=== PATIENT | female | born 1990 | race Caucasian/White ===

== ENCOUNTER 2019-10-09 00:20 | Observation (INO) | payer BC, SELFPAY ==
[2019-10-09] VITALS (26 sets, daily range): BP systolic 77–127; BP diastolic 38–77; PULSE 54–110; RESP 18–23; TEMP 36.1–37.9; O2SAT 93–100
--- NOTE | ~2019-10-09 | US_ITS ---
EXAMINATION: US OB <=14 wk fetus w TV DATE: 10/09/2019 02:11 INDICATION: Pelvic pain. Beta-hCG is 26,698 mIU/mL. TECHNIQUE: Real-time transabdominal and transvaginal pelvic ultrasound was performed. COMPARISON: None. FINDINGS: TRANSABDOMINAL ULTRASOUND: The uterus measures 8.1 x 4.6 x 4.6 cm. TRANSVAGINAL ULTRASOUND: There is no visible intrauterine gestational sac. The endometrial complex me asures 1.7 cm in thickness. There is no visible intrauterine gestational sac. There is a 3.3 cm left adnexal mass. The right ovary measures 2.7 x 1.7 x 1.5 cm. The left ovary measures 3.0 x 2.3 x 3.3 cm . There is a small volume of echogenic free fluid in the pelvis with fluid/fluid level, likely hemope ritoneum. IMPRESSION: 1. 3.3 cm left adnexal mass suspicious for ectopic . Dr. Marte discussed this case with Dr Jose Mukherjee on 10/09/19 at 2:15 AM. 2. Small volume of hemoperitoneum. Reviewed, dictated and finalized at location A. K SELECTOR IMPRESSION: 1. 3.3 cm left adnexal mass suspicious for ectopic . Dr. Marte discu ssed this case with Dr. Mukherjee on 10/09/19 at 2:15 AM. 2. Small volume of hemoperitoneum.
--- NOTE | 2019-10-09 00:27 | ED.ABDPAIN ---
HPI - Abdominal Pain General Chief Complaint: Abdominal Pain Stated Complaint: abdo pain Time Seen by Provider: 10/09/19 00:24 Source: patient and RN notes reviewed Mode of arrival: ambulatory Limitations: no limitations History of Present Illness HPI narrative: Pt is a 29 y/o female who presents to the ED with c/o diffuse ABD pain starting roughly 1 hour ago. She notes that she believes she may be currently 3 weeks . Pt reports nausea, vomiting, and diaphoresis accompanying her pain, but denies any fever. She states that she hasn't taken any pain medications for her symptoms this evening. Pt notes that her LMP was 09/14/19. MD elicited complaint: abdominal pain Onset (ago): hour(s) (1) Location: diffuse Associated symptoms: nausea, vomiting and other (diaphoresis) Related Data Date of Last Menstrual Period: 09/14/19 Allergies Allergy/AdvReac Type Severity Reaction Status Date / Time No Known Allergies Allergy Verified 01/30/19 00:29 Review of Systems Review of Systems: All systems reviewed & are unremarkable except as noted in HPI and below Constitutional: Constitutional: Denies fever(s) Cardiovascular: Cardiovascular: Reports diaphoresis Gastrointestinal: Gastrointestinal: Reports abdominal pain (diffuse), Reports nausea and Reports vomiting PMFSH Past Medical History Medical History Asthma Bronchitis Pyelonephritis Surgical History Surgical History History of tonsillectomy Hx of cholecystectomy Social History Social History Smoking status: Never smoker Second hand tobacco smoke exposure: No Alcohol intake: never Exam Narrative: Exam Narrative: APPEARANCE: No acute distress, nontoxic, resting in bed HEENT: Normocephalic, atraumatic, OMM RESPIRATORY: No respiratory distress, clear to auscultation bilaterally with no rhonchi wheezing or rales CARDIOVASCULAR: RRR s murmur ABDOMINAL: Obese, soft, diffusely tender to palpation with positive rebound MUSCULOSKELETAl: Moves all extremities. No clubbing, cyanosis or edema. NEURO: Awake and alert. Following commands, speech normal, no focal deficits SKIN:: Warm, dry. Normal Color PSYCHIATRIC: Normal affect/mood Course Course Emergency Course: Discussed with patient results of ultrasound need for OR in agreement at this time Just prior to patient being transferred down to the OR patient again had episode of pain. Patient became diaphoretic blood pressure dropped into the 70s systolically. At that time liter of normal saline was started on the patient. I called and updated Dr. Prakash patient's change as well as discussed with anesthesiology who are all in house at this time. Patient will proceed to the OR at this time Reevaluation(s) Date: 10/09/19 Time: 02:40 Reevaluation #2: Dr. Prakash in the emergency department to evaluate patient Consultations Consultation #1: Discussed case with CAREER DEVELOPMENT ASSOCIATE, Dr. Prakash. Get the US and then give her a call back. Date: 10/09/19 Time: 00:50 Consultation #2: Discussed case again with CAREER DEVELOPMENT ASSOCIATE, Dr. Prakash. Reviewed US results.Will come in and take the pt to the OR. Date: 10/09/19 Time: 02:19 Vital Signs Vital signs: Vital Signs Temperature 98.9 F 10/09/19 00:26 Pulse Rate 80 10/09/19 00:26 Respiratory Rate 18 10/09/19 00:26 Blood Pressure 96/38 L 10/09/19 00:26 Pulse Oximetry 96 10/09/19 00:26 Temperature 98.9 F 10/09/19 00:26 Pulse Rate 81 10/09/19 03:15 Respiratory Rate 20 10/09/19 03:15 Blood Pressure 77/52 L 10/09/19 03:15 Pulse Oximetry 98 10/09/19 03:15 MDM - Abdominal Pain Lab Data Result diagrams: 10/09/19 00:53 10/09/19 00:53 Labs: Lab Results 10/09/19 10/09/19 10/09/19 Range/Units 00:53 00:53 00:53 WBC 13.5 H (4.5-10.0) K/mm3 RBC 3.96 L (4.2-5.4) M/mm3 Hgb 11.1 L (12.0-
[2019-10-09] MEDS: SODIUM CHLORIDE 0.9% IV 1,000 ML 999 ML IV CONT ×2 (00:37→01:28)
[2019-10-09 01:03] LABS: Basophils Percent Auto 0.3 % (0.2-1.2); Eosinophils Absolute Auto 0.2 K/mm3 (0-0.3); Eosinophils Percent Auto 1.6 % (0-4.4); Hematocrit 35.5 % (37.0-47.0); Hemoglobin 11.1 g/dL (12.0-15.0); Immature Granulocyte Absolute 0.06 K/mm3 (0.00-0.031); Immature Granulocyte Percent A 0.4 % (0-0.5); Lymphocytes Absolute Auto 3.29 K/mm3 (0.9-3.2); Lymphocytes Percent Auto 24.3 % (18.3-44.2); Mean Corpuscular HGB Conc 31.3 g/dl (32-36); Mean Corpuscular Volume 89.6 fl (80-100); Mean Platelet Volume 10.5 fl (7.4-10.4); Monocytes Absolute Auto 0.6 K/mm3 (0.1-0.6); Monocytes Percent Auto 4.1 % (2.6-8.5); Neutrophils Absolute Auto 9.4 K/mm3 (1.3-6.7); Neutrophils Percent Auto 69.3 % (45.5-73.1); Platelet Count Result 309 k/mm3 (150-375); Red Blood Count 3.96 M/mm3 (4.2-5.4); White Blood Count 13.5 K/mm3 (4.5-10.0)
[2019-10-09 01:12] LABS: Add Urine Microscopic? YES; Appearance Urine Clear (Clear); Bilirubin Urine Negative (Negative); Blood Urine 1+ (Negative); Color Urine Yellow (Yellow); Glucose Urine UA Negative (Negative); Ketones Urine Negative (Negative); Leukocyte Esterase Ur Negative LEU/UL (Negative); Mucus Urine Rare /lpf; Nitrate Urine Negative (Negative); Protein Urine 1+ mg/dL (Negative); Specific Grav Ur 1.014 (1.001-1.035); Squamous Epithelial Cell Urine Few /hpf (Few); Urobilinogen Urine Negative mg/dL (<2.0); WBC Urine 0-3 /hpf
[2019-10-09 01:18] LABS: Alanine Aminotransferase 11 U/L (4-35); Albumin Level 3.4 g/dL (3.5-5.1); Alkaline Phosphatase 61 U/L (38-126); Aspartate Amino Transferase 13 U/L (14-36); Bilirubin,Total 0.2 mg/dL (0.2-1.3); Blood Urea Nitrogen 9 mg/dL (7-17); Calcium 8.2 mg/dL (8.4-10.2); Carbon Dioxide 21 mmol/L (22-30); Chloride 103 mmol/L (98-107); Estimated CRCL calculation 109 ml/min; Estimated Glomerular Filt Rate > 60; Glucose 111 mg/dL (65-105); Lipase 115 U/L (23-300); Sodium 137 mmol/L (137-145)
--- NOTE | 2019-10-09 02:37 | WPDANESEPP ---
Anes - Eval Pre Procedure Procedure: diagnostic laparoscopy Date/Time: 10/09/19 02:37 Pre Op Diagnosis: abdo pain Patient Data Age: 29 Gender: F Height: 1.63 m Weight: 126.8 kg Last Vital Signs Temp 37.2 C 10/09/19 00:26 Pulse 73 10/09/19 01:28 Resp 18 10/09/19 01:28 BP 105/71 10/09/19 01:28 Pulse Ox 99 10/09/19 01:28 Allergies Allergy/AdvReac Type Severity Reaction Status Date / Time No Known Allergies Allergy Verified 01/30/19 00:29 Laboratory Tests 10/09/19 10/09/19 10/09/19 00:53 00:53 00:55 WBC 13.5 K/mm3 H K/mm3 (4.5-10.0) RBC 3.96 M/mm3 L M/mm3 (4.2-5.4) Hgb 11.1 g/dL L g/dL (12.0-15.0) Hct 35.5 % L % (37.0-47.0) MCV 89.6 fl fl (80-100) MCH 28.0 pg pg (26-34) MCHC 31.3 g/dl L g/dl (32-36) RDW 13.0 % % (11.5-14.5) Plt Count 309 k/mm3 k/mm3 (150-375) MPV 10.5 fl H fl (7.4-10.4) Immature Gran % (Auto) 0.4 % % (0-0.5) Neut % (Auto) 69.3 % % (45.5-73.1) Lymph % (Auto) 24.3 % % (18.3-44.2) Mcleod % (Auto) 4.1 % % (2.6-8.5) Eos % (Auto) 1.6 % % (0-4.4) Baso % (Auto) 0.3 % % (0.2-1.2) Lymph # (Auto) 3.29 K/mm3 H K/mm3 (0.9-3.2) Mcleod # (Auto) 0.6 K/mm3 K/mm3 (0.1-0.6) Eos # (Auto) 0.2 K/mm3 K/mm3 (0-0.3) Baso # (Auto) 0.0 K/mm3 K/mm3 (0.0-0.1) Abs Immat Gran (auto) 0.06 K/mm3 H K/mm3 (0.00-0.031) Absolute Neuts (auto) 9.4 K/mm3 H K/mm3 (1.3-6.7) Absolute Nucleated RBC 0.0 K/mm3 K/mm3 (0.0-0.012) Nucleated RBC % 0.0 % % (0.0-0.2) Sodium 137 mmol/L mmol/L (137-145) Potassium 4.0 mmol/L mmol/L (3.4-5.0) Chloride 103 mmol/L mmol/L (98-107) Carbon Dioxide 21 mmol/L L mmol/L (22-30) BUN 9 mg/dL mg/dL (7-17) Creatinine 0.90 mg/dL mg/dL (0.7-1.0) Estim Creat Clear Calc 109 ml/min ml/min Estimated GFR > 60 (59 - ) Glucose 111 mg/dL H mg/dL (65-105) Calcium 8.2 mg/dL L mg/dL (8.4-10.2) Total Bilirubin 0.2 mg/dL mg/dL (0.2-1.3) AST 13 U/L L U/L (14-36) ALT 11 U/L U/L (4-35) Alkaline Phosphatase 61 U/L U/L (38-126) Total Protein 7.0 g/dL g/dL (6.3-8.2) Albumin 3.4 g/dL L g/dL (3.5-5.1) Lipase 115 U/L U/L (23-300) Beta HCG, Quant 79365.00 mIU/ML mIU/ML Urine Color Yellow (Yellow) Urine Appearance Clear (Clear) Urine pH 6.0 (5.0-9.0) Ur Specific [place] 1.014 (1.001-1.035) Urine Protein 1+ mg/dL H mg/dL (Negative) Urine Glucose (UA) Negative mg/dL mg/dL (Negative) Urine Ketones Negative mg/dL mg/dL (Negative) Ur Blood (Man) 1+ H (Negative) Urine Nitrate Negative (Negative) Urine Bilirubin Negative (Negative) Urine Urobilinogen Negative mg/dL mg/dL (<2.0) Leukocyte Esterase Rfl Negative MODESTA/UL MODESTA/UL (Negative) Urine RBC 3-5 /hpf H /hpf (0-2) Urine WBC 0-3 /hpf /hpf Ur Squamous Epith Cells Few /hpf /hpf (Few) Urine Mucus Rare /lpf /lpf Patient hx anesthesia problems: none Family hx anesthesia problems: none [facility] Past Medical History Medical History Asthma Bronchitis Pyelonephritis Surgical History Surgical History History of tonsillectomy Hx of cholecystectomy Social History Social History Smoking status: Never smoker Second hand tobacco smoke exposure: No Alcohol intake: never Exam Day of Procedure 10/09/19 02:37
--- NOTE | 2019-10-09 02:50 | PM.IMHP ---
H&P: HPI History of Present Illness Chief complaint: abdo pain Narrative: Alexander Sawant is a 29 year old female with sudden onset of abdominal pain 1 hour prior to presenting to ER. Patient states normal cycles q month with no missed cycles. Pelvic u/s shows Left adnexal mass, empty uterus, and free fluid. [facility] [place] [id number]. Reviewed with patient and sig. other most likely a ruptured ectopic and need to go to OR for surgery. Discussed risks of laparoscopy including infection, bleeding, and injury to organs. Reviewed possible need for removal of tube and/or ovary. Discussed possible need for exploratory laparotomy. She voiced understanding and agrees to proceed. Review of Systems Gastrointestinal: Gastrointestinal: Reports nausea PMFSH Past Medical History Medical History Asthma Bronchitis Pyelonephritis Surgical History Surgical History History of tonsillectomy Hx of cholecystectomy Social History Social History Smoking status: Never smoker Second hand tobacco smoke exposure: No Alcohol intake: never Meds Home Medications and Allergies Allergies Allergy/AdvReac Type Severity Reaction Status Date / Time No Known Allergies Allergy Verified 01/30/19 00:29 Vital Signs Vital Signs - 24 hr 10/09/19 00:26 10/09/19 01:28 Temperature 98.9 F Pulse Rate 80 73 Respiratory Rate 18 18 Blood Pressure 96/38 L 105/71 Pulse Oximetry 96 99 Exam Const: General: uncomfortable (but not appearing in distress) Other: tearful GI: GI Palp: Yes Soft to palpation and Yes Tenderness to palpation present (GI) (generalized) H&P: Results Labs Labs: Short CBC 10/09/19 Range/Units 00:53 WBC 13.5 H (4.5-10.0) K/mm3 Hgb 11.1 L (12.0-15.0) g/dL Hct 35.5 L (37.0-47.0) % Plt Count 309 (150-375) k/mm3 BMP 10/09/19 00:53 Sodium 137 Potassium 4.0 Chloride 103 Carbon Dioxide 21 L BUN 9 Creatinine 0.90 Glucose 111 H Calcium 8.2 L Liver Function 10/09/19 Range/Units 00:53 Total Bilirubin 0.2 (0.2-1.3) mg/dL AST 13 L (14-36) U/L ALT 11 (4-35) U/L Alkaline Phosphatase 61 (38-126) U/L Albumin 3.4 L (3.5-5.1) g/dL Urine 10/09/19 Range/Units 00:55 Urine Color Yellow (Yellow) Urine Appearance Clear (Clear) Urine pH 6.0 (5.0-9.0) Ur Specific [place] 1.014 (1.001-1.035) Urine Protein 1+ H (Negative) mg/dL Urine Glucose (UA) Negative (Negative) mg/dL Assessment and Plan Assessment and plan (1) Ruptured left tubal ectopic causing hemoperitoneum: Onset Date: ~10/09/19 Code(s): O00.102 - Left tubal without intrauterine ; K66.1 - Hemoperitoneum Status: Acute Assessment and Plan: Given all findings, most likely left tubal that has ruptured. Plan to proceed with laparoscopic management once team available.
[2019-10-09] MEDS: ONDANSETRON INJ 4 MG/2 ML VIAL IV PUSH (03:36)
--- NOTE | 2019-10-09 03:36 | PC.NURSE ---
Pt taken to surgery at this time.
[2019-10-09] MEDS: LACTATED RINGERS 1,000 ML 30 ML IV CONT ×3 (03:50→10:00)
--- NOTE | 2019-10-09 04:56 | PM.OP ---
Procedure Note - Brief Procedure Note - Brief Date of procedure: 10/09/19 Pre-op diagnosis: abdo pain Left tubal ectopic ruptured Post-op diagnosis: same Procedure performed: laparoscopic partial salpingectomy Anesthesia: GETA Surgeon: Rosalinda Prakash MD Estimated blood loss (mL): 500 Drains: No Packing: No Pathology: yes (partial left tube and pieces of ectopic ) Complications: No immediate complications Condition: stable Disposition: PACU Findings: hemoperitoneum; tubal very near left cornua ruptured at mid distal portion; normal appearing ovaries and right tube
--- NOTE | 2019-10-09 06:53 | SUR.PHASEII ---
0635: Patient was extremely dizzy when we tried to transfer from stretcher to chair and said she felt as though she could passout. RN told patient to sit back on stretcher and lay down for a bit. Vitals were still consistent.
--- NOTE | 2019-10-09 07:23 | SUR.PHASEII ---
0700: Patient's family told RN that patient is slow to wake after surgery. Patient is arousable just drowsy.
--- NOTE | 2019-10-09 07:48 | SUR.PHASEII ---
0745: Patient requested more time to wake-up from anesthesia before being discharged home.
--- NOTE | 2019-10-09 09:34 | SUR.PHASEII ---
0830: Patient said she felt less sleepy and was ready to go home. RN checked her BP consecutively in multiple places and it was consistently 80s-90s/50s. Patient looked pale in the face and stated she felt very weak at this point. RN called QUAL[facility] WORKER and wanted to give fluids and meds to see if patient responded but IV infiltrated. 0910: Dr. Prakash paged for update.
[2019-10-09 10:24] LABS: Hematocrit 29.7 % (37.0-47.0); Hemoglobin 9.5 g/dL (12.0-15.0); Mean Corpuscular Hemoglobin 28.7 pg (26-34); Mean Corpuscular Volume 89.7 fl (80-100); Mean Platelet Volume 10.5 fl (7.4-10.4); Platelet Count Result 308 k/mm3 (150-375); Red Blood Count 3.31 M/mm3 (4.2-5.4); Red Cell Distribution Width 13.2 % (11.5-14.5); White Blood Count 14.5 K/mm3 (4.5-10.0)
--- NOTE | 2019-10-09 11:17 | PC.NURSE ---
This patient, Alexander Sawant, was received from OR recovery per wheelchair to room 289. Family oriented to unit policies and routines
--- NOTE | 2019-10-09 11:27 | OP_ITS ---
DATE OF PROCEDURE: 10/09/2019 PREOPERATIVE DIAGNOSIS: Ruptured ectopic tubal . POSTOPERATIVE DIAGNOSIS: Ruptured ectopic tubal . PROCEDURE: Partial left salpingectomy, laparoscopic. ANESTHESIA: General. FINDINGS: Upon entering the abdominal cavity, the entire pelvis and abdomen are full of clotted blood. After suctioning some of the blood, the left tube near the cornua is ruptured and ectopic is noted. The tube on the right appears normal and bilateral ovaries appear normal. ESTIMATED BLOOD LOSS: 500 cc plus what is remaining in the pelvic cavity. This is what was suctioned out during the case. No active bleeding occurred during the surgery. DESCRIPTION OF PROCEDURE: The patient was taken to the operating room, placed under anesthesia, prepped and draped in the usual sterile fashion in the dorsal lithotomy position. She was prepped and draped in usual sterile fashion. A red rubber catheter was used to drain the bladder. The bivalve speculum was placed in the vagina. Cervix was grasped on the anterior lip with a tenaculum and attempted to be sounded. This was not successful. The [place] manipulator was placed. The speculum was removed. The attention was turned to the abdomen. A vertical skin incision was made at the base of the umbilicus. The abdomen was tented and the long Veress needle was placed. Water drop test was normal. Opening patient pressure was 7 mmHg. Pneumoperitoneum was obtained to a patient pressure of 17. The long 5 mm Optiview was then placed. While tenting with pierced towel clamps, the 5 mm trocar was placed 2 cm above the symphysis pubis. Under direct visualization, the clots were attempted to be suctioned with a small suction, this was not very successful. Decision was made to put a 12 mm port in the left lower quadrant. This was placed under direct visualization. The large bore suction curette was used to remove some of the clots and allow visualization of the pelvic organs. The left tube was grasped with a grasper. The tube was excised using the Endo CECE stapler in several firings due to the anatomy of the ectopic being so close to the cornua. The ectopic was removed in pieces as well as the tube removed in pieces. The ectopic site and tubal site were irrigated and noted to be hemostatic. From the pelvis, again additional blood was suctioned out as much as possible. The site was again inspected and observed for several minutes no additional bleeding was noted. The HemaDerm was placed over the operative site. Again no bleeding was noted. All instruments were removed. The pneumoperitoneum was reduced. The skin incisions were closed using 4-0 Vicryl in a subcuticular fashion. Dermaflex was placed over the incision. The patient was awakened from anesthesia after the vaginal instruments were removed. Phill I MT: Justin
--- NOTE | 2019-10-09 11:43 | SUR.PHASEII ---
0900: Pain medicine for discharge ([place]) already picked up from pharmacy by family.
[2019-10-09] MEDS: MEPERIDINE HCL INJ 50 MG/ML AMPUL IM (12:34)
[2019-10-09] MEDS: DOCUSATE SODIUM 100 MG CAPSULE PO (20:41)
[2019-10-10] MEDS: ACETAMINOPHEN 325 MG TABLET 650 MG PO (00:09)
[2019-10-10 00:17] VITALS: BP 115/63; PULSE 96; RESP 18; TEMP 37.3; O2SAT 97
[2019-10-10 04:00] VITALS: BP 104/54; PULSE 98; RESP 18; TEMP 37.1; O2SAT 99
[2019-10-10 08:15] VITALS: BP 118/68; PULSE 123; RESP 18; TEMP 37.3; O2SAT 100
[2019-10-10 08:30] LABS: Hematocrit 26.2 % (37.0-47.0); Hemoglobin 8.4 g/dL (12.0-15.0); Mean Corpuscular HGB Conc 32.1 g/dl (32-36); Mean Corpuscular Hemoglobin 28.8 pg (26-34); Mean Corpuscular Volume 89.7 fl (80-100); Mean Platelet Volume 10.3 fl (7.4-10.4); Platelet Count Result 283 k/mm3 (150-375); Red Blood Count 2.92 M/mm3 (4.2-5.4); Red Cell Distribution Width 13.3 % (11.5-14.5); White Blood Count 13.4 K/mm3 (4.5-10.0)
--- NOTE | 2019-10-10 12:34 | P.PNOB_ITS ---
RECORDER HELPER SEISMOGRAPH - A/P Assessment and plan (1) Ruptured left tubal ectopic causing hemoperitoneum: Onset Date: ~10/09/19 Code(s): O00.102 - Left tubal without intrauterine ; K66.1 - Hemoperitoneum Status: Acute Assessment and Plan: s/p partial salpingectomy laparoscopic Doing well. DC home. Postoperative Procedures: Procedures Operation Date: 10/09/19 02:45 Actual Procedures Side Surgeon p Diagnostic Laparoscopy, Left Salpingectomy Left Rosalinda Prakash MD Time Spent With Patient Time: Total time spent is greater than 50% in coordination of care (as documented) at patient's floor/unit and/or counseling patient: Time with patient: less than 15 minutes RECORDER HELPER SEISMOGRAPH- PN:Subj Post-Op Subjective Date/time seen: 10/10/19 12:34 Subjective: patient reports feeling better and pain is well controlled Exam GI: Other: inc c/d/i RECORDER HELPER SEISMOGRAPH - PN: Obj Data Vital Signs Vital Signs: Vital Signs - 24 hr 10/09/19 15:00 10/09/19 18:46 10/09/19 19:50 Temperature 100.2 F H 99.2 F Pulse Rate 86 110 H Respiratory Rate 18 Blood Pressure 124/67 125/67 Pulse Oximetry 10/10/19 00:17 10/10/19 04:00 10/10/19 08:15 Temperature 99.2 F 98.7 F 99.1 F Pulse Rate 96 98 123 H Respiratory Rate 18 18 18 Blood Pressure 115/63 104/54 L 118/68 Pulse Oximetry 97 99 100 Intake/Output Intake/Output: Intake & Output 10/07/19 10/08/19 10/09/19 10/10/19 23:59 23:59 23:59 23:59 Intake Total 5000 400 Output Total 1000 500 Balance 4000 -100 Meds/Results Medications: Active Medications Generic Name Dose Route Start Last Admin Trade Name Freq PRN Reason Stop Dose Admin Acetaminophen 650 mg 10/10/19 00:01 10/10/19 00:09 Tylenol Tablet PO 650 mg Q4H PRN Administration Headache Hydrocodone Bitart/Acetaminophen 1 tab 10/09/19 10:28 10/10/19 08:38 [place] 5-325 Mg PO 1 tab Q4H PRN Administration Pain Rated 4-6 Docusate Sodium 100 mg 10/09/19 21:00 10/09/19 20:41 Colace Capsule PO 100 mg Q12H PRN Administration Constipation Lactated Ringer's 1,000 mls @ 100 mls/hr 10/09/19 09:10 10/09/19 14:35 Lr - Lactated Ringers Iv IV CONT Infused .Q10H DANAE Infusion Radiology Results: ITS Impressions Obstetrics Ultrasound 10/09/19 08:17 IMPRESSION: 1. 3.3 cm left adnexal mass suspicious for ectopic . Dr. Marte discussed this case with Dr. Mukherjee on 10/09/19 at 2:15 AM. 2. Small volume of hemoperitoneum. Labs CBC & Chem 7: 10/10/19 08:23 10/09/19 00:53 Labs: Laboratory Results - last 24 hr 10/10/19 08:23 WBC 13.4 H RBC 2.92 L Hgb 8.4 L Hct 26.2 L MCV 89.7 MCH 28.8 MCHC 32.1 RDW 13.3 Plt Count 283 MPV 10.3
--- NOTE | 2019-10-10 12:35 | PM.DS ---
DS: Diagnosis Admitting Diagnosis Admitting Diagnosis: Left tubal without intrauterine Discharge Diagnosis (1) Ruptured left tubal ectopic causing hemoperitoneum: Onset Date: ~10/09/19 Code(s): O00.102 - Left tubal without intrauterine ; K66.1 - Hemoperitoneum Status: Acute DS: Summary Time Spent with Patient Time attestation: Total time spent providing and/or coordinating discharge services: DS: Data Data Completed and Pending Pending studies at discharge: Pending at discharge 10/09/19 04:17 Surgical [PTH] Routine Labs on day of discharge: Labs from last 24 hours 10/10/19 08:23 WBC 13.4 H RBC 2.92 L Hgb 8.4 L Hct 26.2 L MCV 89.7 MCH 28.8 MCHC 32.1 RDW 13.3 Plt Count 283 MPV 10.3 Discharge Plan Discharge Attending physician on discharge: Rosalinda Prakash Discharging Clinician: Rosalinda Prakash Patient Disposition: Home, Self-Care Activity: may shower, no driving and pelvic rest Diet: regular Wound Care Instructions: incision open to air Discharge Instructions: Some Complications to Watch for: ? Excessive incisional or vaginal drainage (more than on pad an hour). Additional Instructions: ? Expect some vaginal spotting for 2-4 days. ? Nothing vaginally (i.e. douching, intercourse, tampons) until follow up visit. Tylenol given at 1am. No tylenol until at least 7am today. (10-09-2019) Stand Alone Forms: General Discharge Instructions Follow-up/Referrals: Rosalinda Prakash MD [Physician] - 1 Week Discharge Orders: Outpatient Surgery Discharge (Routine); Ordered 10/09/19 Ordered By: Rosalinda Prakash Discharge Medications: New hydrocodone-acetaminophen 5-300 mg tablet 1 tablet PO Q4H PRN (Reason: pain) Qty: 20 RF: 0 ferrous sulfate 325 mg (65 mg iron) tablet 325 mg PO BID Qty: 60 RF: 0 Date of admission: 10/10/19 11:54 Primary Care Provider: Adrienne Contreras Admitting Provider: Rosalinda Prakash Attending physician on admission: Rosalinda Prakash Condition: Stable
--- NOTE | 2019-10-10 20:50 | PC.NURSE ---
1450 Pt discharged home at this time in apparent stable condition. Discharge instructions reviewed and pt voiced understanding. Pt tearful off and on today; her as well. Talks easily about her emotions, and the shock of what has happened, need for surgery, and the loss of their baby. Share program and support presented to pt and her . Discussed commons feelings of grief after loss. Folder of written information about Share and grief after the loss of a baby presented to them for home reference. Pt signed the Share consent for f/u once she is at home.
== END 2019-10-10 14:50 | disposition home or self-care (01) ==
LOC: ANHED 01:33 → ANHSURGERY 02:48 → ANHED 02:49 → ANHSURGERY 02:50 → ANHOB2 10:41 → ANHSURGERY 10-10 12:06 → ANHOB2 10-10 12:06
PROVIDERS: Admitting Provider Obstetrics & Gynecology Gynecology; Emergency Provider Emergency Medicine; PCP Family Medicine; Visit Provider Obstetrics & Gynecology Gynecology
PROC: (CPT 49320; principal; 2019-10-09 02:45)
DX: O00.102 Left tubal pregnancy without intrauterine pregnancy (principal); K66.1 Hemoperitoneum
CPT/HCPCS: 59151; 36415; 76801; 76817; 80053; 81001; 81025; 83690; 84702; 85025; 85027; 86850; 86900; 86901; 88302; 88305; 96365; 99199; 99285; A9270; G0378; J0131; J0330; J1100; J2175; J2250; J2405; J2704; J2710; J3010; J7030; J7120

== ENCOUNTER 2020-02-29 16:01 | Outpatient (CLI) | payer BC, SELFPAY ==
--- NOTE | ~2020-02-29 | XR_ITS ---
XR foot RT min 3V DATE: 02/29/2020 16:15 INDICATION: Right foot pain TECHNIQUE: 4 views COMPARISON: None FINDINGS: There is slight plantar calcaneal enthesopathy. No fracture or dislocation, periosteal reaction or bone destruction. IMPRESSION: Slight plantar calcaneal enthesopathy Reviewed, dictated and finalized at location B.
== END 2020-02-29 16:02 | disposition home or self-care (01) ==
LOC: ANHIMG 16:04
PROVIDERS: PCP Family Medicine; Visit Provider Physician Assistant
DX: M77.31 Calcaneal spur, right foot (principal)
CPT/HCPCS: 73630

== ENCOUNTER 2020-03-08 17:04 | Observation (INO) | payer BC, SELFPAY ==
--- NOTE | ~2020-03-08 | XR_ITS ---
XR abdomen/kub 1V 03/08/2020 21:01 Indication: Left flank pain Procedure: KUB Comparison: CT dated 03/08/2020 Findings: There is a standing column of contrast in the left renal collecting system and ureter to th e level of the UVJ. There is contrast in the left kidney, consistent with obstruction. There is contr ast in the bladder. Small amount of contrast in the right renal collecting system. Bowel gas pattern is nonobstructive. Impression: 1: Standing column of contrast in the left renal collecting system and ureter, consistent with obstru ction. Reviewed, dictated and finalized at location A. Impression: 1: Standing column of contrast in the left renal collecting system and ureter, consistent with obstruction.
--- NOTE | ~2020-03-08 | CT_ITS ---
EXAMINATION: CT abdomen pelvis w con DATE: 03/08/2020 20:09 INDICATION: Flank pain. TECHNIQUE: Computed tomography (CT) of the abdomen and pelvis was performed with 100 cc Omnipaque 350 intravenous contrast. The dose-length product was 1375.02 mGy-cm. Automated exposure control and ite rative reconstruction technique were employed. COMPARISON: None. FINDINGS: Lung bases unremarkable. Heart size normal. No significant pleural or pericardial effusion. Status post cholecystectomy. No significant vascular abnormality. The liver, spleen, pancreas, adrena l glands are unremarkable. There is a 5 mm distal left ureteral stone near the UVJ with mild hydronep hrosis. Fat-containing umbilical hernia. There is nonobstructing right renal stone. Nonobstructive maria e wel gas pattern. No abnormal pelvic masses or fluid collections. IMPRESSION: 1. 5 mm distal left ureteral stone near the UVJ with mild hydronephrosis. 2: Nonobstructing right nephrolithiasis. Reviewed, dictated and finalized at location A.
--- NOTE | ~2020-03-08 | XR_ITS ---
EXAMINATION: XR retrograde pyelo w/stent LT DATE: 03/09/2020 14:20 INDICATION: Left ureteral stone. TECHNIQUE: 6 intraoperative fluoroscopic views of the abdomen and pelvis were obtained. I was not pre sent. Fluoroscopy exposure time was 22 seconds. COMPARISON: CT abdomen and pelvis 03/08/2020 FINDINGS: The left-sided retrograde pyelogram is unremarkable. The final images demonstrate a left in ternal ureteral stent in expected position. IMPRESSION: 1. Left internal ureteral stent in expected position. Reviewed, dictated and finalized at location A.
[2020-03-08 17:54] VITALS: BP 150/105; PULSE 102; RESP 22; TEMP 37.3; O2SAT 99
[2020-03-08 18:09] LABS: Basophils Absolute Auto 0.1 K/mm3 (0.0-0.1); Basophils Percent Auto 0.4 % (0.2-1.2); Eosinophils Absolute Auto 0.3 K/mm3 (0-0.3); Eosinophils Percent Auto 1.8 % (0-4.4); Hematocrit 43.5 % (37.0-47.0); Immature Granulocyte Absolute 0.06 K/mm3 (0.00-0.031); Immature Granulocyte Percent A 0.4 % (0-0.5); Lymphocytes Absolute Auto 3.17 K/mm3 (0.9-3.2); Lymphocytes Percent Auto 22.4 % (18.3-44.2); Mean Corpuscular HGB Conc 32.2 g/dl (32-36); Mean Corpuscular Hemoglobin 27.3 pg (26-34); Mean Platelet Volume 10.2 fl (7.4-10.4); Monocytes Absolute Auto 0.7 K/mm3 (0.1-0.6); Monocytes Percent Auto 4.9 % (2.6-8.5); Neutrophils Absolute Auto 9.9 K/mm3 (1.3-6.7); Neutrophils Percent Auto 70.1 % (45.5-73.1); Platelet Count Result 401 k/mm3 (150-375); Red Blood Count 5.12 M/mm3 (4.2-5.4); White Blood Count 14.1 K/mm3 (4.5-10.0)
[2020-03-08 18:21] LABS: Anion Gap 14.8 mmol/L (7-16); Blood Urea Nitrogen 12 mg/dL (7-17); Calcium 9.9 mg/dL (8.4-10.2); Carbon Dioxide 26 mmol/L (22-30); Chloride 102 mmol/L (98-107); Estimated CRCL calculation 129 ml/min; Estimated Glomerular Filt Rate > 60; Glucose 83 mg/dL (65-105); Potassium 3.8 mmol/L (3.4-5.0); Sodium 139 mmol/L (137-145)
--- NOTE | 2020-03-08 18:42 | ED.BACK ---
HPI - Back Pain/Injury General Chief Complaint: Back Pain/Injury Stated Complaint: think i have a kidney stone Time Seen by Provider: 03/08/20 18:42 Source: patient and family Mode of arrival: ambulatory Limitations: no limitations History of Present Illness HPI Narrative: Patient is a 30-year-old female who presents for evaluation of left-sided abdominal pain. Patient reports acute onset of pain approximately 3 PM this afternoon while the patient was at work. Patient reports sharp, shooting pain in the left flank that radiates to the left abdomen. No dysuria, hematuria or vaginal bleeding. No vaginal discharge. No new sexual partners. Patient is sexually active only with her , monogamous relationship. Patient denies fever chills, she reports nausea without emesis. There is a family history of kidney stones. No known history of kidney stones in this patient. No recent falls or injury. No chest pain or shortness of breath. Movement seems to exacerbate the pain, rest seems to improve the pain. Related Data Allergies Allergy/AdvReac Type Severity Reaction Status Date / Time No Known Allergies Allergy Verified 02/29/20 15:52 Review of Systems Review of Systems: Narrative: cONSTITUTIONAL: Denies fever, chills, or sweats. EYES: Denies visual changes, redness, or discharge. ENT: Denies rhinorrhea, congestion, sore throat, or otalgia. CARDIOVASCULAR: Denies chest pain, palpitations, or edema. RESPIRATORY: Denies cough or dyspnea. GASTROINTESTINAL:Reports abd pain, left flank pain GENITOURINARY: Denies dysuria or hematuria. SKIN: Denies rash or itching. MUSCULOSKELETAL: Denies back pain, joint pain, or myalgia. NEUROLOGIC: Denies headache, numbness, or weakness. PSYCHIATRIC: Denies anxiety or depression. [facility] Social History Social History Smoking status: Never smoker Second hand tobacco smoke exposure: No Alcohol intake: never Gender identity (if verbalized by the patient): Female Exam Narrative: Exam Narrative: GENERAL: Awake, alert, conversant HEAD: Normocephalic, atraumatic. EYES: PERRLA and EOMI. ENT: Nares clear, no rhinorrhea or epistaxis. Mucous membranes moist. NECK: Supple. CHEST: No respiratory distress, breathing even and non labored HEART: Regular rate, sinus rhythm ABDOMEN:Non distended, tender in left flank area tender left flank, positive left CVA tenderness, mild left lower quadrant tenderness, no rebound, nonrigid, abdomen is obese EXTREMITIES: Normal range of motion. No edema. SKIN: Warm, dry, no rash. NEURO:No focal deficits. Alert and oriented x3 Course Vital Signs Vital signs: Vital Signs Temperature 37.3 C 03/08/20 17:54 Pulse Rate 102 H 03/08/20 17:54 Respiratory Rate 22 H 03/08/20 17:54 Blood Pressure 150/105 H 03/08/20 17:54 Pulse Oximetry 99 03/08/20 17:54 Temperature 37.3 C 03/08/20 17:54 Pulse Rate 102 H 03/08/20 17:54 Respiratory Rate 22 H 03/08/20 17:54 Blood Pressure 150/105 H 03/08/20 17:54 Pulse Oximetry 99 03/08/20 17:54 MDM - Back Pain/Injury MDM Narrative Medical decision making narrative: Pt presents with left flank pain. Vital signs stable. Pt with pain quite difficult to control. No UTI. Leukocytosis likely given pain. This is patient's first stone. REquired numerous doses of IV pain meds due to intractable pain. Adam consulted, will admit patient. Patient made NPO overnight. Differential Diagnosis Differential diagnosis: Likely lumbar radiculopathy, strain of lumbar region, renal colic and thoracic back pain Medical Records Attestation: I reviewed the patient's medical records. Lab Data Attestation: I reviewed the patient's lab results. Result diagrams: 03/08/20 18:02 03/08/20 18:02 Labs: Lab Results 03/08/20 03/08/20 03/08/20 Range/Units 18:02 18:02 20:09 WBC 14.1 H (4.5-10.0) K/mm3 RBC 5.12 (4.2-5.4) M/mm3 Hgb 14.0
[2020-03-08] MEDS: MORPHINE SULFATE 4 MG/ML INJ IV PUSH ×2 (18:56→23:28)
[2020-03-08] MEDS: ONDANSETRON INJ 4 MG/2 ML VIAL IV PUSH (18:56)
[2020-03-08] MEDS: SODIUM CHLORIDE 0.9% IV 1,000 ML 999 ML IV CONT (18:57)
[2020-03-08 20:21] LABS: Add Urine Microscopic? YES; Appearance Urine Clear (Clear); Bacteria Urine Trace /hpf; Bilirubin Urine Negative (Negative); Blood Urine 2+ (Negative); Color Urine Straw (Yellow); Glucose Urine UA Negative (Negative); Ketones Urine Negative (Negative); Leukocyte Esterase Ur Negative LEU/UL (Negative); Nitrate Urine Negative (Negative); Protein Urine Negative (Negative); RBC Urine 0-2 /hpf (0-2); Specific Grav Ur 1.008 (1.001-1.035); Squamous Epithelial Cell Urine Few /hpf (Few); Urobilinogen Urine Negative mg/dL (<2.0); WBC Urine 0-3 /hpf
[2020-03-08 22:00] VITALS: BP 143/92; PULSE 73; RESP 16; TEMP 36.6; O2SAT 100
[2020-03-08 23:00] VITALS: BP 135/77; PULSE 74; RESP 20; TEMP 36.6; O2SAT 100
[2020-03-08 23:08] VITALS: BMI 54.3
[2020-03-08] MEDS: LACTATED RINGERS 1,000 ML 125 ML IV CONT (23:27)
[2020-03-09] VITALS (7 sets, daily range): BP systolic 106–144; BP diastolic 61–89; PULSE 68–85; RESP 12–20; TEMP 36.3–36.9; O2SAT 95–100
--- NOTE | 2020-03-09 03:21 | PC.NURSE ---
This patient, Alexander Sawant, was admitted to 3 [facility] Surg Room 313-01. Patient/family oriented to hospital policies and general routines including ID bracelet, bed and alarms, visiting hours, pain management, procedures, bathroom and other care routines, personal items, smoking policy, room service/diet, and visiting hours. Valuables list has been completed. Information on how to activate the Rapid Response Team has been discussed. Patient/Family are encouraged to report perceived risks to care and to ask questions if they do not understand what they are told or what they should do.
[2020-03-09] MEDS: ONDANSETRON INJ 4 MG/2 ML VIAL IV PUSH (04:55)
[2020-03-09] MEDS: MORPHINE SULFATE 4 MG/ML INJ IV PUSH ×2 (04:55→09:04)
[2020-03-09] MEDS: LACTATED RINGERS 1,000 ML 125 ML IV CONT (05:01)
--- NOTE | 2020-03-09 09:04 | WPDURCON ---
Assessment and Plan Assessment and plan (1) Renal colic on left side: Code(s): N23 - Unspecified renal colic Status: Acute Assessment and Plan: Keep NPO. Strain all Urine. Plan to go to the OR today: Cystoscopy, left ureteroscopy with stone extraction, possible left ureteral stent placement, possible holmium laser, retrograde pyelogram. Obtain Consent. Urology Consult Note HPI Date Seen: 03/09/20 Requesting Physician: Faheem Medina MD Primary Care Provider: Adrienne Contreras MD Consult Narrative Narrative: Alexander Sawant is a 30 year old female who presented to the ER last evening after work. She began to have acute onset of left flank pain that radiated to the LLQ. She also c/o nausea, but denies vomiting, dysuria, hematuria, frequency or urgency to urinate. She denies a previous history of stones, but states that her father and sister have a history of kidney stones. She has a WBC of 14.1 and a creatinine of 0.70, UA shows only 2+ blood and is not suspicous for a UTI. CT scan shows a 5mm left distal ureteral stone in the UVJ with mild hydronephrosis, as well as a right renal non obstructive stone. KUB shows delayed contrast clearance in the left ureter indicating an obstruction from the stone. Review of Systems Cardiovascular: Cardiovascular: Denies chest pain Respiratory: Respiratory: Reports no additional respiratory complaints Gastrointestinal: Gastrointestinal: Reports abdominal pain, Reports nausea and Denies vomiting Genitourinary: Genitourinary: Denies hematuria, Reports pelvic pain, Reports flank pain and Denies urinary urgency [facility] Past Medical History Medical History Asthma Bronchitis Pyelonephritis Ruptured left tubal ectopic causing hemoperitoneum (~10/09/19) Surgical History Surgical History History of tonsillectomy Hx of cholecystectomy Family History Family History Mother Hypertension Father Diabetes mellitus Kidney calculi Social History Social History Smoking status: Never smoker Second hand tobacco smoke exposure: No Alcohol intake: never Substance use: never Substance use type: does not use Gender identity (if verbalized by the patient): Female Spiritual care concerns: No Agree to blood products: Yes Meds Home Medications and Allergies Home Medications Medication Instructions Recorded Confirmed Type meloxicam 15 mg tablet 15 mg PO DAILY #30 tablet 02/29/20 03/09/20 Rx montelukast 10 mg PO HS 03/09/20 03/09/20 History Allergies Allergy/AdvReac Type Severity Reaction Status Date / Time No Known Allergies Allergy Verified 02/29/20 15:52 Vital Signs Vital Signs - 24 hr 03/08/20 17:54 03/08/20 22:00 03/08/20 23:00 Temperature 99.2 F 98 F 97.9 F Pulse Rate 102 H 73 74 Respiratory Rate 22 H 16 20 Blood Pressure 150/105 H 143/92 H 135/77 Pulse Oximetry 99 100 100 03/09/20 05:01 Temperature 97.4 F L Pulse Rate 68 Respiratory Rate 18 Blood Pressure 122/66 Pulse Oximetry 98 Exam Resp: Effort & Inspection: normal respiratory effort Cardio: Rate: regular rate GI: GI Palp: Yes Soft to palpation and Yes Tenderness to palpation present (GI) : General: Yes CVA tenderness on the left Extrem: General: no edema Results Labs CBC & Chem 7: 03/08/20 18:02 03/08/20 18:02 Labs: Short CBC 03/08/20 Range/Units 18:02 WBC 14.1 H (4.5-10.0) K/mm3 Hgb 14.0 D (12.0-15.0) g/dL Hct 43.5 (37.0-47.0) % Plt Count 401 H (150-375) k/mm3 BMP 03/08/20 18:02 Sodium 139 Potassium 3.8 Chloride 102 Carbon Dioxide 26 BUN 12 Creatinine 0.70 Glucose 83 Calcium 9.9 Urine 03/08/20 Range/Units 20:09 Urine Color Straw
--- NOTE | 2020-03-09 12:50 | PC.NURSE ---
To OR via stretcher.
[2020-03-09] MEDS: LACTATED RINGERS 1,000 ML 30 ML IV CONT (13:00)
--- NOTE | 2020-03-09 13:39 | WPDANESEPPF ---
Anes - Initial Pre Proc Eval Procedure: Operation Date: 03/09/20 14:00 Proposed Procedures p Cystoscopy, Left Ureteroscopy, Left Retrograde Pyelogram, Left Stone Extraction, Possible Left Stent Placement, - Faheem Medina MD s Possible Holmium Laser Procedure - Faheem Medina MD Date/Time: 03/09/20 13:39 Surgeon: Faheem Medina MD Pre Op Diagnosis: Left renal colic Patient Data Age: 30 Gender: F Height: 5 ft 1 in Weight: 130.4 kg Last Vital Signs Temp 97.4 F L 03/09/20 05:01 Pulse 68 03/09/20 05:01 Resp 18 03/09/20 05:01 BP 122/66 03/09/20 05:01 Pulse Ox 98 03/09/20 05:01 Allergies Allergy/AdvReac Type Severity Reaction Status Date / Time No Known Allergies Allergy Verified 03/09/20 13:34 Home Medications Medication Instructions Recorded Confirmed Type meloxicam 15 mg tablet 15 mg PO DAILY #30 tablet 02/29/20 03/09/20 Rx montelukast 10 mg PO HS 03/09/20 03/09/20 History Laboratory Tests 03/08/20 03/08/20 03/08/20 18:02 18:02 20:09 WBC 14.1 K/mm3 H K/mm3 (4.5-10.0) RBC 5.12 M/mm3 M/mm3 (4.2-5.4) Hgb 14.0 g/dL D g/dL (12.0-15.0) Hct 43.5 % % (37.0-47.0) MCV 85.0 fl fl (80-100) MCH 27.3 pg pg (26-34) MCHC 32.2 g/dl g/dl (32-36) RDW 15.0 % H % (11.5-14.5) Plt Count 401 k/mm3 H k/mm3 (150-375) MPV 10.2 fl fl (7.4-10.4) Immature Gran % (Auto) 0.4 % % (0-0.5) Neut % (Auto) 70.1 % % (45.5-73.1) Lymph % (Auto) 22.4 % % (18.3-44.2) Forest % (Auto) 4.9 % % (2.6-8.5) Eos % (Auto) 1.8 % % (0-4.4) Baso % (Auto) 0.4 % % (0.2-1.2) Lymph # (Auto) 3.17 K/mm3 K/mm3 (0.9-3.2) Forest # (Auto) 0.7 K/mm3 H K/mm3 (0.1-0.6) Eos # (Auto) 0.3 K/mm3 K/mm3 (0-0.3) Baso # (Auto) 0.1 K/mm3 K/mm3 (0.0-0.1) Abs Immat Gran (auto) 0.06 K/mm3 H K/mm3 (0.00-0.031) Absolute Neuts (auto) 9.9 K/mm3 H K/mm3 (1.3-6.7) Absolute Nucleated RBC 0.0 K/mm3 K/mm3 (0.0-0.012) Nucleated RBC % 0.0 % % (0.0-0.2) Sodium 139 mmol/L mmol/L (137-145) Potassium 3.8 mmol/L mmol/L (3.4-5.0) Chloride 102 mmol/L mmol/L (98-107) Carbon Dioxide 26 mmol/L mmol/L (22-30) Anion Gap 14.8 mmol/L mmol/L (7-16) BUN 12 mg/dL mg/dL (7-17) Creatinine 0.70 mg/dL mg/dL (0.7-1.0) Estim Creat Clear Calc 129 ml/min ml/min Estimated GFR > 60 (59 - ) Glucose 83 mg/dL mg/dL (65-105) Calcium 9.9 mg/dL mg/dL (8.4-10.2) Urine Color Straw (Yellow) Urine Appearance Clear (Clear) Urine pH 6.0 (5.0-9.0) Ur Specific Bradford 1.008 (1.001-1.035) Urine Protein Negative mg/dL mg/dL (Negative) Urine Glucose (UA) Negative mg/dL mg/dL (Negative) Urine Ketones Negative mg/dL mg/dL (Negative) Ur Blood (Man) 2+ H (Negative) Urine Nitrate Negative (Negative) Urine Bilirubin Negative (Negative) Urine Urobilinogen Negative mg/dL mg/dL (<2.0) Leukocyte Esterase Rfl Negative MODESTA/UL MODESTA/UL (Negative) Urine RBC 0-2 /hpf /hpf (0-2) Urine WBC 0-3 /hpf /hpf Ur Squamous Epith Cells Few /hpf /hpf (Few) Urine Bacteria Trace /hpf /hpf Patient hx anesthesia problems: none Family hx anesthesia problems: none PMFSH Past Medical History Medical History Asthma Bronchitis Pyelonephritis Ruptured left tubal ectopic causing hemoperitoneum (~10/09/19) Surgical History Surgical History History of tonsillectomy Hx of cholecystectomy Famil
[2020-03-09] MEDS: ceFAZolin 3 GM/D5W 100 ML 100 ML IVPB (14:00)
[2020-03-09] MEDS: LIDOCAINE HCL 2% GEL UROJET 10 ML PKG MUCOUS MEM (14:15)
--- NOTE | 2020-03-09 14:21 | P.OP_ITS ---
Procedure Note - Detailed Date of procedure: 03/09/20 Pre-op diagnosis: Left renal colic Post-op diagnosis: same (Left ureteral calculus 5-6 mm) Procedure performed: cystoscopy, left retrograde pyelogram, left ureteroscopy with stone extraction, left ureteral stent placement 4.8 Jamaican contour Description of procedure: patient was taken the operative suite and correctly identified. Once anesthesia was obtained she was placed in the dorsal lithotomy position and prepped and draped in the usual sterile fashion. Twenty-two Jamaican cystoscope was inserted in the bladder. There were no tumors noted. The left ureteral orifice was cannulated with a guidewire. We dilated with an 8/10 dilator. Rigid ureteral scope was then inserted into the orifice. The stone was visualized. An escape basket was used to retrieve the stone in its e ntirety. Reinspection revealed no residual stones however there is some edema in the distal ureter. We thus did a pyelogram to confirm placement of ureteral stent. A 4.8 Jamaican contour stent was then placed with the proximal end coiled in the renal pelvis and the distal in the bladder. Bladder was drained. 2% viscous lidocaine was inserted into the urethra and patient is taken recovery stable condition. she may be discharged home later today if doing well. She will follow up in a week's time for stent removal. Anesthesia: GLMA Surgeon: Faheem Medina MD Drains: Yes Packing: No Pathology: yes Complications: No immediate complications Condition: stable Disposition: no change
--- NOTE | 2020-03-09 15:15 | PC.NURSE ---
Back from OR via stretcher.
--- NOTE | 2020-04-25 14:11 | PM.DS ---
DS: Admitting Diagnosis Admitting Diagnosis Admitting Diagnosis: Left renal colic DS: Discharge Diagnosis Discharge Diagnosis (1) Renal colic on left side: Code(s): N23 - Unspecified renal colic Status: Acute Assessment and Plan: Patient is s/p cystoscopy, left retrograde pyelogram, left ureteroscopy with stone extraction, left ureteral stent placement 4.[address] Medina. Pre Op Diagnosis: left ureteral stone Post Op Diagnosis: left ureteral stone Patient tolerated procedure well, was transferred to recovery in stable condition, then to the floor for further observation. She will be discharged home with all previous home meds including antibiotics and Oxybutynin for possible stent pain. She will resume a regular diet, activity as tolerated and follow up in a week for stent removal. DS: Summary Time Spent with Patient Time attestation: Total time spent providing and/or coordinating discharge services: Exam Resp: Effort & Inspection: normal respiratory effort Cardio: Rate: regular rate GI: GI Palp: Yes Soft to palpation and No Tenderness to palpation present (GI) : General: Yes no CVA tenderness Extrem: General: no edema DS: Data Data Completed and Pending Completed studies during hospitalization: Pending at discharge 03/09/20 14:16 Surgical [PTH] Routine Discharge Plan Discharge Attending physician on discharge: Faheem Medina Consulting providers: Venkat Skaggs ; Elena Gomes ; Jerzy Tidwell V. Discharging Clinician: Elena Gomes Patient Disposition: Home, Self-Care Activity: december shower Diet: regular Discharge Instructions: Call for appointment next week with Dr. Medina to have stent removed. Patient Instructions: Antibiotic Form, Cystoscopy (DC), Ureteral Stent Placement (DC), Ureteroscopy (DC) Stand Alone Forms: General Discharge Information Follow-up/Referrals: Faheem Medina MD [Physician] - Discharge Medications: New ciprofloxacin HCl 500 mg tablet 500 mg PO Q12H 7 Days Qty: 14 RF: 0 oxybutynin chloride 5 mg tablet 5 mg PO TID 7 Days Qty: 21 RF: 0 Continued meloxicam 15 mg tablet 15 mg PO DAILY Qty: 30 RF: 0 montelukast 10 mg tablet 10 mg PO HS RF: 0 Date of admission: 03/08/20 21:27 Primary Care Provider: Adrienne Contreras Admitting Provider: Faheem Medina Discharge Date/Time: 03/09/20 17:45 Attending physician on admission: Faheem Medina Condition: Stable
== END 2020-03-09 17:45 | disposition home or self-care (01) ==
LOC: ANHED 21:33 → ANH3MEDSUR 22:12
PROVIDERS: Emergency Medicine; Admitting Provider Urology; Emergency Provider Emergency Medicine; PCP Family Medicine; Visit Provider Urology
PROC: (CPT 52352; principal; 2020-03-09 14:00)
DX: N20.1 Calculus of ureter (principal); N23 Unspecified renal colic; E66.01 Morbid (severe) obesity due to excess calories; Z68.43 Body mass index [BMI] 50.0-59.9, adult
CPT/HCPCS: 52352; 52332; 36415; 74018; 74177; 74420; 80048; 81001; 81025; 82365; 85025; 88300; 96361; 96365; 96375; 96376; 99285; A9270; C1769; C2617; G0378; J0131; J0330; J0690; J1100; J1170; J2250; J2270; J2405; J2704; J3010; J7030; J7120; Q9966; Q9967

== ENCOUNTER 2020-07-03 16:12 | Outpatient (CLI) | payer BC, SELFPAY ==
--- NOTE | ~2020-07-03 | US_ITS ---
EXAMINATION: US OB <=14 wk fetus w TV DATE: 07/03/2020 16:53 INDICATION: Early . History of ectopic . TECHNIQUE: Real-time transabdominal and transvaginal pelvic ultrasound was performed. COMPARISON: None. FINDINGS: TRANSABDOMINAL ULTRASOUND: The uterus measures 9.5 x 4.7 x 6.8 cm. TRANSVAGINAL ULTRASOUND: There is an intrauterine gestational sac with mean diameter of 7 mm a correl ates with an estimated gestational age of 5 weeks and 2 days +/- 3 days. A yolk sac is identified. No pole is yet visible. There is a 4.1 cm subserosal fibroid. The right ovary measures 3.9 x 2.8 x 2.5 cm. The left ovary is not visualized. There is no free fluid in the pelvis. IMPRESSION: 1. Single intrauterine gestation with estimated date of delivery of 03/03/2021. 2. 4.1 cm subserosal fibroid. Reviewed, dictated and finalized at location A. [employer]
== END 2020-07-03 16:13 | disposition home or self-care (01) ==
PROVIDERS: PCP Family Medicine; Visit Provider Obstetrics & Gynecology
DX: Z87.59 Personal history of other complications of pregnancy, childbirth and the puerperium (principal)
CPT/HCPCS: 76801; 76817

== ENCOUNTER 2021-01-29 16:36 | Outpatient (RCR) | payer BC, SELFPAY ==
--- NOTE | 2021-01-11 16:08 | PC.NURSE ---
Notified Dr. Carmona of reactive NST. Order to continue to monitor until 1 full hour of monitoring, if FHT still reactive patient may be discharged to home.
[2021-01-11 16:10] VITALS: BP 125/81; PULSE 117
[2021-01-18 16:33] VITALS: BP 129/74; PULSE 90
--- NOTE | ~2021-01-29 | US_ITS ---
EXAMINATION: US OB BPP wo non-stress DATE: 01/18/2021 16:42 CDT INDICATION: Extended monitoring TECHNIQUE: Real-time transabdominal obstetric ultrasound. FINDINGS: No prior studies for comparison. There is a single living fetus in vertex presentation. The placenta is fundal without placenta previ a. cardiac activity and movement is noted with a heart rate of 140 beats per minute. Biophysical profile: breathin of 2 movement: 2 of 2 tone: 2 of 2 Amniotic flud pocket: 2 of 2 Total score: 8 of 8 IMPRESSION: 1. Single living intrauterine in vertex presentation. 2: Total biophysical profile score of 8/8. Reviewed, dictated and finalized at location B.
[2021-01-29 17:34] VITALS: BP 136/82; PULSE 100
== END 2021-02-15 08:13 | disposition home or self-care (01) ==
LOC: ANHOBOP 16:36
PROVIDERS: PCP Family Medicine; Visit Provider Obstetrics & Gynecology
DX: O26.03 Excessive weight gain in pregnancy, third trimester (principal); Z3A.32 32 weeks gestation of pregnancy; Z3A.33 33 weeks gestation of pregnancy; Z3A.35 35 weeks gestation of pregnancy
CPT/HCPCS: 59025; 76819

== ENCOUNTER 2021-02-01 16:35 | Outpatient (CLI) | payer BC, SELFPAY ==
[2021-02-01] VITALS (8 sets, daily range): BP systolic 103–133; BP diastolic 57–81; PULSE 79–105
[2021-02-01 17:25] LABS: Basophils Percent Auto 0.2 % (0.2-1.2); Eosinophils Absolute Auto 0.1 K/mm3 (0-0.3); Eosinophils Percent Auto 0.6 % (0-4.4); Hematocrit 35.9 % (37.0-47.0); Hemoglobin 11.9 g/dL (12.0-15.0); Immature Granulocyte Absolute 0.11 K/mm3 (0.00-0.031); Immature Granulocyte Percent A 0.8 % (0-0.5); Lymphocytes Absolute Auto 2.07 K/mm3 (0.9-3.2); Lymphocytes Percent Auto 15.9 % (18.3-44.2); Mean Corpuscular HGB Conc 33.1 g/dl (32-36); Mean Corpuscular Hemoglobin 28.1 pg (26-34); Mean Corpuscular Volume 84.7 fl (80-100); Mean Platelet Volume 10.2 fl (7.4-10.4); Monocytes Absolute Auto 0.7 K/mm3 (0.1-0.6); Monocytes Percent Auto 5.2 % (2.6-8.5); Neutrophils Absolute Auto 10.1 K/mm3 (1.3-6.7); Neutrophils Percent Auto 77.3 % (45.5-73.1); Platelet Count Result 257 k/mm3 (150-375); Red Blood Count 4.24 M/mm3 (4.2-5.4); Red Cell Distribution Width 14.5 % (11.5-14.5); White Blood Count 13.1 K/mm3 (4.5-10.0)
[2021-02-01 17:31] LABS: Add Urine Microscopic? YES; Appearance Urine Cloudy (Clear); Bacteria Urine Trace /hpf; Bilirubin Urine Negative (Negative); Blood Urine 1+ (Negative); Color Urine Yellow (Yellow); Glucose Urine UA Negative (Negative); Ketones Urine Negative (Negative); Leukocyte Esterase Ur Trace LEU/UL (NEGATIVE); Nitrate Urine Negative (Negative); Protein Urine 1+ mg/dL (Negative); RBC Urine 0-2 /hpf (0-2); Squamous Epithelial Cell Urine Rare /hpf (Few); Urobilinogen Urine Negative mg/dL (<2.0); WBC Urine 0-3 /hpf (0-3)
[2021-02-01 17:41] LABS: Alanine Aminotransferase 10 U/L (4-35); Albumin Level 3.3 g/dL (3.5-5.1); Alkaline Phosphatase 136 U/L (38-126); Anion Gap 8 mmol/L (8-16); Aspartate Amino Transferase 15 U/L (14-36); Bilirubin,Total < 0.1 mg/dL (0.2-1.3); Blood Urea Nitrogen 7 mg/dL (7-17); Calcium 8.9 mg/dL (8.4-10.2); Carbon Dioxide 18 mmol/L (22-30); Chloride 111 mmol/L (98-107); Estimated Glomerular Filt Rate > 60; Glucose 79 mg/dL (65-105); Potassium 3.8 mmol/L (3.4-5.0); Sodium 137 mmol/L (137-145); Uric Acid 6.1 mg/dL (2.5-7.5)
[2021-02-01 18:10] LABS: Creatinine Urine 54.3 mg/dL; Total Protein Urine Random 16 mg/dL; Ur Ttl Prot Creatinine Ratio 0.29 mg/mg (0-0.20)
--- NOTE | 2021-02-01 19:30 | PC.NURSE ---
Dr. Anderson notified of protein creatinine ratio. Pt to be discharged with 24 hour urine to be completed at home.
== END 2021-02-01 20:23 | disposition home or self-care (01) ==
LOC: ANHOBOP 16:44 → ANHOBPP 02-06 06:16
PROVIDERS: PCP Family Medicine; Referring Provider Obstetrics & Gynecology; Visit Provider Obstetrics & Gynecology
DX: O13.3 Gestational [pregnancy-induced] hypertension without significant proteinuria, third trimester (principal); Z3A.28 28 weeks gestation of pregnancy
CPT/HCPCS: 36415; 59025; 80053; 81001; 82570; 84156; 84550; 85025; 87086; 99199

== ENCOUNTER 2021-02-02 20:30 | Outpatient (NON) | payer BC, SELFPAY ==
[2021-02-02 21:13] LABS: Collection Time Urine 24 HOURS
[2021-02-02 21:16] LABS: Total Volume 24 Hour Urine 2600 ml
[2021-02-02 21:35] LABS: Creatinine Urine 64.6 mg/dL; Total Protein Urine 24 Hr 468 mg/24hr (28-141); Total Protein Urine Random 18 mg/dL
[2021-02-02 21:38] LABS: Creatinine Clearance Urine 178.9 ml/min (75-125); Patient Weight 306 Lbs
== END 2021-02-02 20:31 | disposition home or self-care (01) ==
LOC: ANHOBOP 20:37
PROVIDERS: PCP Family Medicine; Visit Provider Obstetrics & Gynecology
DX: O13.9 Gestational [pregnancy-induced] hypertension without significant proteinuria, unspecified trimester (principal); Z3A.00 Weeks of gestation of pregnancy not specified
CPT/HCPCS: 81050; 82575; 84156

== ENCOUNTER 2021-02-10 15:37 | Inpatient (IN) | payer BC, SELFPAY ==
[2021-02-10] VITALS (15 sets, daily range): BP systolic 116–136; BP diastolic 70–86; PULSE 80–98; TEMP 36.5–36.6; BMI 57.9
--- NOTE | 2021-02-10 15:37 | LDADM ---
This patient, Alexander Sawant, was admitted to Labor/Delivery/Recovery 108 on 02/10/21 at 15:37. Plans for labor, pain management and were discussed with patient. Patient/family oriented to hospital policies and general routines including ID bracelet, bed and alarms, visiting hours, pain management, procedures, bathroom and other care routines, personal items, smoking policy, room service/diet and guest tray routines, security routines, and visiting hours. Patient/Family are encouraged to report perceived risks to care and to ask questions if they do not understand what they are told or what they should do. See OBIX for further documentation.
[2021-02-10] MEDS: DINOPROSTONE 10 MG VAG INSERT VAGINAL (16:39)
[2021-02-10 16:54] LABS: Basophils Percent Auto 0.2 % (0.2-1.2); Eosinophils Absolute Auto 0.1 K/mm3 (0-0.3); Eosinophils Percent Auto 1.1 % (0-4.4); Hematocrit 37.9 % (37.0-47.0); Hemoglobin 12.5 g/dL (12.0-15.0); Immature Granulocyte Absolute 0.11 K/mm3 (0.00-0.031); Immature Granulocyte Percent A 0.9 % (0-0.5); Lymphocytes Absolute Auto 2.17 K/mm3 (0.9-3.2); Lymphocytes Percent Auto 17.8 % (18.3-44.2); Mean Corpuscular Hemoglobin 28.5 pg (26-34); Mean Corpuscular Volume 86.3 fl (80-100); Mean Platelet Volume 10.4 fl (7.4-10.4); Monocytes Absolute Auto 0.5 K/mm3 (0.1-0.6); Monocytes Percent Auto 4.4 % (2.6-8.5); Neutrophils Absolute Auto 9.2 K/mm3 (1.3-6.7); Neutrophils Percent Auto 75.6 % (45.5-73.1); Platelet Count Result 291 k/mm3 (150-375); Red Blood Count 4.39 M/mm3 (4.2-5.4); White Blood Count 12.2 K/mm3 (4.5-10.0)
[2021-02-10 17:01] LABS: Alanine Aminotransferase 10 U/L (4-35); Albumin Level 3.4 g/dL (3.5-5.1); Alkaline Phosphatase 158 U/L (38-126); Anion Gap 9 mmol/L (8-16); Aspartate Amino Transferase 17 U/L (14-36); Bilirubin,Total 0.2 mg/dL (0.2-1.3); Blood Urea Nitrogen 7 mg/dL (7-17); Calcium 9.1 mg/dL (8.4-10.2); Carbon Dioxide 17 mmol/L (22-30); Chloride 109 mmol/L (98-107); Estimated CRCL calculation 156 ml/min; Estimated Glomerular Filt Rate > 60; Glucose 102 mg/dL (65-105); Potassium 3.7 mmol/L (3.4-5.0); Sodium 135 mmol/L (137-145); Uric Acid 6.6 mg/dL (2.5-7.5)
--- NOTE | 2021-02-10 17:04 | WPDANESEPP ---
Anes - Eval Pre Procedure Procedure: labor epidural Date/Time: 02/10/21 17:04 Surgeon: alfonzo Pre Op Diagnosis: Induction Patient Data Age: 31 Gender: F Height: 1.55 m Weight: 139 kg Last Vital Signs Temp 36.5 C 02/10/21 16:29 Pulse 92 02/10/21 17:00 BP 128/82 02/10/21 17:00 Allergies Allergy/AdvReac Type Severity Reaction Status Date / Time No Known Allergies Allergy Verified 06/08/20 10:14 Home Medications Medication Instructions Recorded Confirmed Type vit 168-iron 27 mg-folic 1 cap PO HS 06/08/20 02/10/21 History acid 800 mcg-omega3 235 mg capsule montelukast 10 mg PO HS 02/10/21 02/10/21 History Laboratory Tests 02/10/21 02/10/21 02/10/21 16:21 16:21 16:21 WBC 12.2 K/mm3 H K/mm3 (4.5-10.0) RBC 4.39 M/mm3 M/mm3 (4.2-5.4) Hgb 12.5 g/dL g/dL (12.0-15.0) Hct 37.9 % % (37.0-47.0) MCV 86.3 fl fl (80-100) MCH 28.5 pg pg (26-34) MCHC 33.0 g/dl g/dl (32-36) RDW 15.0 % H % (11.5-14.5) Plt Count 291 k/mm3 k/mm3 (150-375) MPV 10.4 fl fl (7.4-10.4) Immature Gran % (Auto) 0.9 % H % (0-0.5) Neut % (Auto) 75.6 % H % (45.5-73.1) Lymph % (Auto) 17.8 % L % (18.3-44.2) Callahan % (Auto) 4.4 % % (2.6-8.5) Eos % (Auto) 1.1 % % (0-4.4) Baso % (Auto) 0.2 % % (0.2-1.2) Lymph # (Auto) 2.17 K/mm3 K/mm3 (0.9-3.2) Callahan # (Auto) 0.5 K/mm3 K/mm3 (0.1-0.6) Eos # (Auto) 0.1 K/mm3 K/mm3 (0-0.3) Baso # (Auto) 0.0 K/mm3 K/mm3 (0.0-0.1) Abs Immat Gran (auto) 0.11 K/mm3 H K/mm3 (0.00-0.031) Absolute Neuts (auto) 9.2 K/mm3 H K/mm3 (1.3-6.7) Absolute Nucleated RBC 0.0 K/mm3 K/mm3 (0.0-0.012) Nucleated RBC % 0.0 % % (0.0-0.2) Sodium 135 mmol/L L mmol/L (137-145) Potassium 3.7 mmol/L mmol/L (3.4-5.0) Chloride 109 mmol/L H mmol/L (98-107) Carbon Dioxide 17 mmol/L L mmol/L (22-30) Anion Gap 9 mmol/L mmol/L (8-16) BUN 7 mg/dL mg/dL (7-17) Creatinine 0.60 mg/dL L mg/dL (0.7-1.0) Estim Creat Clear Calc 156 ml/min ml/min Estimated GFR > 60 (59 - ) Glucose 102 mg/dL mg/dL (65-105) Uric Acid 6.6 mg/dL mg/dL (2.5-7.5) Calcium 9.1 mg/dL mg/dL (8.4-10.2) Total Bilirubin 0.2 mg/dL mg/dL (0.2-1.3) AST 17 U/L U/L (14-36) ALT 10 U/L U/L (4-35) Alkaline Phosphatase 158 U/L H U/L (38-126) Total Protein 7.0 g/dL g/dL (6.3-8.2) Albumin 3.4 g/dL L g/dL (3.5-5.1) RPR Pending Patient hx anesthesia problems: none Family hx anesthesia problems: none [facility] Past Medical History Medical History Asthma Bronchitis Pyelonephritis Ruptured left tubal ectopic causing hemoperitoneum (~10/09/19) Surgical History Surgical History History of tonsillectomy Hx of cholecystectomy Family History Family History (Updated 02/08/21 @ 16:22 by Isacc Templeton RN) Mother Hypertension A-fib Father Diabetes mellitus Kidney calculi Grandparent Breast cancer in female Diabetes mellitus Heart disease Social History Social History Smoking status: Never smoker Second hand tobacco smoke exposure: No Alcohol intake: never Substance use: never Substance use type: does not use Gender identity (if verbalized by the patient): Female Spiritual care concerns: No Agree to blood products: Yes Exam Day of Procedure 02/10/21 17:04
[2021-02-10] MEDS: MONTELUKAST SODIUM 10 MG TABLET PO (20:33)
[2021-02-11] VITALS (130 sets, daily range): BP systolic 91–143; BP diastolic 44–92; PULSE 69–113; TEMP 36.4–37.1; O2SAT 96–100
[2021-02-11] MEDS: LACTATED RINGERS 1,000 ML 125 ML IV CONT ×3 (05:32→13:41)
[2021-02-11] MEDS: OXYTOCIN 30 UNITS/NS 500 ML 30 UNITS/500 ML BAG 6 UNITS IV CONT (05:32)
[2021-02-11 10:09] LABS: Rapid Plasma Reagin Non-Reactive (NonReactive)
[2021-02-11] MEDS: fentaNYL CITRATE INJ (*CRX) 100 MCG/2 ML VIAL IV PUSH (11:25)
--- NOTE | 2021-02-11 11:50 | WPDANESEFPP ---
Anes - Eval Final PreProcedure Day of Procedure 02/11/21 11:50 Patient weight: morbidly obese Neurological: alert and oriented ASA classification: III Emergent: no Anesthetic plan: proceed Anesthesia type and monitoring: regional epidural and standard monitoring Informed Consent: The patient's anesthetic plan and its attendant risks and benefits were discussed with the patient/family/POA. Questions were solicited and answers provided to the satisfaction of the patient/family/POA.
--- NOTE | 2021-02-11 14:29 | PM.OBPNLAB ---
Pain Control Date/time seen: 02/11/21 14:29 Pain control: epidural Pelvic Exam Dilation (cm): 1 Effacement (%): 20 station: -4 Amniotic membrane status: Intact Comments: Unable to AROM as station too high. BSUS vertex. Contractions Contraction pattern: Irregular Contraction intensity: Mild Status status: Category l Assessment and Plan Pitocin rate (mU/min): 2 Assessment: induction ongoing Comments: Will increase pitocin again. Hopefully AROM at some point. Baby's high station could be due to large anterior fibroid, will monitor for improvement. Magnesium when active.
[2021-02-12] VITALS (195 sets, daily range): BP systolic 102–171; BP diastolic 47–120; PULSE 31–192; RESP 16–18; TEMP 36.6–37.3; O2SAT 81–100
[2021-02-12] MEDS: fentaNYL CITRATE INJ (*CRX) 100 MCG/2 ML VIAL IV PUSH (06:19)
--- NOTE | 2021-02-12 07:13 | WPDHPUPDATE1 ---
History and Physical Update Update Date/Time: 02/12/21 07:13 History and Physical has been reviewed, including an updated exam of the patient. There are NO changes in the patient's condition. Risks, benefits, and alternatives have been discussed and questions answered. Patient agrees to proceed with procedure.
--- NOTE | 2021-02-12 07:40 | PM.OBPNLAB ---
Pain Control Date/time seen: 02/12/21 07:40 Pain control: epidural Pelvic Exam Dilation (cm): 5 Effacement (%): 90 station: -3 Amniotic membrane status: Ruptured Contractions Monitor mode: Internal Contraction pattern: Irregular Contraction intensity: Moderate Status status: Category ll Comments: small to moderate variables present Assessment and Plan Pitocin rate (mU/min): 16 Assessment: active labor Comments: Labor now active, despite contractions very spaced out. Continue to increase pitocin again. magnesium to start now for sz prophylaxis. FHT cat 2 but overall reassuring. We did discuss that with 7cm anterior low fibroid, labor may be obstructed, and there is still chance of CS. We discussed given location of fibroid, may not be able to avoid removing it at time of CS, though this can result in excessive bleeding.
--- NOTE | 2021-02-12 07:44 | PM.IMHP ---
H&P: HPI History of Present Illness Date/Time: 02/12/21 07:44 Chief Complaint: IOL mild PreE Narrative: Pt presented at 37 weeks for IOL for mild PreE. now s/p cervidil and pitocin for 24 hours. SROM late last night. [facility] Past Medical History Medical History Asthma Bronchitis Pyelonephritis Ruptured left tubal ectopic causing hemoperitoneum (~10/09/19) Surgical History Surgical History History of tonsillectomy Hx of cholecystectomy Family History Family History (Updated 02/08/21 @ 16:22 by sIacc Templeton RN) Mother Hypertension A-fib Father Diabetes mellitus Kidney calculi Grandparent Breast cancer in female Diabetes mellitus Heart disease Social History Social History Smoking status: Never smoker Second hand tobacco smoke exposure: No Alcohol intake: never Substance use: never Substance use type: does not use Gender identity (if verbalized by the patient): Female Spiritual care concerns: No Agree to blood products: Yes Meds Home Medications and Allergies Home Medications Medication Instructions Recorded Confirmed Type vit 168-iron 27 mg-folic 1 cap PO HS 06/08/20 02/10/21 History acid 800 mcg-omega3 235 mg capsule montelukast 10 mg PO HS 02/10/21 02/10/21 History Allergies Allergy/AdvReac Type Severity Reaction Status Date / Time No Known Allergies Allergy Verified 06/08/20 10:14 Vital Signs Vital Signs - 24 hr 02/11/21 07:45 02/11/21 08:15 02/11/21 08:30 Temperature Pulse Rate 81 82 69 Blood Pressure 103/57 L 118/79 121/78 Pulse Oximetry 02/11/21 08:45 02/11/21 09:00 02/11/21 09:15 Temperature Pulse Rate 74 77 78 Blood Pressure 121/78 124/79 115/68 Pulse Oximetry 02/11/21 10:41 02/11/21 10:46 02/11/21 10:51 Temperature Pulse Rate Blood Pressure Pulse Oximetry 100 99 100 02/11/21 10:56 02/11/21 11:01 02/11/21 11:06 Temperature Pulse Rate Blood Pressure Pulse Oximetry 100 99 98 02/11/21 11:11 02/11/21 11:16 02/11/21 11:21 Temperature Pulse Rate Blood Pressure Pulse Oximetry 98 99 96 02/11/21 11:26 02/11/21 11:31 02/11/21 11:34 Temperature Pulse Rate Blood Pressure Pulse Oximetry 100 97 96 02/11/21 11:35 02/11/21 11:38 02/11/21 11:39 Temperature Pulse Rate 89 86 Blood Pressure 122/83 132/79 Pulse Oximetry 98 02/11/21 11:40 02/11/21 11:42 02/11/21 11:43 Temperature Pulse Rate 89 113 H Blood Pressure 121/79 117/67 Pulse Oximetry 99 02/11/21 11:45 02/11/21 11:46 02/11/21 11:47 Temperature Pulse Rate 99 97 94 Blood Pressure 91/47 L 106/56 L 99/51 L Pulse Oximetry 100 02/11/21 11:48 02/11/21 11:51 02/11/21 11:52 Temperature Pulse Rate 90 86 Blood Pressure 98/51 L 99/51 L Pulse Oximetry 99 02/11/21 11:54 02/11/21 11:57 02/11/21 12:00 Temperature Pulse Rate 87 79 86 Blood Pressure 103/50 L 104/62 107/56 L Pulse Oximetry 97 02/11/21 12:02 02/11/21 12:03 02/11/21 12:06 Temperature Pulse Rate 90 92 Blood Pressure 94/53 L 98/54 L Pulse Oximetry 98 02/11/21 12:07 02/11/21 12:09 02/11/21 12:12 Temperature Pulse Rate 89 88 Blood Pressure 100/54 L 98/52 L Pulse Oximetry 100 99 02/11/21 12:15 02/11/21 12:17 02/11/21 12:18 Temperature Pulse Rate 84 88 Blood Pressure 101/54 L 98/60 L Pulse Oximetry 99 02/11/21 12:21 02/11/21 12:22 02/11/21 12:24 Temperature Pulse Rate 84 87 Blood Pressure 104/61 102/56 L Pulse Oximetry 100 02/11/21 12:27 02/11/21 12:30 02/11/21 12:32 Temperature Pulse Rate 81 85 Blood Pressure 94/59 L 107/63 Pulse Oximetry 99 99 02/11/21 12:33 02/11/21 12:36 02/11/21 12:37 Temperature Pulse Rate 79 84 Blood Pressure 109
[2021-02-12] MEDS: MAGNESIUM SULF 4 GM/WATER100ML 4 GM/100 ML BAG IVPB (07:58)
[2021-02-12] MEDS: MAGNESIUM SULF 20GM/WATER500ML 500 ML 50 MG IV CONT ×2 (08:32→18:53)
[2021-02-12] MEDS: LACTATED RINGERS 1,000 ML 125 ML IV CONT ×3 (09:11→18:55)
[2021-02-12] MEDS: OXYTOCIN 30 UNITS/NS 500 ML 30 UNITS/500 ML BAG 6 UNITS IV CONT (09:58)
[2021-02-12] MEDS: ONDANSETRON INJ 4 MG/2 ML VIAL IV PUSH (12:36)
--- NOTE | 2021-02-12 18:31 | P.PCNOB_ITS ---
OB - Delivery Note Procedure Delivery date: 02/12/21 Procedure: events: Pre-Eclampsia and Labor Induction Intrapartal events: Prolonged Labor > 20 hours, Prolonged Latent Phase, Prolonged Active Phase and Mild Preeclampsia Induction method: per pitocin protocol and per cervidil protocol Delivery monitor: internal FHT and internal uterine Route of delivery: Laceration Description: Vaginal - 2nd Degree Delivery repair: vicryl Specimen: Yes Quantitative Blood Loss (ml): 350 Anesthesia type: Epidural Narrative: With adequate expulsive efforts by the mother, the baby's head was delivered OA. The baby's anterior shoulder was delivered under the pubic symphysis without difficulty. The posterior shoulder and the rest of the baby delivered without difficulty. The infant was placed on the mothers chest and suctioned and stimulated. The cord was clamped and cut after 30 seconds. Mother and baby both stable. [facility] Baby Date of : 02/12/21 Time of : 18:00 Weeks of gestation at delivery: 37 gender: Male Weight (pounds): 6 Weight (ounces): 6 presentation: vertex Placenta delivery description: Spontaneous cord vessel description: 3 Vessels and Delayed Cord Clamping score one minute: 7 score five minutes: 8
[2021-02-12] MEDS: OXYTOCIN 30 UNITS/NS 500 ML 30 UNITS/500 ML BAG 125 UNITS IV CONT (18:53)
[2021-02-12] MEDS: IBUPROFEN 600 MG TABLET PO (20:58)
[2021-02-12] MEDS: BENZOCAINE 20% AER SPR (*SP) 56 GM CAN 1 SPRAY TOPICAL (21:00)
[2021-02-12] MEDS: WITCH HAZEL 40 PADS 1 PAD TOPICAL (21:00)
[2021-02-13] VITALS (8 sets, daily range): BP systolic 102–131; BP diastolic 54–78; PULSE 87–115; RESP 16–20; TEMP 36.1–37.3; O2SAT 96–99
[2021-02-13 05:36] LABS: Hematocrit 32.3 % (37.0-47.0); Hemoglobin 10.1 g/dL (12.0-15.0)
[2021-02-13] MEDS: MAGNESIUM SULF 20GM/WATER500ML 500 ML 50 MG IV CONT ×2 (06:08→16:12)
--- NOTE | 2021-02-13 07:27 | P.PNOB_ITS ---
OB - PN: Subj Subjective Date/time seen: 02/13/21 07:27 Patient comments: no complaints baby status: doing well OB - PN: Obj Data Labs CBC & Chem 7: 02/13/21 04:36 02/10/21 16:21 Labs: Laboratory Results - last 24 hr 02/13/21 04:36 Hgb 10.1 L Hct 32.3 L OB - PN A/P Plan day: 1 Plan: routine care Time Spent With Patient Time: Total time spent is greater than 50% in coordination of care (as documented) at patient's floor/unit and/or counseling patient: Review of Systems Review of Systems: All systems reviewed & are unremarkable except as noted in HPI and below Exam Const: General: cooperative Orientation/consciousness: patient oriented x3 Psych: Affect: normal affect Thought process: Normal thought process present Thought content: Yes Normal thought content present Judgement: Go od judgement present (Psych)
--- NOTE | 2021-02-13 07:29 | WPDANESPN ---
Anes - Prog Note Post-Op Date/Time: 02/13/21 07:29 Cardiovascular status: normal Respiratory status: normal Airway patency: baseline Mental status: baseline Post-Op hydration status: normal Vital Signs: Last Vital Signs Temp 36.1 C L 02/13/21 04:59 Pulse 87 02/13/21 04:59 Resp 16 02/13/21 04:59 BP 102/55 L 02/13/21 04:59 Pulse Ox 99 02/13/21 04:59 Pain Score (VAS): 08/19 I/O: Intake & Output 02/12/21 02/12/21 02/13/21 15:59 23:59 07:59 Intake Total 1600 1500 1000 Output Total 420 800 Balance 1600 1080 200 Laboratory Tests 02/13/21 04:36 02/10/21 16:21 02/13/21 04:36 Hgb 10.1 L Hct 32.3 L Post-procedural complaints: none Patient Feedback: Patient satisfied with anesthetic care.
[2021-02-13] MEDS: DOCUSATE SODIUM 100 MG CAPSULE PO (08:30)
[2021-02-13] MEDS: IBUPROFEN 600 MG TABLET PO ×2 (08:30→16:15)
[2021-02-13] MEDS: MULTIVIT/MIN/PREN/FOL AC/IRON TABLET 1 TAB PO (08:30)
[2021-02-13] MEDS: LACTATED RINGERS 1,000 ML 75 ML (10:10)
--- NOTE | 2021-02-13 16:06 | PC.NURSE ---
Breast pump provided due to nipple shield use over 3xs. Instructions given on breast pump care and usage, pumping schedule, nipple care, and collection and storage of breast milk. Encouraged [id number], breast massage and manual expression to stimulate supply. Educated patient on correct flange size, placement and draw. Patient verbalizes and demonstrates understanding of instructions. Nipple shield provided to mother prior to my rounds. Instructions given on application and cleaning of shield. Discussed nipple shield precautions and possible complications. Discussed the need to initiate pumping if continues to nurse with the shield. Patient verbalizes understanding.
[2021-02-13] MEDS: TETANUS,DIPHTHERIA,AC PERTUSSIS ADULT (0.5 ML) BOOSTRIX IM (16:16)
[2021-02-14] VITALS (7 sets, daily range): BP systolic 123–134; BP diastolic 63–88; PULSE 67–86; RESP 16–18; TEMP 36.4–37.3; O2SAT 99–100
[2021-02-14] MEDS: IBUPROFEN 600 MG TABLET PO ×3 (01:10→19:10)
--- NOTE | 2021-02-14 07:49 | P.PNOB_ITS ---
OB - PN: Subj Subjective Date/time seen: 02/14/21 07:49 Patient comments: no complaints baby status: doing well OB - PN: Obj Data Labs CBC & Chem 7: 02/13/21 04:36 02/10/21 16:21 OB - PN A/P Plan day: 2 Plan: routine care Comments: Gestational hypertension with magnesium. 72 hour recommended stay. Time Spent With Patient Time: Total time spent is greater than 50% in coordination of care (as documented) at patient's floor/unit and/or counseling patient: Time with patient: less than 15 minutes Review of Systems Review of Systems: All systems reviewed & are unremarkable except as noted in HPI and below Exam Narrative: Exam Narrative: Fundus firm and vaginal flow controlled. No lower ext redness, warmth, or edema. Negative homans. Denies h/a, v/d or e/p. Reflexes normal. Const: General: comfortable Chest: Breast/axilla inspection: normal inspection of the breasts Resp: Effort & Inspection: normal respiratory effort Cardio: Rate: regular rate GI: GI Palp: Yes Soft to palpation Psych: Appearance: grossly normal Affect: normal affect Attitude: cook larder perative Thought content: Yes Normal thought content present Judgement: Good judgement present (Psych)
[2021-02-14] MEDS: DOCUSATE SODIUM 100 MG CAPSULE PO (08:22)
[2021-02-14] MEDS: MULTIVIT/MIN/PREN/FOL AC/IRON TABLET 1 TAB PO (08:22)
[2021-02-14] MEDS: ACETAMINOPHEN 325 MG TABLET 650 MG PO (13:02)
--- NOTE | 2021-02-14 14:20 | PC.NURSE ---
Mother called out for assist with feeding. Mother reports infant is sleepy and makes eager attempts to latch with good bursts of nursing. Mother used a nipple shield for the first few feedings, reporting is now latching without. Mother is supplementing after each feeding followed with 15 minutes of pumping. is able to freely thrust tongue past gum ridge. Skin is intact on both nipples, no redness or bruising noted. Discussed establishing in the late infant may be more difficult due to their immaturity, may be less alert, have less stamina, and have greater difficulty with latch, suck, and swallow. Reviewed infant feeding cues, frequencies, duration of feedings, feeding elimination flow sheet, and signs of adequate intake. Demonstrated stimulation techniques to wake for feeding. Assisted with infant to breast. Reviewed positioning/alignment in cross cradle, holding breast in ?U? hold and guided asymmetrical latch on. Infant able to latch correctly within a few attempts. Infant nursed eagerly with steady draws and occasional swallowing noted followed with long pausing. Reviewed signs of a correct latch, effective nursing and suck swallow ratio. was able to maintain latch without discomfort to mother. Suggested mother stimulate while feeding to increase stimulate, increase intake and to assist with maintaining deep latch. Demonstrated how to adjust latch more deeply while feeding if needed. Nipple care reviewed of lanolin after feedings, warm compresses as needed. Discussed the difference of effective vs ineffective feeding. Reviewed is latching and good burst of suckling, he is not feeding consistently with adequate milk transfer at this time and continues to need to be supplement after breastfeedings. Feeding plan is for mother to put infant to breast each feeding for up to 15 minutes, then supplement and pump. Parents are comfortable with supplementation and pumping. Instructed mother to call out for RN assistance if she is unable to latch infant for feeding or she has discomfort with nursing.
--- NOTE | 2021-02-14 14:45 | PC.NURSE ---
Reviewed breast pump care and usage, pumping schedule, nipple care, and collection and storage of breast milk. Encouraged [id number], breast massage and manual expression to stimulate supply. Assessed patient for correct flange size, placement and draw. Patient verbalizes and demonstrates understanding of instructions.
--- NOTE | 2021-02-14 16:30 | PC.NURSE ---
Patient viewed the discharge video Mother & Baby Care, The First Two Weeks . Patient was given the opportunity and encouraged to ask questions. Patient verbalized understanding of information shared and has been given the mother/baby guide for home reference.
[2021-02-14] MEDS: MONTELUKAST SODIUM 10 MG TABLET PO (20:06)
[2021-02-15] MEDS: ACETAMINOPHEN 325 MG TABLET 650 MG PO (03:25)
[2021-02-15 04:00] VITALS: BP 109/62; PULSE 74; RESP 16; TEMP 36.7; O2SAT 98
--- NOTE | 2021-02-15 07:41 | PM.OBPNVD ---
OB - PN: Subj Subjective Date/time seen: 02/15/21 07:41 Patient comments: no complaints baby status: doing well OB - PN: Obj Data Labs CBC & Chem 7: 02/13/21 04:36 02/10/21 16:21 OB - PN A/P Plan day: 3 Plan: routine care and discharge home Time Spent With Patient Time: Total time spent is greater than 50% in coordination of care (as documented) at patient's floor/unit and/or counseling patient: Review of Systems Review of Systems: All systems reviewed & are unremarkable except as noted in HPI and below Exam Const: General: cooperative and healthy appearing Psych: Affect: normal affect Attitude: cooperative Thought process: Normal thought process present Thought content: Yes Normal thought content present Judgement: Good judgement present (Psych)
--- NOTE | 2021-02-15 07:43 | PM.OBDSVD ---
DS: Admitting Diagnosis Admitting Diagnosis Admitting Diagnosis: IOL, GHTN OB - DS: Summary OB Procedures : PIH Mgmt OB Procedures Intrapartum: Spontaneous Vag Delivery OB Procedures: : None Time Spent with Patient Time attestation: Total time spent providing and/or coordinating discharge services: DS: Data Data Completed and Pending Pending studies at discharge: Pending at discharge 02/12/21 19:44 Surgical [PTH] Routine Discharge Plan Discharge Attending physician on discharge: Korina Carmona Discharging Clinician: Nancy Resendiz Patient Disposition: Home, Self-Care Activity: pelvic rest Diet: regular Patient Instructions: Antibiotic Form Stand Alone Forms: General Discharge Information Follow-up/Referrals: Bella Anderson MD [Physician] - 1 Week (bp check) Discharge Medications: New ibuprofen 600 mg Tablet 600 mg PO Q6H PRN (Reason: Cramping) Qty: 30 RF: 0 Continued One-A-Day -1 27 mg iron- 800 mcg-235 mg capsule 1 cap PO HS RF: 0 montelukast 10 mg tablet 10 mg PO HS RF: 0 Date of admission: 02/10/21 15:37 Primary Care Provider: Adrienne Contreras Admitting Provider: Bella Anderson Attending physician on admission: Bella Anderson Condition: Stable
[2021-02-15] MEDS: DOCUSATE SODIUM 100 MG CAPSULE PO (09:18)
[2021-02-15] MEDS: MULTIVIT/MIN/PREN/FOL AC/IRON TABLET 1 TAB PO (09:18)
[2021-02-15] MEDS: IBUPROFEN 600 MG TABLET PO (09:19)
[2021-02-15 09:30] VITALS: BP 131/85; PULSE 84; RESP 18; TEMP 37.6; O2SAT 99
[2021-02-16 10:41] VITALS: BP 126/76; PULSE 94; RESP 20; TEMP 36.8; O2SAT 100
== END 2021-02-15 11:42 | disposition home or self-care (01) | DRG 807 ==
LOC: ANHLDR 15:41 → ANHOB2 02-12 21:26
PROVIDERS: Admitting Provider Obstetrics & Gynecology; PCP Family Medicine; Visit Provider Obstetrics & Gynecology
DX: O14.94 Unspecified pre-eclampsia, complicating childbirth (principal); Z37.0 Single live birth; Z3A.37 37 weeks gestation of pregnancy; O36.8330 Maternal care for abnormalities of the fetal heart rate or rhythm, third trimester, not applicable or unspecified; O99.52 Diseases of the respiratory system complicating childbirth; J45.909 Unspecified asthma, uncomplicated; O99.214 Obesity complicating childbirth; E66.01 Morbid (severe) obesity due to excess calories; O63.0 Prolonged first stage (of labor); O70.1 Second degree perineal laceration during delivery
CPT/HCPCS: 36415; 80053; 84550; 85014; 85018; 85025; 86592; 86850; 86900; 86901; 88307; 90715; A9270; J2405; J2590; J2795; J3010; J3475; J7120

== ENCOUNTER 2021-06-09 13:29 | Emergency (ER) | payer BC, SELFPAY ==
[2021-06-09 13:30] VITALS: BP 132/85; PULSE 120; RESP 16; TEMP 36.3; O2SAT 100
--- NOTE | 2021-06-09 14:04 | ED.SKABFB ---
HPI - Skin/Abscess/Foreign Bdy General Chief complaint: Skin/Abscess/Foreign Body <Lolis Carter PA-C - Last Filed: 06/09/21 14:15> Stated complaint: breast pain <DALLAS Willingham Last Filed: 06/09/21 14:15> Time Seen by Provider: 06/09/21 13:38 <DALLAS Willingham Last Filed: 06/09/21 14:15> Source: patient <DALLAS Willingham Last Filed: 06/09/21 14:15> Mode of arrival: ambulatory <DALLAS Willingham Last Filed: 06/09/21 14:15> Limitations: no limitations <Lolis Carter PA-C - Last Filed: 06/09/21 14:15> History of Present Illness HPI narrative: This is a 31 year old female, 4 months post-, that presents to the ER for left breast pain. Reports she noted a painful lump in the breast. She has been trying to massage the breast and continue to pump without relief. The breast is now become red and she has had fevers which prompted her to be seen. <Lolis Carter PA-C - Last Filed: 06/09/21 14:15> Related Data Home medications: Home Medications Medication Instructions Recorded Confirmed vit 168-iron 27 mg-folic 1 cap PO HS 06/08/20 02/10/21 acid 800 mcg-omega3 235 mg capsule montelukast 10 mg PO HS 02/10/21 02/10/21 biotin 1 mg PO DAILY 06/09/21 <DALLAS Willingham Last Filed: 06/09/21 14:15> Allergies/Adverse reactions: Allergies Allergy/AdvReac Type Severity Reaction Status Date / Time No Known Allergies Allergy Verified 06/09/21 13:37 <DALLAS Willingham Last Filed: 06/09/21 14:15> Review of Systems Review of Systems: CONSTITUTIONAL: Reports fever GASTROINTESTINAL: Denies vomiting SKIN: Reports redness MUSCULOSKELETAL: Denies back pain, joint pain, or myalgia. NEUROLOGIC: Denies headache, numbness, or weakness. PSYCHIATRIC: Denies anxiety or depression. <Lolis Carter PA-C - Last Filed: 06/09/21 14:15> All systems reviewed & are unremarkable except as noted in HPI and below <Lolis Carter PA-C - Last Filed: 06/09/21 14:15> PMFSH Past Medical History Medical History: Medical History (Updated 06/09/21 @ 14:13 by Lolis Carter PA-C) Asthma Bronchitis Pyelonephritis Ruptured left tubal ectopic causing hemoperitoneum (~10/09/19) <Lolis Carter PA-C - Last Filed: 06/09/21 14:15> Surgical History Surgical History: Surgical History History of tonsillectomy Hx of cholecystectomy <Lolis Carter PA-C - Last Filed: 06/09/21 14:15> Family History Family History: Family History (Updated 02/08/21 @ 16:22 by Isacc Templeton RN) Mother Hypertension A-fib Father Diabetes mellitus Kidney calculi Grandparent Breast cancer in female Diabetes mellitus Heart disease <Lolis Carter PA-C - Last Filed: 06/09/21 14:15> Social History Social History: Social History Smoking status: Never smoker Second hand tobacco smoke exposure: No Alcohol intake: never Substance use: never Substance use type: does not use Gender identity (if verbalized by the patient): Female Spiritual care concerns: No Agree to blood products: Yes <Lolis Carter PA-C - Last Filed: 06/09/21 14:15> Exam Narrative: GENERAL: Well-appearing, well-nourished, and in no acute distress. HEAD: Normocephalic, atraumatic. EYES: EOMI. HEART: Regular rate EXTREMITIES: Normal range of motion. No edema. SKIN: Warm, dry, no rash. NEURO: No focal deficits. Alert and oriented x3. PSYCH: Normal mood and affect BREAST: Left breast with mild to moderate redness. No evidence of abscess. No abnormal nipple discharge <Lolis Carter PA-C - Last Filed: 06/09/21 14:15> Course PUBLICATION DISTRIBUTOR/PA Physician Supervision I did not see this patient nor was the care plan discussed with me. I was available for evaluation and consultation, I agree with the documentati
[2021-06-09] MEDS: CEPHALEXIN 500 MG CAPSULE PO (14:24)
== END 2021-06-09 14:30 | disposition home or self-care (01) ==
PROVIDERS: Emergency Provider Emergency Medicine; PCP Family Medicine
DX: N61.0 Mastitis without abscess (principal)
CPT/HCPCS: 99283; A9270

== ENCOUNTER 2021-08-19 07:28 | Outpatient (CLI) | payer BC, SELFPAY ==
[2021-08-19 09:25] LABS: SARS-CoV-2 RNA PCR Negative (Negative)
== END 2021-08-19 07:29 | disposition home or self-care (01) ==
LOC: CHSLAB 07:30
PROVIDERS: PCP Family Medicine
DX: Z03.818 Encounter for observation for suspected exposure to other biological agents ruled out (principal); Z20.822 Contact with and (suspected) exposure to COVID-19
CPT/HCPCS: C9803; U0003; U0005

== ENCOUNTER 2021-08-27 08:07 | Outpatient (CLI) | payer BC, SELFPAY ==
[2021-08-27 10:07] LABS: SARS-CoV-2 RNA PCR Positive (Negative)
== END 2021-08-27 08:08 | disposition home or self-care (01) ==
LOC: CHSLAB 08:17
PROVIDERS: PCP Family Medicine
DX: U07.1 COVID-19 (principal)
CPT/HCPCS: C9803; U0003; U0005

== ENCOUNTER 2021-11-17 15:42 | Emergency (ER) | payer BC, SELFPAY ==
[2021-11-17 15:48] VITALS: BP 124/85; PULSE 86; RESP 20; TEMP 36.8; O2SAT 100
--- NOTE | 2021-11-17 16:29 | ED.URI ---
HPI - URI/Sore Throat General Chief Complaint: Upper Respiratory Infection Stated Complaint: Chest Congestion/Cough Time Seen by Provider: 11/17/21 16:15 Source: patient, RN notes reviewed and old records reviewed Mode of arrival: ambulatory Limitations: no limitations History of Present Illness HPI Narrative: 31-year-old female who presents to [facility] with complaints of cough some shortness of breath and chest tightness with cough since Thursday. Patient reports that she has been using her inhaler with minimal improvement of her cough, does have history of asthma.Patient reports some nasal drainage denies any sore throat or any ear pains. She states that for the last 2 days she has had fevers up to 101.8F at night.Patient reports that she has had flu shot and is COVID vaccinated. MD elicited complaint: cough Pertinent past history: asthma Related Data Home Medications Medication Instructions Recorded Confirmed montelukast 10 mg PO HS 02/10/21 11/17/21 Allergies Allergy/AdvReac Type Severity Reaction Status Date / Time No Known Allergies Allergy Verified 11/17/21 16:05 Review of Systems Review of Systems: CONSTITUTIONAL: Positive fevers, chills, or sweats. EYES: Denies visual changes, redness, or discharge. ENT: Positive for rhinorrhea, congestion, sore throat, or otalgia. CARDIOVASCULAR: Denies chest pain, palpitations, or edema, reports intermittent chest tightness with cough RESPIRATORY: Positive for cough, wheezing and some exertional dyspnea. GASTROINTESTINAL: Denies abdominal pain, nausea, vomiting, or diarrhea. GENITOURINARY: Denies dysuria or hematuria. SKIN: Denies rash or itching. MUSCULOSKELETAL: Denies back pain, joint pain, or myalgia. NEUROLOGIC: Denies headache, numbness, or weakness. PSYCHIATRIC:Positive for history of anxiety or depression. All systems reviewed & are unremarkable except as noted in HPI and below PMFSH Past Medical History Medical History Asthma Bronchitis Hx of migraines Pyelonephritis Ruptured left tubal ectopic causing hemoperitoneum (~10/09/19) Vaginal delivery Surgical History Surgical History History of carpal tunnel surgery of right wrist History of tonsillectomy Hx of cholecystectomy Family History Family History Mother Hypertension A-fib Father Diabetes mellitus Kidney calculi Grandparent Breast cancer in female Diabetes mellitus Heart disease Social History Social History Second hand tobacco smoke exposure: No Alcohol intake: never Substance use: never Substance use type: does not use Gender identity (if verbalized by the patient): Female Spiritual care concerns: No Agree to blood products: Yes Comments At time of signature, agree with nursing past medical, surgical, social and family history. There is no relevant family history pertinent to the presenting complaint Exam Narrative: GENERAL: Well-appearing, well-nourished,obese and in no acute distress. HEAD: Normocephalic, atraumatic. EYES: PERRLA and EOMI. ENT: Nares with some membrane redness, clear rhinorrhea no epistaxis. Mucous membranes moist.TM's normal with good light reflex, throat with minimal redness no lesions or exudates, tonsils absent, post nasal drainage noted. NECK: Supple.no lymphadenopathy CHEST: Scattered expiratory wheezes to auscultation. No respiratory distress. SaO2 100% on room air HEART: Regular rate and rhythm. No murmur heard. Normal peripheral pulses. ABDOMEN: Soft, nontender, nondistended, normal active bowel sounds. EXTREMITIES: Normal range of motion. No edema. SKIN: Warm, dry, no rash. NEURO: No focal deficits. Alert and oriented x3. Course Course Level of Care: Express Care Visit Vital Signs Vital signs: Vital
== END 2021-11-17 16:48 | disposition home or self-care (01) ==
PROVIDERS: Emergency Provider Registered Nurse; PCP Family Medicine
DX: J45.901 Unspecified asthma with (acute) exacerbation (principal)
CPT/HCPCS: 87804; 99213; G0463

== ENCOUNTER 2021-11-29 08:57 | Outpatient (CLI) | payer BC, SELFPAY ==
--- NOTE | ~2021-11-29 | XR_ITS ---
EXAMINATION: XR chest 2V DATE: 11/29/2021 09:09 INDICATION: Acute bronchitis. TECHNIQUE: Frontal and lateral views of the chest were obtained. COMPARISON: Chest 2 views 06/03/2012, CT abdomen and pelvis 03/08/2020 FINDINGS: The chest demonstrates clear lungs without pneumonia, pleural effusion, or pneumothorax. Th e heart size is normal. IMPRESSION: 1. No acute cardiopulmonary disease. Reviewed, dictated and finalized at location B.
== END 2021-11-29 08:58 | disposition home or self-care (01) ==
LOC: ANHIMG 09:00
PROVIDERS: PCP Family Medicine; Visit Provider Physician Assistant Medical
DX: J20.9 Acute bronchitis, unspecified (principal); J45.901 Unspecified asthma with (acute) exacerbation
CPT/HCPCS: 71046

== ENCOUNTER 2022-01-15 11:12 | Outpatient (CLI) | payer BC, SELFPAY ==
--- NOTE | ~2022-01-15 | XR_ITS ---
XR soft tissue neck 01/15/2022 11:35 Indication: Left-sided neck swelling Procedure: 2 views cervical spine Comparison: No prior studies for comparison. Findings: Vertebral body and disc heights are preserved. No fracture or traumatic malalignment. No pr evertebral soft tissue swelling. Lung apices are normal. No prevertebral soft tissue abnormality. No foreign body. Impression: 1: No significant abnormality of the cervical spine. Reviewed, dictated and finalized at location B. Impression: 1: No significant abnormality of the cervical spine.
[2022-01-15 11:51] LABS: Alanine Aminotransferase 16 U/L (14-59); Albumin Level 3.4 g/dL (3.4-5.0); Alkaline Phosphatase 82 U/L (46-116); Anion Gap 7 mmol/L (8-16); Aspartate Amino Transferase < 10 U/L (15-37); Bilirubin,Total 0.4 mg/dL (0.00-1.00); Blood Urea Nitrogen 12 mg/dL (7-18); Calcium 9.3 mg/dL (8.5-10.1); Carbon Dioxide 27 mmol/L (21-32); Chloride 104 mmol/L (98-108); Estimated Glomerular Filt Rate > 60; Free T4 Free Thyroxine 1.01 ng/dL (0.76-1.46); Glucose 80 mg/dL (70-99); Osmolality Calculated 284 mOsm/kg (285-295); Potassium 4.1 mmol/L (3.5-5.1); Sodium 138 mmol/L (136-145); Thyroid Stimulating Hormone 2.32 uIU/mL (0.36-3.74); Total Protein 7.9 g/dL (6.4-8.2)
== END 2022-01-15 11:13 | disposition home or self-care (01) ==
LOC: CHSIMG 11:13
PROVIDERS: PCP Nurse Practitioner Family; Visit Provider Nurse Practitioner Family
DX: Z00.00 Encounter for general adult medical examination without abnormal findings (principal); R22.1 Localized swelling, mass and lump, neck; R63.5 Abnormal weight gain
CPT/HCPCS: 36415; 70360; 80053; 84439; 84443

== ENCOUNTER 2022-01-21 10:11 | Outpatient (CLI) | payer BC, SELFPAY ==
--- NOTE | ~2022-01-21 | US_ITS ---
EXAMINATION: US soft tissue head and neck DATE: 01/21/2022 11:11 INDICATION: Localized lump in neck. Dysphagia. TECHNIQUE: Multiple grayscale and Doppler ultrasound images of the neck were obtained. COMPARISON: None FINDINGS: There are normal lymph nodes in the neck bilaterally. IMPRESSION: 1. No abnormal neck mass or lymphadenopathy. Reviewed, dictated and finalized at location B.
== END 2022-01-21 10:12 | disposition home or self-care (01) ==
LOC: CHSIMG 10:12
PROVIDERS: PCP Nurse Practitioner Family; Visit Provider Nurse Practitioner Family
DX: R22.1 Localized swelling, mass and lump, neck (principal)
CPT/HCPCS: 76536

== ENCOUNTER 2022-01-28 08:13 | Outpatient (CLI) | payer BC, SELFPAY ==
--- NOTE | ~2022-01-28 | XR_ITS ---
EXAMINATION: XR barium swallow DATE: 01/28/2022 09:34 INDICATION: 3 weeks of a constant feeling of something stuck in the throat. TECHNIQUE: The patient drank thick barium, gas-producing crystals, and thin barium. Fluoroscopic spot radiographs of the hypopharynx and esophagus were obtained. Fluoroscopy exposure time was 1.3 minut es. A total of 1231 images were recorded. COMPARISON: None. FINDINGS: The posterior wall of the pharynx as well as the piriform sinuses appear normal. There is a n irregular finely nodular mucosal contour and posterior bulging of the pharynx at the base of the to ngue which partially effaces the vallecula. There is also a small esophageal web which extends approx imately 3 mm posteriorly from the anterior wall of the proximal most esophagus at the level of the cr icopharyngeus. This does not appear significantly obstructing with at least 10 mm residual patent lum en between the web and the posterior wall. The more distal esophagus is normal without mass or strict ure. Esophageal motility is normal. There is no hiatal hernia. There was no gastroesophageal reflux w ith provocative maneuvers. IMPRESSION: 1. Nonspecific posterior bulging with nodular mucosal contour of the anterior wall of the pharynx abo ve the level of the epiglottis which partially effaces the vallecula potentially related to enlargeme nt of the lingual tonsils although differential would include neoplasm. Recommend ENT consultation fo r direct visualization. 2. 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 Reviewed, dictated and finalized at location B. IMPRESSION: 1. Nonspecific posterior bulging with nodular mucosal contour of the anterior w all of the pharynx above the level of the epiglottis which partially effaces th e vallecula potentially related to enlargement of the lingual tonsils although differential would include neoplasm. Recommend ENT consultation for direct visu alization. 2. 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
== END 2022-01-28 08:14 | disposition home or self-care (01) ==
LOC: CHSIMG 08:15
PROVIDERS: PCP Nurse Practitioner Family; Visit Provider Nurse Practitioner Family
DX: R13.10 Dysphagia, unspecified (principal)
CPT/HCPCS: 74220

== ENCOUNTER 2022-05-02 10:21 | Outpatient (CLI) | payer BC, SELFPAY ==
--- NOTE | ~2022-05-02 | US_ITS ---
EXAMINATION: US breast LT limited HISTORY: Palpable lump of the inner left breast at the 9:00 location. Patient with history of mastiti s TECHNIQUE: Limited left breast ultrasound is performed. FINDINGS: There is a 1.5 x 1.0 cm oval, circumscribed, parallel, isoechoic mass at the 9:00 location 10 cm from the nipple with no posterior features or internal vascularity corresponding to the palpabl e abnormality of concern. IMPRESSION: Indeterminate left breast mass corresponding to the palpable abnormality of concern. Further evaluati on with diagnostic mammogram is recommended. BI-RADS Category 0: Incomplete: Needs additional imaging evaluation. Reviewed, dictated and finalized at location A. IMPRESSION: Indeterminate left breast mass corresponding to the palpable abnormality of con cern. Further evaluation with diagnostic mammogram is recommended. BI-RADS Category 0: Incomplete: Needs additional imaging evaluation.
== END 2022-05-02 10:22 | disposition home or self-care (01) ==
LOC: CHSIMG 10:23
PROVIDERS: PCP Nurse Practitioner Family; Visit Provider Nurse Practitioner Family
DX: N61.0 Mastitis without abscess (principal)
CPT/HCPCS: 76642

== ENCOUNTER 2022-05-05 09:40 | Outpatient (CLI) | payer BC, SELFPAY ==
--- NOTE | ~2022-05-05 | MM_ITS ---
EXAMINATION: MM diagnostic soledad LT w robin HISTORY: Palpable lump of left breast TECHNIQUE: ML, MLO and CC 3-D tomosynthesis images of the left breast were performed and synthetic 2- D images were generated. CAD analysis was submitted and interpreted. COMPARISON: 05/02/2022 Limited left breast ultrasound BREAST PARENCHYMAL COMPOSITION: There are scattered areas of fibroglandular density. FINDINGS: Approximately 9 x 7 mm circumscribed fatty density with relatively uniform approximately 1 mm thick soft tissue capsule is noted in the anterior aspect of the lower inner quadrant of the left breast. This corresponds in size and appearance to the sonographic lesion reported at 9:00 10 cm from nipple. This consists largely fatty tissue and has has benign mammographic and sonographic appearanc e. IMPRESSION: 1. Benign finding; benign circumscribed fatty lesion. This may be a focal area of fat necrosis or a s mall lipoma. 2. Routine mammographic screening beginning at age 40 is recommended BI-RADS Category 2: Benign finding(s). Reviewed, dictated and finalized at location A. IMPRESSION: 1. Benign finding; benign circumscribed fatty lesion. This may be a focal area of fat necrosis or a small lipoma. 2. Routine mammographic screening beginning at age 40 is recommended BI-RADS Category 2: Benign finding(s).
== END 2022-05-05 09:41 | disposition home or self-care (01) ==
LOC: CHSIMG 09:41
PROVIDERS: PCP Nurse Practitioner Family; Visit Provider Nurse Practitioner Family
DX: N61.0 Mastitis without abscess (principal)
CPT/HCPCS: 77061; 77065; G0279

== ENCOUNTER 2022-09-27 08:19 | Emergency (ER) | payer BC, SELFPAY ==
[2022-09-27 08:24] VITALS: BP 134/92; PULSE 114; RESP 18; TEMP 37.2; O2SAT 100
--- NOTE | 2022-09-27 08:43 | ED.GENADULT ---
HPI - General Adult General Chief complaint: Upper Respiratory Infection Stated complaint: Sore Throat Source: patient Mode of arrival: ambulatory Limitations: no limitations History of Present Illness HPI narrative: Patient presents for evaluation of sore throat. She indicates she developed fever yesterday and woke from sleep this morning with sore throat. She denies any chills, nausea, vomiting, diarrhea, otalgia, cough, shortness of breath. A family member recently had GI symptoms. No recent exposure to respiratory symptoms. She had COVID in the past. She is not taking any medication for her symptoms. She does not smoke. History of tonsillectomy. no additional complaints or concerns. Related Data Home Medications Medication Instructions Recorded Confirmed sumatriptan succinate 25 mg tablet See Rx Instructions PO .COMPLEX 05/15/22 09/27/22 semaglutide 0.25 mg or 0.5 mg (2 0.25 mg subcut WEEKLY 09/27/22 09/27/22 mg/1.5 mL) subcutaneous pen injector (Ozempic) Allergies Allergy/AdvReac Type Severity Reaction Status Date / Time No Known Allergies Allergy Verified 09/27/22 08:31 Review of Systems Review of Systems: CONSTITUTIONAL: Reports fever. Denies chills or sweats. EYES: Denies visual changes, redness, or discharge. ENT: Reports sore throat. Denies rhinorrhea, congestion, or otalgia. CARDIOVASCULAR: Denies chest pain, palpitations, or edema. RESPIRATORY: Denies cough or dyspnea. GASTROINTESTINAL: Denies abdominal pain, nausea, vomiting, or diarrhea. GENITOURINARY: Denies dysuria or hematuria. SKIN: Denies rash or itching. MUSCULOSKELETAL: Denies back pain, joint pain, or myalgia. NEUROLOGIC: Denies headache, numbness, dizziness, or weakness. PSYCHIATRIC: Denies anxiety or depression. [facility] Past Medical History Medical History Asthma Asthma exacerbation Bronchitis Hx of migraines Pyelonephritis Ruptured left tubal ectopic causing hemoperitoneum (~10/09/19) Vaginal delivery Surgical History Surgical History History of carpal tunnel surgery of right wrist History of tonsillectomy Hx of cholecystectomy Family History Family History Mother Hypertension A-fib Depression Heart disease Father Diabetes mellitus Kidney calculi Grandparent Breast cancer in female Diabetes mellitus Heart disease Hypertension Sibling Depression Social History Social History Smoking status: Never smoker Second hand tobacco smoke exposure: No Alcohol intake: never Substance use: never Substance use type: does not use Lack of Transportation: No Lack of Food: Never True Current Housing: I Have Housing Concerned About Future Housing: No Difficulty Paying Gas/Electric Bills: No Difficulty Paying for Meds: No Currently Unemployed: No Education: Associate Degree Difficulty w/ Childcare or Family Care: No Living arrangements: with family Gender identity (if verbalized by the patient): Female Spiritual care concerns: No Agree to blood products: Yes Exam Narrative: GENERAL: Well-appearing, well-nourished, and in no acute distress. HEAD: Normocephalic, atraumatic. EYES: PERRLA and EOMI. ENT: Nares clear, no rhinorrhea or epistaxis. Mucous membranes moist. Posterior pharyngeal erythema without exudate. Uvula is midline. Tonsils are surgically absent. bilateral TMs pearly kessler nonbulging NECK: Supple. No adenopathy or masses. No carotid bruits or JVD CHEST: Clear to auscultation. No respiratory distress. No wheezes rales or rhonchi HEART: Regular rate and rhythm. No murmur heard. Normal peripheral pulses. ABDOMEN: Soft, nontender, nondistended, normal active bowel sounds. EXTREMITIES: Normal range of motion. No e
== END 2022-09-27 08:45 | disposition home or self-care (01) ==
PROVIDERS: Emergency Provider Nurse Practitioner
DX: J02.0 Streptococcal pharyngitis (principal); J45.909 Unspecified asthma, uncomplicated; Z86.16 Personal history of COVID-19
CPT/HCPCS: 87880; 99213; G0463

== ENCOUNTER 2023-03-30 20:57 | Observation (INO) | payer BC, SELFPAY ==
--- NOTE | ~2023-03-30 | CT_ITS ---
EXAMINATION: CT abdomen pelvis w con DATE: 03/31/2023 00:45 INDICATION: Right lower quadrant abdominal pain. Periumbilical pain. TECHNIQUE: Computed tomography (CT) of the abdomen and pelvis was performed with 100 mL Omnipaque 350 intravenous contrast. Automated exposure control and iterative reconstruction technique were employe d. The dose-length product was 1846.62 mGy-cm. COMPARISON: CT abdomen and pelvis 03/08/2020 FINDINGS: The visualized portions of the lung bases demonstrate minimal atelectasis. No pleural effus ion. The heart size is normal. No pericardial effusion. There is a small sliding hiatal hernia. The l iver is normal. There are changes of cholecystectomy. The spleen, pancreas, adrenal glands, and left kidney are normal. There is a 3 mm stone in right kidney. There is an umbilical hernia containing fat with fat stranding. There are no dilated loops of bowel. The appendix is normal. There are surgical changes in left adnexa. There is a 5.2 cm cyst in left ovary. There is a 3.5 cm uterine fibroid. Ther e are no pathologically enlarged lymph nodes. There is no free intraperitoneal fluid. There is mild t horacic and lumbar spondylosis. There are chronic bilateral L5 pars defects. There is mild chronic an terior wedging of multiple thoracic vertebral bodies. IMPRESSION: 1. Worsened umbilical hernia containing fat. Fat stranding suggests inflammation or scarring. 2. 5.2 cm cyst in left ovary, likely benign. Pelvis ultrasound is recommended in one year. 3. Uterine fibroid. Reviewed, dictated and finalized at location A. IMPRESSION: 1. Worsened umbilical hernia containing fat. Fat stranding suggests inflammatio n or scarring. 2. 5.2 cm cyst in left ovary, likely benign. Pelvis ultrasound is recommended i n one year. 3. Uterine fibroid.
[2023-03-30 21:01] VITALS: BP 138/98; PULSE 96; RESP 15; TEMP 36.7; O2SAT 100
[2023-03-30] MEDS: MORPHINE SULFATE (*CRX) 4 MG/ML INJ (22:25)
[2023-03-30] MEDS: SODIUM CHLORIDE 0.9% IV 1,000 ML 999 ML (23:06)
[2023-03-30] MEDS: ONDANSETRON INJ 4 MG/2 ML VIAL (23:07)
--- NOTE | 2023-03-30 23:26 | ED.GENADULT ---
HPI - General Adult General Chief complaint: Abdominal Pain <Aurelio Bates PA-C - Last Filed: 03/31/23 04:00> Stated complaint: ABDOMINAL PAIN <Aurelio Bates PA-C - Last Filed: 03/31/23 04:00> Time Seen by Provider: 03/30/23 23:12 <Aurelio Bates PA-C - Last Filed: 03/31/23 04:00> Source: patient <DALLAS Rae Last Filed: 03/31/23 04:00> Mode of arrival: EMS <DALLAS Rae Last Filed: 03/31/23 04:00> Limitations: no limitations <Aurelio Bates PA-C - Last Filed: 03/31/23 04:00> History of Present Illness HPI narrative: This is a 33-year-old female with PMH of ruptured ectopic who presents to the ED with chief complaint of abdominal pain beginning around 0630 this evening. Patient states it began abruptly in her mid abdomen area and radiates to the right at times. She reports nausea but has not vomited yet. Patient states that she did eat prior to the pain starting but is unsure if this had a direct effect. She reports the pain is a 9 out of 10. Reports it is sharp and stabbing. Denies fevers, chills, chest pain, shortness of breath, diarrhea, problems with bowel movements, urinary symptoms. <Aurelio Bates PA-C - Last Filed: 03/31/23 04:00> Related Data Home medications: Home Medications Medication Instructions Recorded Confirmed sumatriptan succinate 25 mg tablet See Rx Instructions PO .COMPLEX 05/15/22 04/01/23 Adults Multivitamin 1 tab-cap PO DAILY 03/31/23 04/01/23 albuterol sulfate 2.5 mg/3 mL 2.5 mg inhalation Q6H PRN 03/31/23 04/01/23 (0.083 %) solution for nebulization Shortness Of Breath Or Wheezing budesonide 160 mcg-glycopyr 9 2 inh inhalation BID PRN Allergy 03/31/23 04/01/23 mcg-formot 4.8 mcg/actuation HFA Symptoms inhaler ([email or web address]) loratadine 10 mg tablet (Claritin) 10 mg PO DAILY 03/31/23 04/01/23 montelukast 10 mg tablet 10 mg PO DAILY 03/31/23 04/01/23 semaglutide 0.25 mg or 0.5 mg (2 0.5 mg subcut WEEKLY 03/31/23 04/01/23 mg/1.5 mL) subcutaneous pen injector <Aurelio Bates PA-C - Last Filed: 03/31/23 04:00> Allergies/adverse reactions: Allergies Allergy/AdvReac Type Severity Reaction Status Date / Time No Known Allergies Allergy Verified 04/01/23 13:09 <Aurelio Bates PA-C - Last Filed: 03/31/23 04:00> Review of Systems Review of Systems: All systems as dictated in HPI <Aurelio Bates PA-C - Last Filed: 03/31/23 04:00> [facility] Past Medical History Medical History: Medical History Asthma Asthma exacerbation Bronchitis Hx of migraines Pyelonephritis Ruptured left tubal ectopic causing hemoperitoneum (~10/09/19) Vaginal delivery <Aurelio Bates PA-C - Last Filed: 03/31/23 04:00> Surgical History Surgical History: Surgical History History of carpal tunnel surgery of right wrist History of tonsillectomy Hx of cholecystectomy <Aurelio Bates PA-C - Last Filed: 03/31/23 04:00> Family History Family History: Family History Mother Hypertension A-fib Depression Heart disease Father Diabetes mellitus Kidney calculi Grandparent Breast cancer in female Diabetes mellitus Heart disease Hypertension Sibling Depression <Aurelio Bates PA-C - Last Filed: 03/31/23 04:00> Social History Social History: Social History Smoking status: Never smoker Second hand tobacco smoke exposure: No Alcohol intake: never Substance use: never Substance use type: does not use Lack of Transportation: No Lack of Food: Never True Current Housing: I Have Housing Concerned About Future Housing: No Difficulty Paying Gas/Electric Bills: No Difficulty Paying for Meds: No Currently Unemployed: No Education: Associate Degree Diffic
[2023-03-30 23:27] LABS: Basophils Percent Auto 0.3 % (0.2-1.2); Eosinophils Absolute Auto 0.1 K/mm3 (0-0.3); Eosinophils Percent Auto 0.8 % (0-4.4); Hematocrit 38.4 % (37.0-47.0); Hemoglobin 12.7 g/dL (12.0-15.0); Immature Granulocyte Absolute 0.05 K/mm3 (0.00-0.031); Immature Granulocyte Percent A 0.4 % (0-0.5); Lymphocytes Absolute Auto 1.66 K/mm3 (0.9-3.2); Lymphocytes Percent Auto 12.3 % (18.3-44.2); Mean Corpuscular HGB Conc 33.1 g/dl (32-36); Mean Corpuscular Hemoglobin 28.9 pg (26-34); Mean Corpuscular Volume 87.3 fl (80-100); Mean Platelet Volume 9.8 fl (7.4-10.4); Monocytes Absolute Auto 0.5 K/mm3 (0.1-0.6); Monocytes Percent Auto 3.6 % (2.6-8.5); Neutrophils Absolute Auto 11.1 K/mm3 (1.3-6.7); Neutrophils Percent Auto 82.6 % (45.5-73.1); Platelet Count Result 346 k/mm3 (150-375); Red Cell Distribution Width 12.8 % (11.5-14.5); White Blood Count 13.5 K/mm3 (4.5-10.0)
[2023-03-30 23:38] LABS: Alanine Aminotransferase 17 U/L (6-35); Albumin Level 3.8 g/dL (3.5-5.1); Alkaline Phosphatase 86 U/L (38-126); Anion Gap 5 mmol/L (8-16); Aspartate Amino Transferase 20 U/L (14-36); Bilirubin,Total 0.3 mg/dL (0.2-1.3); Blood Urea Nitrogen 10 mg/dL (7-17); Calcium 8.6 mg/dL (8.4-10.2); Carbon Dioxide 23 mmol/L (22-30); Chloride 106 mmol/L (98-107); Estimated CRCL calculation 127 ml/min; Estimated Glomerular Filt Rate > 60; Glucose 102 mg/dL (65-110); Lipase 137 U/L (23-300); Potassium 3.7 mmol/L (3.4-5.0); Sodium 134 mmol/L (137-145)
[2023-03-30 23:39] VITALS: BP 124/74; PULSE 96; RESP 16; O2SAT 100
[2023-03-30 23:48] LABS: Appearance Urine Clear (Clear); Bacteria Urine 2+ /hpf; Bilirubin Urine Negative (Negative); Blood Urine 1+ (Negative); Color Urine Yellow (Yellow); Glucose Urine UA Negative (Negative); Ketones Urine Negative (Negative); Leukocyte Esterase Ur 1+ LEU/UL (Negative); Nitrate Urine Negative (Negative); Non Pathogenic Casts 0-2; Protein Urine Negative (Negative); Squamous Epithelial Cell Urine Occasional /hpf (Few); Urobilinogen Urine 0.2 mg/dL (<2.0)
[2023-03-31 00:04] LABS: Add Urine Microscopic? YES
[2023-03-31] MEDS: MORPHINE SULFATE (*CRX) 4 MG/ML INJ IV PUSH (00:58)
[2023-03-31 01:32] VITALS: BP 98/64; PULSE 96; RESP 16; O2SAT 100
[2023-03-31] MEDS: HYDROmorphone HCL INJ (*CRX) 1 MG/ML SYR 0.5 MG IV PUSH ×2 (02:41→08:15)
[2023-03-31] MEDS: SODIUM CHLORIDE 0.9% IV 1,000 ML 999 ML IV CONT (02:43)
[2023-03-31 03:51] VITALS: BP 108/72; PULSE 88; RESP 14; O2SAT 100
--- NOTE | 2023-03-31 05:04 | ADMGEN ---
This patient, Alexander Sawant, was admitted to Medical Room 251-01. Patient/family oriented to hospital policies and general routines including ID bracelet, bed and alarms, visiting hours, pain management, procedures, bathroom and other care routines, personal items, smoking policy, room service/diet, and visiting hours. Information on how to activate the Rapid Response Team has been discussed. Patient/Family are encouraged to report perceived risks to care and to ask questions if they do not understand what they are told or what they should do.
[2023-03-31 05:06] VITALS: BP 117/71; PULSE 85; RESP 16; TEMP 36.5; O2SAT 100
[2023-03-31] MEDS: SODIUM CHLORIDE 0.9% IV 1,000 ML 125 ML IV CONT ×2 (05:12→17:37)
--- NOTE | 2023-03-31 09:53 | PM.IMHP ---
H&P: HPI History of Present Illness Date/Time: 03/31/23 09:53 Chief Complaint: Periumbilical abdominal pain Narrative: The patient is a 33-year-old female presenting to the emergency department complaining severe periumbilical abdominal pain. The patient reports that pain started acutely last night after dinner and some movement. The patient reports that the pain was severe, constant, sharp in nature. The patient denies previous symptoms. She reports that she has a known incisional hernia in the periumbilical region from previous surgery. The patient had a CT in 2019 showing this hernia. The patient reports the hernia had previously been completely asymptomatic. Review of Systems Review of Systems: All systems reviewed & are unremarkable except as noted in HPI and below PMFSH Past Medical History Medical History Asthma Asthma exacerbation Bronchitis Hx of migraines Pyelonephritis Ruptured left tubal ectopic causing hemoperitoneum (~10/09/19) Vaginal delivery Surgical History Surgical History History of carpal tunnel surgery of right wrist History of tonsillectomy Hx of cholecystectomy Family History Family History Mother Hypertension A-fib Depression Heart disease Father Diabetes mellitus Kidney calculi Grandparent Breast cancer in female Diabetes mellitus Heart disease Hypertension Sibling Depression Social History Social History Smoking status: Never smoker Second hand tobacco smoke exposure: No Alcohol intake: never Substance use: never Substance use type: does not use Lack of Transportation: No Lack of Food: Never True Current Housing: I Have Housing Concerned About Future Housing: No Difficulty Paying Gas/Electric Bills: No Difficulty Paying for Meds: No Currently Unemployed: No Education: Associate Degree Difficulty w/ Childcare or Family Care: No Living arrangements: with family Gender identity (if verbalized by the patient): Female Spiritual care concerns: No Agree to blood products: Yes Meds Home Medications and Allergies Home Medications Medication Instructions Recorded Confirmed Type albuterol sulfate 90 mcg/actuation 1 inh inhalation Q4H PRN shortness 07/22/21 03/31/23 Rx aerosol inhaler of breath or wheezing #8.5 grams sumatriptan succinate 25 mg tablet See Rx Instructions PO .COMPLEX 05/15/22 03/31/23 History Adults Multivitamin 1 tab-cap PO DAILY 03/31/23 03/31/23 History albuterol sulfate 2.5 mg/3 mL 2.5 mg inhalation Q6H PRN 03/31/23 03/31/23 History (0.083 %) solution for nebulization Shortness Of Breath Or Wheezing budesonide 160 mcg-glycopyr 9 2 inh inhalation BID PRN Allergy 03/31/23 03/31/23 History mcg-formot 4.8 mcg/actuation HFA Symptoms inhaler ([employer]) loratadine 10 mg tablet (Claritin) 10 mg PO DAILY 03/31/23 03/31/23 History montelukast 10 mg tablet 10 mg PO DAILY 03/31/23 03/31/23 History semaglutide 0.25 mg or 0.5 mg (2 0.5 mg subcut WEEKLY 03/31/23 03/31/23 History mg/1.5 mL) subcutaneous pen injector Allergies Allergy/AdvReac Type Severity Reaction Status Date / Time No Known Allergies Allergy Verified 03/30/23 21:08 Vital Signs Vital Signs - 24 hr 03/30/23 21:01 03/30/23 23:39 03/31/23 01:32 Temperature 36.7 C Pulse Rate 96 96 96 Respiratory Rate 15 16 16 Blood Pressure 138/98 H 124/74 98/64 L Pulse Oximetry 100 100 100 Oxygen Delivery Room Air 03/31/23 03:51 03/31/23 05:09 03/31/23 05:06 Temperature 36.5 C Pulse Rate 88 85 Respiratory Rate 14 16 Blood Pressure 108/72 117/71 Pulse Oximetry 100 100 Oxygen Delivery Room Air Exam Const: General: cooperative, comfortable, no acute distress and obese HENMT: Head: n
[2023-03-31 14:00] VITALS: BP 121/67; PULSE 69; RESP 16; TEMP 36.6; O2SAT 99
--- NOTE | 2023-03-31 18:12 | PC.NURSE ---
03/31/23 1600 Called Surgery for verification on discharge plan. Dr. Ruiz answered the phone. Dr. Ruiz stated no discharged at this time.
[2023-03-31 19:51] VITALS: BP 121/63; PULSE 70; RESP 20; TEMP 36.8; O2SAT 100
[2023-03-31 20:00] VITALS: PULSE 70; RESP 20; O2SAT 100
[2023-04-01] MEDS: SODIUM CHLORIDE 0.9% IV 1,000 ML 125 ML IV CONT (01:12)
[2023-04-01 04:51] VITALS: BP 106/73; PULSE 78; RESP 20; TEMP 36.6; O2SAT 100
--- NOTE | 2023-04-01 10:59 | PM.DS ---
DS: Admitting Diagnosis Discharge Date 04/01/2023 Admitting Diagnosis incarcerated periumbilical incisional hernia DS: Discharge Diagnosis Discharge Diagnosis (1) Incarcerated incisional hernia: Code(s): K43.0 - Incisional hernia with obstruction, without gangrene Status: Acute Assessment and Plan: exam benign, tolerating diet, will discharge home with plans for urgent repair robotically on 04/02 DS: Summary Hospital Course Reason for hospitalization: Incarcerated periumbilical incisional hernia Hospital Course: The patient is a 33-year-old female that presented to the emergency department complaining of severe periumbilical abdominal pain, swelling. Workup in the emergency department, including CT, was significant for incarcerated periumbilical incisional hernia. Given these findings, the patient was admitted to the surgical service. Upon evaluation, the hernia was much softer and less pain. The decision was made for urgent repair robotically. The patient was able to tolerate a diet over the day and continued to have little to no pain. She will be discharged at this time with plans to return tomorrow to the operating room for robotic assisted incarcerated incisional hernia repair. The patient has been instructed to continue light activity at this time. Status at Discharge Functional status at discharge: independent ambulation Overall status at discharge: patient is progressing back to baseline Time Spent with Patient Time attestation: Total time spent providing and/or coordinating discharge services: Exam Const: General: cooperative, comfortable and no acute distress Resp: Auscultation: clear to auscultation bilaterally Cardio: Rate: regular rate Rhythm: regular rhythm GI: Inspection: normal to inspection, distended, obesity and visible herniation GI Palp: Yes abdominal tenderness, Yes Soft to palpation, Yes Tenderness to palpation present (GI), No Guarding due to palpation present (GI) and No Rigid due to palpation Discharge Plan Discharge Attending physician on discharge: Gracie Terrazas Discharging Clinician: Gracie Terrazas Anticipated Discharge Date/Time: 04/01/23 11:04 Patient Disposition: Home, Self-Care Activity: no straining Diet: as tolerated Discharge Instructions: office will contact pt to schedule hernia repair Patient Instructions: Antibiotic Form Stand Alone Forms: General Discharge Information Follow-up/Referrals: Gracie Terrazas MD [Physician] - 2 Weeks Discharge Medications: New docusate sodium [Colace] 100 mg capsule 100 mg PO BID Qty: 20 0RF Continued albuterol sulfate 90 mcg/actuation HFA aerosol inhaler 1 inh inhalation Q4H PRN (Reason: shortness of breath or wheezing) Qty: 8.5 1RF sumatriptan succinate 25 mg tablet See Rx Instructions PO .COMPLEX Rx Instructions: take 1 tab at onset of headache; if no relief may repeat 1 tab after at least 2 hrs; max = 4 tabs/24 hr PO Adults Multivitamin 1 tab-cap PO DAILY loratadine [Claritin] 10 mg Tablet 10 mg PO DAILY albuterol sulfate 2.5 mg /3 mL (0.083 %) solution for nebulization 2.5 mg inhalation Q6H PRN (Reason: Shortness Of Breath Or Wheezing) montelukast 10 mg tablet 10 mg PO DAILY Rx Instructions: TAKE 1 TABLET BY MOUTH DAILY IN THE EVENING AT BEDTIME Ozempic 0.25 mg or 0.5 mg(2 mg/1.5 mL) pen injector 0.5 mg subcut WEEKLY Rx Instructions: INJECT 0.5 MG UNDER THE SKIN - FRIDAYS Breztri Aerosphere 160-9-4.8 mcg/actuation HFA aerosol inhaler 2 inh inhalation BID PRN (Reason: Allergy Symptoms) No Action hydrocodone-acetaminophen 7.5-325 mg tablet 1 tablet PO Q6H PRN (Reason: pain) Qty: 20 0RF Date of admission: 03/31/23 03:49 Primary Care Provider: Gale Pereira Admitting Provider: Gracie Terrazas Attending physician on admission: Gracie Terrazas Condition: Stable
--- NOTE | 2023-04-01 11:23 | PC.NURSE ---
Spoke with Dr. Terrazas about No Action medication under Discharge Plan. This medication was previously transmitted to pharmacy on 03/31/23.
--- NOTE | 2023-04-01 17:08 | PC.NURSE ---
On 04/01/23, the Licence pending nurse, Kassy Keith, provided care and completed [facility] documentation on this patient. I have reviewed the Licence pending nurses documentation and agree with the findings.
== END 2023-04-01 11:45 | disposition home or self-care (01) ==
LOC: ANHED 03-31 03:55 → ANH2MED 03-31 04:49
PROVIDERS: Emergency Medicine; Admitting Provider Surgery; Emergency Provider Physician Assistant; PCP Nurse Practitioner Family; Visit Provider Surgery
DX: K43.0 Incisional hernia with obstruction, without gangrene (principal); D25.9 Leiomyoma of uterus, unspecified; N83.202 Unspecified ovarian cyst, left side; J45.909 Unspecified asthma, uncomplicated; Z87.898 Personal history of other specified conditions; Z79.51 Long term (current) use of inhaled steroids; Z79.85 Long-term (current) use of injectable non-insulin antidiabetic drugs; Z79.899 Other long term (current) drug therapy
CPT/HCPCS: 36415; 74177; 80053; 81001; 81025; 83690; 85025; 87086; 96361; 96374; 96375; 96376; 99285; G0378; J1170; J2270; J2405; J7030; Q9967

== ENCOUNTER 2023-04-02 01:17 | Day surgery (SDC) | payer BC, SELFPAY ==
[2023-04-01 13:11] VITALS: BMI 52.9
--- NOTE | 2023-04-01 13:15 | PC.NURSE ---
Report to the Outpatient Waiting Room, entrance under the green pavilion located off [facility], at time 0800 on date 04/02/23. Planned Procedure Time: 1000. Time changes happen often and if your time is changed the preop area will call you the afternoon before. - You and your visitor will be asked to self-screen and do not enter if you have any COVID symptoms. - A mask is optional within the hospital at this time. Patients may have clear liquids (water, carbonated beverages, clear teas, apple juice) until 3 hours prior to surgery with a maximum of 20 ounces. - No food from midnight until time of surgery Take the following medications with a SIP of water the morning of surgery: PAIN PILL IF NEEDED DO NOT STOP ANY OF YOUR OTHER PRESCRIPTION MEDICATIONS PRIOR TO SURGERY ?EXCEPT THE FOLLOWING Medications to discontinue per physician: VITAMINS/SUPPLEMENTS Date to take last dose: NO MORE UNTIL AFTER SURGERY Please no make-up, nail micronesian, hairspray, perfume, deodorant, or body powder the day of surgery. No jewelry (including any body piercings) or valuables the day of surgery, leave them at home. Please take a shower or bath the night before, or the morning of, surgery with an antibacterial soap. Wear comfortable, loose fitting clothing. - Jewelry must be removed prior to entering the operating room. Rings and piercings that are not removed may be cut off. - The hospital will not accept responsibility for valuables. - Please leave all valuables, including medications, at home the day of surgery. If you are going home after surgery, a licensed driver's license reviewing officer must drive you home. - NO public transportation without another adult if you receive anesthesia. - We recommend that an adult stay with you for 24 hours following discharge. - We also recommend that you do not drive, make important decision, drink alcoholic beverages, or take any drugs that were not prescribed by your health care provider for at least 24 hours after your discharge time. Follow any additional instructions given to you from your surgeon. If you or anyone in your household have experienced Covid symptoms in the past week, please notify your surgeon or the nurse liaison at the phone number below for possible testing. Telephone instructions given to PT Promise MEZA and asked if any additional questions and then verbalized understanding. Patient advised to call surgeon office or pre surgery nurse liaison [phone] if any additional questions.
[2023-04-02] VITALS (9 sets, daily range): BP systolic 101–137; BP diastolic 61–92; PULSE 70–85; RESP 14–16; TEMP 37–37.1; O2SAT 93–100; BMI 52.0
[2023-04-02] MEDS: LACTATED RINGERS 1,000 ML 30 ML IV CONT ×2 (08:55→12:31)
[2023-04-02] MEDS: ACETAMINOPHEN 500 MG TABLET 1000 MG PO (09:10)
[2023-04-02] MEDS: KETOROLAC 15 MG/ML VIAL (*BKC) IV PUSH (09:10)
--- NOTE | 2023-04-02 09:10 | WPDANESEPPF ---
Anes - Initial Pre Proc Eval Procedure: Operation Date: 04/02/23 10:00 Proposed Procedures p Robotic Assisted Incarcerated Incisional Hernia Repair with Mesh - Gracie Terrazas MD Date/Time: 04/02/23 09:10 Surgeon: Gracie Terrazas MD Pre Op Diagnosis: Incarcerated Incisional Hernia Patient Data Age: 33 Gender: F Height: 1.55 m Weight: 127 kg Allergies Allergy/AdvReac Type Severity Reaction Status Date / Time No Known Allergies Allergy Verified 04/01/23 13:09 Home Medications Medication Instructions Recorded Confirmed Type albuterol sulfate 90 mcg/actuation 1 inh inhalation Q4H PRN shortness 07/22/21 04/01/23 Rx aerosol inhaler of breath or wheezing #8.5 grams sumatriptan succinate 25 mg tablet See Rx Instructions PO .COMPLEX 05/15/22 04/01/23 History Adults Multivitamin 1 tab-cap PO DAILY 03/31/23 04/02/23 History albuterol sulfate 2.5 mg/3 mL 2.5 mg inhalation Q6H PRN 03/31/23 04/01/23 History (0.083 %) solution for nebulization Shortness Of Breath Or Wheezing budesonide 160 mcg-glycopyr 9 2 inh inhalation BID PRN Allergy 03/31/23 04/01/23 History mcg-formot 4.8 mcg/actuation HFA Symptoms inhaler (Breztri Aerosphere) docusate sodium 100 mg capsule 100 mg PO BID #20 caps 03/31/23 04/01/23 Rx (Colace) loratadine 10 mg tablet (Claritin) 10 mg PO DAILY 03/31/23 04/01/23 History montelukast 10 mg tablet 10 mg PO DAILY 03/31/23 04/01/23 History semaglutide 0.25 mg or 0.5 mg (2 0.5 mg subcut WEEKLY 03/31/23 04/01/23 History mg/1.5 mL) subcutaneous pen injector hydrocodone 7.5 mg-acetaminophen 1 tablet PO Q6H PRN pain #20 tabs 04/01/23 Rx 325 mg tablet Patient hx anesthesia problems: none Family hx anesthesia problems: none Results Review: All pre-operative results and documents have been reviewed as part of the pre-operative evaluation. [facility] Past Medical History Medical History Asthma Asthma exacerbation Bronchitis Hx of migraines Pyelonephritis Ruptured left tubal ectopic causing hemoperitoneum (~10/09/19) Vaginal delivery Surgical History Surgical History History of carpal tunnel surgery of right wrist History of tonsillectomy Hx of cholecystectomy Family History Family History Mother Hypertension A-fib Depression Heart disease Father Diabetes mellitus Kidney calculi Grandparent Breast cancer in female Diabetes mellitus Heart disease Hypertension Sibling Depression Social History Social History Smoking status: Never smoker Second hand tobacco smoke exposure: No Alcohol intake: never Substance use: never Substance use type: does not use Lack of Transportation: No Lack of Food: Never True Current Housing: I Have Housing Concerned About Future Housing: No Difficulty Paying Gas/Electric Bills: No Difficulty Paying for Meds: No Currently Unemployed: No Education: Associate Degree Difficulty w/ Childcare or Family Care: No Living arrangements: with family Gender identity (if verbalized by the patient): Female Spiritual care concerns: No Agree to blood products: Yes Anes - Eval Final PreProcedure Day of Procedure 04/02/23 09:10 Patient weight: morbidly obese Heart: regular rate and rhythm Lungs: clear to auscultation Airway: Mallampati scale class II and other (upper partial) Neurological: alert and oriented Last oral intake: >/= 8 hours ASA classification: III Emergent: no Anesthetic plan: proceed Anesthesia type and monitoring: general ETT and standard monitoring Results Review: All pre-operative results and documents have been reviewed as part of the pre-operative evaluation. Informed Consent: The patient's anesthetic plan and its attendant risks and benefits were disc
--- NOTE | 2023-04-02 09:46 | WPDHPUPDATE1 ---
History and Physical Update Update Date/Time: 04/02/23 09:46 History and Physical has been reviewed, including an updated exam of the patient. There are NO changes in the patient's condition. Risks, benefits, and alternatives have been discussed and questions answered. Patient agrees to proceed with procedure.
[2023-04-02] MEDS: ceFAZolin 3 GM/D5W 100 ML 100 ML IVPB (10:10)
[2023-04-02] MEDS: BUPIVACAINE/EPINEPHRINE 0.5% 50 ML VIAL INFILTRATE (10:41)
--- NOTE | 2023-04-02 12:44 | W.PM.PROC2 ---
Procedure Note - Detailed Date of Procedure 04/02/23 Pre-op Diagnosis Incarcerated Incisional Hernia Post-op Diagnosis Same Procedure Performed Robotic assisted repair incarcerated incisional hernia with mesh with defect approximately 3.5 cm Surgeon Gracie Terrazas MD Anesthesia General Indications 33 y/o F presenting c moderate sized incarcerated periumbilical incisional hernia Findings 3.5 cm periumbilical incisional hernia c incarcerated preperitoneal fat Description of Procedure The patient was taken the operating room placed in the supine position. After adequate induction of general anesthesia, the patient was prepped and draped in normal sterile fashion. A time-out was then done to verify the patient's identity as well as the procedure being performed. I began by making a 8 mm incision in the left upper quadrant. Through this, a Veress needle was placed into the peritoneal cavity and CO2 gas was insufflated. After adequate pneumoperitoneum was achieved, a 8 mm trocar was placed through this incision. I then placed the laparoscope through this trocar site and under direct visualization I placed a 8 mm port in the left mid abdomen as well as an additional 8 mm port in the left lower abdomen. The robot was then docked to the 3 port sites. I then went to the robotic console. I began by identifying the hernia. A moderate-sized incarcerated periumbilical incisional hernia was noted. I created a preperitoneal flap approximately 6 cm lateral to the hernia. This flap was carried widely superior and inferior to the defect. I then was able to reduce this hernia. The hernia was noted to contain a large amount of preperitoneal fat. Once reduced, I also reduced and dissected out the hernia sac. I then carried the flap distally past the hernia. I then closed the approximately 3.5 cm defect with 0 strata fix suture. I then placed a 10 x [address] mesh into the abdominal cavity. The positional stitch was placed in the middle of the mesh and brought up centering the mesh over the defect. Once this was done, I used 2 0 Vicryl suture in interrupted fashion at the cardinal positions to suture the mesh to the abdominal wall. Once the mesh was sutured in, I was happy with our tension-free repair. The mesh was noted to have good overlap of the defect. I then closed the flap with 2 0 V lock. At this point, the robot was undocked and all ports were removed. All port sites were then closed with 4 O Monocryl subcuticular suture. The patient tolerated the procedure well, is extubated in the operating room postoperative, and will be transferred to the recovery room in stable condition. Implants 10 x [address] mesh Estimated Blood Loss 25 Drains No Packing No Pathology None sent Complications No immediate complications Condition Stable Disposition PACU [facility] Billing Surgery - Charge Forward: Surgery Billing
[2023-04-02] MEDS: fentaNYL CITRATE INJ (*CRX) 100 MCG/2 ML VIAL 25 MCG IV PUSH ×4 (13:07→13:20)
[2023-04-02] MEDS: oxyCODONE HCL (*CRX) 5 MG TAB IR PO (14:08)
== END 2023-04-02 15:10 | disposition home or self-care (01) ==
PROVIDERS: PCP Nurse Practitioner Family; Visit Provider Surgery
PROC: (CPT 49594; principal; 2023-04-02 10:00)
DX: K43.0 Incisional hernia with obstruction, without gangrene (principal); J45.909 Unspecified asthma, uncomplicated; Z79.51 Long term (current) use of inhaled steroids; Z79.85 Long-term (current) use of injectable non-insulin antidiabetic drugs; E66.01 Morbid (severe) obesity due to excess calories; Z68.43 Body mass index [BMI] 50.0-59.9, adult
CPT/HCPCS: 49594; S2900; 36415; 86850; 86900; 86901; A9270; C1781; J0330; J0690; J1100; J1170; J1885; J2250; J2405; J2704; J3010; J7030; J7120

== ENCOUNTER 2023-10-30 17:20 | Emergency (ER) | payer BC, SELFPAY ==
--- NOTE | 2023-10-30 17:35 | ED.EYEPROB ---
HPI - Eye Problem General Chief complaint: Eye Problems Stated complaint: Left Eye Problem Time Seen by Provider: 10/30/23 17:35 Source: patient Mode of arrival: ambulatory Limitations: no limitations Related Data Home Medications Medication Instructions Recorded Confirmed sumatriptan succinate 25 mg tablet See Rx Instructions PO .COMPLEX 05/15/22 06/22/23 Adults Multivitamin 1 tab-cap PO DAILY 03/31/23 06/22/23 albuterol sulfate 2.5 mg/3 mL 2.5 mg inhalation Q6H PRN 03/31/23 06/22/23 (0.083 %) solution for nebulization Shortness Of Breath Or Wheezing budesonide 160 mcg-glycopyr 9 2 inh inhalation BID PRN Allergy 03/31/23 06/22/23 mcg-formot 4.8 mcg/actuation HFA Symptoms inhaler (Breztri Aerosphere) loratadine 10 mg tablet (Claritin) 10 mg PO DAILY 03/31/23 06/22/23 Allergies Allergy/AdvReac Type Severity Reaction Status Date / Time No Known Allergies Allergy Verified 10/30/23 17:35 [facility] Past Medical History Medical History Asthma Asthma exacerbation Bronchitis Hx of migraines Pyelonephritis Ruptured left tubal ectopic causing hemoperitoneum (~10/09/19) Vaginal delivery Surgical History Surgical History History of carpal tunnel surgery of right wrist History of hernia surgery Robotic assisted repair incarcerated incisional hernia with mesh with defect approximately 3.5 cm on 04/02/23 PDC History of tonsillectomy Hx of cholecystectomy Family History Family History Mother Hypertension A-fib Depression Heart disease Father Diabetes mellitus Kidney calculi Grandparent Breast cancer in female Diabetes mellitus Heart disease Hypertension Sibling Depression Social History Social History Smoking status: Never smoker Second hand tobacco smoke exposure: No Alcohol intake: never Substance use: never Substance use type: does not use Lack of Transportation: No Lack of Food: Never True Current Housing: I Have Housing Concerned About Future Housing: No Difficulty Paying Gas/Electric Bills: No Difficulty Paying for Meds: No Currently Unemployed: No Education: Associate Degree Difficulty w/ Childcare or Family Care: No Living arrangements: with family Gender identity (if verbalized by the patient): Female Spiritual care concerns: No Agree to blood products: Yes Discharge Plan Discharge Prescriptions: No Action albuterol sulfate 90 mcg/actuation HFA aerosol inhaler 1 inh inhalation Q4H PRN (Reason: shortness of breath or wheezing) Qty: 8.5 1RF Proctofoam HC 1-1 % foam 1 applic RECTAL QID PRN (Reason: hemorrhoids) Qty: 10 0RF hydrocortisone acetate [Anusol-HC] 25 mg suppository 25 mg RECTAL QHS PRN (Reason: hemorrhoids) Qty: 12 0RF sumatriptan succinate 25 mg tablet See Rx Instructions PO .COMPLEX Rx Instructions: take 1 tab at onset of headache; if no relief may repeat 1 tab after at least 2 hrs; max = 4 tabs/24 hr PO fluticasone propionate [Allergy Relief (fluticasone)] 50 mcg/actuation spray,suspension 1 spray intranasal DAILY Qty: 16 0RF Rx Instructions: administer into each nostril Adults Multivitamin 1 tab-cap PO DAILY loratadine [Claritin] 10 mg Tablet 10 mg PO DAILY albuterol sulfate 2.5 mg /3 mL (0.083 %) solution for nebulization 2.5 mg inhalation Q6H PRN (Reason: Shortness Of Breath Or Wheezing) Breztri Aerosphere 160-9-4.8 mcg/actuation HFA aerosol inhaler 2 inh inhalation BID PRN (Reason: Allergy Symptoms) docusate sodium [Colace] 100 mg capsule 100 mg PO BID Qty: 20 0RF montelukast 10 mg tablet See Rx Instructions .ROUTE .COMPLEX Qty: 90 3RF Dose Instruction: TAKE 1 TABLET BY MOUTH DAILY IN THE EVENING AT BEDTIME
[2023-10-30 17:36] VITALS: BP 110/72; PULSE 78; RESP 18; TEMP 36.8; O2SAT 100
[2023-10-30 17:37] VITALS: BP 110/72; PULSE 78; RESP 18; TEMP 36.8; O2SAT 100
--- NOTE | 2023-10-30 17:37 | ED.SKABFB ---
HPI - Skin/Abscess/Foreign Bdy General Chief complaint: Eye Problems Stated complaint: Left Eye Problem Time Seen by Provider: 10/30/23 17:35 History of Present Illness HPI narrative: 33-year-old female presents with complaint of redness and swelling to left upper eyelid. Patient reports that she had a pimple near left eyebrow that she applied and had acne pimple patch to. States that redness and swelling migrated down to left eyelid and now has tenderness. No redness or drainage to left eye. No vision changes. All systems reviewed and negative except as noted above. Related Data Home Medications Medication Instructions Recorded Confirmed sumatriptan succinate 25 mg tablet See Rx Instructions PO .COMPLEX 05/15/22 10/30/23 Adults Multivitamin 1 tab-cap PO DAILY 03/31/23 10/30/23 albuterol sulfate 2.5 mg/3 mL 2.5 mg inhalation Q6H PRN 03/31/23 10/30/23 (0.083 %) solution for nebulization Shortness Of Breath Or Wheezing budesonide 160 mcg-glycopyr 9 2 inh inhalation BID PRN Allergy 03/31/23 10/30/23 mcg-formot 4.8 mcg/actuation HFA Symptoms inhaler (Breztri Aerosphere) Allergies Allergy/AdvReac Type Severity Reaction Status Date / Time No Known Allergies Allergy Verified 10/30/23 17:35 Review of Systems Review of Systems: CONSTITUTIONAL: Denies fever, chills, or sweats. EYES: Denies visual changes, redness, or discharge. ENT: Denies rhinorrhea, congestion, sore throat, or otalgia. CARDIOVASCULAR: Denies chest pain, palpitations, or edema. RESPIRATORY: Denies cough or dyspnea. GASTROINTESTINAL: Denies abdominal pain, nausea, vomiting, or diarrhea. GENITOURINARY: Denies dysuria or hematuria. SKIN: Denies rash or itching. Reports redness and swelling to left upper eyelid. MUSCULOSKELETAL: Denies back pain, joint pain, or myalgia. NEUROLOGIC: Denies headache, numbness, or weakness. PSYCHIATRIC: Denies anxiety or depression. All other systems reviewed are negative, except as documented in HPI. [facility] Past Medical History Medical History Asthma Asthma exacerbation Bronchitis Hx of migraines Pyelonephritis Ruptured left tubal ectopic causing hemoperitoneum (~10/09/19) Vaginal delivery Surgical History Surgical History History of carpal tunnel surgery of right wrist History of hernia surgery Robotic assisted repair incarcerated incisional hernia with mesh with defect approximately 3.5 cm on 04/02/23 PDC History of tonsillectomy Hx of cholecystectomy Family History Family History Mother Hypertension A-fib Depression Heart disease Father Diabetes mellitus Kidney calculi Grandparent Breast cancer in female Diabetes mellitus Heart disease Hypertension Sibling Depression Social History Social History Smoking status: Never smoker Second hand tobacco smoke exposure: No Alcohol intake: never Substance use: never Substance use type: does not use Lack of Transportation: No Lack of Food: Never True Current Housing: I Have Housing Concerned About Future Housing: No Difficulty Paying Gas/Electric Bills: No Difficulty Paying for Meds: No Currently Unemployed: No Education: Associate Degree Difficulty w/ Childcare or Family Care: No Living arrangements: with family Gender identity (if verbalized by the patient): Female Spiritual care concerns: No Agree to blood products: Yes Comments At time of signature, agree with nursing past medical, surgical, social and family history. There is no relevant family history pertinent to the presenting complaint. Exam Narrative: GENERAL: This is a well-nourished, well-developed patient, in no apparent distress. HEAD: normocephalic, atraumatic. EYES: PERRL. Sclera clear/white. No d
== END 2023-10-30 17:44 | disposition home or self-care (01) ==
PROVIDERS: Emergency Provider Nurse Practitioner Family; PCP Nurse Practitioner Family
DX: H00.034 Abscess of left upper eyelid (principal); J45.909 Unspecified asthma, uncomplicated
CPT/HCPCS: 99213; G0463

== ENCOUNTER 2024-01-16 15:14 | Emergency (ER) | payer BC, SELFPAY ==
--- NOTE | 2024-01-16 15:41 | ED.GENADULT ---
HPI - General Adult General Chief complaint: Headache Stated complaint: migraine Time Seen by Provider: 01/16/24 15:18 History of Present Illness HPI narrative: This is a 33-year-old female with a history of migraines presenting for a headache. Patient says that she developed a pounding on the right side of her head that developed 3 hours prior to arrival. Associated with photophobia and phonophobia. She relate to previous migraines she has had in the past. It was not maximal in onset not associated with loss of consciousness or any sort of vigorous activity. No fevers or neck pain. Related Data Home Medications Medication Instructions Recorded Confirmed sumatriptan succinate 25 mg tablet See Rx Instructions PO .COMPLEX 05/15/22 10/30/23 Adults Multivitamin 1 tab-cap PO DAILY 03/31/23 10/30/23 albuterol sulfate 2.5 mg/3 mL 2.5 mg inhalation Q6H PRN 03/31/23 10/30/23 (0.083 %) solution for nebulization Shortness Of Breath Or Wheezing budesonide 160 mcg-glycopyr 9 2 inh inhalation BID PRN Allergy 03/31/23 10/30/23 mcg-formot 4.8 mcg/actuation HFA Symptoms inhaler (Breztri Aerosphere) Allergies Allergy/AdvReac Type Severity Reaction Status Date / Time No Known Allergies Allergy Verified 01/16/24 15:16 [facility] Past Medical History Medical History Asthma Asthma exacerbation Bronchitis Hx of migraines Pyelonephritis Ruptured left tubal ectopic causing hemoperitoneum (~10/09/19) Vaginal delivery Surgical History Surgical History History of carpal tunnel surgery of right wrist History of hernia surgery Robotic assisted repair incarcerated incisional hernia with mesh with defect approximately 3.5 cm on 04/02/23 PDC History of tonsillectomy Hx of cholecystectomy Family History Family History Mother Hypertension A-fib Depression Heart disease Father Diabetes mellitus Kidney calculi Grandparent Breast cancer in female Diabetes mellitus Heart disease Hypertension Sibling Depression Social History Social History Smoking status: Never smoker Second hand tobacco smoke exposure: No Alcohol intake: never Substance use: never Substance use type: does not use Lack of Transportation: No Lack of Food: Never True Current Housing: I Have Housing Concerned About Future Housing: No Difficulty Paying Gas/Electric Bills: No Difficulty Paying for Meds: No Currently Unemployed: No Education: Associate Degree Difficulty w/ Childcare or Family Care: No Living arrangements: with family Gender identity (if verbalized by the patient): Female Spiritual care concerns: No Agree to blood products: Yes Exam Narrative: APPEARANCE: No apparent distress. Head: atraumatic. EYES: EOMI, NOSE: Atraumatic NECK: Trachea midline RESPIRATORY: No increased rate of breathing CARDIOVASCULAR: RRR, ABDOMINAL: Non-distended MUSCULOSKELETAl: No obvious deformities NEURO: Alert. Cranial nerves 2-12 grossly intact. Sensation light touch, motor function cerebellar function intact for 4 extremities. Gait exam was normal. SKIN:: Warm, dry. Normal color PSYCHIATRIC: Normal affect Course Vital Signs Vital signs: Vital Signs Pulse Rate 108 H 01/16/24 16:34 Respiratory Rate 19 01/16/24 16:34 Blood Pressure 115/66 01/16/24 16:34 Pulse Oximetry 97 01/16/24 16:34 Pulse Rate 108 H 01/16/24 16:34 Respiratory Rate 19 01/16/24 16:34 Blood Pressure 115/66 01/16/24 16:34 Pulse Oximetry 97 01/16/24 16:34 Medical Decision Making MDM Narrative Medical decision making narrative: -Course: 33-year-old female with migraines presenting with a typical migraine. Neuro exam normal. No red flags on history or physical. Pat
[2024-01-16] MEDS: ONDANSETRON HCL ODT 4 MG TABLET PO (16:19)
[2024-01-16] MEDS: ACETAMINOPHEN 500 MG TABLET 1000 MG PO (16:19)
[2024-01-16] MEDS: KETOROLAC 15 MG/ML VIAL (*BKC) IM (16:20)
[2024-01-16] MEDS: diphenhydrAMINE HCl INJ 50 MG/ML VIAL 25 MG IM (16:20)
[2024-01-16] MEDS: PROCHLORPERAZINE EDISYLATE 10 MG/2 ML VIAL IV PUSH (16:21)
[2024-01-16 16:34] VITALS: BP 115/66; PULSE 108; RESP 19; O2SAT 97
[2024-01-16 17:23] VITALS: BP 113/70; PULSE 96; RESP 18; O2SAT 96
== END 2024-01-16 17:24 | disposition home or self-care (01) ==
PROVIDERS: Emergency Provider Emergency Medicine; PCP Nurse Practitioner Family
DX: G43.909 Migraine, unspecified, not intractable, without status migrainosus (principal); J45.909 Unspecified asthma, uncomplicated
CPT/HCPCS: 96372; 96374; 99284; A9270; J0780; J1200; J1885

== ENCOUNTER 2024-02-16 17:39 | Emergency (ER) | payer BC, SELFPAY ==
[2024-02-16 17:47] VITALS: BP 131/76; PULSE 93; RESP 20; TEMP 36.8; O2SAT 100
--- NOTE | 2024-02-16 18:04 | ED.URI ---
HPI - URI/Sore Throat General Chief Complaint: Upper Respiratory Infection Stated Complaint: throat History of Present Illness HPI Narrative: 34-year-old female presenting for complaint of sore fever. Onset today. Endorses temp up to 100.3 today. She took Tylenol. Endorses her son had strep throat 1 week ago. Related Data Home Medications Medication Instructions Recorded Confirmed sumatriptan succinate 25 mg tablet See Rx Instructions PO .COMPLEX 05/15/22 02/16/24 albuterol sulfate 2.5 mg/3 mL 2.5 mg inhalation Q6H PRN 03/31/23 02/16/24 (0.083 %) solution for nebulization Shortness Of Breath Or Wheezing budesonide 160 mcg-glycopyr 9 2 inh inhalation BID PRN Allergy 03/31/23 02/16/24 mcg-formot 4.8 mcg/actuation HFA Symptoms inhaler ([employer]) Allergies Allergy/AdvReac Type Severity Reaction Status Date / Time No Known Allergies Allergy Verified 02/16/24 17:59 Review of Systems Review of Systems: CONSTITUTIONAL: Denies body aches, reports fear EYES: Denies visual changes, redness, or discharge. ENT: Reports sore throat Denies rhinorrhea, congestion, or otalgia. CARDIOVASCULAR: Denies chest pain, palpitations, or edema. RESPIRATORY: Denies dyspnea. GASTROINTESTINAL: Denies abdominal pain, nausea, vomiting, or diarrhea. SKIN: Denies rash, itching, or wounds. MUSCULOSKELETAL: Denies back pain, joint pain, or myalgia. NEUROLOGIC: Denies headache PMFSH Past Medical History Medical History Asthma Asthma exacerbation Bronchitis Hx of migraines Pyelonephritis Ruptured left tubal ectopic causing hemoperitoneum (~10/09/19) Vaginal delivery Surgical History Surgical History History of carpal tunnel surgery of right wrist History of hernia surgery Robotic assisted repair incarcerated incisional hernia with mesh with defect approximately 3.5 cm on 04/02/23 PDC History of tonsillectomy Hx of cholecystectomy Family History Family History Mother Hypertension A-fib Depression Heart disease Father Diabetes mellitus Kidney calculi Grandparent Breast cancer in female Diabetes mellitus Heart disease Hypertension Sibling Depression Social History Social History Smoking status: Never smoker Second hand tobacco smoke exposure: No Alcohol intake: never Substance use: never Substance use type: does not use Lack of Transportation: No Lack of Food: Never True Current Housing: I Have Housing Concerned About Future Housing: No Difficulty Paying Gas/Electric Bills: No Difficulty Paying for Meds: No Currently Unemployed: No Education: Associate Degree Difficulty w/ Childcare or Family Care: No Living arrangements: with family Gender identity (if verbalized by the patient): Female Spiritual care concerns: No Agree to blood products: Yes Exam Narrative: GENERAL: well-appearing, no acute distress. EYES: conjunctivae clear ENT: Mucous membranes moist. TM pearly kessler with normal light reflex and scarring bilaterally; no tragal tenderness. Oropharynx not erythematous without lesions. Tonsils absent, No drooling, no hoarseness, no trismus, uvula midline. No tripod positioning, hot potato voice, or soft palate swelling. NECK: Supple. No lymphadenopathy CHEST: Clear to auscultation, breath sounds equal. No respiratory distress, speaks in full sentences. HEART: Regular rate and rhythm. No murmur heard. SKIN: Warm, dry, no rash. NEURO: Alert and oriented x3. Course Course Emergency Course: Patient is aware of diagnosis, understands and agrees to treatment plan. Anticipatory guidance given. Patient agrees to follow-up as directed and is aware of reasons to seek care at the emergency department. Portions of th
[2024-02-16 18:07] LABS: EDSTREPNEGPOS1 Presumptive Negative
== END 2024-02-16 18:12 | disposition home or self-care (01) ==
PROVIDERS: Emergency Provider Nurse Practitioner Family
DX: J02.9 Acute pharyngitis, unspecified (principal); J45.909 Unspecified asthma, uncomplicated
CPT/HCPCS: 87081; 87880; 99213; G0463

== ENCOUNTER 2024-02-27 14:44 | Emergency (ER) | payer BC, SELFPAY ==
[2024-02-27 14:48] VITALS: BP 124/75; PULSE 115; RESP 16; TEMP 36.6; O2SAT 99
--- NOTE | 2024-02-27 14:48 | ED.GENADULT ---
HPI - General Adult General Chief complaint: Upper Respiratory Infection Stated complaint: upper respiratory Time Seen by Provider: 02/27/24 14:49 Source: patient, RN notes reviewed and old records reviewed Mode of arrival: ambulatory Limitations: no limitations History of Present Illness HPI narrative: 34-year-old female to [facility] for complaint of sore throat. Patient states that she was seen here last week and tested negative for strep in clinic. Patient states that her sore throat is getting progressively worse and that her son recently tested positive and was treated for strep throat. Patient has attempted to treat at home with Tylenol, ibuprofen, nasal spray, Mucinex, Sudafed without relief. Patient states she is now fatigued from difficulty sleeping. Patient is nearly tearful in exam room, appears tired. Patient reports history of asthma, bronchitis, migraines. Patient denies difficulty swallowing, shortness of breath, headache, allergies, chest pain, ear pain. Patient able to tolerate fluids by mouth however states that sore throat pain is worse with swallowing. Respirations even and nonlabored. Patient in no acute distress. Related Data Home Medications Medication Instructions Recorded Confirmed sumatriptan succinate 25 mg tablet See Rx Instructions PO .COMPLEX 05/15/22 02/16/24 albuterol sulfate 2.5 mg/3 mL 2.5 mg inhalation Q6H PRN 03/31/23 02/16/24 (0.083 %) solution for nebulization Shortness Of Breath Or Wheezing Allergies Allergy/AdvReac Type Severity Reaction Status Date / Time No Known Allergies Allergy Verified 02/27/24 14:48 Review of Systems Review of Systems: All systems reviewed & are unremarkable except as noted in HPI and below Constitutional: Constitutional: Reports as per HPI, Reports difficulty sleeping and Reports fatigue Eyes: Eyes: Reports no additional eye complaints ENT: Reports as per HPI and Reports sore throat Cardiovascular: Cardiovascular: Reports no additional cardiovascular complaints, Denies chest pain and Denies dyspnea Respiratory: Respiratory: Reports no additional respiratory complaints, Denies cough and Denies dyspnea Musculoskeletal: Musculoskeletal: Reports no additional musculoskeletal complaints Neurologic: Reports system reviewed and no additional complaints, except as documented Psychiatric: Psychiatric: Reports no additional psychiatric complaints PMFSH Past Medical History Medical History Asthma Asthma exacerbation Bronchitis Hx of migraines Pyelonephritis Ruptured left tubal ectopic causing hemoperitoneum (~03/01/20) Vaginal delivery Surgical History Surgical History History of carpal tunnel surgery of right wrist History of hernia surgery Robotic assisted repair incarcerated incisional hernia with mesh with defect approximately 3.5 cm on 04/02/23 PDC History of tonsillectomy Hx of cholecystectomy Family History Family History Mother Hypertension A-fib Depression Heart disease Father Diabetes mellitus Kidney calculi Grandparent Breast cancer in female Diabetes mellitus Heart disease Hypertension Sibling Depression Social History Social History Smoking status: Never smoker Second hand tobacco smoke exposure: No Alcohol intake: never Substance use: never Substance use type: does not use Lack of Transportation: No Lack of Food: Never True Current Housing: I Have Housing Concerned About Future Housing: No Difficulty Paying Gas/Electric Bills: No Difficulty Paying for Meds: No Currently Unemployed: No Education: Associate Degree Difficulty w/ Childcare or Family Care: No Living arrangements: with family Gender identity (if verbalized by the
== END 2024-02-27 15:26 | disposition home or self-care (01) ==
PROVIDERS: Emergency Provider Nurse Practitioner Family; PCP Nurse Practitioner Family
DX: J02.0 Streptococcal pharyngitis (principal); J45.909 Unspecified asthma, uncomplicated
CPT/HCPCS: 99213; G0463

== ENCOUNTER 2024-06-05 11:49 | Emergency (ER) | payer BC, SELFPAY ==
--- NOTE | ~2024-06-05 | XR_ITS ---
EXAMINATION: XR chest 2V DATE: 06/05/2024 12:22 INDICATION: Cough. TECHNIQUE: Frontal and lateral views of the chest were obtained. COMPARISON: Chest 2 views 11/29/2021 FINDINGS: There is no pneumonia, pleural effusion, or pneumothorax. The heart size is normal. Surgica l clips in the right upper quadrant are likely from cholecystectomy. IMPRESSION: 1. No acute cardiopulmonary disease. Reviewed, dictated and finalized at location A.
[2024-06-05 11:55] VITALS: BP 114/67; PULSE 86; RESP 18; TEMP 37; O2SAT 100
--- NOTE | 2024-06-05 12:20 | ED_ITS ---
HPI - General Adult General Chief complaint: Upper Respiratory Infection Stated complaint: Cough/Ear Pain/Shortness of Breath Source: patient Mode of arrival: ambulatory Limitations: no limitations History of Present Illness HPI narrative: Patient presents for evaluation of respiratory symptoms for last 6 days. She reports sinus congestion, nasal drainage, fever, productive cough of yellow sputum, shortness of breath, and wheezing. She has tried taking mucinex and sudafed without improvement. No recent sick contacts. She does not smoke. She has an underlying history of asthma. No nausea, vomiting or diarrhea. Related Data Home Medications Medication Instructions Recorded Confirmed sumatriptan succinate 25 mg tablet See Rx Instructions PO .COMPLEX 05/15/22 02/16/24 Adults Multivitamin 06/05/24 loratadine 06/05/24 Allergies Allergy/AdvReac Type Severity Reaction Status Date / Time No Known Allergies Allergy Verified 06/05/24 12:03 Review of Systems Review of Systems: CONSTITUTIONAL: Reports fever. Denies chills, or sweats. EYES: Denies visual changes, redness, or discharge. ENT: Reports sinus congestion and drainage CARDIOVASCULAR: Denies chest pain, palpitations, or edema. RESPIRATORY: Reports productive cough, shortness breath, wheezing GASTROINTESTINAL: Denies abdominal pain, nausea, vomiting, or diarrhea. GENITOURINARY: Denies dysuria or hematuria. SKIN: Denies rash or itching. MUSCULOSKELETAL: Denies back pain, joint pain, or myalgia. NEUROLOGIC: Denies headache, numbness, dizziness, or weakness. PSYCHIATRIC: Denies anxiety or depression. [facility] Past Medical History Medical History Asthma Asthma exacerbation Bronchitis Hx of migraines Pyelonephritis Ruptured left tubal ectopic causing hemoperitoneum (~10/09/19) Vaginal delivery Surgical History Surgical History History of carpal tunnel surgery of right wrist History of hernia surgery Robotic assisted repair incarcerated incisional hernia with mesh with defect approximately 3.5 cm on 04/02/23 PDC History of tonsillectomy Hx of cholecystectomy Family History Family History Mother Hypertension A-fib Depression Heart disease Father Diabetes mellitus Kidney calculi Grandparent Breast cancer in female Diabetes mellitus Heart disease Hypertension Sibling Depression Social History Social History Smoking status: Never smoker Second hand tobacco smoke exposure: No Alcohol intake: never Substance use: never Substance use type: does not use Lack of Transportation: No Lack of Food: Never True Current Housing: I Have Housing Concerned About Future Housing: No Difficulty Paying Gas/Electric Bills: No Difficulty Paying for Meds: No Currently Unemployed: No Education: Associate Degree Difficulty w/ Childcare or Family Care: No Living arrangements: with family Gender identity (if verbalized by the patient): Female Spiritual care concerns: No Agree to blood products: Yes Course Course Emergency Course: This is a 34 year old female who presented for evaluation of sick symptoms. Chest x-ray negative. She meets criteria for sinusitis based upon presence of fever. Will dc with augmentin and prednisone. She has an albuterol inhaler at home. Instructed to use as needed. Increase hydration. [id number] agents for symptom management. Follow up with primary provider. Go to the ER for worsening symptoms. Patient in agreement with plan of care. Level of Care: Express Care Visit Vital Signs Vital signs: Vital Signs Temperature 37.0 C 06/05/24 11:55 Pulse Rate 86 06/05/24 11:55 Respiratory Rate 18 06/05/24 11:55 Blood Pressure 114/67 06/05/24 11:55 Pulse Oximetry 100 06/05/24 11:55 Oxygen Delivery Room Air 06/05/24 11:55 Temperature 37.0 C 06/05/24 11:55 Pulse Rate 86 06/05/24 11:55 Respiratory Rate 18 06/05/24 11:55 Blood Pressure 114/67 06/05/24 11:55 Pulse Oximetry 100 06/05/24 11:55 Oxygen Delivery Room Air 06/05/24 11:55 Medical Decision Making Vital Signs Vital Signs: Vital Signs Temperature 37.0 C 06/05/24 11:55 Pulse Rate 86 06/05/24 11:55 Respiratory Rate 18 06/05/24 11:55 Blood Pressure 114/67 06/05/24 11:55 Pulse Oximetry 100 06/05/24 11:55 Oxygen Delivery Room Air 06/05/24 11:55 Temperature 37.0 C 10/27/24 11:55 Pulse Rate 86 06/05/24 11:55 Respiratory Rate 18 06/05/24 11:55 Blood Pressure 114/67 06/05/24 11:55 Pulse Oximetry 100 06/05/24 11:55 Oxygen Delivery Room Air 06/05/24 11:55 Imaging Data Radiologist's impression: EXAMINATION: XR chest 2V DATE: 06/05/2024 12:22 INDICATION: Cough. TECHNIQUE: Frontal and lateral views of the chest were obtained. COMPARISON: Chest 2 views 11/29/2021 FINDINGS: There is no pneumonia, pleural effusion, or pneumothorax. The heart size is normal. Surgical clips in the right upper quadrant are likely from cholecystectomy. IMPRESSION: 1. No acute cardiopulmonary disease. Discharge Plan Discharge Clinical Impression: Acute bacterial sinusitis, Asthma Patient Disposition: Home, Self-Care Condition: Stable Instructions: Antibiotic Form, Asthma (ED), Sinusitis (ED) Patient Language: Monegasque Prescriptions: New amoxicillin-pot clavulanate 875-125 mg tablet 1 tablet PO Q12H Qty: 20 0RF prednisone 50 mg tablet 50 mg PO DAILY Qty: 5 0RF No Action Adults Multivitamin loratadine sumatriptan succinate 25 mg tablet See Rx Instructions PO .COMPLEX Rx Instructions: take 1 tab at onset of headache; if no relief may repeat 1 tab after at least 2 hrs; max = 4 tabs/24 hr PO montelukast 10 mg tablet See Rx Instructions .ROUTE .COMPLEX Qty: 90 3RF Dose Instruction: TAKE 1 TABLET BY MOUTH DAILY IN THE EVENING AT BEDTIME Rx Instructions: TAKE 1 TABLET BY MOUTH DAILY IN THE EVENING AT BEDTIME albuterol sulfate 90 mcg/actuation HFA aerosol inhaler 1 inh inhalation Q4H PRN (Reason: shortness of breath or wheezing) Qty: 8.5 1RF albuterol sulfate 2.5 mg /3 mL (0.083 %) solution for nebulization 2.5 mg inhalation Q6H PRN (Reason: Shortness Of Breath Or Wheezing) Qty: 90 2RF Follow-up/Referrals: Lior Ribeiro MD [Physician] - Time of Disposition: 12:33
== END 2024-06-05 12:36 | disposition home or self-care (01) ==
PROVIDERS: Emergency Provider Nurse Practitioner
DX: J01.90 Acute sinusitis, unspecified (principal); J45.909 Unspecified asthma, uncomplicated
CPT/HCPCS: 71046; 99213; G0463

== ENCOUNTER 2024-07-15 11:05 | Outpatient (RCR) | payer BC, SELFPAY ==
[2024-07-13 16:33] LABS: Beta HCG Quantitative 160.61 mIU/ML
[2024-07-15 11:46] LABS: Beta HCG Quantitative 337.81 mIU/ML
== END 2024-10-11 23:59 | disposition home or self-care (01) ==
LOC: ANHLAB 11:05
PROVIDERS: PCP Nurse Practitioner Family; Visit Provider Advanced Practice Midwife
DX: O20.0 Threatened abortion (principal)
CPT/HCPCS: 36415; 84702

== ENCOUNTER 2024-08-17 18:22 | Emergency (ER) | payer BC, SELFPAY ==
[2024-08-17 18:30] VITALS: BP 135/81; PULSE 86; RESP 20; TEMP 36.6; O2SAT 100
--- NOTE | 2024-08-17 18:38 | ED.URI ---
HPI - URI/Sore Throat General Chief Complaint: Upper Respiratory Infection Stated Complaint: Shortness of Breath/Sinus Pain Time Seen by Provider: 08/17/24 18:38 Source: patient Mode of arrival: ambulatory Limitations: no limitations History of Present Illness HPI Narrative: 34-year-old female with a history of asthma presented for complaint of shortness of breath, cough, and low-grade fever for 3 days. Also reports sinus congestion and pressure. Temp up to 100.1, endorses body aches when the fever returns. She is using albuterol nebulizers without much improvement. Taking Tylenol. Tested negative for COVID at home. Patient is 9 weeks gestation. 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 Related Data Home Medications ?Medication ?Instructions ?Recorded ?Confirmed ?Last Taken ?Type Adults Multivitamin 06/05/24 Unknown History loratadine 06/05/24 Unknown History Allergies Allergy/AdvReac Type Severity Reaction Status Date / Time No Known Allergies Allergy Verified 08/17/24 18:35 Review of Systems Review of Systems: CONSTITUTIONAL: reports body aches, fever, chills, or sweats. EYES: Denies visual changes, redness, or discharge. ENT: reports rhinorrhea, congestion, denies sore throat, or otalgia. CARDIOVASCULAR: Denies chest pain, palpitations, or edema. RESPIRATORY: Reports cough, sob, wheezing. GASTROINTESTINAL: Denies abdominal pain, nausea, vomiting, or diarrhea. SKIN: Denies rash MUSCULOSKELETAL: Denies back pain, joint pain, or myalgia. NEUROLOGIC: Denies headache, numbness, tingling, or weakness. All systems reviewed & are unremarkable except as noted in HPI and below PMFSH Past Medical History Medical History Asthma exacerbation Hx of migraines Vaginal delivery Ruptured left tubal ectopic causing hemoperitoneum (~10/09/19) Pyelonephritis Bronchitis Asthma Surgical History Surgical History History of hernia surgery Robotic assisted repair incarcerated incisional hernia with mesh with defect approximately 3.5 cm on 04/02/23 PDC History of carpal tunnel surgery of right wrist Hx of cholecystectomy History of tonsillectomy Family History Family History Mother Hypertension A-fib Depression Heart disease Father Diabetes mellitus Kidney calculi Grandparent Breast cancer in female Diabetes mellitus Heart disease Hypertension Sibling Depression Social History Social History Smoking status: Never smoker Second hand tobacco smoke exposure: No Alcohol intake: never Substance use: never Substance use type: does not use Lack of Transportation: No Lack of Food: Never True Current Housing: I Have Housing Concerned About Future Housing: No Difficulty Paying Gas/Electric Bills: No Difficulty Paying for Meds: No Currently Unemployed: No Education: Associate Degree Difficulty w/ Childcare or Family Care: No Living arrangements: with family Gender identity (if verbalized by the patient): Female Spiritual care concerns: No Agree to blood products: Yes Comments At time of signature, I have reviewed and agree with nursing past medical, surgical, social and family history unless otherwise noted. Please see nursing chart for further information. There is no relevant family history pertinent to the presenting complaint Exam Narrative: GENERAL: Well-appearing, in no acute distress. EYES: EOMI. No redness or drainage. Conjunctivae normal. ENT: Mucous membranes pink and moist. rhinorrhea noted. TMs normal bilaterally. Throat normal. Uvula midline. NECK: Normal AROM. Supple. CHEST: No respiratory distress. 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 HEART: Regular rate and rhythm. No murmur appreciated. SKIN: Warm, dry Capillary refill normal. Normal skin turgor. NEURO: Alert and oriented x3. Gait steady. PSYCH: Normal affect. Course Course Emergency Course: Patient is aware of diagnosis, understands and agrees to treatment plan. Anticipatory guidance given. Patient agrees to follow-up as directed and is aware of reasons to seek care at the emergency department. Portions of this record may have been created with voice recognition software Level of Care: Express Care Visit Vital Signs Vital signs: Vital Signs Temperature 98 F 08/17/24 18:30 Pulse Rate 86 08/17/24 18:30 Respiratory Rate 20 08/17/24 18:30 Blood Pressure 135/81 08/17/24 18:30 Pulse Oximetry 100 08/17/24 18:30 Oxygen Delivery Room Air 08/17/24 18:30 Temperature 98 F 08/17/24 18:30 Pulse Rate 86 08/17/24 18:30 Respiratory Rate 20 08/17/24 18:30 Blood Pressure 135/81 08/17/24 18:30 Pulse Oximetry 100 08/17/24 18:30 Oxygen Delivery Room Air 08/17/24 18:30 MDM - URI/Sore Throat MDM Narrative Medical decision making narrative: Results of POS flu reviewed with patient . Patient reassessed after albuterol nebulizer. Lungs much improved, faint scattered wheeze. Pt endorses improvement in breathing, states I still feel some wheezing. Weighed risks/benefits of steroid during with pt, PO prednisone given in clinic, and Rx Medrol pack. reviewed RX's. Offered ER transfer, she declines at this time and will f/u with obgyn. Plans to contact the after hours line. Has a neb machine at home. VSS Discussed physical exam findings. Advised supportive measures and signs/symptoms to go to the ER. Pt is appropriate for outpt treatment and f/u. Differential Diagnosis Differential diagnosis: Likely upper respiratory infection, sinusitis, viral infection, bronchitis and other (Pneumonia, asthma exacerbation) Lab Data Labs: Lab Results 08/17/24 Range/Units 18:55 POC Influenza A Ag Positive (Negative) POC Influenza B Ag Negative (Negative) POC SARS CoV-2 Ag Negative (Negative) Discharge Plan Discharge Clinical Impression: Asthma exacerbation, Influenza Patient Disposition: Home, Self-Care Condition: Stable Instructions: Asthma (ED), Influenza (ED) Additional Instructions: Influenza positive You should avoid crowds until you are fever free for 24 hours without the use of fever reducing medications, or the symptoms are improved Rest. Drink plenty of fluids. Tylenol 1000mg every 8 hours as needed for pain/fever Recommend Flonase spray and Zyrtec (or Claritin/Salma) for sinus pressure/congestion over the counter Cough syrup may cause drowsiness; avoid driving or take it at night time. Asthma: Visit your primary care doctor if You have: wheezing, shortness of breath, or a cough despite taking medicine to prevent attacks. thickening of sputum or Your sputum changes (from clear or white to yellow, green, kessler, or bloody) any problems that may be related to the medicines you are taking (such as a rash, itching, swelling, or trouble breathing). using a reliever medicine more than 2 to 3 times per week. Visit the ER if You are: short of breath even at rest or when doing very little physical activity. develop difficulty eating, drinking, or talking due to asthma symptoms. having chest pain or you feel that your heart is beating fast. lightheaded, dizzy, faint or have bluish lips or fingernails. fever or persistent symptoms for more than 2 to 3 days or symptoms suddenly get worse. getting worse and are unresponsive to treatment during an asthma attack. Take the medication as directed -- start Medrol pack 08/18/24 Avoid triggers continue your albuterol inhaler and nebulizer Follow up with your Obgyn tomorrow Go to the ER for worsening symptoms or concerns Patient Language: Wolof Prescriptions: New methylprednisolone [Medrol (Brandan)] 4 mg tablets,dose pack See Rx Instructions .ROUTE .COMPLEX Qty: 21 0RF Rx Instructions: orally per package directions. Start 08/18/24 No Action Adults Multivitamin loratadine albuterol sulfate 90 mcg/actuation HFA aerosol inhaler 1 inh inhalation Q4H PRN (Reason: shortness of breath or wheezing) Qty: 8.5 1RF montelukast 10 mg tablet See Rx Instructions .ROUTE .COMPLEX Qty: 30 0RF Dose Instruction: TAKE 1 TABLET BY MOUTH DAILY IN THE EVENING AT BEDTIME Rx Instructions: TAKE 1 TABLET BY MOUTH DAILY IN THE EVENING AT BEDTIME albuterol sulfate 2.5 mg /3 mL (0.083 %) solution for nebulization 2.5 mg inhalation Q6H PRN (Reason: Shortness Of Breath Or Wheezing) Qty: 90 2RF Follow-up/Referrals: PHYSICIAN NOT ON STAFF,NONSTAFF [Primary Care Provider] - Time of Disposition: 19:16
[2024-08-17] MEDS: ALBUTEROL SULFATE NEB 2.5 MG/3 ML INH INHALATION (18:51)
[2024-08-17 18:57] LABS: EDCOVIDSCREEN Negative (Negative); EDINFLUASCREEN Positive (Negative); EDINFLUBSCREEN Negative (Negative)
[2024-08-17] MEDS: predniSONE 20 MG TABLET 60 MG PO (19:19)
== END 2024-08-17 19:25 | disposition home or self-care (01) ==
PROVIDERS: Emergency Provider Nurse Practitioner Family
DX: O26.891 Other specified pregnancy related conditions, first trimester (principal); J45.901 Unspecified asthma with (acute) exacerbation; J10.1 Influenza due to other identified influenza virus with other respiratory manifestations; Z20.822 Contact with and (suspected) exposure to COVID-19; Z3A.09 9 weeks gestation of pregnancy
CPT/HCPCS: 87426; 87804; 94640; 99213; G0463; J7512

== ENCOUNTER 2024-08-22 17:01 | Observation (INO) | payer BC, SELFPAY ==
[2024-08-22] VITALS (7 sets, daily range): BP systolic 119–169; BP diastolic 66–91; PULSE 73–110; RESP 13–20; TEMP 36.3–36.6; O2SAT 96–100
--- NOTE | ~2024-08-22 | XR_ITS ---
CHEST RADIOGRAPH CLINICAL HISTORY: dyspnea WHEEZING RECENT INFLUENZA DIAG . COMPARISON: 06/05/2024 TECHNIQUE: Single portable view of the chest. FINDINGS The cardiomediastinal silhouette is unremarkable. Parenchymal pattern of the lung is unchanged from May 2024, and is without focal infiltrate or ef fusion. Visualized osseous structures and soft tissues are unremarkable. IMPRESSION: No focal infiltrate or effusion. Reviewed, dictated and finalized at location A. PLANNER
--- NOTE | 2024-08-22 18:01 | ED.ASTHMA ---
HPI - Asthma General Chief Complaint: Asthma <DALLAS Ramsay Last Filed: 08/22/24 18:22> Stated Complaint: sob, wheezing <DALLAS Ramsay Last Filed: 08/22/24 18:22> Time Seen by Provider: 08/22/24 18:01 <DALLAS Ramsay Last Filed: 08/22/24 18:22> Focused HPI: Patient is a 34 y/o female, with PMH of asthma, who presents to the ED with c/o SOB. Patient reports she was diagnosed with influenza a last Thursday. Seen in urgent care at that time. Was prescribed prednisone for asthma exacerbation. She reports having persistent wheezing, shortness of breath, RODRIGUEZ, cough, CP with deep breathing, intermittent fevers. Has not improved with prednisone. Has been using her inhalers at home with without improvement. Patient is currently 9 weeks 5 days . Denies abdominal pain or vaginal bleeding. Confirmed IUP. OBGYN is Dr. Carr. (hx of previous ectopic). GENERAL: Well-appearing, morbidly obese with BMI 50.4, and in no acute distress. HEAD: Normocephalic, atraumatic. CHEST: No respiratory distress. Coarse lung sounds throughout. Diffuse wheezing and rhonchi. HEART: Tachycardic with regular rhythm.? NEURO: ?Alert and oriented x3. Patient screened in triage and initial orders placed.? ?Additional care and disposition to be based upon?diagnostic testing and treatment. <DALLAS Ramsay Last Filed: 08/22/24 18:22> Source: patient <DALLAS Ramsay Last Filed: 08/22/24 18:22> Mode of arrival: ambulatory <DALLAS Ramsay Last Filed: 08/22/24 18:22> Limitations: no limitations <DALLAS Ramsay Last Filed: 08/22/24 18:22> History of Present Illness HPI Narrative: Agree with the above triage note. Patient states she has persistent wheezing despite taking a steroid taper and using her DuoNeb q.4 hours. She states she has 2 more days of steroids but has not improved which is what presented her to the ED today. Lower extremity edema. Denies vaginal, abdominal pain. States this has been uneventful. No history of VTE, denies hemoptysis. When asked if she is coughing she states it is very mild and nonproductive. <Tricia Cortes PA-C - Last Filed: 08/23/24 00:08> Related Data Home Medications: Home Medications ?Medication ?Instructions ?Recorded ?Confirmed ?Last Taken ?Type Adults Multivitamin See Rx Instructions BYMOUTH DAILY 06/05/24 08/23/24 Unknown History loratadine 10 mg BYMOUTH DAILY 06/05/24 08/23/24 Unknown History aspirin 81 mg tablet,delayed 81 mg PO DAILY 08/23/24 08/23/24 Unknown History release (Adult Low Dose Aspirin) <Natalie Chinchilla PA-C - Last Filed: 08/22/24 18:22> Allergies/Adverse Reactions: Allergies Allergy/AdvReac Type Severity Reaction Status Date / Time No Known Allergies Allergy Verified 08/22/24 17:10 <Natalie Chinchilla PA-C - Last Filed: 08/22/24 18:22> Review of Systems Review of Systems: All systems reviewed & are unremarkable except as noted in HPI and below <Tricia Cortes PA-C - Last Filed: 08/23/24 00:08> [facility] Past Medical History Medical History: Medical History Asthma exacerbation Hx of migraines Vaginal delivery Ruptured left tubal ectopic causing hemoperitoneum (~10/09/19) Pyelonephritis Bronchitis Asthma <Natalie Chinchilla PA-C - Last Filed: 08/22/24 18:22> Surgical History Surgical History: Surgical History History of hernia surgery Robotic assisted repair incarcerated incisional hernia with mesh with defect approximately 3.5 cm on 04/02/23 PDC History of carpal tunnel surgery of right wrist Hx of cholecystectomy History of tonsillectomy <Natalie Chinchilla PA-C - Last Filed: 08/22/24 18:22> Family History Family History: Family History Mother Hypertension A-fib Depression Heart disease Father Diabetes mellitus Kidney calculi Grandparent Breast cancer in female Diabetes mellitus Heart disease Hypertension Sibling Depression <Natalie Chinchilla PA-C - Last Filed: 08/22/24 18:22> Social History Social History: Social History Smoking status: Never smoker Second hand tobacco smoke exposure: No Alcohol intake: never Substance use: never Substance use type: does not use Do You Feel Safe in your Home?: Yes Lack of Transportation: No Lack of Food: Never True Current Housing: I Have Housing Concerned About Future Housing: No Difficulty Paying Gas/Electric Bills: No Difficulty Paying for Meds: No Currently Unemployed: No Education: Associate Degree Difficulty w/ Childcare or Family Care: No Living arrangements: with family Gender identity (if verbalized by the patient): Female Spiritual care concerns: No Agree to blood products: Yes <Natalie Chinchilla PA-C - Last Filed: 08/22/24 18:22> Exam Narrative: GENERAL: Well-appearing, well-nourished, and in no acute distress. HEAD: Normocephalic, atraumatic. EYES: EOMI. ENT: Nares clear, no rhinorrhea or epistaxis. Mucous membranes moist. NECK: Supple. CHEST: Expiratory wheezing throughout all lung hernandez. No rales or rhonchi. Satting 99% on room air, speaking in full sentences, no respiratory distress HEART: Regular rate and rhythm. No murmur heard. Normal peripheral pulses. ABDOMEN: Soft, nontender, nondistended, normal active bowel sounds. EXTREMITIES: Normal range of motion. No edema. SKIN: Warm, dry, no rash. NEURO: No focal deficits. Alert and oriented x3 <Tricia Cortes PA-C - Last Filed: 08/23/24 00:08> Course STRIPPER CUTTER MACHINE/PA Physician Supervision For this patient encounter, I reviewed the STRIPPER CUTTER MACHINE or PA documentation, treatment plan, and medical decision making and had [id number] time with this patient. I performed all aspects of the MDM as documented. <Jose Eduardo Israel MD - Last Filed: 08/23/24 02:12> Vital Signs Vital signs: Vital Signs Temperature 97.3 F L 08/22/24 17:07 Pulse Rate 110 H 08/22/24 17:07 Respiratory Rate 18 08/22/24 17:07 Blood Pressure 169/86 H 08/22/24 17:07 Pulse Oximetry 100 08/22/24 17:07 Oxygen Delivery Room Air 08/22/24 17:07 Temperature 98.0 F 08/23/24 01:47 Pulse Rate 83 08/23/24 01:47 Respiratory Rate 16 08/23/24 01:47 Blood Pressure 118/72 08/23/24 01:47 Pulse Oximetry 97 08/23/24 01:47 Oxygen Delivery Room Air 08/23/24 01:45 <Natalie Chinchilla PA-C - Last Filed: 08/22/24 18:22> Vital Signs Temperature 97.3 F L 08/22/24 17:07 Pulse Rate 110 H 08/22/24 17:07 Respiratory Rate 18 08/22/24 17:07 Blood Pressure 169/86 H 08/22/24 17:07 Pulse Oximetry 100 08/22/24 17:07 Oxygen Delivery Room Air 08/22/24 17:07 Temperature 98.0 F 08/23/24 01:47 Pulse Rate 83 08/23/24 01:47 Respiratory Rate 16 08/23/24 01:47 Blood Pressure 118/72 08/23/24 01:47 Pulse Oximetry 97 08/23/24 01:47 Oxygen Delivery Room Air 08/23/24 01:45 <Tricia Cortes PA-C - Last Filed: 08/23/24 00:08> Vital Signs Temperature 97.3 F L 08/22/24 17:07 Pulse Rate 110 H 08/22/24 17:07 Respiratory Rate 18 08/22/24 17:07 Blood Pressure 169/86 H 08/22/24 17:07 Pulse Oximetry 100 08/22/24 17:07 Oxygen Delivery Room Air 08/22/24 17:07 Temperature 98.0 F 08/23/24 01:47 Pulse Rate 83 08/23/24 01:47 Respiratory Rate 16 08/23/24 01:47 Blood Pressure 118/72 08/23/24 01:47 Pulse Oximetry 97 08/23/24 01:47 Oxygen Delivery Room Air 08/23/24 01:45 <Jose Eduardo Israel MD - Last Filed: 08/23/24 02:12> MDM - Asthma MDM Narrative Medical decision making narrative: MSE by ARTURO in triage. Discussed obtaining CXR. Patient would like to wait to see D-dimer results. <Natalie Chinchilla PA-C - Last Filed: 08/22/24 18:22> MSE by ARTURO in triage. Discussed obtaining CXR. Patient would like to wait to see D-dimer results. 34-year-old female with history of asthma who is currently 9w5d presents to the emergency department for shortness of breath and persistent wheezing after influenza A diagnosis on Thursday at urgent care. Patient has been using nebulizers q.4h taking a steroid taper without improvement. Triage vitals remarkable for tachycardia 110 elevated blood pressure. Upon my evaluation patient's vital signs have normalized, no tachycardia, no tachypnea. She is satting 90% on room air no respiratory distress and speaking in full sentences. Lung sounds are significant for expiratory wheezing throughout all lung hernandez. Suspect asthma exacerbation. CBC shows no leukocytosis, no anemia. Chemistries are unremarkable. Viral sounds positive for flu influenza A. EKG with normal sinus rhythm, normal [place] interval, normal QRS duration, normal QTC, no ischemic changes. Troponin undetectable. D-dimer within normal limits, wells score is low risk. Shared decision making regarding obtaining a chest x-ray. Pt would like to move forward with xray despite risks of radiation to the fetus. Xr shows no acute cardiopulmonary abnormalities. Pt given 125mg Solumedrol and hour long DuoNeb without improvement. Lung sounds with persistent wheezing. Shared decision making regarding disposition. Patient would like to stay in hospital given supportive measures at home including schedule DuoNebs and p.o. steroids have not helped. I agree with this plan. Discussed with the hospitalist agrees to admission. <Tricia Cortes PA-C - Last Filed: 08/23/24 00:08> Lab Data Result diagrams: 08/22/24 19:24 08/22/24 19:24 <Natalie Chinchilla PA-C - Last Filed: 08/22/24 18:22> Labs: Lab Results 08/22/24 08/22/24 Range/Units 19:24 21:28 WBC 6.9 (4.5-10.0) K/mm3 RBC 4.95 (4.2-5.4) M/mm3 Hgb 14.7 (12.0-15.0) g/dL Hct 44.0 (37.0-47.0) % MCV 88.9 (80-100) fl MCH 29.7 (26-34) pg MCHC 33.4 (32-36) g/dl RDW 12.5 (11.5-14.5) % Plt Count 290 (150-375) k/mm3 MPV 9.7 (7.4-10.4) fl Immature Gran % (Auto) 0.4 (0-0.5) % Neut % (Auto) 60.1 (45.5-73.1) % Lymph % (Auto) 32.0 (18.3-44.2) % Freeborn % (Auto) 7.1 (2.6-8.5) % Eos % (Auto) 0.1 (0-4.4) % Baso % (Auto) 0.3 (0.2-1.2) % Lymph # (Auto) 2.20 (0.9-3.2) K/mm3 Freeborn # (Auto) 0.5 (0.1-0.6) K/mm3 Eos # (Auto) 0.0 (0-0.3) K/mm3 Baso # (Auto) 0.0 (0.0-0.1) K/mm3 Abs Immat Gran (auto) 0.03 (0.00-0.031) K/mm3 Absolute Neuts (auto) 4.1 (1.3-6.7) K/mm3 Absolute Nucleated RBC 0.000 (0.0-0.012) K/mm3 Nucleated RBC % 0.0 (0.0-0.2) % PT 13.6 (11.1-14.7) Seconds INR 1.0 APTT 23.7 (22.3-36.8) Seconds D-Dimer < 0.27 (<0.48) ug/mL Sodium 137 (137-145) mmol/L Potassium 4.0 (3.4-5.0) mmol/L Chloride 104 (98-107) mmol/L Carbon Dioxide 23 (22-30) mmol/L Anion Gap 10 (4-12) mmol/L BUN 7 (7-17) mg/dL Creatinine 0.51 L (0.7-1.0) mg/dL Estim Creat Clear Calc 161 ml/min Estimated GFR > 60 (59 - ) Glucose 88 (65-110) mg/dL Calcium 9.1 (8.4-10.2) mg/dL Total Bilirubin 0.6 (0.2-1.3) mg/dL AST 15 (14-36) U/L ALT 24 (6-35) U/L Alkaline Phosphatase 69 (38-126) U/L Troponin I < 0.012 (0.000-0.034) ng/mL Total Protein 8.0 (6.3-8.2) g/dL Albumin 4.0 (3.5-5.1) g/dL Influenza A (RT-PCR) Positive A (Negative) Influenza B (RT-PCR) Negative (Negative) RSV (RT-PCR) Negative (Negative) SARS-CoV-2 RNA (RT-PCR) Negative (Negative) <Natalie Chinchilla PA-C - Last Filed: 08/22/24 18:22> Lab Results 08/22/24 08/22/24 Range/Units 19:24 21:28 WBC 6.9 (4.5-10.0) K/mm3 RBC 4.95 (4.2-5.4) M/mm3 Hgb 14.7 (12.0-15.0) g/dL Hct 44.0 (37.0-47.0) % MCV 88.9 (80-100) fl MCH 29.7 (26-34) pg MCHC 33.4 (32-36) g/dl RDW 12.5 (11.5-14.5) % Plt Count 290 (150-375) k/mm3 MPV 9.7 (7.4-10.4) fl Immature Gran % (Auto) 0.4 (0-0.5) % Neut % (Auto) 60.1 (45.5-73.1) % Lymph % (Auto) 32.0 (18.3-44.2) % Freeborn % (Auto) 7.1 (2.6-8.5) % Eos % (Auto) 0.1 (0-4.4) % Baso % (Auto) 0.3 (0.2-1.2) % Lymph # (Auto) 2.20 (0.9-3.2) K/mm3 Freeborn # (Auto) 0.5 (0.1-0.6) K/mm3 Eos # (Auto) 0.0 (0-0.3) K/mm3 Baso # (Auto) 0.0 (0.0-0.1) K/mm3 Abs Immat Gran (auto) 0.03 (0.00-0.031) K/mm3 Absolute Neuts (auto) 4.1 (1.3-6.7) K/mm3 Absolute Nucleated RBC 0.000 (0.0-0.012) K/mm3 Nucleated RBC % 0.0 (0.0-0.2) % PT 13.6 (11.1-14.7) Seconds INR 1.0 APTT 23.7 (22.3-36.8) Seconds D-Dimer < 0.27 (<0.48) ug/mL Sodium 137 (137-145) mmol/L Potassium 4.0 (3.4-5.0) mmol/L Chloride 104 (98-107) mmol/L Carbon Dioxide 23 (22-30) mmol/L Anion Gap 10 (4-12) mmol/L BUN 7 (7-17) mg/dL Creatinine 0.51 L (0.7-1.0) mg/dL Estim Creat Clear Calc 161 ml/min Estimated GFR > 60 (59 - ) Glucose 88 (65-110) mg/dL Calcium 9.1 (8.4-10.2) mg/dL Total Bilirubin 0.6 (0.2-1.3) mg/dL AST 15 (14-36) U/L ALT 24 (6-35) U/L Alkaline Phosphatase 69 (38-126) U/L Troponin I < 0.012 (0.000-0.034) ng/mL Total Protein 8.0 (6.3-8.2) g/dL Albumin 4.0 (3.5-5.1) g/dL Influenza A (RT-PCR) Positive A (Negative) Influenza B (RT-PCR) Negative (Negative) RSV (RT-PCR) Negative (Negative) SARS-CoV-2 RNA (RT-PCR) Negative (Negative) <Tricia Cortes PA-C - Last Filed: 08/23/24 00:08> Lab Results 08/22/24 08/22/24 Range/Units 19:24 21:28 WBC 6.9 (4.5-10.0) K/mm3 RBC 4.95 (4.2-5.4) M/mm3 Hgb 14.7 (12.0-15.0) g/dL Hct 44.0 (37.0-47.0) % MCV 88.9 (80-100) fl MCH 29.7 (26-34) pg MCHC 33.4 (32-36) g/dl RDW 12.5 (11.5-14.5) % Plt Count 290 (150-375) k/mm3 MPV 9.7 (7.4-10.4) fl Immature Gran % (Auto) 0.4 (0-0.5) % Neut % (Auto) 60.1 (45.5-73.1) % Lymph % (Auto) 32.0 (18.3-44.2) % Freeborn % (Auto) 7.1 (2.6-8.5) % Eos % (Auto) 0.1 (0-4.4) % Baso % (Auto) 0.3 (0.2-1.2) % Lymph # (Auto) 2.20 (0.9-3.2) K/mm3 Freeborn # (Auto) 0.5 (0.1-0.6) K/mm3 Eos # (Auto) 0.0 (0-0.3) K/mm3 Baso # (Auto) 0.0 (0.0-0.1) K/mm3 Abs Immat Gran (auto) 0.03 (0.00-0.031) K/mm3 Absolute Neuts (auto) 4.1 (1.3-6.7) K/mm3 Absolute Nucleated RBC 0.000 (0.0-0.012) K/mm3 Nucleated RBC % 0.0 (0.0-0.2) % PT 13.6 (11.1-14.7) Seconds INR 1.0 APTT 23.7 (22.3-36.8) Seconds D-Dimer < 0.27 (<0.48) ug/mL Sodium 137 (137-145) mmol/L Potassium 4.0 (3.4-5.0) mmol/L Chloride 104 (98-107) mmol/L Carbon Dioxide 23 (22-30) mmol/L Anion Gap 10 (4-12) mmol/L BUN 7 (7-17) mg/dL Creatinine 0.51 L (0.7-1.0) mg/dL Estim Creat Clear Calc 161 ml/min Estimated GFR > 60 (59 - ) Glucose 88 (65-110) mg/dL Calcium 9.1 (8.4-10.2) mg/dL Total Bilirubin 0.6 (0.2-1.3) mg/dL AST 15 (14-36) U/L ALT 24 (6-35) U/L Alkaline Phosphatase 69 (38-126) U/L Troponin I < 0.012 (0.000-0.034) ng/mL Total Protein 8.0 (6.3-8.2) g/dL Albumin 4.0 (3.5-5.1) g/dL Influenza A (RT-PCR) Positive A (Negative) Influenza B (RT-PCR) Negative (Negative) RSV (RT-PCR) Negative (Negative) SARS-CoV-2 RNA (RT-PCR) Negative (Negative) <Jose Eduardo Israel MD - Last Filed: 08/23/24 02:12> Discharge Plan Discharge Clinical Impression: Asthma exacerbation, Influenza A <Natalie Chinchilla PA-C - Last Filed: 08/22/24 18:22> Patient Disposition: Still a Patient <Natalie Chinchilla PA-C - Last Filed: 08/22/24 18:22> Condition: Stable <Natalie Chinchilla PA-C - Last Filed: 08/22/24 18:22>
--- NOTE | 2024-08-22 18:05 | ECG_ITS ---
Test Date: 2024-08-22 21:27:22 Measurements Intervals [place] Rate: 78 P: 174 MN: 129 QRS: 120 QRSD: 102 T: 27 QT: 374 QTc: 428 Interpretive Statements SINUS RHYTHM MARKED RIGHT AXIS DEVIATION [QRS AXIS > 100] No previous ECG available for comparison Electronically Signed On 08-22-2024 21:36:39 [employer] by Pino Lowe M.D.
[2024-08-22 19:36] LABS: Basophils Percent Auto 0.3 % (0.2-1.2); Eosinophils Percent Auto 0.1 % (0-4.4); Hemoglobin 14.7 g/dL (12.0-15.0); Immature Granulocyte Absolute 0.03 K/mm3 (0.00-0.031); Immature Granulocyte Percent A 0.4 % (0-0.5); Mean Corpuscular HGB Conc 33.4 g/dl (32-36); Mean Corpuscular Hemoglobin 29.7 pg (26-34); Mean Corpuscular Volume 88.9 fl (80-100); Mean Platelet Volume 9.7 fl (7.4-10.4); Monocytes Absolute Auto 0.5 K/mm3 (0.1-0.6); Monocytes Percent Auto 7.1 % (2.6-8.5); Neutrophils Absolute Auto 4.1 K/mm3 (1.3-6.7); Neutrophils Percent Auto 60.1 % (45.5-73.1); Platelet Count Result 290 k/mm3 (150-375); Red Blood Count 4.95 M/mm3 (4.2-5.4); Red Cell Distribution Width 12.5 % (11.5-14.5); White Blood Count 6.9 K/mm3 (4.5-10.0)
[2024-08-22 19:48] LABS: Partial Thromboplastin Time 23.7 Seconds (22.3-36.8); Prothrombin Time 13.6 Seconds (11.1-14.7)
[2024-08-22 19:52] LABS: Alanine Aminotransferase 24 U/L (6-35); Alkaline Phosphatase 69 U/L (38-126); Anion Gap 10 mmol/L (4-12); Aspartate Amino Transferase 15 U/L (14-36); Bilirubin,Total 0.6 mg/dL (0.2-1.3); Blood Urea Nitrogen 7 mg/dL (7-17); Calcium 9.1 mg/dL (8.4-10.2); Carbon Dioxide 23 mmol/L (22-30); Chloride 104 mmol/L (98-107); Estimated CRCL calculation 161 ml/min; Estimated Glomerular Filt Rate > 60; Glucose 88 mg/dL (65-110); Sodium 137 mmol/L (137-145)
[2024-08-22 20:04] LABS: Troponin I < 0.012 ng/mL (0.000-0.034)
[2024-08-22 20:06] LABS: D Dimer < 0.27 ug/mL (<0.48)
[2024-08-22] MEDS: IPRATROPIUM 0.5 MG/ALBUTEROL SULFATE 2.5 MG AMPUL.NEB 3 ML INHALATION ×2 (20:53→20:57)
[2024-08-22 22:12] LABS: Influenza A QL RT-PCR Positive (Negative); Influenza B QL RT-PCR Negative (Negative); RSV RNA, RT-PCR Negative (Negative); SARS-CoV-2 RNA PCR Negative (Negative)
[2024-08-23] VITALS (14 sets, daily range): BP systolic 100–137; BP diastolic 55–72; PULSE 70–116; RESP 16–20; TEMP 36.6–36.7; O2SAT 96–98; BMI 49.9
[2024-08-23] MEDS: methylPREDNISolone SOD SUCC 125 MG VIAL IV PUSH (00:29)
--- NOTE | 2024-08-23 00:52 | P.HP_ITS ---
H&P: HPI History of Present Illness Date/Time: 08/23/24 00:52 Chief Complaint: Wheezing Narrative: This is a 34-year-old female with past medical history significant for mild intermittent asthma, obesity, patient presents to the emergency room due to shortness of breath, wheezing using her inhaler frequently this has been ongoing for about a week had been to urgent care and was prescribed oral steroids however has not improved and continued to get worse. Patient was found to be positive for influenza type A. In emergency room patient received several treatments but still having significant cough wheezing has been placed in observation for further evaluation management and treatment. CHEST RADIOGRAPH CLINICAL HISTORY: dyspnea WHEEZING RECENT INFLUENZA DIAG . COMPARISON: 06/05/2024 TECHNIQUE: Single portable view of the chest. FINDINGS The cardiomediastinal silhouette is unremarkable. Parenchymal pattern of the lung is unchanged from May 2024, and is without focal infiltrate or effusion. Visualized osseous structures and soft tissues are unremarkable. IMPRESSION: No focal infiltrate or effusion. Review of Systems Review of Systems: Shortness of breath, wheezing, using inhaler quite frequently PMFSH Past Medical History Medical History Asthma exacerbation Hx of migraines Vaginal delivery Ruptured left tubal ectopic causing hemoperitoneum (~10/09/19) Pyelonephritis Bronchitis Asthma Surgical History Surgical History History of hernia surgery Robotic assisted repair incarcerated incisional hernia with mesh with defect approximately 3.5 cm on 04/02/23 PDC History of carpal tunnel surgery of right wrist Hx of cholecystectomy History of tonsillectomy Family History Family History Mother Hypertension A-fib Depression Heart disease Father Diabetes mellitus Kidney calculi Grandparent Breast cancer in female Diabetes mellitus Heart disease Hypertension Sibling Depression Social History Social History Smoking status: Never smoker Second hand tobacco smoke exposure: No Alcohol intake: never Substance use: never Substance use type: does not use Do You Feel Safe in your Home?: Yes Lack of Transportation: No Lack of Food: Never True Current Housing: I Have Housing Concerned About Future Housing: No Difficulty Paying Gas/Electric Bills: No Difficulty Paying for Meds: No Currently Unemployed: No Education: Associate Degree Difficulty w/ Childcare or Family Care: No Living arrangements: with family Gender identity (if verbalized by the patient): Female Spiritual care concerns: No Agree to blood products: Yes Meds Home Medications and Allergies Home Medications ?Medication ?Instructions ?Recorded ?Confirmed ?Type albuterol sulfate 90 mcg/actuation 1 inh inhalation Q4H PRN shortness 05/16/24 08/23/24 Rx aerosol inhaler of breath or wheezing #8.5 grams Adults Multivitamin See Rx Instructions BYMOUTH DAILY 06/05/24 08/23/24 History loratadine 10 mg BYMOUTH DAILY 06/05/24 08/23/24 History montelukast 10 mg tablet See Rx Instructions .Route 06/20/24 08/23/24 Rx .COMPLEX #30 tabs albuterol sulfate 2.5 mg/3 mL 2.5 mg (3 mL) inhalation Q6H PRN 08/16/24 08/23/24 Rx (0.083 %) solution for nebulization Shortness Of Breath Or Wheezing #90 mL methylprednisolone 4 mg tablets in See Rx Instructions PO .COMPLEX 08/17/24 08/23/24 Rx a dose pack (Medrol (Brandan)) #21 ea aspirin 81 mg tablet,delayed 81 mg PO DAILY 08/23/24 08/23/24 History release (Adult Low Dose Aspirin) Allergies Allergy/AdvReac Type Severity Reaction Status Date / Time No Known Allergies Allergy Verified 08/22/24 17:10 Vital Signs Vital Signs - 24 hr 08/22/24 17:07 08/22/24 20:12 08/22/24 20:13 Temperature 97.3 F L Pulse Rate 110 H 81 Respiratory Rate 18 19 Blood Pressure 169/86 H 132/91 H Pulse Oximetry 100 100 99 Oxygen Delivery Room Air Room Air 08/22/24 20:51 08/22/24 20:58 08/22/24 23:11 Temperature Pulse Rate 80 73 104 H Respiratory Rate 17 13 20 Blood Pressure 123/82 119/66 Pulse Oximetry 98 96 Oxygen Delivery 08/22/24 23:19 08/23/24 00:30 Temperature 97.9 F Pulse Rate 96 Respiratory Rate 20 Blood Pressure 100/60 Pulse Oximetry 98 Oxygen Delivery Exam Narrative: Sitting in a stretcher Const: General: comfortable, no acute distress, well developed, alert, awake and obese Nutritional Appearance: obese morbidly obese Orientation/consciousness: patient oriented x3 HENMT: Head: normal to inspection, normocephalic and atraumatic Ears: hearing grossly normal bilaterally Face/Nose/Sinus: normal facial exam Face and sinus: normal facial exam Eyes: General: appearance normal, both eyes and all related structures Pupils: Equal, round and reactive pupils present EOM: EOMs intact bilaterally Neck: Neck: full ROM, no lymphadenopathy and no JVD Thyroid: thyroid normal Lymphatic: no lymphadenopathy noted Resp: Effort & Inspection: normal respiratory effort and able to speak in complete sentences Auscultation: wheezes and diminished lung sounds Cardio: Jugular venous distension: no JVD Rate: regular rate Rhythm: regular rhythm Heart sounds: S1 normal heart sound present and S2 normal heart sound present GI: GI Palp: Yes Soft to palpation and Yes No hepatosplenomegaly present : General: Yes deferred Skin: Rashes: no rashes Wounds: no wounds Neuro: General: patient oriented x3 and CN's II-XI intact bilaterally Store Operations Associate nial nerves: Yes CN's II-XII intact bilaterally and Yes Equal, round and reactive pupils present Cognition (Neuro): normal cognition Speech: normal speech Gait exam (Neuro): Normal gait present Motor exam (neuro): 5/5 motor strength present throughout Extrem: General: normal to inspection, full ROM, no joint enlargement and no pedal edema H&P: Results Labs Labs: Short CBC 08/22/24 Range/Units 19:24 WBC 6.9 (4.5-10.0) K/mm3 Hgb 14.7 (12.0-15.0) g/dL Hct 44.0 (37.0-47.0) % Plt Count 290 (150-375) k/mm3 BMP 08/22/24 19:24 Sodium 137 Potassium 4.0 Chloride 104 Carbon Dioxide 23 BUN 7 Creatinine 0.51 L Glucose 88 Calcium 9.1 Cardiac Enzymes 08/22/24 Range/Units 19:24 Troponin I < 0.012 (0.000-0.034) ng/mL Liver Function 08/22/24 Range/Units 19:24 Total Bilirubin 0.6 (0.2-1.3) mg/dL AST 15 (14-36) U/L ALT 24 (6-35) U/L Alkaline Phosphatase 69 (38-126) U/L Albumin 4.0 (3.5-5.1) g/dL Assessment and Plan Assessment and plan (1) Asthma exacerbation: Qualifiers: Asthma severity: moderate Asthma persistence: persistent Qualified Code(s): J45.41 - Moderate persistent asthma with (acute) exacerbation Code(s): J45.901 - Unspecified asthma with (acute) exacerbation Status: Acute Assessment and Plan: Admit to regular medical floor Started on breathing treatments and steroids (2) Allergies: Code(s): T78.40XA - Allergy, unspecified, initial encounter Status: Acute Assessment and Plan: Continue montelukast (3) Morbid obesity with BMI of 50.0-59.9, adult: Code(s): E66.01 - Morbid (severe) obesity due to excess calories; Z68.43 - Body mass index [BMI] 50.0-59.9, adult Status: Acute Assessment and Plan: Lifestyle and diet modifications 1800 calorie restricted diet (4) 9 weeks gestation of : Code(s): Z3A.09 - 9 weeks gestation of Status: Acute Assessment and Plan: Follow-up in outpatient setting (5) Influenza due to influenza virus, type A, human: Code(s): J10.1 - Influenza due to other identified influenza virus with other respiratory manifestations Status: Acute Assessment and Plan: Supportive care Hospitalist MIPS Advance Care Plan I have confirmed that the patient's Advanced Care Plan is present, code status is documented, or surrogate decision maker is listed in patient medical record.: Yes Medication Reconciliation I have utilized all available resources to obtain, update and review the patients current medications (includes all prescriptions, OTC, herbals, cannabis, and nutritional supplements).: Yes
--- NOTE | 2024-08-23 01:41 | ADMGEN ---
This patient, Alexander Sawant, was admitted to Medical Room 261-01. Patient/family oriented to hospital policies and general routines including ID bracelet, bed and alarms, visiting hours, pain management, procedures, bathroom and other care routines, personal items, smoking policy, room service/diet, and visiting hours. Information on how to activate the Rapid Response Team has been discussed. Patient/Family are encouraged to report perceived risks to care and to ask questions if they do not understand what they are told or what they should do.
--- NOTE | 2024-08-23 02:06 | PC.NURSE ---
OB notified about pt being 9 weeks and 6 days. RN informed by OB that heart tones only required if ordered by provider this early on in .
[2024-08-23] MEDS: IPRATROPIUM 0.5 MG/ALBUTEROL SULFATE 2.5 MG AMPUL.NEB 3 ML INHALATION ×4 (02:20→19:38)
[2024-08-23] MEDS: methylPREDNISolone SOD SUCC 125 MG VIAL 60 MG IV PUSH ×3 (05:52→21:10)
--- NOTE | 2024-08-23 06:54 | PM.IMPN ---
Progress Note: A&P Assessment and Plan (1) Asthma exacerbation: Qualifiers: Asthma persistence: persistent Asthma severity: moderate Qualified Code(s): J45.41 - Moderate persistent asthma with (acute) exacerbation Code(s): J45.901 - Unspecified asthma with (acute) exacerbation Status: Acute Assessment and Plan: Seen in urgent care on 08/17 for shortness of breath, prescribed prednisone taper for asthma exacerbation. Has been using inhalers without improvement. - Viral panel: Flu A positive - Oxygen requirement: No supplemental oxygen, sating well on room air - Home medication: albuterol inhaler, medrol - Chest XR: No focal infiltrate or effusion - Current treatment: duoneb and steroid q 8 hr (2) Influenza due to influenza virus, type A, human: Code(s): J10.1 - Influenza due to other identified influenza virus with other respiratory manifestations Status: Acute Assessment and Plan: Viral panel: Flu A positive Supportive care (3) 9 weeks gestation of : Code(s): Z3A.09 - 9 weeks gestation of Status: Acute Assessment and Plan: Hcg + on 07/15/24 Follow-up in 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 Carr (4) Morbid obesity with BMI of 50.0-59.9, adult: Code(s): E66.01 - Morbid (severe) obesity due to excess calories; Z68.43 - Body mass index [BMI] 50.0-59.9, adult Status: Acute Assessment and Plan: Lifestyle and diet modifications 1800 calorie restricted diet Time Spent With Patient Time with patient: 25 - 35 minutes Subjective Date/time seen: 08/23/24 06:54 Interval history: 34 year old female with past medical history of asthma and migraines presents to the hospital for shortness of breath. Patient is pleasant sitting up in her bed. She continues to endorse shortness of breath and wheezing especially with ambulation. She has no other complaints denying chest pain, palpitations, nausea/ vomiting, abdominal pain. Review of Systems Review of Systems: All systems reviewed & are unremarkable except as noted in HPI and below Exam Narrative: AF HR 78 RR 20 SpO2 96 BP 107/55 General: female in no acute respiratory distress who is nontoxic appearing,sitting up in bed. HEENT: Normocephalic. Atraumatic. Extraocular movement intact. Sclera clear and anicteric. No facial asymmetry. Chest: Lungs with wheezing throughout all lungs hernandez to auscultation bilaterally. No crackles. CV: Heart was regular rate and rhythm. S1-S2. No murmurs, gallops, or rubs. Abd: Abdomen was soft. Nontender. Nondistended. Positive bowel sounds. No organomegaly or masses. Ext: No clubbing, cyanosis, or edema. 2+ DP pulses bilaterally. Neuro: Patient is alert and oriented x4. Speech is clear. Objective Data Vital Signs Vital Signs: Vital Signs - 24 hr 08/22/24 17:07 08/22/24 20:12 08/22/24 20:13 Temperature 97.3 F L Pulse Rate 110 H 81 Respiratory Rate 18 19 Blood Pressure 169/86 H 132/91 H Pulse Oximetry 100 100 99 Oxygen Delivery Room Air Room Air 08/22/24 20:51 08/22/24 20:58 08/22/24 23:11 Temperature Pulse Rate 80 73 104 H Respiratory Rate 17 13 20 Blood Pressure 123/82 119/66 Pulse Oximetry 98 96 Oxygen Delivery 08/22/24 23:19 08/23/24 00:30 08/23/24 01:45 Temperature 97.9 F Pulse Rate 96 Respiratory Rate 20 Blood Pressure 100/60 Pulse Oximetry 98 Oxygen Delivery Room Air 08/23/24 01:47 08/23/24 02:23 08/23/24 02:31 Temperature 98.0 F Pulse Rate 83 76 78 Respiratory Rate 16 16 16 Blood Pressure 118/72 Pulse Oximetry 97 Oxygen Delivery 08/23/24 06:00 Temperature 97.9 F Pulse Rate 70 Respiratory Rate 16 Blood Pressure 107/55 L Pulse Oximetry 97 Oxygen Delivery Intake/Output Intake/Output: Intake & Output 08/20/24 08/21/24 08/22/24 08/23/24 23:59 23:59 23:59 23:59 Intake Total 220 Balance 220 Meds/Results Medications: Active Medications Generic Name Dose Route Start Last Admin Trade Name Freq PRN Reason Stop Dose Admin Albuterol/Ipratropium 3 ml 08/23/24 02:00 08/23/24 02:20 Ipratropium 0.5 Mg/Albuterol Sulfate 2.5 Mg Ampul.Neb 3 Ml INHALATION 3 ml Q6HRT DANAE Administration Methylprednisolone Sodium Succinate 60 mg 08/23/24 06:00 08/23/24 05:52 Methylprednisolone Sod Succ 125 Mg Vial IV PUSH 60 mg Q6HR DANAE Administration Radiology Results: ITS Impressions Chest X-Ray 08/22/24 23:16 IMPRESSION: No focal infiltrate or effusion. Labs Labs: Laboratory Results - last 24 hr 08/22/24 08/22/24 19:24 21:28 WBC 6.9 RBC 4.95 Hgb 14.7 Hct 44.0 MCV 88.9 MCH 29.7 MCHC 33.4 RDW 12.5 Plt Count 290 MPV 9.7 Immature Gran % (Auto) 0.4 Neut % (Auto) 60.1 Lymph % (Auto) 32.0 [place] % (Auto) 7.1 Eos % (Auto) 0.1 Baso % (Auto) 0.3 Lymph # (Auto) 2.20 [place] # (Auto) 0.5 Eos # (Auto) 0.0 Baso # (Auto) 0.0 Abs Immat Gran (auto) 0.03 Absolute Neuts (auto) 4.1 Absolute Nucleated RBC 0.000 Nucleated RBC % 0.0 PT 13.6 INR 1.0 APTT 23.7 D-Dimer < 0.27 Sodium 137 Potassium 4.0 Chloride 104 Carbon Dioxide 23 Anion Gap 10 BUN 7 Creatinine 0.51 L Estim Creat Clear Calc 161 Estimated GFR > 60 Glucose 88 Calcium 9.1 Total Bilirubin 0.6 AST 15 ALT 24 Alkaline Phosphatase 69 Troponin I < 0.012 Total Protein 8.0 Albumin 4.0 Influenza A (RT-PCR) Positive A Influenza B (RT-PCR) Negative RSV (RT-PCR) Negative SARS-CoV-2 RNA (RT-PCR) Negative Quality VTE Prophylaxis VTE prophylaxis: mechanical ordered
[2024-08-23 08:10] LABS: Hematocrit 43.5 % (37.0-47.0); Hemoglobin 14.3 g/dL (12.0-15.0); Mean Corpuscular HGB Conc 32.9 g/dl (32-36); Mean Corpuscular Hemoglobin 29.4 pg (26-34); Mean Corpuscular Volume 89.5 fl (80-100); Mean Platelet Volume 9.8 fl (7.4-10.4); Platelet Count Result 272 k/mm3 (150-375); Red Blood Count 4.86 M/mm3 (4.2-5.4); Red Cell Distribution Width 12.2 % (11.5-14.5)
[2024-08-23 08:31] LABS: Alanine Aminotransferase 23 U/L (6-35); Alkaline Phosphatase 70 U/L (38-126); Anion Gap 9 mmol/L (4-12); Aspartate Amino Transferase 15 U/L (14-36); Bilirubin,Total 0.7 mg/dL (0.2-1.3); Blood Urea Nitrogen 7 mg/dL (7-17); Carbon Dioxide 22 mmol/L (22-30); Chloride 106 mmol/L (98-107); Estimated CRCL calculation 183 ml/min; Estimated Glomerular Filt Rate > 60; Glucose 124 mg/dL (65-110); Sodium 137 mmol/L (137-145)
[2024-08-24] VITALS (14 sets, daily range): BP systolic 116–134; BP diastolic 66–73; PULSE 78–105; RESP 14–20; TEMP 36.4–37.1; O2SAT 95–100
[2024-08-24] MEDS: IPRATROPIUM 0.5 MG/ALBUTEROL SULFATE 2.5 MG AMPUL.NEB 3 ML INHALATION ×4 (02:45→20:35)
[2024-08-24] MEDS: methylPREDNISolone SOD SUCC 125 MG VIAL 60 MG IV PUSH ×2 (05:57→20:40)
[2024-08-24] MEDS: LORATADINE 10 MG TABLET PO (09:11)
--- NOTE | 2024-08-24 09:52 | P.PNIM_ITS ---
Progress Note: A&P Assessment and Plan (1) Asthma exacerbation: Qualifiers: Asthma severity: moderate Asthma persistence: persistent Qualified Code(s): J45.41 - Moderate persistent asthma with (acute) exacerbation Code(s): J45.901 - Unspecified asthma with (acute) exacerbation Status: Acute Assessment and Plan: Seen in urgent care on 08/17 for shortness of breath, prescribed prednisone taper for asthma exacerbation. Has been using inhalers without improvement. - Viral panel: Flu A positive - Oxygen requirement: No supplemental oxygen, sating well on room air - Home medication: albuterol inhaler, medrol - Chest XR: No focal infiltrate or effusion - Current treatment: duoneb and decrease steroid q 12 hr (2) Influenza due to influenza virus, type A, human: Code(s): J10.1 - Influenza due to other identified influenza virus with other respiratory manifestations Status: Acute Assessment and Plan: Viral panel: Flu A positive Supportive care (3) 9 weeks gestation of : Code(s): Z3A.09 - 9 weeks gestation of Status: Acute Assessment and Plan: Hcg + on 07/15/24 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 Carr (4) Morbid obesity with BMI of 50.0-59.9, adult: Code(s): E66.01 - Morbid (severe) obesity due to excess calories; Z68.43 - Body mass index [BMI] 50.0-59.9, adult Status: Acute Assessment and Plan: Lifestyle and diet modifications 1800 calorie restricted diet Subjective Date/time seen: 08/24/24 09:52 Interval history: Patient reports feeling a little better but still having wheezing. Patient reports shortness of breath on exertion. Patient denies chest pain, palpitations, headache, dizziness, nausea, or vomiting. Review of Systems Review of Systems: All systems reviewed & are unremarkable except as noted in HPI and below Exam Const: General: comfortable and no acute distress Resp: Auscultation: wheezes expiratory wheezes and diminished lung sounds Cardio: Rate: regular rate Rhythm: regular rhythm GI: GI Palp: Yes Soft to palpation Auscultation: normal bowel sounds Skin: General skin exam: no rashes or lesions noted Neuro: Speech: normal speech Extrem: General: no pedal edema Psych: Mental Status: mental status grossly normal Affect: normal affect Objective Data Vital Signs Vital Signs: Vital Signs - 24 hr 01/14/25 13:50 08/23/24 13:50 08/23/24 13:56 Temperature Pulse Rate 85 77 95 Respiratory Rate 20 20 20 Blood Pressure Pulse Oximetry 97 Oxygen Delivery Room Air Fraction of Inspired Oxygen 08/23/24 14:00 08/23/24 19:38 08/23/24 19:38 Temperature 97.8 F Pulse Rate 93 96 Respiratory Rate 16 20 Blood Pressure 137/63 Pulse Oximetry 97 96 Oxygen Delivery Room Air Fraction of Inspired Oxygen 21 08/23/24 19:50 08/23/24 20:00 08/23/24 20:35 Temperature 98.1 F Pulse Rate 116 H 84 84 Respiratory Rate 20 20 20 Blood Pressure 127/70 Pulse Oximetry 97 97 Oxygen Delivery Room Air Fraction of Inspired Oxygen 08/24/24 02:45 08/24/24 02:56 08/24/24 05:12 Temperature 98.8 F Pulse Rate 82 91 87 Respiratory Rate 20 20 20 Blood Pressure 116/73 Pulse Oximetry 100 Oxygen Delivery Fraction of Inspired Oxygen 08/24/24 08:00 08/24/24 09:02 08/24/24 09:02 Temperature Pulse Rate 91 91 Respiratory Rate 20 20 Blood Pressure Pulse Oximetry 100 95 Oxygen Delivery Room Air Room Air Fraction of Inspired Oxygen 08/24/24 09:11 Temperature Pulse Rate 105 H Respiratory Rate 20 Blood Pressure Pulse Oximetry Oxygen Delivery Fraction of Inspired Oxygen Intake/Output Intake/Output: Intake & Output 08/21/24 08/22/24 08/23/24 08/24/24 23:59 23:59 23:59 23:59 Intake Total 4900 530 Balance 4900 530 Meds/Results Medications: Active Medications Generic Name Dose Route Start Last Admin Trade Name Freq PRN Reason Stop Dose Admin Albuterol/Ipratropium 3 ml 08/23/24 02:00 08/24/24 09:01 Ipratropium 0.5 Mg/Albuterol Sulfate 2.5 Mg Ampul.Neb 3 Ml INHALATION 3 ml Q6HRT DANAE Administration Loratadine 10 mg 08/24/24 09:00 08/24/24 09:11 Loratadine 10 Mg Tablet PO 10 mg DAILY DANAE Administration Methylprednisolone Sodium Succinate 60 mg 08/23/24 22:00 08/24/24 05:57 Methylprednisolone Sod Succ 125 Mg Vial IV PUSH 60 mg Q8H DANAE Administration Montelukast Sodium 10 mg 08/24/24 21:00 Montelukast Sodium 10 Mg Tablet PO HS [facility] Radiology Results: ITS Impressions Chest X-Ray 08/22/24 23:16 IMPRESSION: No focal infiltrate or effusion. Quality VTE Prophylaxis VTE prophylaxis: mechanical ordered
[2024-08-24] MEDS: MONTELUKAST SODIUM 10 MG TABLET PO (20:35)
[2024-08-25] VITALS (11 sets, daily range): BP systolic 125–165; BP diastolic 58–85; PULSE 78–98; RESP 16–24; TEMP 36.6–37.1; O2SAT 96–98
[2024-08-25] MEDS: IPRATROPIUM 0.5 MG/ALBUTEROL SULFATE 2.5 MG AMPUL.NEB 3 ML INHALATION ×4 (02:45→21:16)
[2024-08-25 05:57] LABS: Basophils Percent Auto 0.2 % (0.2-1.2); Hemoglobin 13.2 g/dL (12.0-15.0); Immature Granulocyte Absolute 0.11 K/mm3 (0.00-0.031); Immature Granulocyte Percent A 1.2 % (0-0.5); Lymphocytes Absolute Auto 1.14 K/mm3 (0.9-3.2); Lymphocytes Percent Auto 12.4 % (18.3-44.2); Mean Corpuscular Hemoglobin 29.5 pg (26-34); Mean Corpuscular Volume 89.3 fl (80-100); Mean Platelet Volume 9.9 fl (7.4-10.4); Monocytes Absolute Auto 0.3 K/mm3 (0.1-0.6); Monocytes Percent Auto 3.2 % (2.6-8.5); Neutrophils Absolute Auto 7.6 K/mm3 (1.3-6.7); Platelet Count Result 295 k/mm3 (150-375); Red Blood Count 4.48 M/mm3 (4.2-5.4); Red Cell Distribution Width 12.5 % (11.5-14.5); White Blood Count 9.2 K/mm3 (4.5-10.0)
[2024-08-25 06:08] LABS: Alanine Aminotransferase 21 U/L (6-35); Albumin Level 3.6 g/dL (3.5-5.1); Alkaline Phosphatase 56 U/L (38-126); Anion Gap 8 mmol/L (4-12); Aspartate Amino Transferase 27 U/L (14-36); Bilirubin,Total 0.4 mg/dL (0.2-1.3); Blood Urea Nitrogen 8 mg/dL (7-17); Calcium 8.6 mg/dL (8.4-10.2); Carbon Dioxide 22 mmol/L (22-30); Chloride 107 mmol/L (98-107); Estimated CRCL calculation 176 ml/min; Estimated Glomerular Filt Rate > 60; Glucose 93 mg/dL (65-110); Potassium 4.2 mmol/L (3.4-5.0); Sodium 137 mmol/L (137-145)
[2024-08-25] MEDS: methylPREDNISolone SOD SUCC 125 MG VIAL 60 MG IV PUSH ×2 (07:52→20:39)
[2024-08-25] MEDS: LORATADINE 10 MG TABLET PO (07:52)
--- NOTE | 2024-08-25 10:03 | P.PNIM_ITS ---
Progress Note: A&P Assessment and Plan (1) Asthma exacerbation: Qualifiers: Asthma severity: moderate Asthma persistence: persistent Qualified Code(s): J45.41 - Moderate persistent asthma with (acute) exacerbation Code(s): J45.901 - Unspecified asthma with (acute) exacerbation Status: Acute Assessment and Plan: Seen in urgent care on 08/17 for shortness of breath, prescribed prednisone taper for asthma exacerbation. Has been using inhalers without improvement. 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 Carr (4) Morbid obesity with BMI of 50.0-59.9, adult: Code(s): E66.01 - Morbid (severe) obesity due to excess calories; Z68.43 - Body mass index [BMI] 50.0-59.9, adult Status: Acute Assessment and Plan: -Lifestyle and diet modifications -1800 calorie restricted diet Subjective Date/time seen: 08/25/24 10:03 Interval history: Patient reports that she is still wheezing alot. Patient reports that she is able to walk to the bathroom today without getting short of breath. Patient denies chest pain, palpitations, headache, dizziness, nausea, or vomiting. Review of Systems Review of Systems: All systems reviewed & are unremarkable except as noted in HPI and below Exam Const: General: comfortable and no acute distress Resp: Auscultation: wheezes expiratory wheezes and diminished lung sounds Cardio: Rate: regular rate Rhythm: regular rhythm GI: GI Palp: Yes Soft to palpation Auscultation: normal bowel sounds Skin: General skin exam: no rashes or lesions noted Neuro: Speech: normal speech Extrem: General: no pedal edema Psych: Mental Status: mental status grossly normal Affect: normal affect Objective Data Vital Signs Vital Signs: Vital Signs - 24 hr 08/24/24 14:00 08/24/24 14:54 08/24/24 15:01 Temperature 97.6 F Pulse Rate 101 H 78 82 Respiratory Rate 14 20 20 Blood Pressure 134/71 Pulse Oximetry 97 Oxygen Delivery Fraction of Inspired Oxygen 08/24/24 20:00 08/24/24 20:36 08/24/24 20:39 Temperature Pulse Rate 96 104 H 104 H Respiratory Rate 16 20 Blood Pressure Pulse Oximetry 98 98 Oxygen Delivery Room Air Room Air Fraction of Inspired Oxygen 21 08/24/24 20:48 08/24/24 22:00 08/25/24 02:45 Temperature 98.7 F Pulse Rate 96 96 78 Respiratory Rate 20 16 20 Blood Pressure 126/66 Pulse Oximetry 98 Oxygen Delivery Fraction of Inspired Oxygen 08/25/24 02:55 08/25/24 06:00 08/25/24 08:00 Temperature 98.8 F Pulse Rate 81 98 Respiratory Rate 20 18 Blood Pressure 165/58 H Pulse Oximetry 98 97 Oxygen Delivery Room Air Fraction of Inspired Oxygen 21 08/25/24 08:58 08/25/24 08:58 08/25/24 09:10 Temperature Pulse Rate 86 90 Respiratory Rate 24 H 22 H Blood Pressure Pulse Oximetry 97 Oxygen Delivery Room Air Fraction of Inspired Oxygen Intake/Output Intake/Output: Intake & Output 08/22/24 08/23/24 08/24/24 08/25/24 23:59 23:59 23:59 23:59 Intake Total 4900 2060 1040 Balance 4900 2060 1040 Meds/Results Medications: Active Medications Generic Name Dose Route Start Last Admin Trade Name Freq PRN Reason Stop Dose Admin Albuterol/Ipratropium 3 ml 08/23/24 02:00 08/25/24 08:57 Ipratropium 0.5 Mg/Albuterol Sulfate 2.5 Mg Ampul.Neb 3 Ml INHALATION 3 ml Q6HRT DANAE Administration Loratadine 10 mg 08/24/24 09:00 08/25/24 07:52 Loratadine 10 Mg Tablet PO 10 mg DAILY DANAE Administration Methylprednisolone Sodium Succinate 60 mg 08/24/24 21:00 08/25/24 07:52 Methylprednisolone Sod Succ 125 Mg Vial IV PUSH 60 mg Q12HR DANAE Administration Montelukast Sodium 10 mg 08/24/24 21:00 08/24/24 20:35 Montelukast Sodium 10 Mg Tablet PO 10 mg HS DANAE Administration Radiology Results: ITS Impressions Chest X-Ray 08/22/24 23:16 IMPRESSION: No focal infiltrate or effusion. Labs Labs: Laboratory Results - last 24 hr 08/25/24 05:29 WBC 9.2 RBC 4.48 Hgb 13.2 Hct 40.0 MCV 89.3 MCH 29.5 MCHC 33.0 RDW 12.5 Plt Count 295 MPV 9.9 Immature Gran % (Auto) 1.2 H Neut % (Auto) 83.0 H Lymph % (Auto) 12.4 L [place] % (Auto) 3.2 Eos % (Auto) 0.0 Baso % (Auto) 0.2 Lymph # (Auto) 1.14 [place] # (Auto) 0.3 Eos # (Auto) 0.0 Baso # (Auto) 0.0 Abs Immat Gran (auto) 0.11 H Absolute Neuts (auto) 7.6 H Absolute Nucleated RBC 0.000 Nucleated RBC % 0.0 Sodium 137 Potassium 4.2 Chloride 107 Carbon Dioxide 22 Anion Gap 8 BUN 8 Creatinine 0.46 L Estim Creat Clear Calc 176 Estimated GFR > 60 Glucose 93 Calcium 8.6 Total Bilirubin 0.4 AST 27 ALT 21 Alkaline Phosphatase 56 Total Protein 7.0 Albumin 3.6 Quality VTE Prophylaxis VTE prophylaxis: mechanical ordered
[2024-08-25] MEDS: guaiFENesin 12 HR 600 MG TABCR PO (20:39)
[2024-08-25] MEDS: MONTELUKAST SODIUM 10 MG TABLET PO (20:39)
[2024-08-26] VITALS (11 sets, daily range): BP systolic 116–149; BP diastolic 61–77; PULSE 67–101; RESP 16–20; TEMP 36.6; O2SAT 97–98
[2024-08-26] MEDS: IPRATROPIUM 0.5 MG/ALBUTEROL SULFATE 2.5 MG AMPUL.NEB 3 ML INHALATION ×5 (02:10→22:00)
[2024-08-26 05:43] LABS: Basophils Percent Auto 0.3 % (0.2-1.2); Hematocrit 40.2 % (37.0-47.0); Hemoglobin 13.4 g/dL (12.0-15.0); Immature Granulocyte Absolute 0.16 K/mm3 (0.00-0.031); Immature Granulocyte Percent A 1.8 % (0-0.5); Lymphocytes Absolute Auto 0.93 K/mm3 (0.9-3.2); Lymphocytes Percent Auto 10.6 % (18.3-44.2); Mean Corpuscular HGB Conc 33.3 g/dl (32-36); Mean Corpuscular Hemoglobin 29.6 pg (26-34); Mean Corpuscular Volume 88.9 fl (80-100); Mean Platelet Volume 9.7 fl (7.4-10.4); Monocytes Absolute Auto 0.2 K/mm3 (0.1-0.6); Monocytes Percent Auto 2.7 % (2.6-8.5); Neutrophils Absolute Auto 7.5 K/mm3 (1.3-6.7); Neutrophils Percent Auto 84.6 % (45.5-73.1); Platelet Count Result 290 k/mm3 (150-375); Red Blood Count 4.52 M/mm3 (4.2-5.4); Red Cell Distribution Width 12.5 % (11.5-14.5); White Blood Count 8.8 K/mm3 (4.5-10.0)
[2024-08-26 05:57] LABS: Alanine Aminotransferase 19 U/L (6-35); Albumin Level 3.7 g/dL (3.5-5.1); Alkaline Phosphatase 56 U/L (38-126); Anion Gap 9 mmol/L (4-12); Aspartate Amino Transferase 15 U/L (14-36); Bilirubin,Total 0.5 mg/dL (0.2-1.3); Blood Urea Nitrogen 9 mg/dL (7-17); Calcium 8.7 mg/dL (8.4-10.2); Carbon Dioxide 22 mmol/L (22-30); Chloride 105 mmol/L (98-107); Estimated CRCL calculation 172 ml/min; Estimated Glomerular Filt Rate > 60; Glucose 99 mg/dL (65-110); Potassium 4.1 mmol/L (3.4-5.0); Sodium 136 mmol/L (137-145)
[2024-08-26] MEDS: guaiFENesin 12 HR 600 MG TABCR PO ×2 (08:25→21:01)
[2024-08-26] MEDS: methylPREDNISolone SOD SUCC 125 MG VIAL 60 MG IV PUSH ×2 (08:25→21:01)
[2024-08-26] MEDS: LORATADINE 10 MG TABLET PO (08:25)
--- NOTE | 2024-08-26 11:54 | P.PNIM_ITS ---
Progress Note: A&P Assessment and Plan (1) Asthma exacerbation: Qualifiers: Asthma persistence: persistent Asthma severity: moderate Qualified Code(s): J45.41 - Moderate persistent asthma with (acute) exacerbation Code(s): J45.901 - Unspecified asthma with (acute) exacerbation Status: Acute Assessment and Plan: Seen in urgent care on 08/17 for shortness of breath, prescribed prednisone taper for asthma exacerbation. Has been using inhalers without improvement. - Viral panel: Flu A positive - Oxygen requirement: No supplemental oxygen, sating well on room air - Home medication: albuterol inhaler, medrol - Chest XR: No focal infiltrate or effusion - Current treatment: increase duoneb q 5 and continue steroid q 12 hr (2) Influenza due to influenza virus, type A, human: Code(s): J10.1 - Influenza due to other identified influenza virus with other respiratory manifestations Status: Acute Assessment and Plan: -Viral panel: Flu A positive -Supportive care (3) 9 weeks gestation of : Code(s): Z3A.09 - 9 weeks gestation of Status: Acute Assessment and Plan: -Hcg + on 07/15/24 -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 Carr (4) Morbid obesity with BMI of 50.0-59.9, adult: Code(s): E66.01 - Morbid (severe) obesity due to excess calories; Z68.43 - Body mass index [BMI] 50.0-59.9, adult Status: Acute Assessment and Plan: -Lifestyle and diet modifications -1800 calorie restricted diet Subjective Date/time seen: 08/26/24 11:54 Interval history: Patient reports that she is still wheezing alot. Patient reported that her wheezing gets worse a little before her breathing treatment is due. Patient reports that she is able to walk to the bathroom today without getting short of breath. Patient denies chest pain, palpitations, headache, dizziness, nausea, or vomiting. Review of Systems Review of Systems: All systems reviewed & are unremarkable except as noted in HPI and below Exam Const: General: comfortable and no acute distress Eyes: Sclera: sclerae normal Resp: Effort & Inspection: normal respiratory effort Auscultation: wheezes expiratory wheezes (throughout) and diminished lung sounds Cardio: Rate: regular rate Rhythm: regular rhythm GI: GI Palp: Yes Soft to palpation Auscultation: normal bowel sounds Skin: General skin exam: no rashes or lesions noted Neuro: Speech: normal speech Extrem: General: no pedal edema Psych: Mental Status: mental status grossly normal Affect: normal affect Objective Data Vital Signs Vital Signs: Vital Signs - 24 hr 08/25/24 14:49 08/25/24 14:54 08/25/24 20:00 Temperature 97.9 F Pulse Rate 82 82 Respiratory Rate 20 18 Blood Pressure 125/85 Pulse Oximetry 96 Oxygen Delivery Room Air 08/25/24 21:17 08/25/24 21:26 08/25/24 21:50 Temperature 98.6 F Pulse Rate 86 82 91 Respiratory Rate 20 20 16 Blood Pressure 127/72 Pulse Oximetry 96 Oxygen Delivery 08/26/24 02:10 08/26/24 06:42 08/26/24 08:04 Temperature 97.9 F Pulse Rate 89 67 Respiratory Rate 20 16 Blood Pressure 116/61 Pulse Oximetry 97 97 Oxygen Delivery Room Air 08/26/24 08:04 08/26/24 08:11 Temperature Pulse Rate 82 84 Respiratory Rate 20 20 Blood Pressure Pulse Oximetry Oxygen Delivery Intake/Output Intake/Output: Intake & Output 08/23/24 08/24/24 08/25/24 08/26/24 23:59 23:59 23:59 23:59 Intake Total 4900 2059 2069 620 Balance 4900 2059 2069 620 Meds/Results Medications: Active Medications Generic Name Dose Route Start Last Admin Trade Name Freq PRN Reason Stop Dose Admin Albuterol/Ipratropium 3 ml 08/23/24 02:00 08/26/24 08:04 Ipratropium 0.5 Mg/Albuterol Sulfate 2.5 Mg Ampul.Neb 3 Ml INHALATION 3 ml Q6HRT DANAE Administration Guaifenesin 600 mg 08/25/24 21:00 08/26/24 08:25 Guaifenesin 12 Hr 600 Mg Tabcr PO 09/01/24 20:59 600 mg Q12HR DANAE Administration Loratadine 10 mg 08/24/24 09:00 08/26/24 08:25 Loratadine 10 Mg Tablet PO 10 mg DAILY DANAE Administration Methylprednisolone Sodium Succinate 60 mg 08/24/24 21:00 08/26/24 08:25 Methylprednisolone Sod Succ 125 Mg Vial IV PUSH 60 mg Q12HR DANAE Administration Montelukast Sodium 10 mg 08/24/24 21:00 08/25/24 20:39 Montelukast Sodium 10 Mg Tablet PO 10 mg HS DANAE Administration Radiology Results: ITS Impressions Chest X-Ray 08/22/24 23:16 IMPRESSION: No focal infiltrate or effusion. Labs Labs: Laboratory Results - last 24 hr 08/26/24 05:16 WBC 8.8 RBC 4.52 Hgb 13.4 Hct 40.2 MCV 88.9 MCH 29.6 MCHC 33.3 RDW 12.5 Plt Count 290 MPV 9.7 Immature Gran % (Auto) 1.8 H Neut % (Auto) 84.6 H Lymph % (Auto) 10.6 L [place] % (Auto) 2.7 Eos % (Auto) 0.0 Baso % (Auto) 0.3 Lymph # (Auto) 0.93 [place] # (Auto) 0.2 Eos # (Auto) 0.0 Baso # (Auto) 0.0 Abs Immat Gran (auto) 0.16 H Absolute Neuts (auto) 7.5 H Absolute Nucleated RBC 0.000 Nucleated RBC % 0.0 Sodium 136 L Potassium 4.1 Chloride 105 Carbon Dioxide 22 Anion Gap 9 BUN 9 Creatinine 0.47 L Estim Creat Clear Calc 172 Estimated GFR > 60 Glucose 99 Calcium 8.7 Total Bilirubin 0.5 AST 15 ALT 19 Alkaline Phosphatase 56 Total Protein 7.0 Albumin 3.7 Quality VTE Prophylaxis VTE prophylaxis: mechanical ordered
[2024-08-26] MEDS: MONTELUKAST SODIUM 10 MG TABLET PO (21:01)
[2024-08-27] VITALS (7 sets, daily range): BP systolic 112; BP diastolic 56; PULSE 81–104; RESP 8–20; TEMP 36.4; O2SAT 97–98
[2024-08-27] MEDS: IPRATROPIUM 0.5 MG/ALBUTEROL SULFATE 2.5 MG AMPUL.NEB 3 ML INHALATION ×3 (03:07→11:24)
[2024-08-27 05:46] LABS: Basophils Percent Auto 0.2 % (0.2-1.2); Hematocrit 39.1 % (37.0-47.0); Hemoglobin 13.4 g/dL (12.0-15.0); Immature Granulocyte Percent A 2.1 % (0-0.5); Lymphocytes Absolute Auto 0.93 K/mm3 (0.9-3.2); Lymphocytes Percent Auto 9.8 % (18.3-44.2); Mean Corpuscular HGB Conc 34.3 g/dl (32-36); Mean Corpuscular Hemoglobin 30.3 pg (26-34); Mean Corpuscular Volume 88.5 fl (80-100); Mean Platelet Volume 9.7 fl (7.4-10.4); Monocytes Absolute Auto 0.3 K/mm3 (0.1-0.6); Monocytes Percent Auto 2.7 % (2.6-8.5); Neutrophils Absolute Auto 8.1 K/mm3 (1.3-6.7); Neutrophils Percent Auto 85.2 % (45.5-73.1); Platelet Count Result 281 k/mm3 (150-375); Red Blood Count 4.42 M/mm3 (4.2-5.4); Red Cell Distribution Width 12.5 % (11.5-14.5); White Blood Count 9.5 K/mm3 (4.5-10.0)
[2024-08-27 06:03] LABS: Alanine Aminotransferase 20 U/L (6-35); Albumin Level 3.6 g/dL (3.5-5.1); Alkaline Phosphatase 54 U/L (38-126); Anion Gap 10 mmol/L (4-12); Aspartate Amino Transferase 17 U/L (14-36); Bilirubin,Total 0.5 mg/dL (0.2-1.3); Blood Urea Nitrogen 7 mg/dL (7-17); Calcium 8.3 mg/dL (8.4-10.2); Carbon Dioxide 20 mmol/L (22-30); Chloride 106 mmol/L (98-107); Estimated CRCL calculation 183 ml/min; Estimated Glomerular Filt Rate > 60; Glucose 109 mg/dL (65-110); Potassium 3.9 mmol/L (3.4-5.0); Sodium 136 mmol/L (137-145)
[2024-08-27] MEDS: LORATADINE 10 MG TABLET PO (08:30)
[2024-08-27] MEDS: methylPREDNISolone SOD SUCC 125 MG VIAL 60 MG IV PUSH (08:30)
[2024-08-27] MEDS: guaiFENesin 12 HR 600 MG TABCR PO (08:30)
--- NOTE | 2024-08-27 12:06 | P.DS_ITS ---
DS: Admitting Diagnosis Discharge Date 08/27/2024 Admitting Diagnosis Asthma, shortness of breath, wheezing DS: Discharge Diagnosis Discharge Diagnosis (1) Asthma exacerbation: Qualifiers: Asthma severity: moderate Asthma persistence: persistent Qualified Code(s): J45.41 - Moderate persistent asthma with (acute) exacerbation Code(s): J45.901 - Unspecified asthma with (acute) exacerbation Status: Acute (2) Influenza A: Code(s): J10.1 - Influenza due to other identified influenza virus with other respiratory manifestations Status: Acute (3) 9 weeks gestation of : Code(s): Z3A.09 - 9 weeks gestation of Status: Acute (4) Morbid obesity with BMI of 50.0-59.9, adult: Code(s): E66.01 - Morbid (severe) obesity due to excess calories; Z68.43 - Body mass index [BMI] 50.0-59.9, adult Status: Acute DS: Summary Hospital Course Hospital Course: * This is a 34-year-old female with past medical history significant for mild intermittent asthma, obesity, patient presents to the emergency room due to shortness of breath, wheezing using her inhaler frequently this has been ongoing for about a week had been to urgent care and was prescribed oral steroids however has not improved and continued to get worse. Patient was found to be positive for influenza type A. In emergency room patient received several treatments but still having significant cough wheezing has been placed in observation for further evaluation management and treatment. Covid and RSV negative. * Chest X-ray showed no focal infiltrate or effusion. * Hcg + on 07/15/24 * Patient given IV steroids and duoneb treatments. * Patient improved. Transitioned back to home asthma plan and sent home on a Prednisone oral taper. Status at Discharge Functional status at discharge: independent ambulation Overall status at discharge: patient is progressing back to baseline Time Spent with Patient Time attestation: Total time spent providing and/or coordinating discharge services: Time spent: Greater than 30 minutes Exam Const: General: comfortable and no acute distress Eyes: Sclera: sclerae normal Resp: Other: Slightly diminished. Improved air movement, no wheezes. Cardio: Rate: regular rate Rhythm: regular rhythm GI: GI Palp: Yes Soft to palpation Auscultation: normal bowel sounds Skin: General skin exam: no rashes or lesions noted Extrem: General: no pedal edema Psych: Mental Status: mental status grossly normal Affect: normal affect DS: Data Data Completed and Pending Labs on day of discharge: Labs from last 24 hours 08/27/24 05:40 WBC 9.5 RBC 4.42 Hgb 13.4 Hct 39.1 MCV 88.5 MCH 30.3 MCHC 34.3 RDW 12.5 Plt Count 281 MPV 9.7 Immature Gran % (Auto) 2.1 H Neut % (Auto) 85.2 H Lymph % (Auto) 9.8 L [place] % (Auto) 2.7 Eos % (Auto) 0.0 Baso % (Auto) 0.2 Lymph # (Auto) 0.93 [place] # (Auto) 0.3 Eos # (Auto) 0.0 Baso # (Auto) 0.0 Abs Immat Gran (auto) 0.20 H Absolute Neuts (auto) 8.1 H Absolute Nucleated RBC 0.000 Nucleated RBC % 0.0 Sodium 136 L Potassium 3.9 Chloride 106 Carbon Dioxide 20 L Anion Gap 10 BUN 7 Creatinine 0.44 L Estim Creat Clear Calc 183 Estimated GFR > 60 Glucose 109 Calcium 8.3 L Total Bilirubin 0.5 AST 17 ALT 20 Alkaline Phosphatase 54 Total Protein 7.0 Albumin 3.6 Discharge Plan Discharge Attending physician on discharge: Philippe Bacon Discharging Clinician: Mehreen Casillas Anticipated Discharge Date/Time: 08/27/24 13:00 Patient Disposition: Home, Self-Care Activity: may shower and as tolerated Diet: regular Discharge Instructions: * Take inhaler and nebulizer as directed. * Complete taper of steroids. * Report any worsening shortness of breath or wheezing that does not improve with treatment to provider. * Avoid sick contacts. * Stay active. 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 Thank you for entrusting [facility] with your healthcare! Patient Instructions: Prednisone (By mouth), Asthma (DC) Patient Language: Uzbek Stand Alone Forms: General Discharge Information Follow-up/Referrals: Gale Pereira NP [Primary Care Provider] - 1 Week Discharge Medications: New guaifenesin [Mucus Relief ER] 600 mg Tablet Extended Release 12hr 600 mg PO Q12HR Qty: 14 0RF prednisone 10 mg tablets,dose pack See Taper PO DAILY 12 Days Qty: 42 0RF Taper: Prednisone Taper from 60 mg;12 days 60 mg DAILY for 2 Days and 0 Hour 50 mg DAILY for 2 Days and 0 Hour 40 mg DAILY for 2 Days and 0 Hour 30 mg DAILY for 2 Days and 0 Hour 20 mg DAILY for 2 Days and 0 Hour 10 mg DAILY for 2 Days and 0 Hour Continued Adults Multivitamin See Rx Instructions BYMOUTH DAILY Rx Instructions: 1 TAB orally daily; loratadine 10 mg BYMOUTH DAILY aspirin [Adult Low Dose Aspirin] 81 mg tablet,delayed release (DR/EC) 81 mg PO DAILY albuterol sulfate 90 mcg/actuation HFA aerosol inhaler 1 inh inhalation Q4H PRN (Reason: shortness of breath or wheezing) Qty: 8.5 1RF montelukast 10 mg tablet See Rx Instructions .ROUTE .COMPLEX Qty: 30 0RF Dose Instruction: TAKE 1 TABLET BY MOUTH DAILY IN THE EVENING AT BEDTIME Rx Instructions: TAKE 1 TABLET BY MOUTH DAILY IN THE EVENING AT BEDTIME albuterol sulfate 2.5 mg /3 mL (0.083 %) solution for nebulization 2.5 mg inhalation Q6H PRN (Reason: Shortness Of Breath Or Wheezing) Qty: 90 2RF Discontinued methylprednisolone [Medrol (Brandan)] 4 mg tablets,dose pack See Rx Instructions .ROUTE .COMPLEX Qty: 21 0RF Rx Instructions: orally per package directions. Start 08/18/24 Date of admission: 08/23/24 00:06 Primary Care Provider: Gale Pereira Admitting Provider: Morales Dwyer V. Attending physician on admission: Morales Dwyer V. Condition: Stable Hospitalist MIPS Heart Failure (Exclusion) Patient has history of Heart Transplant or Left Ventricular Assistive Device?: No IF YES, STOP HERE Heart Failure (Qualifier) Patient has current or prior documentation of LVEF less than or equal to 40%, or mod/servere depressed LVSF?: No IF NO, STOP HERE
== END 2024-08-27 13:46 | disposition home or self-care (01) ==
LOC: ANHED 08-23 00:06 → ANH2MED 08-23 11:50 → ANH3MEDSUR 08-29 07:52
PROVIDERS: Nurse Practitioner Family; Physician Assistant; Student in an Organized Health Care Education/Training Program; Admitting Provider Internal Medicine; Emergency Provider Physician Assistant; PCP Nurse Practitioner Family; Visit Provider General Practice
DX: O99.511 Diseases of the respiratory system complicating pregnancy, first trimester (principal); J10.1 Influenza due to other identified influenza virus with other respiratory manifestations; J45.41 Moderate persistent asthma with (acute) exacerbation; O99.211 Obesity complicating pregnancy, first trimester; E66.01 Morbid (severe) obesity due to excess calories; Z3A.09 9 weeks gestation of pregnancy; Z79.51 Long term (current) use of inhaled steroids; Z79.82 Long term (current) use of aspirin; Z79.52 Long term (current) use of systemic steroids
CPT/HCPCS: 36415; 71045; 80053; 84484; 85025; 85027; 85380; 85610; 85730; 87637; 93005; 94640; 96374; 96376; 99285; A9270; G0378; J2919

== ENCOUNTER 2024-09-07 12:20 | Emergency (ER) | payer BC, SELFPAY ==
--- NOTE | ~2024-09-07 | CT_ITS ---
EXAMINATION: CT abdomen pelvis w con DATE: 09/07/2024 21:24 INDICATION: mid abd pain, multiple abd surgery. Apx 12 wk preg TECHNIQUE: Computed tomography (CT) of the abdomen and pelvis was performed with 100 mL Omnipaque-350 intravenous contrast. Automated exposure control and iterative reconstruction technique were employe d. The dose-length product was 1764.26 mGy-cm. COMPARISON: None. FINDINGS: Lower thorax: Unremarkable Liver: Normal. Biliary/Gallbladder: Gallbladder is absent. No bile duct dilation. Pancreas: No mass or duct dilation. Spleen: Normal. Adrenals:No mass. Kidneys: No suspicious mass, obstructing stone, or hydronephrosis. Nonobstructing 3 mm right upper po le calcification. GI tract: No small or large bowel dilation. Mild distal ileal wall edema. Normal appendix. Mesentery/Peritoneum: Stranding of the mesenteric fat in the right lower quadrant adjacent to the are a of ileal wall edema. Retroperitoneum: No mass. Pelvis: Gravid uterus. Merely empty, otherwise normal-appearing urinary bladder. Normal right ovary. Post surgical changes at the left adnexa. Stable somewhat elongated simple appearing 3.1 x 7.1 cm lef t adnexal cyst. 5.5 cm uterine fibroid. Soft Tissues: Moderate sized umbilical hernia with a narrow neck, larger than the prior study and con taining significant fluid Bones: No acute osseous finding. Chronic bilateral L5 pars defects. IMPRESSION: Short segment distal ileal wall edema, may terminal ileitis in the appropriate clinical context. Adjacent mesenteric stranding may represent associated inflammatory change. Mesenteric contusion coul d appear similarly, correlate with history of trauma. Moderate sized fat and fluid containing local hernia, with mild fat stranding suggesting inflammation , increased in size and with increased fluid component since the prior study. Left adnexal cyst and uterine fibroid, both demonstrating interval growth since the prior study. Reviewed, dictated and finalized at location K. FOOD ASSISTANT RESTAURANT MANAGER IMPRESSION: Short segment distal ileal wall edema, may terminal ileitis in the appropriate clinical context. Adjacent mesenteric stranding may represent associated inflammatory change. Mes enteric contusion could appear similarly, correlate with history of trauma. Moderate sized fat and fluid containing local hernia, with mild fat stranding s uggesting inflammation, increased in size and with increased fluid component si nce the prior study. Left adnexal cyst and uterine fibroid, both demonstrating interval growth since the prior study.
--- NOTE | ~2024-09-07 | US_ITS ---
EXAMINATION: US OB <=14 wk fetus w TV INDICATION: eval TECHNIQUE: Sonography of the pelvis was performed by transabdominal and transvaginal techniques. COMPARISON: CT abdomen pelvis, same date. RESULT: Uterus: 14.4 x 9.0 x 10.7 cm. Anteverted. Homogenous myometrium. Intrauterine gestational sac: Single present. Yolk sac: 0.7 cm . Embryo: Single present. Lohman rump length: 6.86 cm, corresponding gestational age 13 weeks, 1 days. Gestational heart rate: present 175 bpm. Subgestational hematoma: Absent . Right ovary: Not visualized. Left ovary: Not visualized. Pelvis free fluid: None. IMPRESSION: Single, live intrauterine gestation. Estimated Gestational Age: 13 weeks, 1 days by crown rump length. BERNARDO by ultrasound 03/14/2025. tachycardia at 175 bpm. Large yolk sac measuring 0.7 cm Reviewed, dictated and finalized at location K. GRAPHIC DESIGNER IMPRESSION: Single, live intrauterine gestation. Estimated Gestational Age: 13 weeks, 1 days by crown rump length. BERNARDO by ultra sound 03/14/2025. tachycardia at 175 bpm. Large yolk sac measuring 0.7 cm
[2024-09-07 12:42] VITALS: BP 136/86; PULSE 103; RESP 20; TEMP 36.5; O2SAT 100
--- OUTSIDE RECORDS SUMMARY | 2024-09-07 13:14 | XMS_ITS | Encounter Summary ---
Author Organization [facility] Address [address] [address] Care Team Providers Care Casino Gaming Worker Name Role Phone Roman Wong MD Primary Care Provider [phone] Adrienne Contreras MD Primary Care Provider [phone] Encounter Details Date Type Department Care Team (Late st Contact Info) Description 03/27/2021 [facility] Outpatient Visit [facility] Orthopedics - Radiology [address] [place] [address] [place] [address] Document, Scanned Social History Tobacco Use Types Packs/Day Years Used Date Smoking Tobacco: Never Assessed Sex and Gender Information Value Date Recorded Sex Assigned at Not on file Gender Identity Not on file Sexual Orientation Not on file COVID-19 Exposure Response Date Recorded In the last month, have you been in contact with someone who was confirmed or suspected to have Coronavirus / COVID-19? No / Unsure 03/14/2021 11:23 AM CDT documented as of this encounter Plan of Treatment Not on file documented as of this encounter Visit Diagnoses Not on filedocumented in this encounter Care Teams Casino Gaming Worker Relationship Specialty Start Date End Date Roman Wong MD [address] [place] [address] PCP - General 10/11/19 04/09/21 Adrienne Contreras MD [address] [place], [place] [id number] PCP - General Family Medicine 04/10/21 documented as of this encounter
--- OUTSIDE RECORDS SUMMARY | 2024-09-07 13:14 | XMS_ITS | Clinical Summary ---
Author Organization [facility] Address [address] [place] [address] Phone Care Team Providers Care Lab Assistant Name Role Phone [facility], External Provider Primary Care Provider U navailable Medications acetaminophen (TYLENOL) 325 mg tablet Take 325 mg by mouth every 4 hours as needed. 06/07/2021 Active ibuprofen (MOTRIN) 200 mg tablet Take 200 mg by mouth every 6 hours as needed. 06/07/2021 Active Social History Tobacco Use Types Packs/Day Years Used Date Smoking Tobacco: Never Assessed Comments Unknown Sex and Gender Information Value Date Recorded Sex Assigned at Not on file Legal Sex Female 2:42 PM CDT Gender Identity Not on file Sexual Orientation Not on file Plan of Treatment Health Maintenance Due Date Last Done Comments DTAP/TDAP/TD VACCINES (1 - Tdap) 02/08/2011 HEPATITIS B VACCINES (1 of 3 - 19+ 3-dose series) 02/08/2011 CERVICAL CANCER SCREENING 04/08/2022 04/08/2019 INFLUENZA VACCINE (#1) 2024 HPV VACCINES Aged Out No longer eligi ble based on patient's age to complete this topic PNEUMOCOCCAL VACCINE 0-64 YEARS Aged Out No longer eligible based on patient's age to complete this topic Insurance [facility] BLUE ACCESS CHOICE Care Teams Lab Assistant Relationship Specialty Start Date End Date [facility], External Provider [address] [place] [address] PCP - General 05/28/20
--- OUTSIDE RECORDS SUMMARY | 2024-09-07 13:14 | XMS_ITS | Clinical Summary ---
Author Organization [facility] Address [address] [place] [address] Care Team Providers Care Producer Name Role Phone Adrienne Contreras MD Primary Care Provider [phone] Source Comments [facility],non-owned Affiliates and Associated Physician Practices is amultiple site organization consisting of ambulatory clinics and hospital sitesin [place], [place], [place] and [place]. This disclosure is being madepursuant to the Care Everywhere program and may not contain all information available regarding this patient. Last updated 18.[facility] Allergies No known active allergies Medications * Be aware that medications may not be up to date on this document. Alwaysverify current medications with the patient. Medication Sig Dispensed Refills Start Date End Date Status montelukast (SINGULAIR) 10 MG tablet TAKE 1 TABLET BY MOUTH DAILY IN THE EVENING 01/24/2021 Active w/o A Vit-Fe Fum-FA (PRENATA PO) Take by mouth once daily Active HYDROcodone-acetamino phen (NORCO) 5-325 MG tablet Take 0.5 (one-half) tablet to 1 (one) tablet by mouth every 4 hours as needed for Pain 15 tablet 04/10/2021 Active Active Problems No known active problems Social History Tobacco Use Types Packs/Day Years Used Date Smoking Tobacco: Never Smokeless Tobacco: Never Alcohol Use Standard Drinks/Week Comments Never 0 (1 standard drink = 0.6 oz pur e alcohol) Sex and Gender Information Value Date Recorded Sex Assigned at Not on file Gender Identity Not on file Sexual Orientation Not on file Last Filed Vital Signs Vital Sign Reading Time Taken Comments Blood Pressure 106/68 04/10/2021 12:15 PM CDT Pulse 71 04/10/2021 12:15 PM CDT Temperature 36.2 ??C (97.1 ??F) 04/10/2021 9:37 AM CD T Respiratory Rate 20 04/10/2021 12:1 5 PM CDT Oxygen Saturation 97% 04/10/2021 12: 15 PM CDT Inhaled Oxygen Concentration - - Weight 120.8 kg (266 lb 6.4 oz) 04/10/2021 9:32 AM CDT Height 154.9 cm (5' 1 ) 04/10/2021 9:32 AM CDT Body Mass Index 50.34 04/10/2021 9:32 AM CDT Plan of Treatment Health Maintenance Due Date Last Done Comments PAP SMEAR 1992 HIV SCREENING 02/08/2007 HEPATITIS C SCREENING 02/04/2010 DTAP/TDAP/TD VACCINES (1 - Tdap) 02/08/2011 HEPATITIS B VACCINE (1 of 3 - 19+ 3-dose series) 02/08/2011 COVID-19 VACCINE ( - 2023-2 5 season) 2024 INFLUENZA VACCINE (#1) 2024 DEPRESSION SCREENING 08/10/2024 ZOSTER VACCINE (1 of 2) 02/08/2042 HIB VACCINE Aged Out No longer eligi ble based on patient's age to complete this topic HPV VACCINE Aged Out No longer eligi ble based on patient's age to complete this topic MENINGOCOCCAL (Group B) VACCINE Aged Out No longer eligible based on patient's age to complete this topic MENINGOCOCCAL VACCINE Aged Out No jama fabricio eligible based on patient's age to complete this topic PNEUMOCOCCAL VACCINE Aged Out No long er eligible based on patient's age to complete this topic Care Teams Producer Relationship Specialty Start Date End Date Adrienne Contreras MD [address] [place] [address] PCP - General Family Medicine 04/10/21
--- OUTSIDE RECORDS SUMMARY | 2024-09-07 13:14 | XMS_ITS | Data Portability ---
[facility] Address [address] [place] [address] Assessment No assessment recorded. Plan of Treatment Reminders Order Date Submit Date Provider Last Modified By Organization Details Last Modified Time Details Appointments None recorded. Lab None recorded. Referral None recorded. Procedures None recorded. Surgeries None recorded. Imaging None recorded. Medication Orders montelukas t 10 mg tablet 2016 017 [facility] #[id number], [address], [place], [place], [id number], 1 14:34:50 Keflex 500 mg capsule 2016 017 [facility] #[id number], [address], [place], [place], [id number], 9 16:12:50 Patient TargetsNo targets recorded. Patient Instructions Encounter Date Encounter Id Patient Instructions Last Modified By Organization Details Last Modified Time 01/26/2017 [id number] When You Want to Lose Weight: Care Instructions [email or web address] Not available 01/26/2017 15:46:05 diet weight loss [email or web address] Not availab le 01/26/2017 15:46:05 02/02/2017 [id number] sore throat: care instructions [email or web address] Not available 02/03/2017 09:39:23 Reason for Referral None Reported. Procedures Surgical History Date Name Laterality Status Provider Name and Address Organization Details Recorded Time Cholecystectomy completed Tasia Gordillo MA [facility] 01/26/2017 14:03:06 Tonsillectomy completed Tasia Gordillo MA [facility] 01/26/2017 14:03:16 Imaging Results None recorded. Procedure Notes None recorded. Medical Equipment None Reported. Allergies Allergen ID Allergen Name Allergen Category Reaction Reaction Severity Criticality Documentation Date Start Date Code Code System Note Provider Name and Address Organization Details Recorded Time [id number] animal dander environme nt Not available Not available Not available 01/26/2017 [id number] UNK Not Available Not Available Not Available No known drug allergies Medications Name Sig Start Date Stop Date Status Note LastModified by Organization Details LastModified Time azithromyci n 250 mg tablet 01/26 completed Not Available Not Available Not Available Keflex 500 mg capsule Take 1 capsule every 8 hours by oral route as directed for 10 days. 2016 active Not Available Not Available Not Avai lable prednisone 20 mg tablet 01/26 completed Not Available Not Available Not Available ciprofloxac in 0.3 % eye drops 3 drops to affected ear tid for 7 days 2016 active Not Available Not Available Not Avai lable Cipro 500 mg tablet Take 1 tablet every 12 hours by oral route for 10 days. 2016 active Not Available Not Available Not Avai lable montelukast 10 mg tablet Take 1 tablet every day by oral route for 90 days. active Not Available Not Available No t Available biotin 1 PO QD active Not Available Not Avail able Not Available albuterol sulfate 2 puffs as needed active Not Available Not Available No t Available ProAir HFA 90 mcg/actuati on aerosol inhaler 01/26 completed Not Available Not Available Not Available Virtussin AC 10 mg-100 mg/5 mL oral liquid 01/26 completed Not Available Not Available Not Available Vitals Date Recorded Body weight Provider Name an d Address Organization Details Last Updated DateTime 01/26/2017 339180.5 g Nikki Oliveira MA [facility] 2016 14:10:20 Date Recorded Body height Body mass index (BMI) Provider Name and Address Organization Details Last Updated DateTime 01/26/2017 154.94 cm 50.9 kg/m2 SAMANTHA Schwarz [facility] 01/26/2017 14:13:14 Date Recorded Oxygen saturation Oxygen saturation in Arterial blood by Pulse oximetry Provider Name and Address Organization Details Last Updated DateTime 01/26/2017 97 % 97 % SAMANTHA Schwarz [facility] 01/26/2017 14:13:38 Date Recorded Heart rate Provider Name an d Address Organization Details Last Updated DateTime 01/26/2017 106 /min Nikki Oliveira MA [facility] 2016 14:13:41 Date Recorded Body height Provider Name an d Address Organization Details Last Updated DateTime 02/02/2017 154.94 cm Nikki Oliveira MA [facility] 2016 15:55:25 Date Recorded Body mass index (BMI) Body weight Provider Name and Address Organization Details Last Updated DateTime 02/02/2017 51.2 kg/m2 568783.88 g Nikki Oliveira MA [facility] 02/02/2017 15:55:31 Date Recorded Oxygen saturation Oxygen saturation in Arterial blood by Pulse oximetry Provider Name and Address Organization Details Last Updated DateTime 02/02/2017 100 % 100 % Nikki Oliveira MA [facility] 02/02/2017 15:59:18 Date Recorded Heart rate Provider Name an d Address Organization Details Last Updated DateTime 02/02/2017 103 /min Nikki Oliveira MA [facility] 2016 15:59:24 Date Recorded Body temperature Provider Name a nd Address Organization Details Last Updated DateTime 02/02/2017 98.2 [degF] Nikki Oliveira MA [facility] 02/02/2017 15:59:59 Date Recorded Systolic blood pressure Diastolic blood pressure Provider Name and Address Organization Details Last Updated DateTime 01/26/2017 122 mm[Hg] 76 mm[Hg] Nikki Oliveira MA [facility] 01/26/2017 14:13:05 Date Recorded Systolic blood pressure Diastolic blood pressure Provider Name and Address Organization Details Last Updated DateTime 02/02/2017 108 mm[Hg] 64 mm[Hg] Nikki Oliveira MA [facility] 02/02/2017 15:58:01 Social History None recorded. Functional Status None recorded. Mental Status None recorded. Family History Relationship Description Onset Age of this Age Resolved Age Notes LastModified by Organization Details LastModified Time Mother Hypertensive disorder [email or web address] Not available 01/08 14:02:07 Mother Migraine [email or web address] Not availa ble 01/26/2017 14:02:45 Sister Depressive disorder [email or web address] Not available 01/08 14:02:18 Medical History Condition Response Asthma Y Allergies Y Gynecological HistoryNo gynecological history recorded. Obstetrics History GPAL:G 0 P 0 0 0 0 Past Encounters Encounter ID Performer Location Encounter Start Date Encounter Closed Date Diagnosis/Indication Diagnosis SNOMED-CT Code Diagnosis ICD10 Code Diagnosis Note [id number] Ez Lovell PA-C [facility] [address] [place] [address] 01/26/2017 13:43:19 01/26/2017 15:42:28 Mild intermittent asthma 556187618 J45.20 Body mass index 40+ - severely obese 719660425 Z68.41 [id number] Ez Lovell PA-C [facility] [address] [place] [address] 02/02/2017 15:51:53 02/02/2017 16:22:40 Acute pharyngitis 244943266 J02.8 Health Concerns Section Related Observation LastModified by Organization Detai ls LastModified Time None Recorded Concern Status LastModified by Organization Details LastModified Time None Recorded Advance Directives Directive None Recorded Payers Encounter Date Sequence Insurance Name Policy Number Policy Moraes Covered Member ID Moraes Member ID Guarantor Name 01/26/2017 1 [id number] Alexander Haley [id number] Alexander Haley 02/02/2017 1 [place] [id number] Alexander Haley [id number] Alexander Haley Notes Date Note Type Note Provider Name and Address Organization Details Recorded Time 01/26/2017 text/html new patient. was malench. now here due to not liking him. asthma triggered by strenuous activity or seasonal allergy Ez Lovell PA-C Attn: [employer],[address] [place], [address], [place] 01/26/2017 14:37:19 02/02/2017 text/html sore throat for 3 days. Ez Lovell PA-C Attn: [employer]ing,[address] [facility], [place], [address], [place] 02/02/2017 16:14:42 OBGyn Episode No OBEpisode recorded.
--- OUTSIDE RECORDS SUMMARY | 2024-09-07 13:15 | XMS_ITS | Patient Health Summary ---
Author Organization [facility] Address [address] [place] [address] Care Team Providers Care Closing Supervisor Name Role Phone Adrienne Contreras MD Primary Care Provider [phone] Note from [facility],non-owned Affiliates and Associated Physician Practices is amultiple site organization consisting of ambulatory clinics and hospital sitesin [place], [place], [place] and [place]. This disclosure is being madepursuant to the Care Everywhere program and may not contain all information available regarding this patient. Last updated 18.[facility] Allergies No known active allergies Medications * Be aware that medications may not be up to date on this document. Alwaysverify current medications with the patient. * montelukast (SINGULAIR) 10 MG tablet(Started 01/24/2021) TAKE 1 TABLET BY MOUTH DAILY IN THE EVENING * w/o A Vit-Fe Fum-FA (PRENATA PO) Take by mouth once daily * HYDROcodone-acetaminophen (NORCO) 5-325 MG tablet(Started 04/10/2021) Take 0.5 (one-half) tablet to 1 (one) tablet by mouth every 4 hours as needed for Pain Active Problems No known active problems Social [...] Mass Index 50.34 04/10/2021 9:32 AM CDT Procedures * MD REVISE MEDIAN N/CARPAL TUNNEL SURG(Performed 04/10/2021) Performed for Right carpal tunnel syndrome * HCG URINE QUAL POCT NOTIFICATION(Performed 04/10/2021) Performed for Preop examination * HCG URINE QUALITATIVE - POCT (IP) INTERFACED(Performed 04/10/2021) Results * HCG URINE QUAL POCT NOTIFICATION (04/10/2021 10:31 AM CDT) Comment Notification Label Only - See Separate Report 04/10/2021 10:31 AM CDT -[facility] Urine URINE / Unknown 9:27 AM CDT Indio Valdez DO LAB - URINALYSIS ORD ERABLES [facility] [address] [place] [address] * HCG URINE QUALITATIVE - POCT (IP) INTERFACED (04/10/2021 9:46 AM CDT) HCG Qual Urine Negative Negative 04/10/2021 9:51 AM CDT [facility] Urine URINE / Unknown 04/10/2021 9 :46 AM CDT 04/10/2021 9:51 AM CDT Anca Hartman MD LAB - POINT OF CARE ORDERABLES [facility] [address] [place] [address] Care Teams Closing Supervisor Relationship Specialty Start Date End Date Adrienne Contreras MD [address] [place] [address] PCP - General Family Medicine 04/10/21
--- OUTSIDE RECORDS SUMMARY | 2024-09-07 13:15 | XMS_ITS | Referral Summary ---
Author Organization [facility] Address [address] [place] [address] Care Team Providers Care Bitumastic Applier Name Role Phone Adrienne Contreras MD Primary Care Provider [phone] Source Comments [facility],non-owned Affiliates and Associated Physician Practices is amultiple site organization consisting of ambulatory clinics and hospital sitesin [place], [place], [place] and [place]. This disclosure is being madepursuant to the Care Everywhere program and may not contain all information available regarding this patient. Last updated 18.[facility] Allergies No known active allergies Medications * [...] Mass Index 50.34 04/10/2021 9:32 AM CDT Functional Status Functional Status Response Date of Assess ment Is person deaf or have serious hearing difficult y? No 04/10/2021 Is person blind or have serious difficulty seein g? No 04/10/2021 Does person have serious dif ficulty walking/climbing stairs? No 04/10/2021 Does person have difficulty dressing/bathing? No 04/10/2021 Does person have difficulty doing errands alone? No 04/10/2021 Cognitive Status Response Date of Assessm ent Does person have difficulty concentrating/remembering/making decisions? No 04/10/2021 Plan of Treatment Not on file Care Teams Bitumastic Applier Relationship Specialty Start Date End Date Adrienne Contreras MD [address] [place] [address] PCP - General Family Medicine 04/10/21
--- OUTSIDE RECORDS SUMMARY | 2024-09-07 13:15 | XMS_ITS | Data Portability ---
Author Organization [facility] Address [address] [place] [address] Care Team Providers Care Superintendent Quarry Name Role Phone ANGELICA SIEGEL Primary Care Provider [phone] Assessment Encounter Date Assessment Date Assessment LastModified by Organization Details LastModified Time 06/11/2021 06/11/2021 healthy female exam patient declines std testing pap due 2022 contraception-de clines FU 1 year or prn re concerns: try ibuprofen at onset of migraine. will place neurology referral. zofran for nausea with BENAVIDES complete diclox. diflucan sent. [email or web address] Not available 06/12/2021 09:56:39 07/31/2023 07/31/2023 Annual gynecological exam performed. Patient will come back in a year unless there are new symptoms. Suggest Calcium with Vitamin D if not eating in diet. Patient advised to get annual flu shot. Recommend yearly physicals and preform monthly breast exams. Genetic testing is available for patients with family history of cancer. Engage in safe sexual practices, use condoms. Encouraged to have daily exercise. Avoid tobacco and illicit drugs, moderation of alcohol. If BMI greater than 25 dietary consult advised. If you have any questions please call or email. Not available 07/31/2023 16:20:46 Plan of Treatment Reminders Order Date Submit Date Provider Last Modified By Organization Details Last Modified Time Details Appointments U/S OB FIRST LOOK 2024 03:30P M ULTRASOUND Not available Not available Not available OB NEW 2024 04:00P M Nancy Resendiz CNM Not available Not available Not available OB ROUTINE 2024 04:15P M TAMY MASTERS MD Not available Not available Not available Lab None recorde d. Referral None recorde d. Procedures None recorde d. Surgeries None recorde d. Imaging US, obstetr ic, transva ginal 2023 024 [email or web address] [facility], [address], [place], [address], 07/28/2024 20:13:52 Medication Orders Difluca n 150 mg tablet 2020 021 [email or web address] [facility] #[id number], [address] [place], [address], 08/16/2024 14:05:59 [email or web address] lacy 4 mg disinte grating tablet 2020 021 [email or web address] [facility] #[id number], [address] [place], [address], 07/31/2023 16:18:47 Patient TargetsNo targets recorded. Patient InstructionsNo instructions recorded. Reason for Referral None Reported. Results Created Date Observation Date Name Description Value Unit Range Abnormal Flag Note LastModifiedBy Organization Detail LastModifiedTime 07/31/20 23 07/31/2023 IMAGE GUIDE D PAP AND HPV REGAR DLESS image guided Pap, HPV regardless of Pap result SEE RESULT S BELOW CASE REPOR T: Cytol ogy Gynec ologi ren Repor t Case: [id number] Autho mariela g Provi dean: Nancy Talavera NP Colle cted: 07/31 1616 Order ing Locat ion: [place] [facility] Recei ketty: 08/01 0255 First Scree n: Cortney Renee, CT Speci men: Scree darron Pap - Image d, Cervi x STATE MENT OF ADEQU ACY: Satis facto ry for evalu ation Trans forma tion zone compo nent prese nt FINAL DIAGN OSIS: Negat wendie for Intra epith elial Lesio n or Malig anjana (NIL) . Elect sena lennon maria luz d by Cortney Renee, CT on 08/05 at 4:41 PM ----- ----- ----- ----- ----- ----- ----- ----- ----- ----- ----- ----- ----- ----- ----- ----- ----- ---- HPV RESUL TS: HPV mRNA E6/E7 : No HPV mRNA Detec buddy NOTE: This high risk HPV mRNA assay detec ts fourt een high- risk HPV types (16, 18, 31, 33, 35, 39, 45, 51, 52, 56, 58, 59, 66, 68) witho ut diffe renti ation . COMME NT: This speci men was revie wed by a Cytot echno logis t and/o r Patho logis t (as indic ated in this repor t) after evalu ation using the Thinp rep Imagi ng Syste m. CLINI REN INFOR MATIO N: Menst rual Statu s: LMP (if appli cable ): Clini ren Histo ry/Pr eviou s Pap: Type of Neopl kveon (if appli cable ): Signi fican t Clini ren Findi ngs: Other Histo ry: Hormo liz (if appli cable ): PAP EDUCA OSEI L NOTE: The Pap Test is a scree darron test with an inher ent false negat wendie rate. Liqui d-bas ed sampl ing may decre ase, but will not elimi alma, false negat wendie resul ts. A negat wendie resul t does not precl ude the prese nce and/o r devel opmen t of disea se, since the prese nce of abnor mal cells in the sampl e depen ds on the locat ion of the lesio n and sampl ing techn ique. Berta nued regul ar scree darron is the best metho d of cance r preve ntion . If repor buddy cytol ogic findi ng do not corre late with physi ren and/o r histo rical findi ngs, fur er inves tigat ion is recom natalie d, as clini kenna feng nted. Not Available [facility] (Lab) [address], [place], [address], 08/05/2023 17:46:29 07/28/20 24 07/28/2024 US, obste tric, trans vagin al No observ ation record ed. [facility] [address], [place], [address], 07/28/2024 18:29:39 07/28/20 24 07/28/2024 US, obste tric, trans vagin al No observ ation record ed. [email or web address], [place], [address], 08/09/2024 15:08:57 08/16/19 25 08/16/2024 imagi ng/di agnos tic resul t No observ ation record ed. [facility] [address], [place], [address], 08/17/2024 13:29:39 Result Notes None recorded. Problems Name Problem SNOMED Code Status Onset Date Resolution Date Notes Provider Name and Address Organization Details Recorded Time Pregnanc y 90580469 Completed 201902/22/2021 Shellie Esparza [facility], [facility] 1 11:04:18 Uterine fibroids affectin g pregnanc y 72927056 Completed 2019 Serial growth, anterior - 7 cm stable between week 20 and 24 Melissa Doll [facility] 1 16:33:59 Maternal obesity complica ting pregnanc y, childbir th and the puerperi um, antepart um 67521265688 7 Completed 2019 BMI 53- NST's and Serial growth U/S's Melissa Doll [facility] 1 16:33:59 Pregnanc y-induce d hyperten benjamin 12826571 Completed 24TP 468- MIL schd 7/4 @ 1600 per SP Melissa Doll madeleine [facility] 16:33:59 Asthma in pregnanc y 13306294582 103 Completed Melissa Doll madeleine [facility] 16:33:59 Problem Notes None recorded. Procedures Surgical History Date Name Laterality Status Provider Name and Address Organization Details Recorded Time 023 Date of Last Pap Smear completed Rosalinda Myrick [facility] 07/31/2023 16:20:23 023 [facility] repair [facility]23 16:21:21 021 Carpal tunnel surgery completed Bella Anderson MD [address], [place], [address], [facility] 06/11/2021 18:35:46 020 [facility] of ectopic fetus [facility] 07/10/2020 09:32:47 020 kidney stone analysis completed Rosalindaavery Myrick [facility] 07/31/2023 16:20:56 012 cholecystectomy completed [facility] 07/10/2020 09:33:34 011 operation on tonsils completed [facility] 07/10/2020 09:33:55 Imaging Results Imaging Date Name Status LastModified by Organization Details LastModified Time 07/28/2024 US, obstetric, transvaginal completed saul Cullen [address], [place], [address], 07/28/2024 18:29:39 07/28/2024 US, obstetric, transvaginal completed [email or web address] [address], [place], [address], 08/09/2024 15:08:57 08/16/2024 imaging/diagnost ic result completed SANKET Son [address], [place], [address], 08/17/2024 13:29:39 Procedure Notes None recorded. Medical Equipment None Reported. Allergies Allergen ID Allergen Name Allergen Category Reaction Reaction Severity Criticality Documentation Date Start Date Code Code System Note Provider Name and Address Organization Details Recorded Time 2851 Canis lupus familiari s extract environme nt Not available Not available Not available 07/10/2020 97879 4 RxNorm Edilia salvador, [facility] 0 09:45:38 2852 cat dander environme nt Not available Not available Not available 07/10/2020 14603 UNK Edilia salvador, [facility] 0 09:45:43 2853 ethinyl estradiol / levonorge strel medicatio n Not available Not available Not available 07/10/2020 19367 8 RxNorm Edilia Colby salvador, [facility] 0 09:46:01 Medications Name Sig Start Date Stop Date Status Note LastModified by Organization Details LastModified Time dicloxacill in 500 mg capsule 07/31 completed Not Available Not Available Not Available albuterol sulfate 2.5 mg/3 mL (0.083 %) solution for nebulizatio n 2.5 MG (3 ML) INHALED EVERY 6 HOURS NEEDED FOR SHORTNESS OF BREATH OR WHEEZING active Not Available Not Available No t Available azithromyci n 250 mg tablet TAKE 2 TABLETS BY MOUTH TODAY, THEN TAKE 1 TABLET DAILY FOR 4 DAYS 07/31 completed Not Available Not Available Not Available fluconazole 150 mg tablet TAKE ONE TABLET TODAY, AND REPEAT IN 3 DAYS. 08/16 completed Not Available Not Available Not Available hydrocodone 5 mg-acetamin ophen 325 mg tablet TAKE 1/2 TO 1 TABLET BY MOUTH EVERY 4 HOURS NEEDED FOR PAIN 06/11 completed Not Available Not Available Not Available prednisone 20 mg tablet TAKE 2 TABLETS BY MOUTH EVERY DAY 07/31 completed Not Available Not Available Not Available butalbital- acetaminoph en-caffeine 50 mg-325 mg-40 mg tablet TAKE 1 TO 2 TABLETS BY MOUTH EVERY 6 HOURS NEEDED FOR HEADACHE 01/18 completed Not Available Not Available Not Available amoxicillin 500 mg tablet TAKE 1 TABLET BY MOUTH 3 TIMES A DAY 07/31 completed Not Available Not Available Not Available hydrocortis one acetate 25 mg rectal suppository UNWRAP AND INSERT 1 SUPPOSITO RY RECTALLY EVERY DAY AT BEDTIME NEEDED FOR HEMORRHOI DS 07/31 completed Not Available Not Available Not Available amoxicillin 875 mg tablet TAKE 1 TABLET ORALLY EVERY 12 HOURS 08/16 completed Not Available Not Available Not Available doxycycline monohydrate 100 mg capsule TAKE 1 CAPSULE BY MOUTH TWICE A DAY 07/31 completed Not Available Not Available Not Available hydrocodone 7.5 mg-acetamin ophen 325 mg tablet TAKE 1 TABLET BY MOUTH EVERY 6 HOURS NEEDED FOR PAIN 07/31 completed Not Available Not Available Not Available cephalexin 500 mg capsule TAKE 1 CAPSULE 4 TIMES DAILY FOR 7 DAYS 08/16 completed Not Available Not Available Not Available Proctofoam HC 1 %-1 % APPLY 1 APPLICATO RFUL RECTALLY 4 TIMES A DAY NEEDED FOR HEMORRHOI DS 08/16 completed Not Available Not Available Not Available prednisone 50 mg tablet TAKE 1 TABLET BY MOUTH EVERY DAY active Not Available Not Available No t Available montelukast 10 mg tablet TAKE 1 TABLET BY MOUTH DAILY IN THE EVENING AT BEDTIME active Not Available Not Available No t Available ibuprofen 600 mg tablet TAKE 1 TABLET BY MOUTH EVERY 6 HOURS NEEDED FOR CRAMPING 03/13 completed Not Available Not Available Not Available estradiol 0.01% (0.1 mg/gram) vaginal cream APPLY PEA SIZED AMOUNT TO PERINEUM NIGHTLY FOR A MONTH. 06/11 completed Not Available Not Available Not Available methylpredn isolone 4 mg tablets in a dose pack TAKE 6 TABLETS ON DAY 1 DIRECTED ON PACKAGE AND DECREASE BY 1 TAB EACH DAY FOR A TOTAL OF 6 DAYS 08/16 completed Not Available Not Available Not Available albuterol sulfate HFA 90 mcg/actuati on aerosol inhaler USE 1 INHALATIO N INHALED EVERY 4 HOURS NEEDED FOR SHORTNESS OF BREATH OR WHEEZING active Not Available Not Available No t Available ondansetron 4 mg disintegrat ing tablet Place 1 tablet twice a day by transling ual route as needed. 07/31 completed Not Available Not Available Not Available amoxicillin 875 mg-potassiu m clavulanate 125 mg tablet TAKE 1 TABLET BY MOUTH EVERY 12 HOURS 08/16 completed Not Available Not Available Not Available progesteron e 07/17 completed Not Available Not Available Not Available Claritin 01/18 completed Not Available Not Available Not Available montelukast 10/18 completed Not Available Not Available Not Available 06/11 completed Not Available Not Available Not Available Ozempic 0.25 mg or 0.5 mg (2 mg/1.5 mL) subcutaneou s pen injector INJECT 0.5 MG UNDER THE SKIN WEEKLY 07/31 completed Not Available Not Available Not Available Mounjaro 5 mg/0.5 mL subcutaneou s pen injector active Not Available Not Available Not Available Ozempic 0.25 mg or 0.5 mg (2 mg/3 mL) subcutaneou s pen injector INJECT 0.5MG UNDER THE SKIN WEEKLY active Not Available Not Available No t Available Vitals Date Recorded Body height Body mass index (BMI) Body weight Systolic blood pressure Diastolic blood pressure Provider Name and Address Organization Details Last Updated DateTime 06/11/2021 154.94 cm 51 kg/m2 303511.9 4 g 120 mm[Hg] 81 mm[Hg] Gina Harper [facility] 1 18:13:02 Date Recorded Body height Body mass index (BMI) Body weight Systolic blood pressure Diastolic blood pressure Provider Name and Address Organization Details Last Updated DateTime 07/31/2023 154.94 cm 52.7 kg/m2 841755.2 7 g 138 mm[Hg] 87 mm[Hg] Rosalinda Myrick [facility] 3 16:18:17 Date Recorded Body height Body mass index (BMI) Body weight Systolic blood pressure Diastolic blood pressure Provider Name and Address Organization Details Last Updated DateTime 08/16/2024 154.94 cm 51 kg/m2 968174.9 4 g 138 mm[Hg] 78 mm[Hg] Latisha Patino [facility] 14:10:19 Social History Question Answer Notes LastModified by Organizat ion Details LastModified Time Tobacco Smoking Status Never Smoker Patrica salvador [facility] 01/18/2021 15:50:50 Do You Have An Advance Directive? No [email or web address] Information not available 10/18/2020 What Is Your Level Of Alcohol Consumption? None [email or web address] Information not available 10/18/2020 If You Are , What Was Your Level Of Alcohol Consumption Prior To ? None Information not available 01/18/2021 Are You Blind Or Do You Have Difficulty Seeing? No [email or web address] Information not available 10/18/2020 What Is Your Level Of Caffeine Consumption? Occasional [email or web address] Information not available 10/18/2020 How Much Tobacco Do You Chew? None [email or web address] Information not available 10/18/2020 In The 14 Days Before Symptom Onset, Have You Had Close Contact With A Laboratory-confir med COVID-19 While That Case Was Ill? No [email or web address] Information not available 10/18/2020 In The 14 Days Before Symptom Onset, Have You Had Close Contact With A Person Who Is Under Investigation For COVID-19 While That Person Was Ill? No [email or web address] Information not available 10/18/2020 Have You Been To An Area Known To Be High Risk For COVID-19? No [email or web address] Information not available 10/18/2020 Are You Deaf Or Do You Have Serious Difficulty Hearing? No [email or web address] Information not available 10/18/2020 What Type Of Diet Are You Following? REGULAR [email or web address] Information not available 10/18/2020 Do You Or Have You Ever Used E-cigarettes Or Vape? Never Used Electronic Cigarettes Information not available 01/18/2021 What Is The Highest Grade Or Level Of School You Have Completed Or The Highest Degree You Have Received? 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 Yes [email or web address] Information not available 10/18/2020 What Was The Date Of Your Most Recent Tobacco Screening? 07/31/2023 [email or web address] Information not available 07/31/2023 Have You Ever Been Counseled For Unhealthy Alcohol Use? No Information not available 01/18/2021 Do You Use Protection During Sex? No [email or web address] Information not available 10/18/2020 Do You Use Your Seat Belt Or Car Seat Routinely? Yes [email or web address] Information not available 10/18/2020 Do You Have Smoke And Carbon Monoxide Detectors In Your Home? Yes [email or web address] Information not available 10/18/2020 Do You Or Have You Ever Used Smokeless Tobacco? Never Used Smokeless Tobacco Information not available 01/18/2021 How Much Tobacco Do You Smoke? No [email or web address] Information not available 07/10/2020 Do You Feel Stressed (tense, Restless, Nervous, Or Anxious, Or Unable To Sleep At Night)? OH70565-5 [email or web address] Information not available 10/18/2020 Do You Use Any Illicit Or Recreational Drugs? No [email or web address] Information not available 10/18/2020 Do You Use Sunscreen Routinely? Yes [email or web address] Information not available 10/18/2020 Have You Used IV Drugs? No [email or web address] Information not available 10/18/2020 Do You Or Have You Ever Used Any Other Forms Of Tobacco Or Nicotine? No Information not available 01/18/2021 Sex: Unknown Functional Status Question Answer Note LastModified by Organizat ion Details LastModified Time Are you able to walk? YESWOREST [email or web address] Information not available 10/18/2020 What is your exercise level? Occasional [email or web address] Information not available 10/18/2020 Mental Status None recorded. Family History Relationship Description Onset Age of this Age Resolved Age Notes LastModified by Organization Details LastModified Time Maternal Grandmother Family history of breast cancer Not available 2020 15:50:49 Maternal Grandmother Heart disease [email or web address] Not available 2019 09:31:10 Maternal Aunt Family history of breast cancer Not available 2020 15:50:49 Mother Diabetes mellitus [email or web address] Not available 2019 09:31:19 Mother Hypertensive disorder [email or web address] Not available 2019 09:31:25 Medical History Condition Response Allergies (Food, seasonal, environmental ) N Other N Breast Cancer N Drug/Latex Allergies/Reactions N Blood Transfusion N Dermatologic Disorders N Lung Disease N Defects or Inherited Disease N Breast Problem N Gestational Diabetes N Hematologic disorders N Anesthesia Complications N History of STI N Deep Vein Thrombosis N Polycystic ovary syndrome N Anxiety Disorder N Autoimmune disease N Arthritis N Infertility N Polyps N Acid Reflux (GERD) N History of abnormal pap N Cancer N Stroke N Varicosities N Neurologic/Epilepsy N Endometriosis N High Cholesterol N Headaches N Fibromyalgia N Kidney Disease N Heart Problems N Kidney or Bladder Problems Y Thyroid Problems N GI Problems Y Eating Disorder N Anemia N Art (IVF or FET) N Psychiatric Illness N Ovarian Cancer N Diabetes N Pulmonary (TB, Asthma) N Hepatitis/Liver Disease N Eczema N Urinary Tract Infection N Abuse/Domestic Violence N Asthma Y Trauma/Violence N Depression/ depression N Pre-Eclampsia N Hypertension N Osteoporosis N Thrombophilias N Gynecological History Statement/Question Response Abnormal Pap Yes Date of LMP 06/15/2024 On BCP's at Conception? N N Was last menstrual period normal Y STIs/STDs N HPV Vaccine N Duration of Flow (days) 5 Current Control Method None Frequency of Cycle (Q days) 31 Sexually Active? Y Age of first menstrual cycle 14 Date of Last Pap Smear 07/31/2023 Sexual Problems? N Desired Control Method None LMP Approximate N 05/10/2020 Obstetrics History GPAL:G 2 P 1 0 1 1 Type Value Full Term 1 Living 1 Ectopics 1 Total 2 Past Encounters Encounter ID Performer Location Encounter Start Date Encounter Closed Date Diagnosis/Indication Diagnosis SNOMED-CT Code Diagnosis ICD10 Code Diagnosis Note [id number] Samantha Griffin [facility] [address] [address] 07/10/2020 09:11:24 07/11/2020 16:17:23 Threatened miscarriage 52352942 O20.0 U/S after vist today showed 6w2d gs with yolk sac but no pole. I spoke with patient about the u/s and would like quant hcg's today and and f/u u/s in 1 week. Precaution s given. test positive 390330543 Z32.01 Risk factors addressed: Tobacco Cessation, Safe Sexual Practices, environmen todd, work hazards, travel restrictio ns, seat belt use.Eat a health well balanced diet, avoid alcohol, tobacco, and street drugs. Engage in daily low impact exercise, avoid temperatur e extremes, and cat, rodent, and bird feces.Avoi d travel to areas where zika virus is a concern. Genetic testing/sc reenings offered and is unsure at this time. Sequential Screen handout given and discussed with patient. ildbirth classes recommende d.New OB sheet given. If previous , counseling .Pt verbalizes that she understand s the importance of above instructio ns.All questions were answered. Patient reminded to have annual well woman examinatio n and address [facility] . [id number] [facility] [facility] [address] [address] 07/10/2020 09:12:18 07/10/2020 11:32:02 Uncertain viability of 212764789 O36.80X9 [id number] Bella Anderson MD [facility] [address],[place] [address] 07/17/2020 16:31:36 07/19/2020 16:37:25 Routine care 702718503 Z34.90 High risk care 391149151 O09.91 Maternal o besity complicating , childbirth and the puerperium, antepartum 1006848814 07 O99.211 Uterine fi broids affecting 10448931 D25.9 [id number] [facility] [address],[place] [address] 07/17/2020 16:32:06 07/17/2020 17:04:47 Threatened miscarriage 39275748 O20.0 Z3A.01 [id number] Nancy Resendiz CNM [facility] [address] [place] [address] 08/15/2020 17:03:45 08/15/2020 18:01:54 Routine care 937556718 Z34.91 [id number] [facility] [address] [place] [address] 08/15/2020 17:51:10 08/16/2020 14:44:03 screening 166796722 Z36.82 [id number] Miguel A Carmona MD [facility] [address],[place] [address] 09/17/2020 17:01:52 09/17/2020 18:00:57 Routine care 860581327 Z34.82 [id number] [facility] [address],[place] [address] 10/18/2020 16:16:20 10/18/2020 17:27:16 screening for malformation 493168002 Z36.3 [id number] Miguel A Carmona MD [facility] [address],[place] [address] 10/18/2020 16:17:12 10/19/2020 14:40:31 Routine care 024387585 Z34.82 [id number] [facility] [address],[place] [address] 11/15/2020 15:55:16 11/15/2020 17:01:46 screening 831245508 Z36.2 [id number] Miguel A Carmona MD [facility] [address],[place] [address] 11/15/2020 15:56:03 11/15/2020 17:28:59 Routine care 239316776 Z34.82 [id number] Chanel King [facility] [address],[place] [address] 12/14/2020 11:41:49 12/14/2020 13:59:27 Uterine fibroids affecting 30978130 O34.13 O99.210 Z3A.28 [id number] Bella Anderson MD [facility] [address],[place] [address] 12/14/2020 11:42:19 12/14/2020 12:57:01 Routine care 949355640 Z34.90 Maternal o besity complicating , childbirth and the puerperium, antepartum 4787946351 07 O99.211 [id number] Bella Anderson MD [facility] [address],[place] [address] 12/28/2020 14:52:22 12/28/2020 16:00:53 Maternal obesity complicating , childbirth and the puerperium, antepartum 0833014911 07 O99.211 [id number] [facility] [address],[place] [address] 01/08/2021 16:48:23 01/08/2021 17:37:31 Maternal obesity complicating , childbirth and the puerperium, antepartum 0404393168 07 O99.213 [id number] Bella Anderson MD [facility] [address],[place] [address] 01/08/2021 17:24:43 01/09/2021 15:36:32 -induced hypertension 32078443 O13.9 [id number] [facility] [address],[place] [address] 01/11/2021 14:40:27 01/11/2021 15:57:27 Maternal obesity complicating , childbirth and the puerperium, antepartum 4448008286 07 O99.213 [id number] Miguel A Carmona MD [facility] [address],[place] [address] 01/11/2021 14:40:46 01/15/2021 17:23:51 Upper respiratory infection 91367467 J06.9 [id number] Nancy Resendiz [facility] [address],[place] [address] 01/18/2021 15:50:40 01/18/2021 16:37:46 Routine care 958051546 Z34.91 [id number] [facility] [address],[place] [address] 01/15/2021 16:44:02 01/15/2021 17:36:26 -induced hypertension 20329468 O13.9 [id number] Chanel [facility] [address],[place] [address] 01/15/2021 16:44:21 01/15/2021 17:56:24 Maternal obesity complicating , childbirth and the puerperium, antepartum 2508465518 07 O99.210 O16.3 O34.10 Z3A.33 [id number] [facility] [address],[place] [address] 01/18/2021 15:50:01 01/18/2021 16:39:05 Maternal obesity complicating , childbirth and the puerperium, antepartum 0860077882 07 O99.213 [id number] [facility] [address],[place] [address] 01/22/2021 16:45:36 01/22/2021 17:56:52 Maternal obesity complicating , childbirth and the puerperium, antepartum [id number] 07 O99.213 [id number] [facility] [address],[place] [address] 01/25/2021 15:55:05 01/26/2021 23:41:35 Routine care [id number] Z34.91 [id number] [facility] [address],[place] [address] 01/25/2021 15:54:43 01/26/2021 10:34:34 Maternal obesity complicating , childbirth and the puerperium, antepartum [id number] 07 O99.213 [id number] [facility] [address],[place] [address] 01/29/2021 16:42:49 01/30/2021 16:50:03 Maternal obesity complicating , childbirth and the puerperium, antepartum [id number] 07 O99.213 [id number] [facility] [address],[place] [address] 02/01/2021 15:53:34 02/03/2021 00:00:16 Routine care [id number] Z34.91 [id number] [facility] [address],[place] [address] 02/01/2021 15:52:48 02/01/2021 17:02:41 Maternal obesity complicating , childbirth and the puerperium, antepartum [id number] 07 O99.213 [id number] [facility] [address],[place] [address] 02/05/2021 16:47:38 02/05/2021 17:26:53 Maternal obesity complicating , childbirth and the puerperium, antepartum [id number] 07 O99.213 [id number] Bella Anderson MD [facility] [address],[place] [address] 02/05/2021 16:47:58 02/05/2021 21:50:28 Mild pre-eclampsia 11988889 O14.03 Maternal o besity complicating , childbirth and the puerperium, antepartum [id number] 07 O99.213 [id number] [facility] [address],[place] [address] 02/08/2021 15:26:21 02/14/2021 20:58:34 Routine care [id number] Z34.91 [id number] [facility] [address],[place] [address] 02/08/2021 15:25:42 02/12/2021 15:05:40 Maternal obesity complicating , childbirth and the puerperium, antepartum [id number] 07 O99.213 [id number] [facility] [address],[place] [address] 02/08/2021 15:26:05 02/12/2021 16:28:07 Maternal obesity complicating , childbirth and the puerperium, antepartum [id number] 07 O99.210 O40.9XX3 Z3A.36 [id number] [facility] [address],[place] [address] 02/22/2021 16:26:41 02/23/2021 23:27:50 -induced hypertension [id number] O13.9 [id number] Bella Anderson MD [facility] [address],[place] [address] 03/13/2021 12:05:53 03/13/2021 13:23:45 [id number] Bella Anderson MD [facility] [address],[place] [address] 04/17/2021 14:57:54 04/18/2021 10:43:23 Obstetric perineal wound disruption - delivered with complication [id number] O90.1 [id number] Bella Anderson MD [facility] [address],[place] [address] 05/14/2021 16:58:12 05/15/2021 13:36:40 Laceration of female perineum 677088508 S31.41XD [id number] Bella Anderson MD [facility] [address],[place] [address] 06/11/2021 18:06:03 06/12/2021 18:39:21 Gynecologic examination 84370676 Z01.419 Migraine without aura 56 118715 G43.009 Acute mastitis 59904192 N61.0 Candidiasis of vagina 72 952565 B37.3 [id number] [facility] [address],[place] [address] 07/31/2023 16:05:31 07/31/2023 16:53:22 Gynecologic examination 38113232 Z01.419 [id number] [facility] [address],[place] [address] 07/28/2024 17:09:14 07/28/2024 18:24:23 Past history of ectopic 528823427 Z87.59 Z3A.01 [id number] Chanel [facility] [address],[place] [address] 08/16/2024 12:19:03 08/16/2024 13:09:12 [id number] TAMY MASTERS MD [facility] [address],[place] [address] 08/16/2024 12:20:33 08/16/2024 14:42:10 test positive 538423023 Z32.01 1. Exam today within normal limits.2. Ultrasound today confirms GA and viability. EDC . GC/Clamydi a testing done: will f/u as indicated. 4. ACOG guidelines and plan of care for reviewed with patient. All questions answered.5 . Return to office at 12 weeks for new OB visit6. Will need new OB labs at next visit.7. Genetic screening: declines. Asthma 035274061 J45.90 9 - well controlled on montelukas t and albuterol as needed Health Concerns Section Related Observation LastModified by Organization Detai ls LastModified Time None Recorded Concern Status LastModified by Organization Details LastModified Time None Recorded Advance Directives Directive N: Payers Encounter Date Sequence Insurance Name Policy Number Policy Moraes Covered Member ID Moraes Member ID Guarantor Name 06/11/2021 1 [place] [id number] Pal Sawant [id number] 23 [facility] 07/31/2023 1 [place] [id number] Pal Sawant [id number] 23 [facility] 07/28/2024 1 [place] [id number] Pal Sawant [id number] 23 [facility] 08/16/2024 1 [place] [id number] Pal Sawant [id number] 23 [facility] 08/16/2024 1 [place] [id number] Pal Sawant [id number] 23 [facility] Notes Date Note Type Note Provider Name and Address Organization Details Recorded Time 06/11/2021 text/html Patient is a 31y o who presents for an annual exam and a few concerns. Baby Brent doing great. Pumping and bottle feeding. Seen in ED for mastitis a few days ago, is improving a lot. Had surgery for right carpal tunnel, so much better. Also complains of right sided migraines 2x/mo, fioricet not helping, before triptans didn't work. Has not seen neurologist yet. Requesting diflucan since antibiotics will give her yeast infection. last pap-05/2020 nilm sexually active-y contraception-none (infertility) seatbelts-y exercise-y depression-denies domestic violence-denies tobacco-n concerns-above Bella Anderson MD [address], [place], [address], [facility] 06/12/2021 09:58:05 07/31/2023 text/html Annual GYNReport ed bypatient.Menstrual cycle:Normal menses Urinary symptoms:No hematuria; No incontinence Vulva:No genital lesion Vagina:Normal vaginal discharge Breast:No breast pain; No breast lump; No nipple discharge; lump after mastitis has had imaging and follow up no changes Sexual complaints:No sexual complaints; No pain during intercourse; Normal libido Menopausal Symptoms:No menopausal symptoms; Normal vaginal lubrication Psychological symptoms:No depression; No anxiety; No PMDD Preventive measures:Encourage self breast examination; Encourage regular exerciseNotes:still works at [employer], recently had abd hernia surgery PASHA Magana [address], [place], [address], [facility] 07/31/2023 16:41:50 08/16/2024 text/html Presents to the office today to confirm . Patient denies any problems up to this point with her . Patient denies cramping or vaginal bleeding. No nausea. Having some sinus symptoms and low grade fever. PMH: Asthma, controlled with montelukast and albuterol. PSH: umbilical hernia repair with mesh, cholecystectomy, unilateral salpingectomy Patient is . Lives with partner and son. Patient works at [employer]. Denies tobacco/EtOH/illici ts. TAMY MASTERS MD [address], [place], [address], [facility] 08/16/2024 14:36:55 OBGyn Episode Ob Episode Information Episode Created Date Number of Fetuses Patient Bloodtype Patient rh Status Prepregnancy Weight lbs Domestic Partner Domestic Partner Phone Father Name Hogshead Weigher Status 12/01/20 20 1 CLOSED Fetus Data First Name Last Name Admitted to NICU Weight (g) Sex Living Outcome Pediatric Complications Fetus ID Race Codes Race Delivery Type Ectopic 6378 Isidro Calculation Initial Isidro Date Initial Exam Date Initial Exam Provider Initial Ultrasound Date Last Menstrual Period Date Ultra Sound Weeks Gestation 0 Eighteen To Twenty Week Isidro Update Ultra Sound Date Fundal Height At Umbil Quickening Date Ultra Sound Latest Weeks Gestation Final Isidro Confirmed By Final Isidro Confirmed Date Final Isidro Date Ultra Sound Latest Days Gestation 0 0 Menstrual History Last Menstrual Date Menses Monthly On Bcp Conception Prior Menses Frequency Hcg Plus Date Menarche Onset Age Delivery Information Delivery Date Delivery Type Labor Anesthesia Weeks Gestation Incision Type Labor Labor Length Hrs Delivered By Post Complications Tubal Sterilization Discharge Date Comments 0 Discharge Information Feeding Method Contraceptive Method Maternal HG B and HCT Levels Ob Episode Information Episode Created Date Number of Fetuses Patient Bloodtype Patient rh Status Prepregnancy Weight lbs Domestic Partner Domestic Partner Phone Father Name Hogshead Weigher Status 07/17/20 20 1 B Positive 279 CLOSED Fetus Data First Name Last Name Admitted to NICU Weight (g) Sex Living Outcome Pediatric Complications Fetus ID Race Codes Race Delivery Type Brent 2891.64 9 M true Full Term 6516 Vaginal Delivery Problems Problem Notes pt decline CF/SMA Pt is clay kraus BP at home Problem Name Start Date End Date Resolution Snomed Code Not e Uterine fibroids affecting 07/18/2020 [id number] Serial g rowth, anterior - 7 cm stable between week 20 and 24 Maternal obesity complicating , childbirth and the puerperium, antepartum 07/18/2020 584915175542 BMI 53- NST's a nd Serial growth U/S's Asthma in 1103352834 9103 -induced hypertension [id number] 24TP 468- MIL schd 7/4 @ 1600 per SP Isidro Calculation Initial Isidro Date Initial Exam Date Initial Exam Provider Initial Ultrasound Date Last Menstrual Period Date Ultra Sound Weeks Gestation 03/03/2021 07/17/2020 07/17/2020 05/20/2020 7 Eighteen To Twenty Week Isidro Update Ultra Sound Date Fundal Height At Umbil Quickening Date Ultra Sound Latest Weeks Gestation Final Isidro Confirmed By Final Isidro Confirmed Date Final Isidro Date Ultra Sound Latest Days Gestation 0 [email or web address] 07/18/2020 07/25/20 21 0 Pre- Flowsheet Flowsheet Date 07/10/2020 Richards Score Blood Edema Fundus Height Fundus Units Glucose Ketones Leukocytes Nitrite Labor Signs Protein Cervic Dilation Cervic Effacement Cervic Station Type Weight in lbs Pre/Post Dialysis Refused Weight 279.619937074598 BP Diastolic BP Location Tested BP Systolic BP Type 88 142 Fetus Heart Rate Present Fetus Movement Comments Flowsheet Date 07/17/2020 Richards Score Blood Edema Fundus Height Fundus Units Glucose Ketones Leukocytes Nitrite Labor Signs Protein Cervic Dilation Cervic Effacement Cervic Station neg none trace Type Weight in lbs Pre/Post Dialysis Refused Weight 281.000764512644 BP Diastolic BP Location Tested BP Systolic BP Type 79 128 Fetus Heart Rate Present Fetus Movement A No Comments Flowsheet Date 07/17/2020 Richards Score Blood Edema Fundus Height Fundus Units Glucose Ketones Leukocytes Nitrite Labor Signs Protein Cervic Dilation Cervic Effacement Cervic Station none Type Weight in lbs Pre/Post Dialysis Refused Weight 281.459675554615 BP Diastolic BP Location Tested BP Systolic BP Type 79 128 Fetus Heart Rate Present A 155 Fetus Movement Comments Tamy is a 30yo who presents for care. History of one ectopic, left tube out. WOrks at [employer]. Had flu shot in Apr. Early has been complicated by passing a clot and some spotting. By LMP is 8w2d, but on US today 7w2d, viable, normal ovaries. Does have 0z1x6cx GISELLA fibroid. Has mild asthma and BMI 53. Ob labs today. Plan serial growth US for fibroid and obesity and monitoring at 32 weeks for morbid obesity. She is shocked and excited that this is viable. Support given, questions answered. Flowsheet Date 08/15/2020 Richards Score Blood Edema Fundus Height Fundus Units Glucose Ketones Leukocytes Nitrite Labor Signs Protein Cervic Dilation Cervic Effacement Cervic Station Type Weight in lbs Pre/Post Dialysis Refused BP Diastolic BP Location Tested BP Systolic BP Type Fetus Heart Rate Present Fetus Movement Comments Flowsheet Date 08/15/2020 Richards Score Blood Edema Fundus Height Fundus Units Glucose Ketones Leukocytes Nitrite Labor Signs Protein Cervic Dilation Cervic Effacement Cervic Station neg none trace Type Weight in lbs Pre/Post Dialysis Refused Weight 277.630972121277 BP Diastolic BP Location Tested BP Systolic BP Type 86 131 Fetus Heart Rate Present Fetus Movement A No Comments patient states that having h eadaches and nausea, rx for fioricet given, us today for NT, precautions reviewed Flowsheet Date 09/17/2020 Richards Score Blood Edema Fundus Height Fundus Units Glucose Ketones Leukocytes Nitrite Labor Signs Protein Cervic Dilation Cervic Effacement Cervic Station 16 trace Type Weight in lbs Pre/Post Dialysis Refused Weight 279.864664051031 BP Diastolic BP Location Tested BP Systolic BP Type 85 R arm 140 sitting 90 R arm 140 sitting Fetus Heart Rate Present A 160 Fetus Movement A Yes Comments Discussed anterior lower saxman rine segment fibroid of about 5 cm. , discussed blood pressures. She is getting normal blood pressures at work. 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 She is going to document blood pressures and bring them into us. Flowsheet Date 10/18/2020 Richards Score Blood Edema Fundus Height Fundus Units Glucose Ketones Leukocytes Nitrite Labor Signs Protein Cervic Dilation Cervic Effacement Cervic Station Type Weight in lbs Pre/Post Dialysis Refused BP Diastolic BP Location Tested BP Systolic BP Type Fetus Heart Rate Present Fetus Movement Comments Flowsheet Date 10/18/2020 Richards Score Blood Edema Fundus Height Fundus Units Glucose Ketones Leukocytes Nitrite Labor Signs Protein Cervic Dilation Cervic Effacement Cervic Station neg none 20 trace Type Weight in lbs Pre/Post Dialysis Refused Weight 278.587522025069 BP Diastolic BP Location Tested BP Systolic BP Type 82 137 Fetus Heart Rate Present A 145 Fetus Movement A Yes Comments patient states that having n ausea and vomiting, growing fibroid, to repeat in 4 weeks Flowsheet Date 11/15/2020 Richards Score Blood Edema Fundus Height Fundus Units Glucose Ketones Leukocytes Nitrite Labor Signs Protein Cervic Dilation Cervic Effacement Cervic Station Type Weight in lbs Pre/Post Dialysis Refused BP Diastolic BP Location Tested BP Systolic BP Type Fetus Heart Rate Present Fetus Movement Comments Flowsheet Date 11/15/2020 Richards Score Blood Edema Fundus Height Fundus Units Glucose Ketones Leukocytes Nitrite Labor Signs Protein Cervic Dilation Cervic Effacement Cervic Station trace 30 Type Weight in lbs Pre/Post Dialysis Refused Weight 283.501594110889 BP Diastolic BP Location Tested BP Systolic BP Type 75 118 Fetus Heart Rate Present A 145 Fetus Movement A Yes Comments pt unable to leave urine poli ple slm, normal growth, normal anatomy completed, stable fibroid, stable blood pressures, normal Flowsheet Date 12/14/2020 Richards Score Blood Edema Fundus Height Fundus Units Glucose Ketones Leukocytes Nitrite Labor Signs Protein Cervic Dilation Cervic Effacement Cervic Station Type Weight in lbs Pre/Post Dialysis Refused BP Diastolic BP Location Tested BP Systolic BP Type Fetus Heart Rate Present Fetus Movement Comments Flowsheet Date 12/14/2020 Richards Score Blood Edema Fundus Height Fundus Units Glucose Ketones Leukocytes Nitrite Labor Signs Protein Cervic Dilation Cervic Effacement Cervic Station trace 34 Type Weight in lbs Pre/Post Dialysis Refused Weight 287.321856509143 BP Diastolic BP Location Tested BP Systolic BP Type 80 120 Fetus Heart Rate Present A 160 Fetus Movement A Yes Comments Doing well. GCT today, Rh po s. NO longer checking BPs since they were all fine at home, normal here today. US today 48%, normal fluid, fibroid stable, breech. Discussed. Letter given for no more than 40 hours per week of work. DIscussed testing, will schedule. Flowsheet Date 12/28/2020 Richards Score Blood Edema Fundus Height Fundus Units Glucose Ketones Leukocytes Nitrite Labor Signs Protein Cervic Dilation Cervic Effacement Cervic Station neg none 40 trace Type Weight in lbs Pre/Post Dialysis Refused Weight 295.658292736843 BP Diastolic BP Location Tested BP Systolic BP Type 84 136 Fetus Heart Rate Present A 140 Fetus Movement A Yes Comments Doing well. GCT wnl. Antenat al testing to start next visit. Precautions given. Ask re Tdap next visit. Flowsheet Date 01/08/2021 Richards Score Blood Edema Fundus Height Fundus Units Glucose Ketones Leukocytes Nitrite Labor Signs Protein Cervic Dilation Cervic Effacement Cervic Station Type Weight in lbs Pre/Post Dialysis Refused BP Diastolic BP Location Tested BP Systolic BP Type 81 155 Fetus Heart Rate Present Fetus Movement Comments Flowsheet Date 01/08/2021 Richards Score Blood Edema Fundus Height Fundus Units Glucose Ketones Leukocytes Nitrite Labor Signs Protein Cervic Dilation Cervic Effacement Cervic Station Type Weight in lbs Pre/Post Dialysis Refused BP Diastolic BP Location Tested BP Systolic BP Type 102 140 Fetus Heart Rate Present A 140 Fetus Movement Comments BPs elevated today, has been 140s/90s in past a couple times. Denies BENAVIDES/BV?EP. A lot of work stress today. Will do PIH labs and 24 hour urine. PreE precautions given. FU 3 days. Flowsheet Date 01/11/2021 Richards Score Blood Edema Fundus Height Fundus Units Glucose Ketones Leukocytes Nitrite Labor Signs Protein Cervic Dilation Cervic Effacement Cervic Station Type Weight in lbs Pre/Post Dialysis Refused BP Diastolic BP Location Tested BP Systolic BP Type Fetus Heart Rate Present Fetus Movement Comments Flowsheet Date 01/11/2021 Richards Score Blood Edema Fundus Height Fundus Units Glucose Ketones Leukocytes Nitrite Labor Signs Protein Cervic Dilation Cervic Effacement Cervic Station 34 Type Weight in lbs Pre/Post Dialysis Refused Weight 294.557599236081 BP Diastolic BP Location Tested BP Systolic BP Type 86 R arm 124 sitting Fetus Heart Rate Present A 145 Fetus Movement Comments This patient is a 30-year-ol d 2 para 0010 at 32 weeks gestation. She is suffering significantly from upper respiratory infection. We have agreed to treat with antibiotics and a Medrol Dosepak. Flowsheet Date 01/15/2021 Richards Score Blood Edema Fundus Height Fundus Units Glucose Ketones Leukocytes Nitrite Labor Signs Protein Cervic Dilation Cervic Effacement Cervic Station Type Weight in lbs Pre/Post Dialysis Refused BP Diastolic BP Location Tested BP Systolic BP Type Fetus Heart Rate Present Fetus Movement Comments Flowsheet Date 01/15/2021 Richards Score Blood Edema Fundus Height Fundus Units Glucose Ketones Leukocytes Nitrite Labor Signs Protein Cervic Dilation Cervic Effacement Cervic Station Type Weight in lbs Pre/Post Dialysis Refused BP Diastolic BP Location Tested BP Systolic BP Type Fetus Heart Rate Present Fetus Movement Comments Flowsheet Date 01/18/2021 Richards Score Blood Edema Fundus Height Fundus Units Glucose Ketones Leukocytes Nitrite Labor Signs Protein Cervic Dilation Cervic Effacement Cervic Station Type Weight in lbs Pre/Post Dialysis Refused BP Diastolic BP Location Tested BP Systolic BP Type Fetus Heart Rate Present Fetus Movement Comments Flowsheet Date 01/18/2021 Richards Score Blood Edema Fundus Height Fundus Units Glucose Ketones Leukocytes Nitrite Labor Signs Protein Cervic Dilation Cervic Effacement Cervic Station neg none trace Type Weight in lbs Pre/Post Dialysis Refused Weight 295.930928570691 BP Diastolic BP Location Tested BP Systolic BP Type 78 137 Fetus Heart Rate Present Fetus Movement A Yes Comments sent to ld for non reassurin g nst Flowsheet Date 01/22/2021 Richards Score Blood Edema Fundus Height Fundus Units Glucose Ketones Leukocytes Nitrite Labor Signs Protein Cervic Dilation Cervic Effacement Cervic Station Type Weight in lbs Pre/Post Dialysis Refused BP Diastolic BP Location Tested BP Systolic BP Type 90 132 Fetus Heart Rate Present Fetus Movement Comments Flowsheet Date 01/25/2021 Richards Score Blood Edema Fundus Height Fundus Units Glucose Ketones Leukocytes Nitrite Labor Signs Protein Cervic Dilation Cervic Effacement Cervic Station Type Weight in lbs Pre/Post Dialysis Refused BP Diastolic BP Location Tested BP Systolic BP Type Fetus Heart Rate Present Fetus Movement Comments Flowsheet Date 01/25/2021 Richards Score Blood Edema Fundus Height Fundus Units Glucose Ketones Leukocytes Nitrite Labor Signs Protein Cervic Dilation Cervic Effacement Cervic Station neg trace Type Weight in lbs Pre/Post Dialysis Refused Weight 303.028088902035 BP Diastolic BP Location Tested BP Systolic BP Type 94 134 Fetus Heart Rate Present Fetus Movement A Yes Comments NST R , denies headaches, vi sual changes, epigastric pain, draw labs at home bp this am 118/80, precautions reviewed Flowsheet Date 01/29/2021 Richards Score Blood Edema Fundus Height Fundus Units Glucose Ketones Leukocytes Nitrite Labor Signs Protein Cervic Dilation Cervic Effacement Cervic Station Type Weight in lbs Pre/Post Dialysis Refused BP Diastolic BP Location Tested BP Systolic BP Type 85 134 Fetus Heart Rate Present Fetus Movement Comments Flowsheet Date 02/01/2021 Richards Score Blood Edema Fundus Height Fundus Units Glucose Ketones Leukocytes Nitrite Labor Signs Protein Cervic Dilation Cervic Effacement Cervic Station Type Weight in lbs Pre/Post Dialysis Refused BP Diastolic BP Location Tested BP Systolic BP Type Fetus Heart Rate Present Fetus Movement Comments Flowsheet Date 02/01/2021 Richards Score Blood Edema Fundus Height Fundus Units Glucose Ketones Leukocytes Nitrite Labor Signs Protein Cervic Dilation Cervic Effacement Cervic Station neg trace trace Type Weight in lbs Pre/Post Dialysis Refused Weight 306.162089313061 BP Diastolic BP Location Tested BP Systolic BP Type 101 150 91 125 Fetus Heart Rate Present Fetus Movement A Yes Comments patient states that having s welling in face and hands, pain, contractions, nausea and vomiting, to let with elevated blood pressures, MIL scheduled at 37 weeks Flowsheet Date 02/05/2021 Richards Score Blood Edema Fundus Height Fundus Units Glucose Ketones Leukocytes Nitrite Labor Signs Protein Cervic Dilation Cervic Effacement Cervic Station Type Weight in lbs Pre/Post Dialysis Refused BP Diastolic BP Location Tested BP Systolic BP Type Fetus Heart Rate Present Fetus Movement Comments Flowsheet Date 02/05/2021 Richards Score Blood Edema Fundus Height Fundus Units Glucose Ketones Leukocytes Nitrite Labor Signs Protein Cervic Dilation Cervic Effacement Cervic Station neg trace 40 trace Type Weight in lbs Pre/Post Dialysis Refused Weight 305.524779705787 BP Diastolic BP Location Tested BP Systolic BP Type 92 139 Fetus Heart Rate Present A 140 Fetus Movement A Yes Comments Has PreE based on 24 hour ur ine and mildly elevated pressures in office. At home, Bps (daily ) 105-125/71-94. NST reactive. GBS pending. IOL scheduled for evening on 02/10 at 37 weeks. Discussed cervidil induction. Strict precautions given. Flowsheet Date 02/08/2021 Richards Score Blood Edema Fundus Height Fundus Units Glucose Ketones Leukocytes Nitrite Labor Signs Protein Cervic Dilation Cervic Effacement Cervic Station Type Weight in lbs Pre/Post Dialysis Refused BP Diastolic BP Location Tested BP Systolic BP Type Fetus Heart Rate Present Fetus Movement Comments Flowsheet Date 02/08/2021 Richards Score Blood Edema Fundus Height Fundus Units Glucose Ketones Leukocytes Nitrite Labor Signs Protein Cervic Dilation Cervic Effacement Cervic Station Type Weight in lbs Pre/Post Dialysis Refused BP Diastolic BP Location Tested BP Systolic BP Type Fetus Heart Rate Present Fetus Movement Comments Flowsheet Date 02/08/2021 Richards Score Blood Edema Fundus Height Fundus Units Glucose Ketones Leukocytes Nitrite Labor Signs Protein Cervic Dilation Cervic Effacement Cervic Station neg trace trace Type Weight in lbs Pre/Post Dialysis Refused Weight 306.333298591729 BP Diastolic BP Location Tested BP Systolic BP Type 83 143 Fetus Heart Rate Present Fetus Movement A Yes Comments patient states that having s ome contractions, swelling, nausea and vomiting. NST R, asymptomatic, precautions reviewed has MIL scheduled for Thursday Flowsheet Date 03/13/2021 Richards Score Blood Edema Fundus Height Fundus Units Glucose Ketones Leukocytes Nitrite Labor Signs Protein Cervic Dilation Cervic Effacement Cervic Station Type Weight in lbs Pre/Post Dialysis Refused Weight 275.593980707828 BP Diastolic BP Location Tested BP Systolic BP Type 81 131 Fetus Heart Rate Present Fetus Movement Comments Menstrual History Last Menstrual Date Menses Monthly On Bcp Conception Prior Menses Frequency Hcg Plus Date Menarche Onset Age 1005/20/2020 Genetic Screening And Infection History Question Response Note Mental Retardation/Autism false Patient's Age Will Be 35 Years Or Older At Estim ated Date of Delivery false Thalassemia (Wolof, Slovenian, Mediterranean, Or Background): MCV < 80 false Neural Tube Defect (Meningomyelocele, Spina Bifi da, Or Anencephaly) false Congenital Heart Defect false Down Syndrome false Guy-Sachs (eg, Congregation, Cajun, Venezuelan-Nepalese) f alse Zulma Disease false Sickle Cell Disease Or Trait () false Hemophilia Or Other Blood Disorders false Muscular Dystrophy false Cystic Fibrosis false [place]'s Chorea false Intellectual Disability/Autism false If Yes, Was Person Tested For Fragile X? false Other Inherited Genetic Or Chromosomal Disorder false Maternal Metabolic Disorder (eg, Type 1 Diabetes , PKU) false Patient Or Baby's Father Had A Child With Defects Not Listed Above false Recurrent Loss, Or A Stillbirth false Medications (including Suppl ements, Vitamins, Herbs, OTC Drugs), Illicit/Recreational Drugs, Alcohol false If Yes, Agent(s) And Strength/Dosage false Any Other Genetic History false Live With Someone With TB Or Exposed To TB false Patient Or Partner Has History Of Genital Herpes false Rash Or Viral Illness Since Last Menstrual Perio d false History Of STD, Gonorrhea, Chlamydia, HPV, Syphi lis false Other Infection History false History of HIV false History of Hepatitis false Prior GBS-infected child false Hemoglobinopathy Or Carrier false Other Structural Defect false Recent Travel History Outside of Country false Delivery Information Delivery Date Delivery Type Labor Anesthesia Weeks Gestation Incision Type Labor Labor Length Hrs Delivered By Post Complications Tubal Sterilization Discharge Date Comments 1 Induce d Regional-Ep idural 37.2 false Bella Anderson MD Maternal Obesity & Pre-eclam psia GHTN Discharge Information Feeding Method Contraceptive Method Maternal HG B and HCT Levels Breast
--- NOTE | 2024-09-07 15:58 | ED.ABDPAIN ---
HPI - Abdominal Pain General Chief Complaint: Abdominal Pain Stated Complaint: ABD PAIN Focused HPI: 34-year-old female with history of asthma who is currently 12 weeks presents to the emergency department for abdominal pain for the past few days. Patient states the pain is in her epigastrium. Reports associated vomiting decreased p.o. intake today. She denies lower abdominal pain or cramping, vaginal bleeding, leakage of fluids. She had a confirmed IUP 3 weeks ago. Her OBGYN is Dr Carr. Denies diarrhea. Last bowel movement was today normal. Known fevers. Took Tums earlier today without improvement. Denies dysuria, hematuria. Reports a prior history of cholecystectomy and mesh hernia repair. GENERAL: Well-appearing, well-nourished, and in no acute distress. HEAD: Normocephalic, atraumatic. CHEST: Clear to auscultation. ?No respiratory distress. ABD: Tenderness to the epigastrium with voluntary guarding, no rebound or rigidity. HEART: Regular rate and rhythm.? NEURO: ?Alert and oriented x3. Patient screened in triage and initial orders placed.? ?Additional care and disposition to be based upon?diagnostic testing and treatment. Related Data Home Medications ?Medication ?Instructions ?Recorded ?Confirmed ?Last Taken ?Type Adults Multivitamin See Rx Instructions BYMOUTH DAILY 06/05/24 08/23/24 Unknown History loratadine 10 mg BYMOUTH DAILY 06/05/24 08/23/24 Unknown History aspirin 81 mg tablet,delayed 81 mg PO DAILY 08/23/24 08/23/24 Unknown History release (Adult Low Dose Aspirin) Allergies Allergy/AdvReac Type Severity Reaction Status Date / Time No Known Allergies Allergy Verified 08/22/24 17:10 PMFSH Past Medical History Medical History Asthma exacerbation Hx of migraines Vaginal delivery Ruptured left tubal ectopic causing hemoperitoneum (~10/09/19) Pyelonephritis Bronchitis Asthma Surgical History Surgical History History of hernia surgery Robotic assisted repair incarcerated incisional hernia with mesh with defect approximately 3.5 cm on 04/02/23 PDC History of carpal tunnel surgery of right wrist Hx of cholecystectomy History of tonsillectomy Family History Family History Mother Hypertension A-fib Depression Heart disease Father Diabetes mellitus Kidney calculi Grandparent Breast cancer in female Diabetes mellitus Heart disease Hypertension Sibling Depression Social History Social History Smoking status: Never smoker Second hand tobacco smoke exposure: No Alcohol intake: never Substance use: never Substance use type: does not use Do You Feel Safe in your Home?: Yes Lack of Transportation: No Lack of Food: Never True Current Housing: I Have Housing Concerned About Future Housing: No Difficulty Paying Gas/Electric Bills: No Difficulty Paying for Meds: No Currently Unemployed: No Education: Associate Degree Difficulty w/ Childcare or Family Care: No Living arrangements: with family Gender identity (if verbalized by the patient): Female Spiritual care concerns: No Agree to blood products: Yes Course Vital Signs Vital signs: Vital Signs Temperature 97.7 F 09/07/24 12:42 Pulse Rate 103 H 09/07/24 12:42 Respiratory Rate 20 09/07/24 12:42 Blood Pressure 136/86 09/07/24 12:42 Pulse Oximetry 100 09/07/24 12:42 Temperature 97.7 F 09/07/24 12:42 Pulse Rate 103 H 09/07/24 12:42 Respiratory Rate 20 09/07/24 12:42 Blood Pressure 136/86 09/07/24 12:42 Pulse Oximetry 100 09/07/24 12:42 Discharge Plan Discharge Instructions: Antibiotic Form Patient Language: Kazakh Prescriptions: No Action Adults Multivitamin See Rx Instructions BYMOUTH DAILY Rx Instructions: 1 TAB orally daily; loratadine 10 mg BYMOUTH DAILY aspirin [Adult Low Dose Aspirin] 81 mg tablet,delayed release (DR/EC) 81 mg PO DAILY guaifenesin [Mucus Relief ER] 600 mg Tablet Extended Release 12hr 600 mg PO Q12HR Qty: 14 0RF prednisone 10 mg tablets,dose pack See Taper PO DAILY 12 Days Qty: 42 0RF Taper: Prednisone Taper from 60 mg;12 days 60 mg DAILY for 2 Days and 0 Hour 50 mg DAILY for 2 Days and 0 Hour 40 mg DAILY for 2 Days and 0 Hour 30 mg DAILY for 2 Days and 0 Hour 20 mg DAILY for 2 Days and 0 Hour 10 mg DAILY for 2 Days and 0 Hour albuterol sulfate 90 mcg/actuation HFA aerosol inhaler 1 inh inhalation Q4H PRN (Reason: shortness of breath or wheezing) Qty: 8.5 1RF montelukast 10 mg tablet See Rx Instructions .ROUTE .COMPLEX Qty: 30 0RF Dose Instruction: TAKE 1 TABLET BY MOUTH DAILY IN THE EVENING AT BEDTIME Rx Instructions: TAKE 1 TABLET BY MOUTH DAILY IN THE EVENING AT BEDTIME albuterol sulfate 2.5 mg /3 mL (0.083 %) solution for nebulization 2.5 mg inhalation Q6H PRN (Reason: Shortness Of Breath Or Wheezing) Qty: 90 2RF Follow-up/Referrals: Gale Pereira NP [Primary Care Provider] -
[2024-09-07 16:23] LABS: Basophils Percent Auto 0.3 % (0.2-1.2); Eosinophils Absolute Auto 0.1 K/mm3 (0-0.3); Eosinophils Percent Auto 0.3 % (0-4.4); Hematocrit 45.5 % (37.0-47.0); Immature Granulocyte Absolute 0.14 K/mm3 (0.00-0.031); Immature Granulocyte Percent A 0.9 % (0-0.5); Lymphocytes Absolute Auto 1.77 K/mm3 (0.9-3.2); Lymphocytes Percent Auto 11.7 % (18.3-44.2); Mean Platelet Volume 9.3 fl (7.4-10.4); Monocytes Absolute Auto 0.7 K/mm3 (0.1-0.6); Monocytes Percent Auto 4.7 % (2.6-8.5); Neutrophils Absolute Auto 12.4 K/mm3 (1.3-6.7); Neutrophils Percent Auto 82.1 % (45.5-73.1); Platelet Count Result 255 k/mm3 (150-375); Red Cell Distribution Width 13.4 % (11.5-14.5); White Blood Count 15.2 K/mm3 (4.5-10.0)
[2024-09-07 16:33] LABS: Alanine Aminotransferase 15 U/L (6-35); Albumin Level 3.8 g/dL (3.5-5.1); Alkaline Phosphatase 51 U/L (38-126); Anion Gap 11 mmol/L (4-12); Aspartate Amino Transferase 16 U/L (14-36); Bilirubin,Total 0.9 mg/dL (0.2-1.3); Blood Urea Nitrogen 9 mg/dL (7-17); Calcium 9.1 mg/dL (8.4-10.2); Carbon Dioxide 22 mmol/L (22-30); Chloride 103 mmol/L (98-107); Estimated CRCL calculation 172 ml/min; Estimated Glomerular Filt Rate > 60; Glucose 83 mg/dL (65-110); Lipase 111 U/L (23-300); Potassium 3.5 mmol/L (3.4-5.0); Sodium 136 mmol/L (137-145)
[2024-09-07 16:59] LABS: Influenza A QL RT-PCR Negative (Negative); Influenza B QL RT-PCR Negative (Negative); RSV RNA, RT-PCR Negative (Negative); SARS-CoV-2 RNA PCR Negative (Negative)
[2024-09-07] MEDS: FAMOTIDINE 20 MG/2 ML VIAL IV PUSH ×2 (17:42→19:55)
[2024-09-07] MEDS: METOCLOPRAMIDE HCL INJ 10 MG/2 ML VIAL IV PUSH (17:42)
--- NOTE | 2024-09-07 19:50 | ED_ITS ---
HPI - Abdominal Pain General Chief Complaint: Abdominal Pain Stated Complaint: ABD PAIN Time Seen by Provider: 09/07/24 19:34 History of Present Illness HPI narrative: 34-year-old female who is approximately 12 weeks by ultrasonography who presents to the emergency room with a chief complaint of abdominal pain in the mid abdomen the umbilical region. She has a complex surgical history with a previous ruptured ectopic in 2027 her 1st , inguinal hernia that was incarcerated requiring repair and mesh, cholecystectomy. She presents today with epigastric/mid abdominal pain associated with vomiting several times and belching. She has not had any dysuria or vaginal discharge or bleeding. States her last bowel movement was 2 days ago. Denies any fever chills, chest pain, shortness a breath. Patient was recently admitted to the hospital for several days stay secondary to influenza A exacerbating her asthma. She has been on steroids and discharged on a short course and nebulizer treatments. She states she feels significantly improved from a respiratory standpoint but the abdominal pain started over the last 2 days and has been unbearable at home. Has tried Tylenol at home without any relief her symptoms. Related Data Home Medications ?Medication ?Instructions ?Recorded ?Confirmed ?Last Taken ?Type Adults Multivitamin See Rx Instructions BYMOUTH DAILY 06/05/24 08/23/24 Unknown History loratadine 10 mg BYMOUTH DAILY 06/05/24 08/23/24 Unknown History aspirin 81 mg tablet,delayed 81 mg PO DAILY 08/23/24 08/23/24 Unknown History release (Adult Low Dose Aspirin) Allergies Allergy/AdvReac Type Severity Reaction Status Date / Time No Known Allergies Allergy Verified 08/22/24 17:10 Review of Systems 2 Review of Systems: As reviewed above in HPI [facility] Past Medical History Medical History Asthma exacerbation Hx of migraines Vaginal delivery Ruptured left tubal ectopic causing hemoperitoneum (~10/09/19) Pyelonephritis Bronchitis Asthma Surgical History Surgical History History of hernia surgery Robotic assisted repair incarcerated incisional hernia with mesh with defect approximately 3.5 cm on 04/02/23 PDC History of carpal tunnel surgery of right wrist Hx of cholecystectomy History of tonsillectomy Family History Family History Mother Hypertension A-fib Depression Heart disease Father Diabetes mellitus Kidney calculi Grandparent Breast cancer in female Diabetes mellitus Heart disease Hypertension Sibling Depression Social History Social History Smoking status: Never smoker Second hand tobacco smoke exposure: No Alcohol intake: never Substance use: never Substance use type: does not use Do You Feel Safe in your Home?: Yes Lack of Transportation: No Lack of Food: Never True Current Housing: I Have Housing Concerned About Future Housing: No Difficulty Paying Gas/Electric Bills: No Difficulty Paying for Meds: No Currently Unemployed: No Education: Associate Degree Difficulty w/ Childcare or Family Care: No Living arrangements: with family Gender identity (if verbalized by the patient): Female Spiritual care concerns: No Agree to blood products: Yes Exam 2 Narrative: GENERAL: Uncomfortable appearing but not in any acute distress, vomitus back at bedside HEAD: [Normocephalic, atraumatic.] EYES: [PERRLA and EOMI.] ENT: Nares clear, no rhinorrhea or epistaxis. Mucous membranes moist. NECK: Supple. CHEST: [Clear to auscultation. No respiratory distress.] HEART: [Regular rate and rhythm]. No murmur heard. [Normal peripheral pulses.] Normal heart tones obtained ABDOMEN: [Soft, nondistended], tender to palpation in the midepigastrium and near the umbilical region, no masses or hernias appreciated, [No rigidity or guarding] EXTREMITIES: Normal range of motion. [No edema.] SKIN: Warm, dry, no rash. NEURO: [No focal deficits]. Alert and oriented [x3.] PSYCH: [Normal mood and affect.] Course Vital Signs Vital signs: Vital Signs Temperature 36.5 C 09/07/24 12:42 Pulse Rate 103 H 09/07/24 12:42 Respiratory Rate 20 09/07/24 12:42 Blood Pressure 136/86 09/07/24 12:42 Pulse Oximetry 100 09/07/24 12:42 Temperature 36.5 C 09/07/24 12:42 Pulse Rate 86 09/07/24 23:25 Respiratory Rate 20 09/07/24 23:25 Blood Pressure 122/79 09/07/24 23:25 Pulse Oximetry 96 09/07/24 23:25 MDM - Abdominal Pain MDM Narrative Medical decision making narrative: This is a 34-year-old female who is approximately 12 weeks by last ultrasonography and menstrual period dates. She was recently in the hospital for influenza a and exacerbation of her pneumonia treated with steroids and nebulizers. She is a complex surgical history with a previous ruptured ectopic, inguinal hernia with incarcerated bowel requiring repair, cholecystectomy. She has a tender abdomen the midepigastrium to the umbilicus, no appreciable masses or hernias. She has vomiting several times, last bowel movement 2 days ago. No fever chills, chest pain shortness a breath. She is uncomfortable appearing but not any acute distress. heart tones were obtained and normal. Considerations presently are for potential bowel obstruction, gastroenteritis, normal abdominal pain and , GERD. Laboratory studies were obtained triage she was given a combination of Pepcid and GI cocktail which did not improve her symptoms. Her laboratory studies do show a significant leukocytosis of 15.4 but she does recently complete steroid so this could be artificially elevated. Her laboratory studies otherwise showed no electrolyte deficiencies, normal renal and hepatic function panel. I went over the risks and benefits of CT imaging with the patient and thoughts on pursuing this with the concerning historical features of her presentation today. Patient did agree and consented to obtain a CT scan while . This was ordered and she was given additional pain medications including Toradol, additional Pepcid, Zofran and a fluid bolus and re-evaluated frequently. She is slightly tachycardic but otherwise afebrile without any blood pressure concerns, respiratory concerns or hypoxia. Patient was re-evaluated frequently and had significant improvement her pain without any recurrence after initial medication. Her tachycardia had resolved and she remained afebrile with normal blood pressure. Urinalysis shows no convincing evidence for urinary infection and some slight dehydration for which she was provided fluid bolus. Beta hCG was elevated. The CT scan showed a short segment of possible terminal ileitis with adjacent mesenteric fat stranding as well as a moderate-sized local hernia without obstruction which patient has had previously. Appears slightly increased in size from previous study. Adnexal cyst and fibroid. I did also order OB ultrasound which shows a ongoing 13 week . A consult did Gastroenterology regarding patient's CT findings. We went over the imaging results together with Dr. Carreno as well as patient's clinical assessment and laboratory workup. He thought that the terminal ileitis was likely not infectious in nature and not necessarily indicative of any kind of inflammatory bowel disease. Recommended holding any kind of antibiotic or steroid and to obtain stool studies and have outpatient follow-up with him. I relayed this information to the patient and she felt relieved. She is presently asymptomatic and has not had any recurrence for abdominal pain, nausea. She would prefer to do the stool studies on outpatient basis and was given the appropriate clinic instructions and follow-up. She was given very strict return precautions and instructed to follow-up with her OBGYN on a short-term basis. Patient and family verbalized understanding and were safe for discharge home at this time. Medical Records Attestation: I reviewed the patient's medical records. Lab Data Attestation: I reviewed the patient's lab results. 09/07/24 16:15 09/07/24 16:15 Labs: Lab Results 09/07/24 09/07/24 Range/Units 16:15 21:49 WBC 15.2 H (4.5-10.0) K/mm3 RBC 5.00 (4.2-5.4) M/mm3 Hgb 15.0 (12.0-15.0) g/dL Hct 45.5 (37.0-47.0) % MCV 91.0 (80-100) fl MCH 30.0 (26-34) pg MCHC 33.0 (32-36) g/dl RDW 13.4 (11.5-14.5) % Plt Count 255 (150-375) k/mm3 MPV 9.3 (7.4-10.4) fl Immature Gran % (Auto) 0.9 H (0-0.5) % Neut % (Auto) 82.1 H (45.5-73.1) % Lymph % (Auto) 11.7 L (18.3-44.2) % [place] % (Auto) 4.7 (2.6-8.5) % Eos % (Auto) 0.3 (0-4.4) % Baso % (Auto) 0.3 (0.2-1.2) % Lymph # (Auto) 1.77 (0.9-3.2) K/mm3 Converse # (Auto) 0.7 H (0.1-0.6) K/mm3 Eos # (Auto) 0.1 (0-0.3) K/mm3 Baso # (Auto) 0.0 (0.0-0.1) K/mm3 Abs Immat Gran (auto) 0.14 H (0.00-0.031) K/mm3 Absolute Neuts (auto) 12.4 H (1.3-6.7) K/mm3 Absolute Nucleated RBC 0.000 (0.0-0.012) K/mm3 Nucleated RBC % 0.0 (0.0-0.2) % Sodium 136 L (137-145) mmol/L Potassium 3.5 (3.4-5.0) mmol/L Chloride 103 (98-107) mmol/L Carbon Dioxide 22 (22-30) mmol/L Anion Gap 11 (4-12) mmol/L BUN 9 (7-17) mg/dL Creatinine 0.54 L (0.7-1.0) mg/dL Estim Creat Clear Calc 172 ml/min Estimated GFR > 60 (59 - ) Glucose 83 (65-110) mg/dL Calcium 9.1 (8.4-10.2) mg/dL Total Bilirubin 0.9 (0.2-1.3) mg/dL AST 16 (14-36) U/L ALT 15 (6-35) U/L Alkaline Phosphatase 51 (38-126) U/L Total Protein 7.0 (6.3-8.2) g/dL Albumin 3.8 (3.5-5.1) g/dL Lipase 111 (23-300) U/L Beta HCG, Quant 46288.00 mIU/ML Urine Color Yellow (Yellow) Urine Appearance Clear (Clear) Urine pH 6.0 (5.0-9.0) Ur Specific [place] > 1.045 H (1.001-1.035) Urine Protein 1+ H (Negative) mg/dL Urine Glucose (UA) Negative (Negative) mg/dL Urine Ketones 1+ H (Negative) mg/dL Ur Blood (Man) 1+ H (Negative) Urine Nitrate Negative (Negative) Urine Bilirubin Negative (Negative) Urine Urobilinogen 0.2 (<2.0) mg/dL Add Ur Microanalysis Reviewed Leukocyte Esterase Rfl Negative (Negative) MODESTA/UL Urine RBC 11-20 H (0-2) /hpf Urine WBC 0-5 (0-3) /hpf Ur Squamous Epith Cells Occasional (Few) /hpf Urine Bacteria 1+ H /hpf Urine Casts 3-5 Influenza A (RT-PCR) Negative (Negative) Influenza B (RT-PCR) Negative (Negative) RSV (RT-PCR) Negative (Negative) SARS-CoV-2 RNA (RT-PCR) Negative (Negative) Imaging Data Attestation: I personally reviewed and interpreted this imaging study as follows: Radiologist's impression: ITS Impressions Abdomen/Pelvis CT 09/07/24 21:24 IMPRESSION: Short segment distal ileal wall edema, may terminal ileitis in the appropriate clinical context. Adjacent mesenteric stranding may represent associated inflammatory change. Mesenteric contusion could appear similarly, correlate with history of trauma. Moderate sized fat and fluid containing local hernia, with mild fat stranding suggesting inflammation, increased in size and with increased fluid component since the prior study. Left adnexal cyst and uterine fibroid, both demonstrating interval growth since the prior study. Obstetrics Ultrasound 09/07/24 23:14 IMPRESSION: Single, live intrauterine gestation. Estimated Gestational Age: 13 weeks, 1 days by crown rump length. BERNARDO by ultrasound 03/14/2025. tachycardia at 175 bpm. Large yolk sac measuring 0.7 cm Discharge Plan Discharge Clinical Impression: Abdominal pain, Noninfectious ileitis, Normal first in first trimester, Abdominal hernia without obstruction or gangrene Patient Disposition: Home, Self-Care Condition: Stable Instructions: Antibiotic Form, Umbilical Hernia (ED), Abdominal Pain in (ED) Additional Instructions: Your CT scan shows a small area of with is called ileitis or inflammation of the distal ileum, there is some adjacent inflammatory changes there which are nonspecific and likely unrelated to any kind of infectious process. Your Ob ultrasound shows a 13 week ongoing . We will have you follow-up with Gastroenterology Dr. Carreno in the office where he will be able to obtain some stool studies to make sure that there is no concerning findings or features that need to be treated but he did not recommend any kind of antibiotics or need for steroids at this time. You can continue taking Tylenol for any residual abdominal pain and we will send you home with some nausea controlling medications and Bentyl for abdominal cramping sensations which is safe in . If you have any recurrence of severe abdominal pain, intractable nausea, inability to pass bowel movements or any other concerning symptoms please return to the emergency department for evaluation at that time. Follow- up with your regular OBGYN on outpatient basis. Patient Language: Turkish Prescriptions: New acetaminophen [Tylenol Extra Strength] 500 mg tablet 1,000 mg PO TID PRN (Reason: pain) Qty: 30 0RF dicyclomine 20 mg tablet 20 mg PO TID PRN (Reason: abdominal pain) Qty: 20 0RF ondansetron 4 mg tablet,disintegrating 4 mg PO Q8H PRN (Reason: nausea and vomiting) Qty: 10 0RF No Action Adults Multivitamin See Rx Instructions BYMOUTH DAILY Rx Instructions: 1 TAB orally daily; loratadine 10 mg BYMOUTH DAILY aspirin [Adult Low Dose Aspirin] 81 mg tablet,delayed release (DR/EC) 81 mg PO DAILY guaifenesin [Mucus Relief ER] 600 mg Tablet Extended Release 12hr 600 mg PO Q12HR Qty: 14 0RF prednisone 10 mg tablets,dose pack See Taper PO DAILY 12 Days Qty: 42 0RF Taper: Prednisone Taper from 60 mg;12 days 60 mg DAILY for 2 Days and 0 Hour 50 mg DAILY for 2 Days and 0 Hour 40 mg DAILY for 2 Days and 0 Hour 30 mg DAILY for 2 Days and 0 Hour 20 mg DAILY for 2 Days and 0 Hour 10 mg DAILY for 2 Days and 0 Hour albuterol sulfate 90 mcg/actuation HFA aerosol inhaler 1 inh inhalation Q4H PRN (Reason: shortness of breath or wheezing) Qty: 8.5 1RF montelukast 10 mg tablet See Rx Instructions .ROUTE .COMPLEX Qty: 30 0RF Dose Instruction: TAKE 1 TABLET BY MOUTH DAILY IN THE EVENING AT BEDTIME Rx Instructions: TAKE 1 TABLET BY MOUTH DAILY IN THE EVENING AT BEDTIME albuterol sulfate 2.5 mg /3 mL (0.083 %) solution for nebulization 2.5 mg inhalation Q6H PRN (Reason: Shortness Of Breath Or Wheezing) Qty: 90 2RF Follow-up/Referrals: Gale Pereira NP [Primary Care Provider] - Benigno Powers MD [Physician] - 1 Week (Ileitis) Time of Disposition: 00:06
[2024-09-07] MEDS: BELLADONNA ALK/PHENOB ELIX 10 ML, MAG HYDROX/ALUMINUM HYD/SIMETH 30 ML, LIDOCAINE 2% VI... PO (19:54)
[2024-09-07] MEDS: ONDANSETRON INJ 4 MG/2 ML VIAL IV PUSH (19:55)
[2024-09-07] MEDS: KETOROLAC 15 MG/ML VIAL (*BKC) IV PUSH (19:55)
[2024-09-07] MEDS: LACTATED RINGERS 1,000 ML 999 ML IV CONT (19:56)
[2024-09-07 19:58] VITALS: BP 122/79; PULSE 97; RESP 13; O2SAT 97
--- OUTSIDE RECORDS SUMMARY | 2024-09-07 20:34 | XMS_ITS | Encounter Summary ---
Author Organization [facility] Address [address] [place] [address] Care Team Providers Care Jockey Valet Name Role Phone Roman Wong MD Primary Care Provider [phone] Adrienne Contreras MD Primary Care Provider [phone] Encounter Details Date Type Department Care Team (Late st Contact Info) Description 03/27/2021 [facility] Outpatient Visit [facility] Orthopedics - Radiology [address] [place] [address] [place] [address] Document, Scanned Social History Tobacco Use Types [...] on filedocumented in this encounter Care Teams Jockey Valet Relationship Specialty Start Date End Date Roman Wong MD [address] [place] [address] PCP - General 10/11/19 04/09/21 Adrienne Contreras MD [address] [place], [place] [id number] PCP - General Family Medicine 04/10/21 documented as of this encounter
--- OUTSIDE RECORDS SUMMARY | 2024-09-07 20:34 | XMS_ITS | Clinical Summary ---
Author Organization [facility] Address [address] [address] Care Team Providers Care Customer Experience Manager Name Role Phone Adrienne Contreras MD Primary Care Provider Source Comments [facility],non-owned Affiliates and Associated Physician Practices is amultiple site organization consisting of ambulatory clinics and hospital sitesin [place], [place], [place] and [place]. This disclosure is being madepursuant to the Care Everywhere program and may not contain all information available regarding this patient. Last updated 18.[facility] Allergies No known active allergies Medications * [...] age to complete this topic Care Teams Customer Experience Manager Relationship Specialty Start Date End Date Adrienne Contreras MD [address] [place] [address] PCP - General Family Medicine 04/10/21
--- OUTSIDE RECORDS SUMMARY | 2024-09-07 20:34 | XMS_ITS | Clinical Summary ---
Author Organization [facility] Address [address] [place] [address] Phone Care Team Providers Care Executive Chef Name Role Phone [facility], External Provider Primary Care Provider U navailable [...] patient's age to complete this topic Insurance [facility] BLUE ACCESS CHOICE Care Teams Executive Chef Relationship Specialty Start Date End Date [facility], External Provider [address] [place] [address] PCP - General 05/28/20
--- OUTSIDE RECORDS SUMMARY | 2024-09-07 20:35 | XMS_ITS | Referral Summary ---
Author Organization [facility] Address [address] [place] [address] Care Team Providers Care Whirley Operator Name Role Phone Adrienne Contreras MD Primary Care Provider Source Comments [facility],non-owned Affiliates and Associated Physician Practices is amultiple site organization consisting of ambulatory clinics and hospital sitesin [place], [place], [place] and [place]. This disclosure is being madepursuant to the Care Everywhere program and may not contain all information available regarding this patient. Last updated 18.[facility] Allergies No known active allergies Medications * [...] of Treatment Not on file Care Teams Whirley Operator Relationship Specialty Start Date End Date Adrienne Contreras MD [address] [place] [address] PCP - General Family Medicine 04/10/21
--- OUTSIDE RECORDS SUMMARY | 2024-09-07 20:35 | XMS_ITS | Patient Health Summary ---
Author Organization [facility] Address [address] [place] [address] Care Team Providers Care Seat Joiner Name Role Phone Adrienne Contreras MD Primary Care Provider [phone] Note from [facility],non-owned Affiliates and Associated Physician Practices is amultiple site organization consisting of ambulatory clinics and hospital sitesin [place], [place], [place]. This disclosure is being madepursuant to the Care Everywhere program and may not contain all information available regarding this patient. Last updated 18.[facility] Allergies No known active allergies Medications * [...] 50.34 04/10/2021 9:32 AM CDT Procedures * HI REVISE MEDIAN N/CARPAL TUNNEL SURG(Performed 04/10/2021) Performed for Right carpal tunnel syndrome * HCG URINE QUAL POCT NOTIFICATION(Performed 04/10/2021) Performed for Preop examination * HCG URINE QUALITATIVE - POCT (IP) INTERFACED(Performed 04/10/2021) Results * HCG URINE QUAL POCT NOTIFICATION (04/10/2021 10:31 AM CDT) Comment Notification Label Only - See Separate Report 04/10/2021 10:31 AM CDT -[facility] Urine URINE / Unknown 9:27 AM CDT Indio Valdez DO LAB - URINALYSIS ORD ERABLES [facility] [address] [place] [address] * HCG URINE QUALITATIVE - POCT (IP) INTERFACED (04/10/2021 9:46 AM CDT) HCG Qual Urine Negative Negative 04/10/2021 9:51 AM CDT [facility] Urine URINE / Unknown 04/10/2021 9 :46 AM CDT 04/10/2021 9:51 AM CDT Anca Hartman MD LAB - POINT OF CARE ORDERABLES [facility] [address] [place] [address] Care Teams Seat Joiner Relationship Specialty Start Date End Date Adrienne Contreras MD [address] [place] [address] PCP - General Family Medicine 04/10/21
[2024-09-07 22:19] LABS: Add Urine Microscopic? YES; Appearance Urine Clear (Clear); Bacteria Urine 1+ /hpf; Bilirubin Urine Negative (Negative); Blood Urine 1+ (Negative); Color Urine Yellow (Yellow); Glucose Urine UA Negative (Negative); Ketones Urine 1+ mg/dL (Negative); Leukocyte Esterase Ur Negative LEU/UL (Negative); Need Manual Microscopic Reviewed; Nitrate Urine Negative (Negative); Protein Urine 1+ mg/dL (Negative); Specific Grav Ur > 1.045 (1.001-1.035); Squamous Epithelial Cell Urine Occasional /hpf (Few); Urobilinogen Urine 0.2 mg/dL (<2.0); WBC Urine 0-5 /hpf (0-3)
[2024-09-07 23:25] VITALS: BP 122/79; PULSE 86; RESP 20; O2SAT 96
== END 2024-09-08 00:18 | disposition home or self-care (01) ==
PROVIDERS: Physician Assistant; Emergency Provider Student in an Organized Health Care Education/Training Program; PCP Nurse Practitioner Family
DX: O99.611 Diseases of the digestive system complicating pregnancy, first trimester (principal); K52.9 Noninfective gastroenteritis and colitis, unspecified; K42.9 Umbilical hernia without obstruction or gangrene; Z20.822 Contact with and (suspected) exposure to COVID-19; O99.511 Diseases of the respiratory system complicating pregnancy, first trimester; J45.909 Unspecified asthma, uncomplicated; Z87.440 Personal history of urinary (tract) infections; Z90.49 Acquired absence of other specified parts of digestive tract; O99.891 Other specified diseases and conditions complicating pregnancy; N94.89 Other specified conditions associated with female genital organs and menstrual cycle; D25.9 Leiomyoma of uterus, unspecified; Z3A.13 13 weeks gestation of pregnancy; Z79.82 Long term (current) use of aspirin; Z79.899 Other long term (current) drug therapy
CPT/HCPCS: 36415; 74177; 76801; 76817; 80053; 81001; 83690; 84702; 85025; 87637; 96361; 96374; 96375; 96376; 99284; A9270; J1885; J2405; J2765; J7120; Q9967

== ENCOUNTER 2024-10-06 16:45 | Outpatient (CLI) | payer BC, SELFPAY ==
[2024-10-06 18:10] LABS: Toxigenic C. Diff NEGATIVE (NEGATIVE)
== END 2024-10-06 16:46 | disposition home or self-care (01) ==
LOC: ANHLAB 16:46
PROVIDERS: PCP Nurse Practitioner Family; Visit Provider Nurse Practitioner
DX: K50.00 Crohn's disease of small intestine without complications (principal); R93.3 Abnormal findings on diagnostic imaging of other parts of digestive tract
CPT/HCPCS: 83993; 87045; 87269; 87427; 87449; 87493

== ENCOUNTER 2025-03-11 09:45 | Outpatient (RCR) | payer BC, SELFPAY ==
[2025-02-08 12:53] VITALS: BP 111/63; PULSE 90
[2025-03-04 10:28] VITALS: BP 107/58; PULSE 94
[2025-03-11 10:18] VITALS: BP 117/73; PULSE 78
== END 2025-03-18 10:48 | disposition home or self-care (01) ==
LOC: ANHOBOP 09:45
PROVIDERS: PCP Nurse Practitioner Family; Visit Provider Advanced Practice Midwife
DX: O36.8330 Maternal care for abnormalities of the fetal heart rate or rhythm, third trimester, not applicable or unspecified (principal); Z3A.33 33 weeks gestation of pregnancy; Z3A.37 37 weeks gestation of pregnancy; Z3A.38 38 weeks gestation of pregnancy
CPT/HCPCS: 59025

== ENCOUNTER 2025-03-17 05:06 | Inpatient (IN) | payer BC, SELFPAY ==
[2025-03-17] VITALS (142 sets, daily range): BP systolic 90–140; BP diastolic 41–91; PULSE 61–144; TEMP 36.8–37.6; O2SAT 93–99; BMI 56.3
--- NOTE | 2025-03-17 05:06 | LDADM ---
This patient, Alexander Sawant, was admitted to Labor/Delivery/Recovery 103 on 03/17/25 at 05:06. Plans for labor, pain management and were discussed with patient. Patient/family oriented to hospital policies and general routines including ID bracelet, bed and alarms, visiting hours, pain management, procedures, bathroom and other care routines, personal items, smoking policy, room service/diet and guest tray routines, security routines, and visiting hours. Patient/Family are encouraged to report perceived risks to care and to ask questions if they do not understand what they are told or what they should do. See OBIX for further documentation.
--- OUTSIDE RECORDS SUMMARY | 2025-03-17 05:12 | XMS_ITS | Clinical Summary ---
Author Organization [facility] Address [address] [place] [address] Phone Care Team Providers Care Varnisher Name Role Phone [facility], External Provider Primary Care Provider U navailable [...] Health Maintenance Due Date Last Done Comments HPV VACCINES (1 - 3-dose series) 02/08/2007 DTAP/TDAP/TD VACCINES (1 - Tdap) 02/08/2011 HEPATITIS B VACCINES (1 of 3 - 19+ 3-dose series) 09/2010 HPV/Cotest (21-29) 02/08/2013 HPV/Cotest (30-65) 02/08/2022 CERVICAL CANCER SCREENING 04/08/2022 PAP SMEAR 04/08/2022 04/08/2019 INFLUENZA VACCINE (#1) 2025 Insurance [facility] BLUE ACCESS CHOICE Care Teams Varnisher Relationship Specialty Start Date End Date [facility], External Provider [address] [place] [address] PCP - General 05/28/20
--- OUTSIDE RECORDS SUMMARY | 2025-03-17 05:12 | XMS_ITS | Encounter Summary ---
Author Organization [facility] Address [address] [place] [address] Care Team Providers Care Catering Coordinator Name Role Phone Roman Wong MD Primary Care Provider [phone] Adrienne Contreras MD Primary Care Provider [phone] Encounter Details Date Type Department Care Team (Late st Contact Info) Description 03/27/2021 [facility] Outpatient Visit [facility] Orthopedics - Radiology [address] [place], [place] [address] [place] [address] Document, Scanned Social History Tobacco Use Types Packs/Day Years Used Date Smoking Tobacco: Never Assessed Comments Unknown Sex and Gender Information Value Date Recorded Sex Assigned at Not on file Legal 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
--- OUTSIDE RECORDS SUMMARY | 2025-03-17 05:12 | XMS_ITS | Clinical Summary ---
Author Organization [facility] Address [address] [place] [address] Care Team Providers Care Pole Shaver Name Role Phone Adrienne Contreras MD Primary Care Provider [phone] Source Comments [facility],non-owned Affiliates and Associated Physician Practices is amultiple site organization consisting of ambulatory clinics and hospital sitesin [place], [place], [place] and [place]. This disclosure is being madepursuant to the Care Everywhere program and may not contain all information available regarding this patient. Last updated 18.[facility] Allergies Active Allergy Reactions Criticality Noted Date Comments Seasonal Unknown 02/15/2025 Medications * Be aware that medications may not be up to date on this document. Alwaysverify current medications with the patient. montelukast (SINGULAIR) 10 MG tablet TAKE 1 TABLET BY MOUTH DAILY IN THE EVENING 1 Active w/o A Vit-Fe Fum-FA (PRENATA PO) Take by mouth once daily Active aspirin (Aspirin) 81 MG chew tablet Take 1 (one) tablet by mouth once daily (chew and swallow) Active pantoprazole EC (Protonix) 20 MG tablet Take 1 (one) tablet by mouth once daily Active famotidine (Pepcid) 10 MG tablet Take 1 (one) tablet by mouth at bedtime Active HYDROcodone-pradip taminophen (NORCO) 5-325 MG tablet Take 0.5 (one-half) tablet to 1 (one) tablet by mouth every 4 hours as needed for Pain 15 tablet 1 02/25/20 25 Discontinu ed(List Clean-Up) Active Problems Problem Noted Date Diagnosed Date Obesity affecting in third trimester 0 02/22/2025 Uterine fibroids affecting in third tr imester 02/22/2025 Abnormal ultrasound 02/22/2025 Ovarian cyst affecting pregn nicholas in third trimester, antepartum 02/22/2025 History of pre-eclampsia 02/22/2025 History of pre-eclampsia in prior , currently , third trimester 02/22/2025 Estimated Date of Delivery Comme nts Yes 03/22/2025 Based on last me nstrual period of 06/15/2024 Resolved Problems Problem Noted Date Diagnosed Date Resolved Date Pyelonephritis 201102/23/20 25 Encounters Date Type Department Care Team Description 02/22/2025 9:34 AM CDT - 02/22/2025 11:59 PM CDT Hospital Encounter [facility] Maternal & [facility] [address] [place] [phone] Alexandra Ellis MD Discharge Disposition: Home or Self Care 02/22/2025 8:53 AM CDT - 02/22/2025 9:33 AM CDT Hospital Encounter [facility] [address] [place] [phone] Alexandra Ellis MD Discharge Disposition: Home or Self Care 02/22/2025 8:52 AM CDT Hospital Encounter [facility] [address] [place] [phone] Alexandra Ellis MD Discharge Disposition: Home or Self Care 02/03/2025 Telephone [facility] [address] [place] [phone] Lata Rose RN Future Appointment (Melissa notified patient is scheduled for 02/22/25 @ 0900.) from Last 3 Months Social History Tobacco Use Types Packs/Day Years Used Date Smoking Tobacco: Never Smokeless Tobacco: Never Alcohol Use Standard Drinks/Week Comments Never 0 (1 standard drink = 0.6 oz pur e alcohol) Estimated Date of Delivery Comme nts Yes 03/22/2025 Based on last me nstrual period of 06/15/2024 Sex and Gender Information Value Date Recorded Sex Assigned at Not on file 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[employer] Gender Identity Not on file Sexual Orientation Not on file Last Filed Vital Signs Vital Sign Reading Time Taken Comments Blood Pressure 128/68 02/22/2025 9:19 AM CDT Pulse 92 02/22/2025 9:19 AM CDT Temperature 36.2 C (97.1 F) 04/10/2021 9:37 AM CDT Respiratory Rate 20 04/10/2021 12:15 PM CDT Oxygen Saturation 97% 04/10/2021 12:15 PM CDT Inhaled Oxygen Concentration - - Weight 134.7 kg (297 lb) 02/22/2025 9:19 AM CDT Height 152.4 cm (5') 02/22/2025 9:19 AM CDT Body Mass Index 58 02/22/2025 9:19 AM CDT Plan of Treatment Health Maintenance Due Date Last Done Comments DTAP/TDAP/TD VACCINES (1 - Tdap) 02/08/2011 HEPATITIS B VACCINE (1 of 3 - 19+ 3-dose series) 02/08/2011 PNEUMOCOCCAL VACCINE (1 of 2 - PCV) 02/08/2011 PAP SMEAR 02/08/2013 HPV VACCINE (1 - 3-dose SCDM series) 02/08/2019 COVID-19 VACCINE (1 - 2023-2 5 season) 2024 DEPRESSION SCREENING 08/10/2024 OB-TDAP CURRENT 12/21/2024 OB-RHOGAM INJECTION 12/28/2024 OB-GROUP B STREP SCREEN 02/15/2025 02/04/2021 INFLUENZA VACCINE (#1) 2025 ZOSTER VACCINE (1 of 2) 02/08/2042 HEPATITIS C SCREENING Completed 09/14/2024 HIV SCREENING Completed 12/30/2024, 09/14/2024 OB-ONE HOUR GLUCOSE Completed 12/30/2024 HIB VACCINE Aged Out No longer eligi ble based on patient's age to complete this topic MENINGOCOCCAL (Group B) VACCINE SHARED DECISION-MAKING Aged Out No longer eligible based on patient's age to complete this topic MENINGOCOCCAL GROUPS A/C/Y/W VACCINE Aged Out No longer eligible b ased on patient's age to complete this topic Respiratory Syncytial Virus (RSV) Vaccine Pt: or over 60 yrs (No Doses Required) Completed Procedures Procedure Name Priority Date/Time Associated Diagnosis Comments SONOGRAM - COMPLETE Routine 02/22/2025 9 :01 AM CDT Encounter for ultrasound to assess growth ([facility]) Encounter for anatomic survey ([facility]) Circumvallate placenta in third trimester ([facility]) Ovarian cyst affecting in third trimester, antepartum ([facility]) History of ectopic Obesity affecting in third trimester, unspecified obesity type ([facility]) 36 weeks gestation of ([facility]) from Last 3 Months Results * Sonogram - Complete (02/22/2025 9:01 AM CDT) Linked Results Indication ======== abnormality, unspecified Umbilical Varix Obesity complicating , Class 3 - BMI of 40.0 or greater BMI 51 with other poor OB history Hx Of Pre-Eclampsia; GHTN History ====== OB History 3. Para 1 [id number] 1. ectopic 2019 2. live 2020. Gest. age 37 w + 2 d. Weight 2,892 g. Sex of child: male. Details: Vaginal delivery; GHTN, Pre-Eclampsia Maternal Assessment Physical Exam Height 155 cm, 5 ft 1 in. Weight 135 kg, 297 lb. Initial weight 124 kg, 274 lb. BMI 56.12 kg/m . Initial BMI 51.77 kg/m . Weight gain 10 kg, 23 lb Method ====== Transabdominal ultrasound. View: Sufficient ========= Bauman . Number of fetuses: 1 Dating ====== Date Details Gest. age BERNARDO LMP 06/15/2024 36 w + 0 d 03/22/2025 Assigned dating based on the LMP, selected on 02/22/2025 36 w + 0 d 03/22/2025 General Evaluation Cardiac activity present. FHR 160 bpm. Presentation: transverse, head maternal right Placenta: Placental site: posterior Umbilical cord: Cord vessels: 3 vessel cord. Insertion site: normal insertion Amniotic Fluid Assessment == Amount of AF: mildly increased MVP 10.4 cm. ADOLFO 28.6 cm. Q1 7.2 cm, Q2 6.6 cm, Q3 10.4 cm, Q4 4.5 cm Biophysical Profile 2: breathing movements 2: Gross body movements 2: tone 2: Amniotic fluid volume 03/17 Biophysical profile score Biometry BPD 98.1 mm 40w 1d >99% Hadlock HC 354.8 mm 41w 4d >99% Hadlock AC 344.4 mm 38w 2d 98% Hadlock Femur 72.2 mm 37w 0d 71% Hadlock Humerus 62.8 mm 36w 3d 77% Theresa HC / AC 1.03 Weight Calculation: EFW 3,544 g 97% Hadlock EFW (lb,oz) 7 lb 13 oz EFW by Hadlock (VVQ-IA-MX-FL) accelerated Growth Overview Exam date GA BPD (mm) HC (mm) AC (mm) FL (mm) HL (mm) EFW (g) 02/22/2025 36w 0d 98.1 >99% 354.8 >99% 344.4 98% 72.2 71% 62.8 77% 3544 97% Anatomy The following structures appear normal: Head / Neck Cranium. Abdomen Stomach. Kidneys. Bladder. The following structures could not be adequately visualized: Head / Neck Lateral ventricles. Choroid plexus. Midline falx. Cavum septi pellucidi. Cerebellum. Cisterna magna. Face Lips. Profile. Nose. Nasal bone. Orbits. Heart / Thorax 4-chamber view. RVOT view. LVOT view. 3-vessel view. 3-wejccn-sdsafao view. Situs. Aortic arch view. Bicaval view. Ductal arch view. Interventricular septum. Great vessels. Right lung. Left lung. Diaphragm. Abdomen Cord insertion. Bowel. Genitals. Spine Cervical spine. Thoracic spine. Lumbar spine. Sacral spine. Extremities / Skeleton Arms. Hands. Legs. Feet. Maternal Structures Right Ovary Not visualized Left Ovary Not visualized Impression ========= Single, live, intrauterine at 36w 0d The growth is accelerated. The amniotic fluid volume is mildly increased, consistent with mild polyhydramnios. - A normally filled stomach is seen. The face is not visualized The biophysical profile is 8/8. anatomic survey is very limited due to late gestational age. Umbilical Varix is seen measuring 1.5cm Follow-up ======== Twice weekly NSTs and weekly BPPs are recommended. movement precautions Close surveillance for hypertenson. Consider delivery between 39-40 weeks. See separate [facility] visit note. Coding ====== Procedures 61420: Biophysical Profile W NST 49750: US Preg Uterus Detailed ClassifEye PACS Anatomical Region Laterality Modality Other 02/22/2025 9:01 AM CDT Nancy Resendiz OVEN BUILDER-DISPLAY FABRICATION SUPERVISOR [facility] ORDERABLES Edited Result - Final from Last 3 Months Insurance [facility] Care Teams Pole Shaver Relationship Specialty Start Date End Date Adrienne Contreras MD [address] [place] [address] PCP - General Family Medicine 04/10/21
--- NOTE | 2025-03-17 07:05 | P.PNAN_ITS ---
Anes - Eval Pre Procedure Procedure: labor epidural Date/Time: 03/17/25 07:05 Surgeon: jesica Preop Diagnosis: pain during labor Pre Op Diagnosis: IOL Patient Data Age: 35 Gender: F Height: Weight: Last Vital Signs Pulse 84 03/17/25 07:03 BP 120/81 03/17/25 07:03 Allergies Allergy/AdvReac Type Severity Reaction Status Date / Time No Known Allergies Allergy Verified 02/25/25 14:48 Home Medications ?Medication ?Instructions ?Recorded ?Confirmed ?Type albuterol sulfate 90 mcg/actuation 1 inh inhalation Q4H PRN shortness 05/16/24 02/25/25 Rx aerosol inhaler of breath or wheezing #8.5 grams loratadine 10 mg BYMOUTH DAILY 06/05/24 02/25/25 History aspirin 81 mg tablet,delayed 81 mg PO DAILY 08/23/24 02/25/25 History release (Adult Low Dose Aspirin) ondansetron 4 mg disintegrating 4 mg PO Q8H PRN nausea and 09/08/24 02/25/25 Rx tablet vomiting #10 tabs docosahexaenoic acid 200 mg mg PO 09/27/24 09/27/24 History capsule ( DHA) dicyclomine 20 mg tablet 20 mg PO TID PRN abdominal pain 09/29/24 02/25/25 Rx #90 tabs albuterol sulfate 2.5 mg/3 mL 2.5 mg (3 mL) inhalation Q6H PRN 12/15/24 02/25/25 Rx (0.083 %) solution for nebulization Shortness Of Breath Or Wheezing #90 mL montelukast 10 mg tablet See Rx Instructions .Route 01/16/25 02/25/25 Rx .COMPLEX #90 tabs famotidine 20 mg tablet 20 mg PO QHS #90 tabs 03/15/25 Rx Patient hx anesthesia problems: none Family hx anesthesia problems: none Results Review: All pre-operative results and documents have been reviewed as part of the pre- operative evaluation. [facility] Past Medical History Medical History (Updated 03/17/25 @ 07:06 by Clari Berrios CRNA) IUP (intrauterine ), incidental Asthma exacerbation Hx of migraines Vaginal delivery Ruptured left tubal ectopic causing hemoperitoneum (~10/09/19) Pyelonephritis Bronchitis Asthma Surgical History Surgical History History of hernia surgery Robotic assisted repair incarcerated incisional hernia with mesh with defect approximately 3.5 cm on 04/02/23 PDC History of carpal tunnel surgery of right wrist Hx of cholecystectomy History of tonsillectomy Family History Family History Mother Hypertension A-fib Depression Heart disease Father Diabetes mellitus Kidney calculi Grandparent Breast cancer in female Diabetes mellitus Heart disease Hypertension Sibling Depression Social History Social History Smoking status: Never smoker Second hand tobacco smoke exposure: No Alcohol intake: never Substance use: never Substance use type: does not use Do You Feel Safe in your Home?: Yes Lack of Transportation: No Lack of Food: Never True Current Housing: I Have Housing Concerned About Future Housing: No Difficulty Paying Gas/Electric Bills: No Difficulty Paying for Meds: No Currently Unemployed: No Education: Associate Degree Difficulty w/ Childcare or Family Care: No Living arrangements: with family Gender identity (if verbalized by the patient): Female Spiritual care concerns: No Agree to blood products: Yes Exam Day of Procedure 03/17/25 07:05
[2025-03-17 07:15] LABS: Hematocrit 35.7 % (37.0-47.0); Hemoglobin 11.2 g/dL (12.0-15.0); Immature Granulocyte Percent A 1.0 % (0-0.5); Lymphocytes Absolute Auto 1.81 K/mm3 (0.9-3.2); Mean Corpuscular HGB Conc 31.4 g/dl (32-36); Mean Corpuscular Hemoglobin 25.2 pg (26-34); Mean Corpuscular Volume 80.2 fl (80-100); Nucleated Red Blood Cells Absolute Auto 0.000 K/mm3 (0.0-0.012); Nucleated Red Blood Cells Perc 0.0 % (0.0-0.2); Platelet Count Result 297 k/mm3 (150-375); Red Blood Count 4.45 M/mm3 (4.2-5.4); White Blood Count 10.9 K/mm3 (4.5-10.0)
--- NOTE | 2025-03-17 07:57 | WPDOBADMIT ---
Obstetrics - Admit Note Admission Note: record reviewed. No pertinent additions to the history and/or any subsequent changes in the physical findings that are not consistent with the expected course of the were found. Additions to the history and/or subsequent changes in the physical findings follow. IOL, umbilical verix, SVE /-3 attempted to AROM,
[2025-03-17] MEDS: LACTATED RINGERS 1,000 ML 125 ML IV CONT ×2 (08:15→17:45)
[2025-03-17] MEDS: OXYTOCIN 30 UNITS/NS 500 ML 30 UNITS/500 ML BAG IV CONT (08:17)
[2025-03-17 08:47] LABS: Syphilis IgG/IgM Antibody Non-Reactive (Nonreactive)
--- NOTE | 2025-03-17 12:23 | PM.IMHP ---
H&P: HPI History of Present Illness Date/Time: 03/17/25 12:23 Chief Complaint: breech presentation Narrative: Patient is a 35 year old at 39 weeks who presented for medical induction of labor for umbilical cord varix. During induction, the fetus flipped to oblique/breech presentation with head in the RUQ. Risks and benefits of primary c section vs external cephalic version were discussed with the patient who would like to proceed with external cephalic version. Review of Systems Review of Systems: All systems reviewed & are unremarkable except as noted in HPI and below PMFSH Past Medical History Medical History (Updated 03/17/25 @ 12:26 by Alexander Carr MD) IUP (intrauterine ), incidental Asthma exacerbation Hx of migraines Vaginal delivery Ruptured left tubal ectopic causing hemoperitoneum (~10/09/19) Pyelonephritis Bronchitis Asthma Surgical History Surgical History History of hernia surgery Robotic assisted repair incarcerated incisional hernia with mesh with defect approximately 3.5 cm on 04/02/23 PDC History of carpal tunnel surgery of right wrist Hx of cholecystectomy History of tonsillectomy Family History Family History Mother Hypertension A-fib Depression Heart disease Father Diabetes mellitus Kidney calculi Grandparent Breast cancer in female Diabetes mellitus Heart disease Hypertension Sibling Depression Social History Social History Smoking status: Never smoker Second hand tobacco smoke exposure: No Alcohol intake: never Substance use: never Substance use type: does not use Do You Feel Safe in your Home?: Yes Lack of Transportation: No Lack of Food: Never True Current Housing: I Have Housing Concerned About Future Housing: No Difficulty Paying Gas/Electric Bills: No Difficulty Paying for Meds: No Currently Unemployed: No Education: Associate Degree Difficulty w/ Childcare or Family Care: No Living arrangements: with family Gender identity (if verbalized by the patient): Female Spiritual care concerns: No Agree to blood products: Yes Meds Home Medications and Allergies Home Medications ?Medication ?Instructions ?Recorded ?Confirmed ?Type albuterol sulfate 90 mcg/actuation 1 inh inhalation Q4H PRN shortness 05/16/24 02/25/25 Rx aerosol inhaler of breath or wheezing #8.5 grams loratadine 10 mg BYMOUTH DAILY 06/05/24 03/17/25 History aspirin 81 mg tablet,delayed 81 mg PO DAILY 08/23/24 03/17/25 History release (Adult Low Dose Aspirin) ondansetron 4 mg disintegrating 4 mg PO Q8H PRN nausea and 09/08/24 03/17/25 Rx tablet vomiting #10 tabs docosahexaenoic acid 200 mg mg PO 09/27/24 09/27/24 History capsule ( DHA) dicyclomine 20 mg tablet 20 mg PO TID PRN abdominal pain 09/29/24 03/17/25 Rx #90 tabs albuterol sulfate 2.5 mg/3 mL 2.5 mg (3 mL) inhalation Q6H PRN 12/15/24 02/25/25 Rx (0.083 %) solution for nebulization Shortness Of Breath Or Wheezing #90 mL montelukast 10 mg tablet See Rx Instructions .Route 01/16/25 03/17/25 Rx .COMPLEX #90 tabs famotidine 20 mg tablet 20 mg PO QHS #90 tabs 03/15/25 Rx Allergies Allergy/AdvReac Type Severity Reaction Status Date / Time No Known Allergies Allergy Verified 02/25/25 14:48 Vital Signs Vital Signs - 24 hr 03/17/25 05:27 03/17/25 05:30 03/17/25 05:45 Temperature Pulse Rate 84 76 78 Blood Pressure 118/78 122/82 117/76 Pulse Oximetry Oxygen Delivery 03/17/25 06:00 03/17/25 06:15 03/17/25 06:30 Temperature Pulse Rate 74 90 81 Blood Pressure 117/82 120/82 120/76 Pulse Oximetry Oxygen Delivery 03/17/25 06:45 03/17/25 07:03 03/17/25 07:15 Temperature Pulse Rate 86 84 85 Blood Pressure 122/77 120/81 122/86 Pulse Oximetry Oxygen Delivery 03/17/25 07:30 03/17/25 07:45 03/17/25 08:00 Temperature Pulse Rate 84 91 85 Blood Pressure 122/83 122/78 119/83 Pulse Oximetry Oxygen Delivery 03/17/25 08:15 03/17/25 08:30 03/17/25 08:35 Temperature 98.6 F Pulse Rate 80 85 Blood Pressure 126/78 119/78 Pulse Oximetry Oxygen Delivery 03/17/25 08:39 03/17/25 08:45 03/17/25 09:00 Temperature Pulse Rate 84 86 Blood Pressure 124/81 125/78 Pulse Oximetry Oxygen Delivery Room Air 03/17/25 09:15 03/17/25 09:30 03/17/25 09:45 Temperature Pulse Rate 87 83 82 Blood Pressure 116/80 124/71 117/77 Pulse Oximetry Oxygen Delivery 03/17/25 10:00 03/17/25 10:15 03/17/25 10:30 Temperature 98.7 F Pulse Rate 76 80 84 Blood Pressure 127/76 125/83 123/76 Pulse Oximetry Oxygen Delivery 03/17/25 10:45 03/17/25 11:00 03/17/25 11:22 Temperature Pulse Rate 83 73 83 Blood Pressure 131/84 123/79 140/80 Pulse Oximetry 99 Oxygen Delivery 03/17/25 11:23 03/17/25 11:25 03/17/25 11:27 Temperature Pulse Rate 80 82 91 Blood Pressure 121/64 128/74 131/81 Pulse Oximetry 99 Oxygen Delivery 03/17/25 11:30 03/17/25 11:32 03/17/25 11:33 Temperature Pulse Rate 89 82 Blood Pressure 133/86 129/75 Pulse Oximetry 99 Oxygen Delivery 03/17/25 11:35 03/17/25 11:37 03/17/25 11:38 Temperature Pulse Rate 80 84 Blood Pressure 136/74 127/78 Pulse Oximetry 98 Oxygen Delivery 03/17/25 11:40 03/17/25 11:42 03/17/25 11:43 Temperature Pulse Rate 76 85 Blood Pressure 130/83 125/82 Pulse Oximetry 97 Oxygen Delivery 03/17/25 11:45 03/17/25 11:47 03/17/25 11:50 Temperature Pulse Rate 81 80 86 Blood Pressure 127/72 126/74 123/71 Pulse Oximetry 95 Oxygen Delivery 03/17/25 11:52 03/17/25 11:55 03/17/25 11:57 Temperature Pulse Rate 79 93 Blood Pressure 120/70 121/76 Pulse Oximetry 94 94 Oxygen Delivery 03/17/25 11:58 03/17/25 12:00 03/17/25 12:02 Temperature Pulse Rate 81 66 Blood Pressure 123/75 121/72 Pulse Oximetry 98 Oxygen Delivery 03/17/25 12:03 03/17/25 12:05 03/17/25 12:07 Temperature Pulse Rate 61 66 76 Blood Pressure 115/61 114/68 114/74 Pulse Oximetry 98 Oxygen Delivery 03/17/25 12:10 03/17/25 12:12 03/17/25 12:15 Temperature Pulse Rate 99 93 82 Blood Pressure 109/73 115/79 122/91 H Pulse Oximetry 93 Oxygen Delivery 03/17/25 12:17 03/17/25 12:18 03/17/25 12:20 Temperature Pulse Rate 82 77 Blood Pressure 132/76 123/78 Pulse Oximetry 96 Oxygen Delivery 03/17/25 12:22 Temperature Pulse Rate Blood Pressure Pulse Oximetry 97 Oxygen Delivery Exam Const: General: comfortable and no acute distress Resp: Effort & Inspection: normal respiratory effort Cardio: Rate: regular rate Extrem: General: normal to inspection Psych: Mental Status: mental status grossly normal H&P: Results Labs Labs: Short CBC 03/17/25 Range/Units 07:07 WBC 10.9 H (4.5-10.0) K/mm3 Hgb 11.2 L D (12.0-15.0) g/dL Hct 35.7 L (37.0-47.0) % Plt Count 297 (150-375) k/mm3 Assessment and Plan Assessment and plan (1) Breech presentation: Code(s): O32.1XX0 - Maternal care for breech presentation, not applicable or unspecified Status: Acute Assessment and Plan: - presentation flipped from cephalic to breech presentation during induction - discussed risks and benefits of external cephalic version vs primary c section - patient would like to proceed with external cephalic version
--- NOTE | 2025-03-17 12:31 | WPDHPUPDATE1 ---
History and Physical Update Update Date/Time: 03/17/25 12:31 History and Physical has been reviewed, including an updated exam of the patient. There are NO changes in the patient's condition. Risks, benefits, and alternatives have been discussed and questions answered. Patient agrees to proceed with procedure.
--- NOTE | 2025-03-17 14:49 | PM.OBPNLAB ---
Pain Control Date/time seen: 03/17/25 14:49 Pain control: epidural Pelvic Exam Dilation (cm): 4 Effacement (%): 50 station: -3 Amniotic membrane status: Ruptured (clear fluid, iupc placed) Status status: Category l Assessment and Plan Pitocin rate (mU/min): 0 Assessment: induction ongoing Comments: At bedside for ECV, baby has now converted to cephalic presentation, confirmed on BSUS. AROM performed with clear fluid returned. Restarting pitocin.
[2025-03-18] VITALS (18 sets, daily range): BP systolic 86–127; BP diastolic 35–76; PULSE 63–131; RESP 16–18; TEMP 36.3–37; O2SAT 96–100
--- NOTE | 2025-03-18 00:18 | PM.OBPRVD ---
OB - Vaginal Delivery Note Procedure Delivery date: 03/18/25 Events: Other (umbilical verix) Intrapartal Events: Decelerations and Ineffetive Pushing/Maternal Exhaustion Induction method: AROM and Per Pitocin Protocol Delivery monitor: External FHT and Internal Uterine Route of delivery: vacuum extraction Episiotomy description: None Laceration Description: Perineal - 1st Degree Delivery repair: vicryl Specimen: Yes Quantitative Blood Loss (ml): 100 Anesthesia type: Spinal Disposition: Floor Narrative: dr. mooney called to bedside, deceleration with pushing, The baby's head was confirmed to be in the (left occiput anterior presentation) with 100% effacement and +2 station. The bladder was drained and soto catheter removed The vacuum was placed and the correct placement in front of the posterior fontanelle was confirmed digitally. With the patient's next contraction, the vacuum was inflated and a gentle downward pressure was used to assist, contraction ended and deflated. next contraction inflated and then brought the baby's head to a +3 station. The contraction ended. The vacuum was released. With the patient's next contraction, the vacuum was reapplied and the baby's head was delivered to a +4 station.zero pop offs, 3 contractions. The vacuum was deflated and removed. The baby's head then delivered atraumatically by ron marin. There was no nuchal cord. The baby's anterior shoulder delivered after a less than 30 second delay. No additional maneuvers were required to deliver the anterior shoulder. The posterior shoulder and remainder of the body delivered easily. [place] Baby Date of : 03/18/25 Time of : 00:04 Gestational Age by Date: 39 Infant gender: Male presentation: vertex position: Left Occiput Anterior Placenta delivery description: Expressed Cord Vessel Description: 3 Vessels, Clamped/Cut and Delayed Cord Clamping score one minute: 8 score five minutes: 9
[2025-03-18] MEDS: OXYTOCIN 30 UNITS/NS 500 ML 30 UNITS/500 ML BAG 125 UNITS IV CONT (01:05)
[2025-03-18] MEDS: IBUPROFEN 600 MG TABLET PO ×3 (01:25→20:04)
[2025-03-18] MEDS: COSYNTROPIN 0.25 MG/ML VIAL 1 MG IV PUSH (03:23)
--- NOTE | 2025-03-18 03:34 | S_PTH ---
PATIENT: Alexander Sawant LOC: [facility] U#:[id number] AGE/SX: 35/F ROOM: 285 RE03/17/[address]: Miguel A Carmona MD : 1990 BED: 00 DIS: 03/19/2025 SPEC #: [id number] RECD: 03/20/25 06:54 STATUS: KYUNG REQ #: [id number] ROSA: 03/18/25 03:[address]: Nancy Resendiz DEPT: [facility] Surgical RECD BY: Krystal Mullins ENTERED: 03/20/25 06:55 SP TYPE: Surgical OTHR DR: MD Gale Rincon NP Tissues: A - Placenta Procedures: Hematoxylin and Eosin Stain Gross and Microscopic Level 5
[2025-03-18] MEDS: ACETAMINOPHEN 325 MG TABLET 650 MG PO ×2 (08:05→20:04)
[2025-03-18] MEDS: MULTIVIT/MIN/PREN/FOL AC/IRON TABLET 1 TAB PO (08:05)
[2025-03-18] MEDS: DOCUSATE SODIUM 100 MG CAPSULE PO (08:05)
[2025-03-18] MEDS: LORATADINE 10 MG TABLET PO (08:05)
--- NOTE | 2025-03-18 11:05 | PC.NURSE ---
Mother verbalizes she is able to independently latch with appropriate positioning and alignment. She denies any nipple discomfort and is responsively . Infant is currently meeting outcomes for weight, output, jaundice, blood sugar and feeding frequencies of 8-12 times in 24 hours. Mother declines any additional assistance or education at this time. Mother is encouraged to call for assistance if her infant doesn?t latch, pain with latching, questions or concerns. Mother voiced understanding of information shared along with the mom/baby guide for an additional resource. Reported to the Primary RN.
--- NOTE | 2025-03-18 13:21 | WPDANLDPN2 ---
Anes-Prog Note L&D Date/Time: 03/18/25 13:21 Comfortable throughout: labor and delivery Neuraxial method: epidural Epidural/Spinal procedure site: clean & non-tender Neuro status: Neuro function grossly intact. Cardiovascular status: normal Respiratory status: normal Airway patency: baseline Mental status: baseline Post-Op hydration status: normal Vital Signs: Last Vital Signs Temp 36.3 C L 03/18/25 12:50 Pulse 75 03/18/25 12:50 Resp 16 03/18/25 12:50 BP 127/76 03/18/25 12:50 Pulse Ox 99 03/18/25 12:50 O2 Del Method Room Air 03/17/25 08:39 Pain score (VAS): 2 I/O: Intake & Output 03/17/25 03/18/25 03/18/25 23:59 07:59 15:59 Intake Total 1000 Output Total 50 Balance 1000 -50 Post-procedural complaints: none Patient feedback: Patient satisfied with anesthetic care.
[2025-03-18] MEDS: MONTELUKAST SODIUM 10 MG TABLET BY MOUTH (21:04)
[2025-03-19 05:26] LABS: Hematocrit 31.3 % (37.0-47.0); Hemoglobin 9.8 g/dL (12.0-15.0)
[2025-03-19 08:00] VITALS: BP 106/50; PULSE 78; RESP 16; TEMP 36.6; O2SAT 97
[2025-03-19] MEDS: MULTIVIT/MIN/PREN/FOL AC/IRON TABLET 1 TAB PO (08:00)
[2025-03-19] MEDS: LORATADINE 10 MG TABLET PO (08:00)
[2025-03-19] MEDS: DOCUSATE SODIUM 100 MG CAPSULE PO (08:00)
[2025-03-19] MEDS: ACETAMINOPHEN 325 MG TABLET 650 MG PO (09:10)
--- NOTE | 2025-03-19 10:26 | P.DS_ITS ---
DS: Admitting Diagnosis Discharge Date 03/19/2025 Admitting Diagnosis Term DS: Discharge Diagnosis Discharge Diagnosis (1) Post term , delivered: Code(s): O48.0 - Post-term Status: Acute OB - DS: Summary OB Procedures : None OB Procedures Intrapartum: Spontaneous Vag Delivery OB Procedures: : None Peripartum Data Laceration Description: Perineal - 1st Degree Episiotomy description: None Time Spent with Patient Time attestation: Total time spent providing and/or coordinating discharge services: DS: Data Data Completed and Pending Pending studies at discharge: Pending at discharge 03/18/25 03:34 Surgical [PTH] Routine Labs on day of discharge: Labs from last 24 hours 03/19/25 05:12 Hgb 9.8 L Hct 31.3 L Discharge Plan Discharge Consulting providers: Nancy Resendiz Discharging Clinician: Miguel A Carmona Patient Disposition: Home Activity: pelvic rest Diet: regular Patient Instructions: Antibiotic Form Patient Language: Panamanian Stand Alone Forms: General Discharge Information Follow-up/Referrals: Miguel A Carmona MD [Physician] - Discharge Medications: No Action loratadine 10 mg BYMOUTH DAILY DHA 200 mg capsule PO aspirin [Adult Low Dose Aspirin] 81 mg tablet,delayed release (DR/EC) 81 mg PO DAILY ondansetron 4 mg tablet,disintegrating 4 mg PO Q8H PRN (Reason: nausea and vomiting) Qty: 10 0RF albuterol sulfate 90 mcg/actuation HFA aerosol inhaler 1 inh inhalation Q4H PRN (Reason: shortness of breath or wheezing) Qty: 8.5 1RF dicyclomine 20 mg tablet 20 mg PO TID PRN (Reason: abdominal pain) Qty: 90 3RF albuterol sulfate 2.5 mg /3 mL (0.083 %) solution for nebulization 2.5 mg inhalation Q6H PRN (Reason: Shortness Of Breath Or Wheezing) Qty: 90 2RF montelukast 10 mg tablet See Rx Instructions .ROUTE .COMPLEX Qty: 90 3RF Dose Instruction: TAKE 1 TABLET BY MOUTH DAILY IN THE EVENING AT BEDTIME Rx Instructions: TAKE 1 TABLET BY MOUTH DAILY IN THE EVENING AT BEDTIME famotidine 20 mg tablet 20 mg PO QHS Qty: 90 1RF Date of admission: 03/17/25 05:06 Primary Care Provider: Gale Pereira Admitting Provider: Miguel A Carmona Attending physician on admission: Miguel A Carmona Condition: Stable
--- NOTE | 2025-03-19 10:26 | P.PNOB_ITS ---
OB - PN: Subj Subjective Date/time seen: 03/19/25 10:26 Patient comments: no complaints, pain well controlled and tolerating diet OB - PN: Obj Data Labs 03/19/25 05:12 Labs: Laboratory Results - last 24 hr 03/19/25 05:12 Hgb 9.8 L Hct 31.3 L OB - PN A/P Plan day: 2 Plan: routine care and discharge home Time Spent With Patient Time: Total time spent is greater than 50% in coordination of care (as documented) at patient's floor/unit and/or counseling patient: Exam 2 Const: General: comfortable and no acute distress Resp: Effort & Inspection: normal respiratory effort Auscultation: no rales, no rhonchi and no wheezes Cardio: Rate: regular rate Heart sounds: no click, no murmurs and no rubs GI: GI Palp: Yes Soft to palpation and No Tenderness to palpation present (GI) Auscultation: normal bowel sounds Extrem: General: normal to inspection, no pedal edema and no calf tenderness
[2025-03-22 08:19] VITALS: BP 134/72; PULSE 78; RESP 18; TEMP 36.6; O2SAT 99
== END 2025-03-19 12:50 | disposition home or self-care (01) | DRG 807 ==
LOC: ANHLDR 05:15 → ANHOB2 03-18 03:05
PROVIDERS: Advanced Practice Midwife; Admitting Provider Obstetrics & Gynecology; PCP Nurse Practitioner Family; Visit Provider Obstetrics & Gynecology
DX: O32.1XX0 Maternal care for breech presentation, not applicable or unspecified (principal); Z37.0 Single live birth; O70.1 Second degree perineal laceration during delivery; O76 Abnormality in fetal heart rate and rhythm complicating labor and delivery; O99.52 Diseases of the respiratory system complicating childbirth; J45.909 Unspecified asthma, uncomplicated; Z90.49 Acquired absence of other specified parts of digestive tract; O77.0 Labor and delivery complicated by meconium in amniotic fluid; Z3A.39 39 weeks gestation of pregnancy
CPT/HCPCS: 36415; 85014; 85018; 85025; 86593; 86850; 86900; 86901; 88307; A9270; J0834; J2590; J2795; J7120